=== PATIENT | male | born 1965 | race Caucasian/White ===

== ENCOUNTER 2024-02-13 11:41 | Emergency (ER) | payer SELFPAY ==
[2024-02-13 12:31] LABS: % Basophils 2.2 % (0-2); % Eosinophils 5.6 % (0-6); % Immature Granulocytes 0.3 % (0-0.5); % Lymphocytes 32.6 % (20.5-51.1); % Monocytes 5.8 % (1.7-9.3); % Neutrophils 53.5 % (42.2-75.2); Absolute Basophils 0.1 10^3/uL (0-0.2); Absolute Eosinophils 0.2 10^3/uL (0-0.7); Absolute Lymphocytes 1.2 10^3/uL (1.2-3.4); Absolute Monocytes 0.2 10^3/uL (0.1-0.6); Absolute Neutrophils 1.9 10^3/uL (1.4-6.5); Hematocrit 36.4 % (39.0-52.0); Hemoglobin 12.5 g/dL (13.0-18.0); Mean Corp Hgb Conc. 34.3 g/dL (33.0-37.0); Mean Corpuscular Hgb 28.9 pg (27.0-31.0); Mean Corpuscular Volume 84.3 fL (80.0-94.0); Mean Platelet Volume 9.4 fL (7.4-10.4); Nucleated Red Blood Cells % 0 % (-); Platelet Count 188 10^3/uL (130-400); Red Blood Cell Count 4.32 10^6/uL (4.70-6.10); Red Cell Dist. Width 16.6 % (11.5-14.5); White Blood Cell Count 3.6 10^3/uL (4.8-10.8)
[2024-02-13 13:03] LABS: ALT (SGPT) 31 U/L (0-50); AST (SGOT) 100 U/L (17-59); Acetaminophen < 10 ug/ml (10-30); Albumin 3.8 g/dl (3.5-5.0); Alkaline Phosphatase 164 U/L (38-126); Blood Urea Nitrogen 11 mg/dl (9-20); Carbon Dioxide 21 mmol/L (22-30); Chloride 112 mmol/L (98-107); Glucose 116 mg/dl (70-99); Magnesium 1.7 mg/dl (1.6-2.3); Potassium 3.3 mmol/L (3.5-5.1); Salicylate < 1.0 mg/dl (2.0-20.0); Sodium 152 mmol/L (135-145); Total Bilirubin 1.6 mg/dl (0.2-1.3); Total Protein 7.2 g/dl (6.3-8.2); eGFR > 60.00
[2024-02-13 13:12] LABS: COVID-19 Antigen Negative (Negative)
--- NOTE | 2024-02-13 13:16 | ED.GENMED ---
History of Present Illness
General
Chief Complaint: Psychiatric Problem
Source: patient and police
Exam Limitations: none
Time Seen by Provider: 02/13/24 12:01
Nursing documentation reviewed up to this point in time: agreed with
History of Present Illness
History of Present Illness:
58-year-old male with a past medical history of asthma/bronchitis, GERD, alcohol use who presents to the emergency room in police custody for psychiatric treatment�patient currently agreeable to treatment but mother is filing a 302 as a backup. The
patient is a very poor historian�he appears to be acutely manic. According to police report/mother patient has not been sleeping recently. He has been expressing suicidal ideation. He has had very erratic behavior. Concerned that he is not
caring for himself and that he is a danger to himself and so he was brought in for psychiatric treatment. He does have a history of alcohol abuse. Patient for his part denies alcohol use. He says that he feels fine. He denies suicidality to me
but clearly is responding to internal stimuli and is behaving very erratically.
Past History
Past History
ED Past Medical History: Asthma
ED Past Surgical History: Cholecystectomy
Social History
Tobacco: Smoker
Alcohol: Chronic alcoholic
Personal: Single
Living: with family
Review of Systems
Review of Systems
All Other Systems: ROS reviewed and negative except as documented in HPI and ROS
Constitutional: Denies fever
Respiratory: Denies trouble breathing
Cardiac: Denies chest pain
ABD/GI: Denies abdominal pain
: Denies flank pain
Musculoskeletal: Denies neck pain or back pain
Neurological: Denies headache
Phy Exam
Physical Exam
Physical Exam:
General: Awake, alert; nontoxic
Head: Normocephalic, atraumatic
Eyes: Conjunctiva normal, pupils equal round and reactive to light bilaterally
Throat: Airway intact, handling secretions
Neck: Trachea midline
Lungs: Clear to auscultation bilaterally, no wheezing, rales, rhonchi
Heart: Regular rate and rhythm, no murmurs, gallops, or rubs
Abd: Soft, non distended, nontender
Neuro: No gross deficits
Skin: no rash
Extremities: No edema in extremities, equal pulses in all extremities
Psych: 'Fine' mood, pressured speech, labile affect
Scores
Heart Failure Risk
Heart Failure Risk Score: Not Applicable
Heart Score for Chest Pain Patients
STEMI patient?: Not applicable
Withdrawal Assessment of Alcohol
Withdrawal Assessment Completed?: Not applicable
Course
Orders/Labs/Results
Orders:
Orders
02/13/24 12:02
Drug Screen, Urine [Urine Drug Abuse Screen] Urgent
Urinalysis Reflex To Culture Urgent
02/13/24 12:03
Crisis Consult Routine
Reason for Consult: suicidal, manic
02/13/24 12:23
Acetaminophen Urgent
Alcohol Urgent
COVID-19 Antigen Urgent
Source: Nasal Swab
Complete Blood Count/With Diff Urgent
Comprehensive Metabolic Panel Urgent
Magnesium Urgent
Salicylate Urgent
02/13/24 13:09
Asenapine Sublingual [Saphris] 10 mg SL NOW STA
02/13/24 13:10
Potassium Chloride [KCl] 40 meq PO NOW STA
02/13/24 13:13
Haloperidol Lactate [Haldol] 5 mg IM NOW STA
02/13/24 13:14
Haloperidol Lactate [Haldol] 5 mg .ROUTE .STK-MED ONE
Midazolam HCl [Versed] 5 mg .ROUTE .STK-MED ONE
02/13/24 13:21
Midazolam HCl [Versed] 5 mg IM NOW STA
02/13/24 13:26
0.9% Sodium Chloride 1000 ml [Nss] 1,000 ml Mvi, Adult [Multivitamin] 10 ml Thiamine Injection 100 mg IV 125 mls/hr
0.9% Sodium Chloride 500 ml [Nss] 500 ml IV BOLUS
Abnormal Lab Results
02/13/24
12:23
WBC 3.6 L 10^3/uL
(4.8-10.8)
RBC 4.32 L 10^6/uL
(4.70-6.10)
Hgb 12.5 L g/dL
(13.0-18.0)
Hct 36.4 L %
(39.0-52.0)
RDW 16.6 H %
(11.5-14.5)
Basophils % 2.2 H %
(0-2)
Sodium 152 H mmol/L
(135-145)
Potassium 3.3 L mmol/L
(3.5-5.1)
Chloride 112 H mmol/L
(98-107)
Carbon Dioxide 21 L mmol/L
(22-30)
Glucose 116 H mg/dl
(70-99)
Total Bilirubin 1.6 H mg/dl
(0.2-1.3)
AST 100 H U/L
(17-59)
Alkaline Phosphatase 164 H U/L
(38-126)
Salicylates < 1.0 L mg/dl
(2.0-20.0)
Acetaminophen < 10 L ug/ml
(10-30)
02/13/24 12:23
02/13/24 12:23
Vital Signs
Initial and Last Documented VS:
Initial Vital Signs
Temp Pulse Resp Pulse Ox
36.8 C 86 16 98
02/13/24 11:45 02/13/24 11:45 02/13/24 11:45 02/13/24 11:45
Last Documented Vital Signs
Temp Pulse Resp Pulse Ox
36.8 C 86 16 98
02/13/24 11:45 02/13/24 11:45 02/13/24 11:45 02/13/24 11:45
MDM/Problems Addressed
Differential Diagnosis Includes:
Angelica, psychosis, drug/alcohol intoxication
MDM/Problems Addressed:
58-year-old male presents to the emergency room police custody on a 201 at present for apparent angelica and suicidal threats. Mother filing a backup 302 with crisis team. He has no complaints; for his part he denies any suicidality. Vitals and exam
as above. Check labs including a CBC and a CMP, tox screen. Case discussed with crisis team or consulting. Patient currently calm and redirectable. Monitor on 1:1. Reassess after the above.
Patient becoming acutely agitated, running out of his room, screaming at the top of his lungs. Attempts at verbal redirection unsuccessful. With escalating behavior will provide chemical sedation with Versed and Haldol for patient and staff
safety. Continue to monitor. Provide some fluids and check screening EKG for QTc monitoring.
Labs reviewed: CBC shows marginal anemia, marginal leukopenia. CMP shows mild hyperkalemia, hypokalemia. Provide potassium, fluids. Tylenol and salicylate levels negative. UDS and alcohol levels pending. 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 Continue to monitor pending placement.
Chronic conditions affecting care:
Alcohol use
*Pulse Oximetry
Patient hypoxic: no
*EKG
Interpreted by ED Provider?: Yes
Heart Rate: 73
Rate: normal
Rhythm: sinus
Coolidge: left axis deviation
Interval: normal interval and normal QT interval
QRS Pattern: normal QRS
Ischemia: no ischemia
*Critical Care Note
Total Time (30-74mins, 75-104mins- exclusive of procedures): Not Applicable
Data Reviewed
Source: patient, family and police
Patient Management
Social determinants of health affecting care: Substance abuse
Discussion with other providers: Other (Discussed with crisis staff)
ED Attending Note
-
Portions of this chart may have been created with voice recognition software.� Occasional wrong word or��sound alike� substitutions may have occurred due to the inherent limitations of voice recognition software.
Discharge Plan
Departure
Patient Disposition: Psych Facility
Date of Disposition: 02/13/24
Time of Disposition: 12:28
Discharge Problem:
Angelica, Verbalizes suicidal thoughts
Prescriptions:
No Action
No Current Medications
0
Referrals:
Louis Coyle MD [Family Provider] -
Interventions
Interventions:
*Risk Screen - Suicide Last Done: 02/13/24 11:48
ED-Psychological Assessment Last Done: 02/13/24 12:26
Discharge Date and Time
Print Language: [id number]
[2024-02-13] MEDS: VERSED 5 MG IM (13:23)
[2024-02-13] MEDS: HALDOL 5 MG IM (13:24)
[2024-02-13 14:09] VITALS: BP 124/76
[2024-02-13] MEDS: NSS 500 IV (14:11)
[2024-02-13 14:14] LABS: Alcohol 383 mg/dl
[2024-02-13] MEDS: MULTIVITAMIN 1011 MG IV (15:01)
[2024-02-13] MEDS: MULTIVITAMIN 1011 ML IV (15:01)
[2024-02-13] MEDS: ATIVAN 1 MG IV (15:38)
[2024-02-13] MEDS: BENADRYL 25 MG IV (15:38)
[2024-02-13 16:00] VITALS: BP 135/76
--- NOTE | 2024-02-13 16:40 | W.PN.UPDATE ---
Update Note
Progress Note Update
Pt seen for 302 exam, allegedly slamming doors and yelling at home, allegedly made a general statement about suicide. Upon exam, pt lying stretcher, unkempt, with rambling speech, c/o his mother doesn't like getting older, that he does everything
for the house... Alcohol level here- 383 at 12:23 pm. Pt denies suicidal ideation. He declines any treatment or services. Pt shows no signs of psychosis; presentation is consistent with alcohol intoxication.
Imp: Alcohol abuse, with intoxication
Rec: [id number] not upheld due to presenting with alcohol intoxication and lack of severity of pt's alleged behaviors
--- NOTE | 2024-02-13 17:14 | ED.GENMED ---
History of Present Illness
General
Chief Complaint: Psychiatric Problem
Time Seen by Provider: 02/13/24 12:01
Past History
Past History
ED Past Medical History: Asthma
ED Past Surgical History: Cholecystectomy
Social History
Tobacco: Smoker
Alcohol: Chronic alcoholic
Personal: Single
Living: with family
Course
Orders/Labs/Results
Orders:
Orders
02/13/24
Electrocardiogram (*1) Stat
Comment: DONE EMR
02/13/24 12:02
Drug Screen, Urine [Urine Drug Abuse Screen] Urgent
Urinalysis Reflex To Culture Urgent
02/13/24 12:03
Crisis Consult Routine
Reason for Consult: suicidal, manic
02/13/24 12:23
Acetaminophen Urgent
Alcohol Urgent
COVID-19 Antigen Urgent
Source: Nasal Swab
Complete Blood Count/With Diff Urgent
Comprehensive Metabolic Panel Urgent
Magnesium Urgent
Salicylate Urgent
02/13/24 13:09
Asenapine Sublingual [Saphris] 10 mg SL NOW STA
02/13/24 13:10
Potassium Chloride [KCl] 40 meq PO NOW STA
02/13/24 13:13
Haloperidol Lactate [Haldol] 5 mg IM NOW STA
02/13/24 13:14
Haloperidol Lactate [Haldol] 5 mg .ROUTE .STK-MED ONE
Midazolam HCl [Versed] 5 mg .ROUTE .STK-MED ONE
02/13/24 13:21
Midazolam HCl [Versed] 5 mg IM NOW STA
02/13/24 13:26
0.9% Sodium Chloride 500 ml [Nss] 500 ml IV BOLUS
02/13/24 15:00
One to One Observation - Suicide/Violent [1:1 Observation - Suicide/ Violent Behavior] As Directed
0.9% Sodium Chloride 1000 ml [Nss] 1,000 ml Mvi, Adult [Multivitamin] 10 ml Thiamine Injection 100 mg IV 125 mls/hr
02/13/24 15:30
Diphenhydramine [Benadryl] 25 mg IV NOW STA
Haloperidol Lactate [Haldol] 2.5 mg IV NOW STA
Lorazepam [Ativan] 1 mg IV NOW STA
Abnormal Lab Results
02/13/24
12:23
WBC 3.6 L 10^3/uL
(4.8-10.8)
RBC 4.32 L 10^6/uL
(4.70-6.10)
Hgb 12.5 L g/dL
(13.0-18.0)
Hct 36.4 L %
(39.0-52.0)
RDW 16.6 H %
(11.5-14.5)
Basophils % 2.2 H %
(0-2)
Sodium 152 H mmol/L
(135-145)
Potassium 3.3 L mmol/L
(3.5-5.1)
Chloride 112 H mmol/L
(98-107)
Carbon Dioxide 21 L mmol/L
(22-30)
Glucose 116 H mg/dl
(70-99)
Total Bilirubin 1.6 H mg/dl
(0.2-1.3)
AST 100 H U/L
(17-59)
Alkaline Phosphatase 164 H U/L
(38-126)
Salicylates < 1.0 L mg/dl
(2.0-20.0)
Acetaminophen < 10 L ug/ml
(10-30)
02/13/24 12:23
02/13/24 12:23
Vital Signs
Initial and Last Documented VS:
Initial Vital Signs
Temp Pulse Resp Pulse Ox
98.2 F 86 16 98
02/13/24 11:45 02/13/24 11:45 02/13/24 11:45 02/13/24 11:45
Last Documented Vital Signs
Temp Pulse Resp BP Pulse Ox
98.2 F 71 19 135/76 97
02/13/24 11:45 02/13/24 16:00 02/13/24 16:00 02/13/24 16:00 02/13/24 16:00
Update Note
Update Note:
Patient is cleared by crisis for discharge.
ED Attending Note
-
Portions of this chart may have been created with voice recognition software.� Occasional wrong word or��sound alike� substitutions may have occurred due to the inherent limitations of voice recognition software.
Discharge Plan
Departure
Patient Disposition: Home (Routine Discharge)
Date of Disposition: 02/13/24
Time of Disposition: 12:28
Patient with high blood pressure during this ER visit?: No
Condition: Fair
Covid-19: Not Applicable
Discharge Problem:
Angelica, Alcohol abuse
Instructions: Alcohol Use Disorder (DC)
Prescriptions:
No Action
No Current Medications
0
Referrals:
Louis Coyle MD [Family Provider] - Follow up in 2-3 days
Interventions
Interventions:
*Risk Screen - Suicide Last Done: 02/13/24 11:48
*General Assessment Last Done: 02/13/24 15:56
*Neglect/Abuse Screening Last Done: 02/13/24 15:56
ED- Fall Risk Assessment Last Done: 02/13/24 15:57
*ED COVID-19 Vaccine History Last Done: 02/13/24 15:56
ED-Psychological Assessment Last Done: 02/13/24 15:57
Discharge Date and Time
Print Language: OCCITAN
[2024-02-13 17:59] VITALS: BP 129/76
== END 2024-02-13 18:00 | disposition home or self-care (01) ==
LOC: EMR 11:41
PROVIDERS: EMERGENCY PHYSICIAN Emergency Medicine; FAMILY PHYSICIAN Family Medicine
DX: R45.851 Suicidal ideations (principal); J45.909 Unspecified asthma, uncomplicated; K21.9 Gastro-esophageal reflux disease without esophagitis; F10.129 Alcohol abuse with intoxication, unspecified; F17.200 Nicotine dependence, unspecified, uncomplicated; Z90.49 Acquired absence of other specified parts of digestive tract
CPT/HCPCS: 99283; 80053; 80143; 80179; 82077; 83735; 85025; 87811; 93005

== ENCOUNTER 2024-07-05 20:47 | Inpatient (IN) | payer OTHER, SELFPAY ==
[2024-07-05] VITALS (30 sets, daily range): BP systolic 103–144; BP diastolic 40–113; BMI 27.3
--- NOTE | 2024-07-05 19:06 | ED.GENMED ---
History of Present Illness
General
Chief Complaint: Change in Mental Status
Time Seen by Provider: 07/05/24 19:05
History of Present Illness
History of Present Illness:
TIME OF INITIAL ENCOUNTER:6:55 PM
HPI: The patient has a history of schizoaffective disorder and alcohol use disorder. I spoke to EMS for history upon arrival. He apparently lives with his elderly mother. She told EMS that the patient has had major change in mental status. It is
noted that he had massive amount of melena at the scene and upon arrival. He is essentially a nonhistorian at this time. EMS states that he was drinking a 'black poppyseed mixture'. EMS said that he was tachycardic and slightly hypertensive prior
to arrival. He was given 5 mg of IM Versed due to agitation prior to arrival.
EXAM:
GENERAL: The patient is ill-appearing and obtunded, very pale
HEENT: Moist oral mucosa, pupils are 4 mm and reactive
CARDIOVASCULAR: No murmurs, tachycardic heart rate, regular rhythm, No chest wall tenderness
PULMONARY: No respiratory distress, some coarse breath sounds noted
ABDOMEN: Soft with no peritoneal signs, no tenderness, large amount of melena noted
NEUROLOGIC: Incomprehensible sounds at times, does not appear to be oriented, equal strength in all extremities, responds to pain
PSYCHIATRIC: Poor insight and judgement
EXTREMITIES: Nontender, no edema, moves all extremities equally
SKIN: Very pale
NUMBER AND COMPLEXITY OF PROBLEMS ADDRESSED AT THE ENCOUNTER
� Chronic conditions affecting care: Asthma, GERD, history of alcohol abuse, schizoaffective disorder
� Acute Exacerbation and/or Progression of Chronic Illness: This is an acute problem
� Differential Diagnosis includes: Upper GI bleed, alcoholism, psychiatric disturbance, drug use
AMOUNT AND/OR COMPLEXITY OF DATA TO BE REVIEWED AND ANALYZED
� I performed an independent evaluation of and my interpretation is:
EKG: Sinus 101, left axis deviation, nonspecific ST abnormality
CT:
X-rays: Chest x-ray shows that the endotracheal tube tip is at the bertha�we have pulled back 1 cm
Laboratory Studies: White count 1110.6, hemoglobin 4.9 down from 12.5 in January, alcohol level undetected
Other:
� Review of other/old records: I reviewed records, the patient was seen here related to alcohol abuse this past January. At that time he made a vague statement about suicide and a 302 was petitioned but not upheld due to the
alcohol use.
� Clinical information was obtained by an independent historian: I spoke to the mother at 7:30 PM. I informed her of the patient's clinical status including the need for intubation to protect his airway. She gave informed
verbal consent over the phone for blood transfusion emergently. Of note, mother gives verbal consent to allow the patient's girlfriend, Tg Aguilar to be able to receive his medical information.
� Prescriptions/Medications Considered but not given:
� Further testing considered but not performed:
RISK OF COMPLICATIONS AND/OR MORBIDITY OR MORTALITY OF PATIENT MANAGEMENT
� Social determinants of health affecting care: Lives at home with mother, records show that he has a history of alcohol abuse
� Discussion with other providers: Notified GI, Dr. Patino, at 7:49 PM of patient's presentation I also notified hospitalist for need for admission, Dr. Alfredo. I spoke to pharmacy who recommends against [facility]. I did order
vitamin K.
� Escalation of care including admission/observation vs risk of discharge considered: Patient arrived obtunded, markedly altered and had massive amount of melena noted upon arrival. Old records show that he does have a history
of alcohol abuse. Ordered 80 mg of IV Protonix. He was intubated difficulty for airway protection. Will emergently give blood.
ANY OTHER UPDATES:
7:50 PM: Patient intubated and sedated. Some minor hematemesis noted which has been suctioned. Based on my review of the chest x-ray, I did pull back the tube 1 cm from 24 cm at the lip to 23 cm at the lip.
The patient was given blood emergently. He has remained normotensive but tachycardic.
Past History
Past History
ED Past Medical History: Asthma
ED Past Surgical History: Cholecystectomy
Social History
Tobacco: Smoker
Alcohol: Chronic alcoholic
Personal: Single
Living: with family
Phy Exam
Physical Exam
Physical Exam:
See HPI
Course
Orders/Labs/Results
Orders:
Orders
07/05/24 19:05
0.9% Sodium Chloride 1000 ml [Nss] 1,000 ml IV BOLUS
Pantoprazole [Protonix IV] 80 mg IV NOW STA
07/05/24 19:13
Type+Screen Urgent
Alcohol Urgent
Complete Blood Count/With Diff Urgent
Comprehensive Metabolic Panel Urgent
Lipase Urgent
PTT Urgent
Prothrombin Time Urgent
Triglycerides Urgent
07/05/24 19:25
Chest X-ray Portable [CR Chest Portable - 1 View] Stat
Comment:
Reason For Exam: intubation
Reason Study Needs to be Portable: Unable to Transport
07/05/24 19:27
* Blood Bank Products Urgent
Blood Bank Products: *Packed RBC Leuko(PRBC's)
Quantity: 3
Transfuse Today: Yes
Reason: Bleeding
Patient will require pre-treatment for transfusion:: No
Etomidate [Amidate 20 mg] 20 mg IV NOW STA
Succinylcholine Chloride [Anectine] 100 mg IV NOW STA
07/05/24 19:28
Propofol 1,000,000 Mcg/100 ml [Diprivan] 1,000,000 mcg in 100 ml .ROUTE .STK-MED
07/05/24 19:30
FentaNYL 1,000 MCG/100 ML [Sublimaze] 1,000 mcg in 100 ml .ROUTE .STK-MED
07/05/24 19:31
Fentanyl Citrate/Pf [Sublimaze] 50 mcg IV [id number] PRN
Fentanyl Citrate/Pf [Sublimaze] 80 mcg IV NOW STA
07/05/24 19:32
Propofol [Diprivan] 20 ml .ROUTE .STK-MED
07/05/24 19:45
FentaNYL 1,000 MCG/100 ML [Sublimaze] 1,000 mcg in 100 ml IV PER PROTOCOL
Indication:: Deep Sedation
Begin Infusion:: Now
Goal:: RASS </= -3, BIS 40-60, ventilator synchrony
Maximum dose in mcg/hr:: 300
Initial Dose in mcg/hr:: 50
Titration Instructions:: Titrate Q30 min until ventilator synchrony, RASS or BIS goal is met.
Titration Instructions:: If RASS >/= -2 or BIS > 60 or ventilator dyssynchrony:
Titration Instructions:: administer bolus dose and increase infusion by 25 mcg/hr.
Titration Instructions:: Administer analgesia bolus dose(s) & titrate analgesia prior to
Titration Instructions:: adjusting sedation.
Over-sedation Instructions:: if BIS < 40 and pt is synchronous with ventilator, decrease infusion by
Over-sedation Instructions:: 25 mcg/hr every 2 hours until BIS = 40-60.
Over-sedation Instructions:: Do not wean infusion to off if patient is receiving a continuous NMBA or
Over-sedation Instructions:: has received a bolus dose of NMBA within the past 3 hours.
Notify provider:: immediately if pt exhibits signs/symptoms of chest wall rigidity,
Notify provider:: hemodynamic instability, or agitation/pain despite maximum dosing.
Additional Instructions:: Patient MUST be mechanically ventilated.
Propofol 1,000,000 Mcg/100 ml [Diprivan] 1,000,000 mcg in 100 ml IV PER PROTOCOL
Indication:: Deep Sedation
Begin Infusion:: Now
Goal:: RASS -3 to -5 or BIS < 60 or ventilator synchrony
Maximum dose in mcg/kg/min:: 50
Initial dose based on RASS:: Yes
If RASS is:: +1 or pt hemodynamically unstable (SBP < 90mmHg), initiate at 10 mcg/kg/min
If RASS is:: +2, initiate at 20 mcg/kg/min
If RASS is:: greater than or equal to +3, initiate at 30 mcg/kg/min
Titration Instructions:: Titrate by 5-10 mcg/kg/min every 5 minutes until RASS -3 to -5 or
Titration Instructions:: BIS < 60 or ventilator synchrony is met.
Titration Instructions:: Administer analgesia bolus dose(s) & titrate analgesia prior to
Titration Instructions:: adjusting sedation.
Taper Instructions:: If RASS is at or below goal for 4 consecutive hours decrease infusion by
Taper Instructions:: 5-10 mcg/kg/min every 2 hours. Do not wean infusion to off if patient is
Taper Instructions:: receiving a continuous NMBA or has received bolus NMBA with the past 3 hrs
Over-sedation Instructions:: If BIS < 40 and synchronous with ventilator decrease infusion by
Over-sedation Instructions:: 5-10 mcg/kg/min every 2 hour until BIS = 40-60.
Notify provider:: immediately if patient exhibits signs/symptoms of propofol-related
Notify provider:: infusion syndrome.
Additional Instructions:: Patient MUST be mechanically ventilated and MUST receive analgesia.
07/05/24 19:55
Electrocardiogram (*1) Urgent
Reason for Study: Syncope
EKG- Treatment ONCE
07/05/24 20:09
Phytonadione [Aquamephyton] 10 mg 0.9% Sodium Chloride 50 ml [Nss] 50 ml IV NOW
07/05/24 20:23
Admit/Transfer Patient As Directed
Co-Sign Provider:
Level of Care: Inpatient admission
Assign to:: ICU
Physician / Group: Juni
Diagnosis: GI Bleed, Acute Blood Loss Anemia, Acute TME
Reason for Hospitalization: GI Bleed, Acute Blood Loss Anemia, Acute TME
Expected length of stay greater than two midnights?: Yes
ELOS- Estimated Length of Stay in days: 4
I certify the patient meets the requirements for IP care: Yes
PRN Pain Medication Management As Directed
May give lesser potent ordered pain med per pt: Yes
preference::
Protocol:: Medication orders for pain may be administered in a
manner that supports deferring to patient preference
when the pt is:
- Requesting an ordered lesser potent pain medication.
Least to most potent pain medications are defined
as: acetaminophen < NSAID < tramadol < opioids
(morphine, oxycodone, hydromorphone).
- Requesting a lesser dose of the same medication IF
ORDERED.
- Requesting a less intrusive route of administration
if both routes are prescribed by the provider (PO <
IV).
07/05/24 20:24
Code Status As Directed
Resuscitation Status: Full Code
07/05/24 22:04
Ammonia Urgent
Urine Drug Abuse Screen Urgent
Date Specimen was Collected: 07/05/24
Time Specimen was Collected: 21:47
07/06/24 08:00
Polyethylene Glycol Powder [Miralax] 17 grams TUBE DAILY
07/08/24 06:00
Triglycerides Q3D
Comment: every 72 hours while patient is on propofol
07/11/24 06:00
Triglycerides Q3D
Comment: every 72 hours while patient is on propofol
07/14/24 06:00
Triglycerides Q3D
Comment: every 72 hours while patient is on propofol
Abnormal Lab Results
07/05/24
19:13
RBC 1.71 L 10^6/uL
(4.70-6.10)
Hgb 4.9 L* g/dL
(13.0-18.0)
Hct 15.4 L* %
(39.0-52.0)
MCHC 31.8 L g/dL
(33.0-37.0)
RDW 17.4 H %
(11.5-14.5)
Abs Immat Gran (auto) 0.1 H 10^3/uL
(0-0.05)
Absolute Neuts (auto) 8.6 H 10^3/uL
(1.4-6.5)
Absolute Monos (auto) 0.7 H 10^3/uL
(0.1-0.6)
Immature Gran % 0.8 H %
(0-0.5)
Neutrophils % 81.3 H %
(42.2-75.2)
Lymphocytes % 11.1 L %
(20.5-51.1)
PT 25.5 H Sec
(11.4-14.6)
Chloride 110 H mmol/L
(98-107)
BUN 59 H mg/dl
(9-20)
Glucose 131 H mg/dl
(70-99)
Calcium 8.1 L mg/dl
(8.4-10.2)
Total Bilirubin 2.0 H mg/dl
(0.2-1.3)
AST 60 H U/L
(17-59)
Total Protein 4.8 L g/dl
(6.3-8.2)
Albumin 2.2 L g/dl
(3.5-5.0)
Lipase 357 H U/L
(23-300)
Crossmatch IS Only See Detail
07/05/24 19:13
07/05/24 19:13
Vital Signs
Initial and Last Documented VS:
Initial Vital Signs
Temp Pulse Resp BP Pulse Ox
37.1 C 121 17 138/113 100
07/05/24 19:05 07/05/24 19:05 07/05/24 19:05 07/05/24 19:05 07/05/24 19:05
Last Documented Vital Signs
Temp Pulse Resp BP Pulse Ox
36.2 C 106 22 140/40 100
07/05/24 21:29 07/05/24 21:29 07/05/24 21:29 07/05/24 21:29 07/05/24 21:09
Procedures
Intubations
Procedure completed by: Co, Dr. Powell
Method of Intubation: glidescope
Tube size (cm): 8.0
Placement confirmed by: capnography
Breath sounds after intubation: equal
Intubation complications: no complications
*Critical Care Note
Total Time (30-74mins, 75-104mins- exclusive of procedures): 60 minutes
comment:
The patient was seen immediately upon arrival and was critically ill in appearance. He is very pale and has a marked drop in hemoglobin. Emergently gave blood as well as Protonix. Vital signs closely monitored. NG tube placed.
ED Attending Note
-
Portions of this chart may have been created with voice recognition software.� Occasional wrong word or��sound alike� substitutions may have occurred due to the inherent limitations of voice recognition software.
Discharge Plan
Departure
Patient Disposition: Admit
Date of Disposition: 07/05/24
Time of Disposition: 19:51
Presentation/result/management discussed w/ accepting MD/DO: Hospitalist
Discharge Problem:
Acute upper gastrointestinal bleeding
[2024-07-05 19:28] LABS: % Immature Granulocytes 0.8 % (0-0.5); % Lymphocytes 11.1 % (20.5-51.1); % Monocytes 6.8 % (1.7-9.3); % Neutrophils 81.3 % (42.2-75.2); Absolute Immature Granulocytes 0.1 10^3/uL (0-0.05); Absolute Lymphocytes 1.2 10^3/uL (1.2-3.4); Absolute Monocytes 0.7 10^3/uL (0.1-0.6); Absolute Neutrophils 8.6 10^3/uL (1.4-6.5); Hematocrit 15.4 % (39.0-52.0); Hemoglobin 4.9 g/dL (13.0-18.0); Mean Corp Hgb Conc. 31.8 g/dL (33.0-37.0); Mean Corpuscular Hgb 28.7 pg (27.0-31.0); Mean Corpuscular Volume 90.1 fL (80.0-94.0); Mean Platelet Volume 10.2 fL (7.4-10.4); Nucleated Red Blood Cells % 0 % (-); Platelet Count 229 10^3/uL (130-400); Red Blood Cell Count 1.71 10^6/uL (4.70-6.10); Red Cell Dist. Width 17.4 % (11.5-14.5); White Blood Cell Count 10.6 10^3/uL (4.8-10.8)
[2024-07-05 19:36] LABS: INR 2.27; PT 25.5 Sec (11.4-14.6)
[2024-07-05 19:37] LABS: APTT 31.9 Sec (23.4-35.0)
[2024-07-05 19:42] LABS: AST (SGOT) 60 U/L (17-59); Albumin 2.2 g/dl (3.5-5.0); Alkaline Phosphatase 74 U/L (38-126); Blood Urea Nitrogen 59 mg/dl (9-20); Calcium 8.1 mg/dl (8.4-10.2); Carbon Dioxide 23 mmol/L (22-30); Chloride 110 mmol/L (98-107); Estimated Creatinine Clearance 71 ml/min; Glucose 131 mg/dl (70-99); Lipase 357 U/L (23-300); Potassium 4.4 mmol/L (3.5-5.1); Sodium 141 mmol/L (135-145); Total Protein 4.8 g/dl (6.3-8.2); eGFR > 60.00
[2024-07-05 19:45] LABS: Alcohol None Detected
[2024-07-05 19:51] LABS: ALT (SGPT) 36 U/L (0-50)
[2024-07-05] MEDS: SUBLIMAZE 100 IV (20:08)
[2024-07-05] MEDS: NSS 1000 IV (20:15)
[2024-07-05] MEDS: DIPRIVAN 100 IV (20:17)
[2024-07-05] MEDS: PROTONIX IV 80 MG IV (20:17)
[2024-07-05 20:21] LABS: Triglycerides 83 mg/dl (10-149)
[2024-07-05] MEDS: SUBLIMAZE 80 MCG IV (20:31)
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
[2024-07-05] MEDS: AMIDATE 20 MG IV (20:46)
[2024-07-05] MEDS: AQUAMEPHYTON 51 MG IV (20:48)
[2024-07-05 22:15] LABS: B.E. -2.5 mmol/L; HCO3 20.9 mmol/L (21-28); PCO2 28 mmHg (35-48); PO2 111 mmHg (83-108); pH 7.48 (7.35-7.45)
[2024-07-05] MEDS: ANECTINE 100 MG IV (22:20)
[2024-07-05 22:40] LABS: Amphetamines Negative (Negative); Barbiturates Negative (Negative); Benzodiazepines Negative (Negative); Buprenorphine Negative (Negative); Cocaine Negative (Negative); Marijuana Negative (Negative); Methadone Negative (Negative); Methamphetamines Negative (Negative); Opiates Positive (Negative); Phencyclidine Negative (Negative); Tricyclic Antidepressants Negative (Negative)
[2024-07-05 22:52] LABS: Ammonia 92 umol/L (9-30)
[2024-07-05 22:56] LABS: Fentanyl, Urine Positive (Negative)
[2024-07-05] MEDS: SUBLIMAZE 50 MCG IV (23:00)
[2024-07-05] MEDS: VERSED 5 MG IV (23:15)
[2024-07-05] MEDS: PROTONIX 100 IV (23:49)
[2024-07-05] MEDS: SANDOSTATIN 500.6 MCG IV (23:50)
[2024-07-06] VITALS (62 sets, daily range): BP systolic 14–140; BP diastolic 52–105; BMI 25.5
[2024-07-06] MEDS: LR 1000 IV ×3 (00:12→18:17)
[2024-07-06] MEDS: DIPRIVAN 100 IV ×4 (00:12→18:17)
--- NOTE | 2024-07-06 01:18 | PTCARENOTE ---
Received patient from Ed around 2300. Patient intubated in ED, vent settings 14/450/5/30%, pox ranging from 98-100%. Receiving 1st of 3u PRBCs upon arrival to [facility]. Patient agitated upon arrival to ICU, was administered Versed at that time. HRR,
Lungs diminished thoughout, bs active x4 abdomen distended and firm. NG tube in place and attached to low intermittent suction per order. Noted to have dark red/maroon drainage to suction. ETT 8mm at 23, centered. Zhou catheter in place, draining
clear, yellow urine. Core temp afebrile at 97.3. Patient incontinent of small amount of dark tarry bm, care provided and ointment applied. Patient in 2 point restraints upon arrival, increased to 4 point due to physical agitation and attempts to
remove ETT. 1st unit completed not long after arrival to ICU, RN sent for 2nd unit PRBCs, currently running without concern. Patient calmer at this time, will continue to monitor. Current fluids: LR, Octreotide, Protonix gtt, Fentanyl gtt, Propofol
gtt, see documentation for dosing.
--- NOTE | 2024-07-06 03:29 | PTCARENOTE ---
2nd unit of PRBCs completed without concern. 3rd unit of PRBCs running at this time. Patient repositioned, will continue to monitor.
[2024-07-06] MEDS: PROTONIX 100 IV ×3 (05:47→16:30)
[2024-07-06 07:11] LABS: Venous Blood Gas B.E. -0.2 mmol/L (-4 to +4); Venous Blood Gas HCO3 24.8 mmol/L (22-27); Venous Blood Gas O2 Sat % 98.9 %; Venous Blood Gas pCO2 41 mmHg (35-48); Venous Blood Gas pH 7.39 (7.32-7.43); Venous Blood Gas pO2 106 mmHg (30-50)
[2024-07-06 07:14] LABS: Hematocrit 27.4 % (39.0-52.0); Hemoglobin 9.4 g/dL (13.0-18.0); Mean Corp Hgb Conc. 34.3 g/dL (33.0-37.0); Mean Corpuscular Hgb 30.2 pg (27.0-31.0); Mean Corpuscular Volume 88.1 fL (80.0-94.0); Red Blood Cell Count 3.11 10^6/uL (4.70-6.10); Red Cell Dist. Width 15.5 % (11.5-14.5); White Blood Cell Count 10.7 10^3/uL (4.8-10.8)
[2024-07-06 07:29] LABS: ALT (SGPT) 26 U/L (0-50); AST (SGOT) 51 U/L (17-59); Albumin 2.2 g/dl (3.5-5.0); Alkaline Phosphatase 70 U/L (38-126); Blood Urea Nitrogen 67 mg/dl (9-20); Calcium 7.7 mg/dl (8.4-10.2); Carbon Dioxide 22 mmol/L (22-30); Chloride 112 mmol/L (98-107); Direct Bilirubin 1.1 mg/dl (0.0-0.4); Estimated Creatinine Clearance 71 ml/min; Glucose 128 mg/dl (70-99); Magnesium 2.3 mg/dl (1.6-2.3); Phosphorus 3.6 mg/dl (2.5-4.5); Potassium 4.5 mmol/L (3.5-5.1); Sodium 142 mmol/L (135-145); Total Bilirubin 3.2 mg/dl (0.2-1.3); Total Protein 4.9 g/dl (6.3-8.2); Triglycerides 133 mg/dl (10-149); eGFR > 60.00
--- NOTE | 2024-07-06 07:33 | PTCARENOTE ---
Assumed care of pt. approx 0700.
Intubated/sedated. --> airway protection due to unresponsiveness w/o pulse loss.
Sedation gtt managed w/ --> diprivan/Fentanyl, see titration flowsheets for details.
-sedation weaning down due to lowered RASS scores, pt not following commands.
Trending H/H, night team H/H appears stable after 3 UPRBC given.
Remains on LR maint. fluid, Oct, and Protonix gtt.
Pt. noted to have severe decreased urine O/P. Oliguric.
Remains hemodynamically stable w.o vasopressor support at this time.
[2024-07-06 07:40] LABS: Mean Platelet Volume 10.3 fL (7.4-10.4); Platelet Count 95 10^3/uL (130-400)
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
[2024-07-06 07:55] LABS: TSH Reflex To Free T4 0.08 uIU/ml (0.47-4.68)
--- NOTE | 2024-07-06 08:08 | CON.GI ---
Addendum entered and electronically signed by Hattie Patino MD 07/06/24 10:11:
I saw and examined the patient.
The STRAIGHT LINE EDGER or PA's note was reviewed and I agree with the note.
Comment:
Pt is a 58 y/o man with a hx of cirrhosis dating back at least 5 yrs. Known by girlfriend and mother (spoke to both). His girlfriend states she had norovirus and believes he started getting sick. he then started getting confused and vomited
blood. he was sent to the hospital with melena. He reportedly doesn't like to see doctors, no known EGD or colonoscopy but a hx of alcoholism. Some intermittent nsaids but not regularly. In ER, intubated as he had a major change in MS. Hemoglobin
of 4.9 which increased appropriately with blood.
abd: soft, mildly distended
intubated, not responsive
impression
melena
anemia
hematemesis
cirrhosis
abnl lfts
?ascites
plan:
IV PPI and octreotide ggt
EGD and consent obtained from Nuvia (mother)
follow hgb and keep around 8
IV antibiotics
abdominal U/s
trend labs including coags
Original Note:
Consultation
-
Date/Time Consultation Requested: 07/05/24 5797
Date/Time Consultation Performed: 07/06/24 0750
Requesting Provider: Dr. Alfredo
Performing Provider: Dr. Patino/PHYLLIS Black
Reason for Consultation: GI Bleed
Medical History
Chief Complaint / HPI
Chief Complaint: poorly responsive, brown emesis
History of Present Illness:
(History obtained from the chart,, RN, as well as prior records from PCP dated 2019 as patient is intubated and sedated at present time) 58-year-old male who was brought to the emergency room after having episode of being poorly responsive by his
mother who he lives with. He had recent episodes of abdominal bloating and increased heartburn symptoms. He was having poor episodes of sleep on Tuesday evening then slept most of the day on Tuesday. Tuesday around 9 PM started having dark
brown emesis multiple episodes. Then having dark-colored loose stools. This continued throughout the most of the day and night. He could barely open his eyes and EMS was called. The patient was intubated and sedated in the ER for airway
protection. Prior records from PCP dated 2018 showed that he had history of alcoholism as well as cirrhosis and portal hypertension. Per current records he is currently not taking any medications however he is taking 'poppy seeds' for pain control
and has not seen a physician in many years. He vapes regularly. Has a prior history of alcohol abuse but is currently drinking per his girlfriend 'every once in a while'. There may also be a psychiatric disorder underlying as well. Since arrival
patient has had episodes of maroon blood per rectum. NG tube has had small amount of maroon drainage. Small amount of maroon drainage. Hemoglobin on presentation was 4.9. He was transfused 3 units of packed red blood cells and repeat hemoglobin
was 9.4. His prior hemoglobin in January was 12.5. Platelets 95, PT 25.5, INR 2.27, BUN 67, creatinine 1.1, total bilirubin 3.2, direct bilirubin 1.1, AST 51, ALT is 26, alk phos 70. Tox screen positive for opiates and fentanyl (however patient
did receive fentanyl IV 2 hours prior to tox screen). Per patient's girlfriend she had norovirus leading up to this and the patient also had episodes similar prior to his onset of symptoms. Patient takes very rare Advil. Has not seen a physician
in many years. Unknown history of endoscopy or colonoscopy.
Past Medical History
Past Medical History: Other (Cirrhosis, portal hypertension, chronic pain, bipolar)
Past Surgical History: Cholecystectomy and Other (Hernia repair)
Social History
Tobacco: Non-Smoker
Alcohol: Chronic Alcoholic (Quit, now drinks occasional)
Drug: None
Personal: Single
Living: With Family (Lives with mother)
Family History
Family History: Unable to Obtain
Allergies / Home Medications
Allergy/AdvReac Type Severity Reaction Status Date / Time
No Known Allergies Allergy Verified 07/05/24 19:20
�Medication �Instructions �Recorded
No Meds [No Current Medications] 07/05/24
Review of Systems
-
Unable to obtain full review of systems at this time due to: Patient Intubation
Vital Signs
Temp Pulse Resp BP Pulse Ox
96.7 F L 71 14 98/65 100
07/06/24 05:46 07/06/24 06:15 07/06/24 06:15 07/06/24 06:00 07/06/24 07:50
Physical Exam
Exam
General: Other (Patient intubated and sedated)
HEENT: Other (NG tube with scant amount of maroon output)
Respiratory: Clear
Cardiac: Regular Rhythm
GI: Soft, Non Distended and Normal Bowel Sounds
Rectal: Other (Stools maroon overnight per nursing)
Musculoskeletal: No Edema
Skin: Warm and Dry
Neuro: Sedated
Results
WBC 10.7 10^3/uL (4.8-10.8) 07/06/24 07:00
Hgb 9.4 g/dL (13.0-18.0) L D 07/06/24 07:00
Hgb Cancelled 07/06/24 07:00
Hct 27.4 % (39.0-52.0) L 07/06/24 07:00
Hct Cancelled 07/06/24 07:00
MCV 88.1 fL (80.0-94.0) 07/06/24 07:00
Plt Count 95 10^3/uL (130-400) L D 07/06/24 07:00
Absolute Neuts (auto) 8.6 10^3/uL (1.4-6.5) H 07/05/24 19:13
PT 25.5 Sec (11.4-14.6) H 07/05/24 19:13
INR 2.27 07/05/24 19:13
APTT 31.9 Sec (23.4-35.0) 07/05/24 19:13
Sodium 142 mmol/L (135-145) 07/06/24 07:00
Potassium 4.5 mmol/L (3.5-5.1) 07/06/24 07:00
Chloride 112 mmol/L (98-107) H 07/06/24 07:00
Carbon Dioxide 22 mmol/L (22-30) 07/06/24 07:00
BUN 67 mg/dl (9-20) H 07/06/24 07:00
Creatinine 1.1 mg/dL (0.7-1.3) 07/06/24 07:00
Calcium 7.7 mg/dl (8.4-10.2) L 07/06/24 07:00
Total Bilirubin 3.2 mg/dl (0.2-1.3) H D 07/06/24 07:00
AST 51 U/L (17-59) 07/06/24 07:00
ALT 26 U/L (0-50) 07/06/24 07:00
Alkaline Phosphatase 70 U/L (38-126) 07/06/24 07:00
Lipase 357 U/L (23-300) H 07/05/24 19:13
Diagnostic Image Results:
Chest x-ray:
No acute disease of the chest
Intubation. No pneumothorax.
Prior GI Procedures:
EGD: Unknown
Colonoscopy: Unknown
Assessment / Plan
-
58-year-old male with past medical history of cirrhosis, portal hypertension per history, bipolar disorder, chronic pain syndrome with prior history of alcohol abuse intermittent episodes of Advil who presents to the emergency room poorly responsive
with hematemesis now sedated and intubated initially with hemoglobin of 4.9 transfuse 3 units packed red blood cells 9.4. NG tube with maroon output and with maroon rectal output. Concerning for upper GI bleed. Stigmata of cirrhosis based on labs
as well. Will proceed to urgent EGD. Patient currently on pantoprazole drip, octreotide drip. Will add on ceftriaxone. Ammonia level is elevated at 90. Will hold on lactulose until after urgent EGD. Based on findings on EGD and interventions
performed will determine administration technique of lactulose.
Impression:
GI Bleed
Cirrhosis
Hepatic encephalopathy
Plan:
N.p.o.
Protonix drip
Octreotide drip
Add ceftriaxone 1 g daily, 7 days
EGD urgently today, will reach out to his mother Nuvia [phone] for consent
Lactulose administration to be determined after EGD (whether will need NG tube reinserted versus lactulose enemas)
Trend labs
Further recommendations to be forthcoming
-
-
Thank you for consultation and allowing me to participate in the patient's care. Please call the concrete hopper operator GI physician during the after hours with any questions or concerns.
[2024-07-06 08:24] LABS: Free T4 1.29 ng/dl (0.78-2.19)
[2024-07-06] MEDS: MIRALAX TUBE (08:25)
[2024-07-06 08:39] LABS: INR 2.25
[2024-07-06 08:46] LABS: Glycohemoglobin (HgbA1c) 5.1 % (4.0-5.6)
[2024-07-06] MEDS: SUBLIMAZE 100 IV (09:26)
--- NOTE | 2024-07-06 10:39 | CON.INTV ---
Addendum entered and electronically signed by Kip Saavedra MD 07/06/24 14:47:
Patient had respiratory failure: Intubated for airway protection/patient obtunded in the emergency room. Based on ED records there was no reported hypoxemia.
Original Note:
Consultation
Consultation Request
Date/Time Consultation Requested: 07/06/2024
Date/Time Consultation Performed: 07/06/2024
Requesting Provider: Dr. Lockwood
Performing Provider: Dr. Kip Miguel
Reason for Consultation: Acute hypercapnic respiratory failure recurrent intubation/GI bleed
Medical History
-
History of Present Illness:
58-year-old man with past medical history of alcohol abuse disorder, possible bipolar disorder who presented to the emergency room being found poorly responsive at home by his mother. History obtained by reviewing records as the patient is
intubated and critically ill and mechanical ventilation.
Apparently since Tuesday patient has been feeling sick. Had multiple episode of dark, brown emesis. Then developed dark-colored stools.
Became progressively more fatigued and weak.
EMS found him combative/agitated. Intubated in the emergency room and he was sedated.
Patient apparently has not been taking any medications.
Apparently used 'poppy seeds' for pain control.
Does not follow-up with doctors
No reports of cigarettes but vapes frequently.
There is no reports of illegal drug use.
Apparently history of alcohol abuse. Prior cirrhosis noted.
Currently in the critical care unit, intubated on mechanical ventilation. Unable to provide history
. On sedation.
Past Medical History
Past Medical History: Other (See assessment and plan, obtained from record)
Social History
Tobacco: Vaping
Alcohol: Other (Unclear amount but former alcohol abuse.)
Drug: None
Family History
Family History: Unable to Obtain
Allergies / Home Medications
Allergies
Allergy/AdvReac Type Severity Reaction Status Date / Time
No Known Allergies Allergy Verified 07/05/24 19:20
Home Medications
�Medication �Instructions �Recorded �Confirmed �Last Taken �Type
No Meds [No Current Medications] 07/05/24 07/05/24 Unknown History
Review of Systems
-
Unable to Obtain full review of systems at this time due to: Acuity and Patient Intubation
Vitals / Labs / Diagnostic Testing
Vital Signs
Temp Pulse Resp BP Pulse Ox
97.2 F 69 14 112/63 97
07/06/24 10:00 07/06/24 10:00 07/06/24 10:00 07/06/24 10:00 07/06/24 10:00
Lab Data
07/06/24 07:00
Laboratory Results
07/05/24 07/05/24 07/06/24
19:13 22:04 08:06
PT 25.5 H 25.0 H
INR 2.27 2.25
APTT 31.9
pH 7.48 H
pCO2 28 L
pO2 111 H
HCO3 20.9 L
O2 Delivery Level Not Reportable
Diagnostic Testing:
Physical Exam
-
HEENT: Normocephalic and Other (ET tube in place without secretion)
Cardiovascular: S1/S2
Respiratory: Clear and Non-Labored Respirations
GI: Soft, Non Distended and Other (NG tube in place with dark output)
Neurology: Other (Sedated, mechanical ventilation. Has respiratory effort. Pupils are equal and reactive.)
Skin: Warm
General: Comfortable (On mechanical ventilation/sedation)
Assessment
-
Acute respiratory failure/change in mental status requiring intubation and mechanical ventilation 07/05/2024
Acute GI bleed-melena/coffee-ground
Acute blood loss anemia-hemoglobin on admission 4.9
Change in mental status/toxic metabolic encephalopathy: Cannot rule out alcohol withdrawal/hepatic encephalopathy
Ammonia level 92
Coagulopathy INR 2.7
Conditions present prior admission:
Alcoholic cirrhosis-on prior operative report from 2015 is noted.
? Bipolar disorder-not taking any medications
History of alcohol disorder
Assessment and plan:.
Critically ill, intubated on mechanical ventilation. Acute blood loss anemia due to GI bleed.
-
Mechanical ventilation settings reviewed
Adequate pulmonary mechanics
ABG reviewed. Adequate oxygenation and ventilation
Chest x-ray: No acute infiltrate
Continue mechanical ventilation without change
-
Continue sedation Fentanyl and propofol for now
Ativan as needed-cannot rule out alcohol withdrawal-unknown last time he drank. Girlfriend states that he has not drank in a while.
-
Acute blood loss anemia due to possible upper GI bleed.
GI on consult, for EGD later today.
Continue Protonix drip
Continue Eliseo drip
Follow H&H
-
Status post 3 units of packed red blood cells. Will continue to transfuse as necessary.
At this point hemodynamically not requiring vasopressors.
-
Toxic metabolic encephalopathy: Cannot rule out hepatic encephalopathy
Prophylaxis ceftriaxone was given.
Ammonia level is elevated
Eventually lactulose depending on EGD finding
Follow daily electrolytes
Will try to minimize sedation as able
-
DVT prophylaxis-SCDs. No pharmacological prophylaxis due to GI bleed
Continue Protonix drip
-
N.p.o.
Daily evaluation
-
Critical care statement: A total of 45 minutes of critical care time was provided for this patient today. This includes management of unstable vital signs, evaluation of the patient at bedside, reviewing the patient's pertinent medical records
including ventilator settings, arterial blood gases, radiographs, microbiology, laboratory evaluations and discussion with primary team, critical care nursing, and respiratory therapy.
[2024-07-06 10:55] LABS: Hematocrit 24.7 % (39.0-52.0); Hemoglobin 8.4 g/dL (13.0-18.0)
--- NOTE | 2024-07-06 11:12 | PTCARENOTE ---
Repeat H/H: 1 pt. drop to 8.4, Director Clinical Operations notified. No signs of active bleeding, small Maroon NG OP noticed. Normotensive.
Awaiting EGD, Cont. Octreotide, ABX ordered variceal prohx.
[2024-07-06] MEDS: SANDOSTATIN 500.6 MCG IV ×2 (11:21→22:52)
[2024-07-06] MEDS: STERILE WATER FOR INJECTION 10 ML IV (11:22)
[2024-07-06] MEDS: FLUSH (NSS) 10 FLUSH IV ×2 (11:22→11:27)
[2024-07-06] MEDS: ROCEPHIN 1000 MG IV (11:22)
--- NOTE | 2024-07-06 13:00 | PN.CDI ---
CDI
- -
CDI:
Physician Documentation Request
Admit Date: 07/05/24 20:47
Dear Doctor Quentin,
Please review the following and provide your response in the progress notes.
Clinical Indicators:
- Patient admit for GI bleed
- 07/06 Drama Therapist 'Acute respiratory failure...intubated on mechanical ventilation'
Laboratory Tests
07/05/24
22:04
pH 7.48 H
pCO2 28 L
pO2 111 H
HCO3 20.9 L
Please clarify the type of respiratory failure:
Type
Acute respiratory failure with hypoxia
Acute respiratory failure with hypercapnia
Acute respiratory failure with hypoxia and hypercapnia
Other, please specify
Use of terms such as suspected, likely, concern for, or probable (associated with a specific diagnosis that is being evaluated, monitored, or treated as if it exists) are acceptable and can be coded in the inpatient setting, when documented at the
time of discharge.
Thank you,
Mira Tariq RN
CDI Specialist
Please use your independent medical judgment in providing your response.
[2024-07-06 14:26] LABS: Hemoglobin 8.2 g/dL (13.0-18.0)
[2024-07-06 14:52] LABS: Blood Urea Nitrogen 78 mg/dl (9-20); Calcium 7.3 mg/dl (8.4-10.2); Carbon Dioxide 26 mmol/L (22-30); Chloride 113 mmol/L (98-107); Estimated Creatinine Clearance 65 ml/min; Glucose 111 mg/dl (70-99); Potassium 4.2 mmol/L (3.5-5.1); Sodium 139 mmol/L (135-145); eGFR > 60.00
--- NOTE | 2024-07-06 15:46 | CM ---
Patient on ventilator, patient mother spoke with CM via phone. Patient lives with him in a 2 story home with no prior needs for DME. Patient does not have current PCP but did have an appointment at [facility] with Dr. Markham that
patient cancelled. Patient mother used the [facility] on [address]. Patient mother indicated that patient was not drinking in the last several months. Patient mother and girlfriend supportive of not drinking but mother is unsure what patient
will need at discharge at this time. Uncertain what patient needs will be when off of ventilator. CM will continue to follow for discharge planning needs.
Plan; uncertain pending medical treatment plan.
--- NOTE | 2024-07-06 16:00 | PTCARENOTE ---
Pt. recently intubated 07/05, missing central incisor. Confirmed w. family tooth was recently repaired and had fallen out at home prior to hospitalization.
--- NOTE | 2024-07-06 16:01 | PTCARENOTE ---
No further changes in pt. assessment, H/H remains stable, Creat on recent BMP not elevated despite being oliguric. All gtt remain the same per titration flowsheets. Awaiting EGD, mother bedside.
[2024-07-06 17:16] LABS: Hematocrit 25.3 % (39.0-52.0); Hemoglobin 8.6 g/dL (13.0-18.0)
[2024-07-06] MEDS: VERSED 5 MG IV (17:45)
--- NOTE | 2024-07-06 18:37 | PTCARENOTE ---
Bedside EGD completed, no active bleeding noted per GI, Pt. remained hemodynamically stable during procedure.
See GI note for further details.
--- NOTE | 2024-07-06 21:22 | PTCARENOTE ---
Assumed care of pt at 1900. Received pt intubated, #8 ETT 23cm at lip, AC /26/10. Received on Propofol at 20mcg/kg/min, Fentanyl at 50mcg/hr, as well as Protonix, Octreotide and LR infusions. SR 70s on monitor. SpO2 91-93% on current vent
settings. See nursing shift assessment flowsheet for full physical assessment details.
[2024-07-07] VITALS (24 sets, daily range): BP systolic 103–151; BP diastolic 67–87; BMI 26.6
--- NOTE | 2024-07-07 00:35 | PTCARENOTE ---
Midnight assessment unchanged. SR 70s on monitor. Remains on same vent settings, currently satting 92%. Continues on same drips, Propofol weaned slightly, see med titration flowsheet for full details.
[2024-07-07] MEDS: PROTONIX 100 IV ×3 (01:17→22:01)
[2024-07-07] MEDS: LR 1000 IV ×3 (03:14→22:01)
[2024-07-07 03:31] LABS: Glucose - Point of Care 105 mg/dl (70-99)
[2024-07-07 04:37] LABS: HCO3 23.1 mmol/L (21-28); O2 Saturation % 96.1 % (94-98); PCO2 40 mmHg (35-48); PO2 71 mmHg (83-108); pH 7.37 (7.35-7.45)
[2024-07-07 04:39] LABS: O2 Therapy VENT
[2024-07-07 05:25] LABS: INR 1.85; PT 21.5 Sec (11.4-14.6)
--- NOTE | 2024-07-07 05:29 | PTCARENOTE ---
0400 assessment unchanged. CHG cloth bath done and linens/gown changed around 0300. Remains on same vent settings and same infusions.
[2024-07-07 05:34] LABS: ALT (SGPT) 26 U/L (0-50); AST (SGOT) 56 U/L (17-59); Albumin 2.1 g/dl (3.5-5.0); Alkaline Phosphatase 84 U/L (38-126); Blood Urea Nitrogen 79 mg/dl (9-20); Calcium 7.3 mg/dl (8.4-10.2); Carbon Dioxide 23 mmol/L (22-30); Chloride 115 mmol/L (98-107); Direct Bilirubin 1.2 mg/dl (0.0-0.4); Estimated Creatinine Clearance 60 ml/min; Glucose 105 mg/dl (70-99); Potassium 4.3 mmol/L (3.5-5.1); Sodium 139 mmol/L (135-145); Total Bilirubin 2.1 mg/dl (0.2-1.3); Total Protein 4.8 g/dl (6.3-8.2); eGFR > 60.00
[2024-07-07 06:36] LABS: Hematocrit 27.1 % (39.0-52.0); Hemoglobin 9.1 g/dL (13.0-18.0); Mean Corp Hgb Conc. 33.6 g/dL (33.0-37.0); Mean Corpuscular Volume 89.4 fL (80.0-94.0); Mean Platelet Volume 11.2 fL (7.4-10.4); Platelet Count 87 10^3/uL (130-400); Red Blood Cell Count 3.03 10^6/uL (4.70-6.10); Red Cell Dist. Width 17.2 % (11.5-14.5); White Blood Cell Count 8.3 10^3/uL (4.8-10.8)
[2024-07-07] MEDS: SUBLIMAZE 100 IV (07:24)
--- NOTE | 2024-07-07 08:01 | PTCARENOTE ---
Pt rec'd from night RN at 07:15. Received pt intubated, #8 ETT 23cm centered at lip, AC 14/450/30/5. Received on Propofol at 10mcg/kg/min, Fentanyl at 50mcg/hr, as well as Protonix, Octreotide and LR infusions. SR on monitor. SpO2 91-93% on current
vent settings. Prop weaned off for SAT. Safe environment maintained.
[2024-07-07] MEDS: MIRALAX TUBE (08:10)
--- NOTE | 2024-07-07 10:16 | W.PN.INTV ---
Today's Communication / Plan
Recommendations
Mechanical ventilation continues
Sedation break and if appropriate spontaneous breathing trial
Follow H&H
Protonix drip
Octreotide drip per GI
Prophylactic antibiotics
If there is no improvement in mental status once sedation is stopped, will need to start lactulose enemas. Defer to GI.
Assessment
-
Acute respiratory failure/change in mental status requiring intubation and mechanical ventilation for airway protection 07/05/2024
Acute GI bleed-melena/coffee-ground
Acute blood loss anemia-hemoglobin on admission 4.9
Status post EGD 07/06/2026: Portal gastropathy.
Change in mental status/toxic metabolic encephalopathy: Cannot rule out alcohol withdrawal/hepatic encephalopathy
Ammonia level 92
Coagulopathy INR 2.7
Conditions present prior admission:
Alcoholic cirrhosis-on prior operative report from 2014 is noted.
? Bipolar disorder-not taking any medications
History of alcohol disorder
Assessment and plan:.
Critically ill, intubated on mechanical ventilation. Acute blood loss anemia due to GI bleed.
-
Mechanical ventilation settings reviewed
Adequate pulmonary mechanics
ABG reviewed 07/07/2024. Adequate oxygenation and ventilation
Chest x-ray: No acute infiltrate
Continue mechanical ventilation without change
-
Continue sedation Fentanyl and propofol for now
Ativan as needed-cannot rule out alcohol withdrawal-unknown last time he drank. Girlfriend states that he has not drank in a while.
Sedation breaks, if appropriate will try spontaneous breathing trial.
Patient has a cough effort to suctioning, otherwise not alert or following commands.
Stop all sedation and observe. If there is no improvement on mental status will obtain CT head and also lactulose will need to be started.
-
Acute blood loss anemia due to possible upper GI bleed.
EGD 07/06/2024: Portal gastropathy. Stigmata of prior bleed. Active bleeding noted.
Continue Protonix drip
Continue octreotide drip.
Whether lactulose is needed will be deferred to GI. May need lactulose enemas.
GI following
Follow H&H-stable this morning 9.1.
-
Status post 3 units of packed red blood cells. Will continue to transfuse as necessary.
At this point hemodynamically not requiring vasopressors.
-
Toxic metabolic encephalopathy: Cannot rule out hepatic encephalopathy
Prophylaxis ceftriaxone was given.
Ammonia level is elevated
Follow daily electrolytes
Sedation breaks, hopefully can try spontaneous breathing trial.
-
DVT prophylaxis-SCDs. No pharmacological prophylaxis due to GI bleed
Continue Protonix drip
-
N.p.o.
Head of the bed elevation
-
Dr. Miguel updated girlfriend at the bedside 07/07/2024
-
Critical care statement: A total of 35 minutes of critical care time was provided for this patient today. This includes management of unstable vital signs, evaluation of the patient at bedside, reviewing the patient's pertinent medical records
including ventilator settings, arterial blood gases, radiographs, microbiology, laboratory evaluations and discussion with primary team, critical care nursing, and respiratory therapy.
Subjective Dataa
Subjective Data
Date of Service:
Date of Service: July 07, 2024
Chief Complaint: Issue Clerk Follow Up (Change in mental status-GI bleed)
Subjective:
Intubated, mechanical ventilation, unable to provide history.
Critically ill
Review of Systems
General: Unobtainable - Sedation
Objective Data
Data Reviewed
Vital Signs / I&O / Oxygen:
Vital Signs
Temp Pulse Resp BP Pulse Ox
96.6 F L 66 13 123/78 92
07/07/24 07:00 07/07/24 08:00 07/07/24 08:00 07/07/24 08:00 07/07/24 08:10
Intake and Output
0207/07/24 07/08/24
06:59 06:59 06:59
Intake Total 1972.1 / 2141.1 4016.0 / 4172.7 470.1 / 470.1
Output Total 415 / 415 611 / 661 100 / 100
Balance 1557.1 / 1726.1 3405.0 / 3511.7 370.1 / 370.1
SaO2 [A/C] 94
SaO2 92
Physical Exam
General: Comfortable
HEENT: Normocephalic
Cardiovascular: S1-S2
Respiratory: Clear and ET Tube (No significant secretions)
GI: Soft and Non Distended
Neurology: Other (Sedated, mechanical ventilation)
Labs/Micro/Reports
Lab Data
07/07/24 06:25
07/07/24 04:40
Laboratory Results
07/07/24 07/07/24
03:52 04:40
PT 21.5 H
INR 1.85
pH 7.37
pCO2 40
pO2 71 L
HCO3 23.1
O2 Delivery Level Vent
[2024-07-07] MEDS: SANDOSTATIN 500.6 MCG IV ×2 (10:29→22:01)
--- NOTE | 2024-07-07 11:28 | PTCARENOTE ---
RASS remains -4 , see flowsheet for documentation. Fent gtt turned off at 10:30 per can dryer. Girlfriend Tg at bedside. Questions answered.
--- NOTE | 2024-07-07 11:35 | PTCARENOTE ---
Pt's S.O. stated he has not had the flu vaccine this season, states he is 'anti-doctor, anti-everything.' She declines to state for the patient if he would like to receive the flu vaccine if he is eligible, requested that nursing ask the patient
directly 'when he wakes up.'
--- NOTE | 2024-07-07 11:48 | W.PN.GI.CBS2 ---
Today's Communication / Plan
-
stopping sedation
follow hgb
Assessment / Plan
-
58-year-old male with past medical history of cirrhosis, portal hypertension per history, bipolar disorder, chronic pain syndrome with prior history of alcohol abuse intermittent episodes of Advil who presents to the emergency room poorly responsive
with hematemesis now sedated and intubated initially with hemoglobin of 4.9 transfuse 3 units packed red blood cells 9.4. NG tube with maroon output and with maroon rectal output. Concerning for upper GI bleed. Stigmata of cirrhosis based on labs
as well. Will proceed to urgent EGD. Patient currently on pantoprazole drip, octreotide drip. Will add on ceftriaxone. Ammonia level is elevated at 90. Will hold on lactulose until after urgent EGD. Based on findings on EGD and interventions
performed will determine administration technique of lactulose.
Impression:
GI Bleed froom portal gastropathy
Cirrhosis
Hepatic encephalopathy
Plan:
follow hgb which is stable
cont Protonix drip
cont Octreotide drip
ceftriaxone 1 g daily, 7 days
if does not wake up with stopping sedation will need lactulose. I am ok with giving via a NGT
Trend labs, INR improving
Further recommendations to be forthcoming
Subjective
Subjective
Date of Service: July 07, 2024
Pt intubated, sedated
No bleeding overnight
Objective
Data Reviewed
Laboratory Data:
Laboratory Results
07/07/24 06:25
07/07/24 04:40
Laboratory Results
PT 21.5 Sec (11.4-14.6) H 07/07/24 04:40
INR 1.85 07/07/24 04:40
APTT 31.9 Sec (23.4-35.0) 07/05/24 19:13
Phosphorus 3.6 mg/dl (2.5-4.5) 07/06/24 07:00
Magnesium 2.3 mg/dl (1.6-2.3) 07/06/24 07:00
Total Bilirubin 2.1 mg/dl (0.2-1.3) H 07/07/24 04:40
AST 56 U/L (17-59) 07/07/24 04:40
ALT 26 U/L (0-50) 07/07/24 04:40
Alkaline Phosphatase 84 U/L (38-126) 07/07/24 04:40
Lipase 357 U/L (23-300) H 07/05/24 19:13
Vital Signs and I&O:
Vital Signs
Temp Pulse Resp BP Pulse Ox
96.6 F L 77 17 138/84 93
07/07/24 07:00 07/07/24 11:00 07/07/24 11:00 07/07/24 11:00 07/07/24 11:08
I&O
07/06/24 07/07/24 07/08/24
06:59 06:59 06:59
Intake Total 1972.1 / 2141.1 4016.0 / 4172.7 778.5 / 778.5
Output Total 415 / 415 611 / 661 175 / 175
Balance 1557.1 / 1726.1 3405.0 / 3511.7 603.5 / 603.5
Physical Exam
Physical Exam
Cardiology: S1 and S2
GI: Soft
Neuro: Non Focal (sedated)
[2024-07-07] MEDS: STERILE WATER FOR INJECTION 10 ML IV (12:36)
[2024-07-07] MEDS: FLUSH (NSS) 1 FLUSH IV ×3 (12:36→12:47)
[2024-07-07] MEDS: ROCEPHIN 1000 MG IV (12:36)
[2024-07-07] MEDS: FLUSH (NSS) 10 FLUSH IV (12:48)
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
--- NOTE | 2024-07-07 14:46 | PTCARENOTE ---
Pt's mother asking for contact information to be updated with the patient's brother August Dietz as primary contact lens assistant as she states that she feels 'upset and overwhelmed' with the situation. Pt's mother Nuvia to remain secondary contact,
with girlfriend Tg also approved by pt's mother to receive pt information. Chart update with the above info.
--- NOTE | 2024-07-07 15:57 | PTCARENOTE ---
Pt remains off all sedation, RASS has improved to -3 during the shift. Pt arouses to verbal /tactile stim by attempting to open eyes and he appears to be moving feet slightly on command. Girlfrienramin Mas remains at bedside, talking to patient and
reorienting him to situation/surroundings. Safe environment maintained. Plan discussed with aviation electrical technician Dr. Miguel.
--- NOTE | 2024-07-07 21:30 | PTCARENOTE ---
Assumed care of pt at 1900. Received pt intubated, #8 ETT 23cm at lip, vent settings: AC 14/450/30/5. Pt on no sedation, only on Protonix, Octreotide, and LR infusions. Pt with RASS -3 to -4, will withdrawal to stimuli, cough, flutter eyelids at
times but does not open eyes to voice or follow commands. SR 70s on monitor. SpO2 98%. See nursing shift assessment flowsheet for full physical assessment details. Girlfriend at bedside, staying the night.
[2024-07-07] MEDS: SUBLIMAZE 50 MCG IV (23:05)
[2024-07-08] VITALS (24 sets, daily range): BP systolic 122–163; BP diastolic 61–98; BMI 27.2
--- NOTE | 2024-07-08 00:19 | PTCARENOTE ---
Assessment unchanged. Remains off continues sedation, has required x1 dose of Fentanyl so far (see EMAR), pt was stacking breaths, alarming high pressure on vent--noted to be biting tube to the point where it was also alarming 'disconnection patient
side', also unable to suction pt due to him biting. After receiving bolus pt relaxed enough to put bite block in his mouth. Pt still not opening eyes but is more active, moving his limbs, attempting to turn on his side, etc. SR 70s on monitor, SpO2
99% on same vent settings.
[2024-07-08] MEDS: SUBLIMAZE 50 MCG IV ×2 (00:49→19:11)
[2024-07-08] MEDS: VERSED 5 MG IV ×6 (01:10→23:11)
--- NOTE | 2024-07-08 01:21 | PTCARENOTE ---
At around 0045 pt's vent alarming high pressure, disconnection pt side, etc. Pt coughing again, biting, attempting to turn on his side/sit up/swing legs out of bed. Fentanyl bolus dose given. G cloth bath done and linens changed. Pt's behavior did
not improve, vent still alarming, Versed 5mg given, see EMAR for details. Versed more effective in controlling pt's agitation and vent dyssynchrony than Fentanyl. Pt now lying still, synchronous with vent, no s/s distress or agitation.
[2024-07-08 03:47] LABS: Venous Blood Gas B.E. -1.1 mmol/L (-4 to +4); Venous Blood Gas HCO3 20.9 mmol/L (22-27); Venous Blood Gas O2 Sat % 99.3 %; Venous Blood Gas pCO2 25 mmHg (35-48); Venous Blood Gas pH 7.53 (7.32-7.43); Venous Blood Gas pO2 189 mmHg (30-50)
[2024-07-08 04:00] LABS: INR 1.67; PT 19.9 Sec (11.4-14.6)
--- NOTE | 2024-07-08 05:10 | PTCARENOTE ---
0400 assessment unchanged. Required another dose of Versed 5mg for vent dyssynchrony and agitation (see EMAR). Multiple attempts for AM labs by different staff members, only able to obtain enough blood for coags and VBG, unable to obtain CBC or
chemistry, Mahad FERGUSON made aware. Giving pt a break at this time due to being stuck multiple times, will pass on for phlebotomy to attempt later this AM. Pt with thick yellow/aguilar secretions via ETT and thick oral secretions from mouth. Bite
block still in place (pt had pushed it out, but able to re-insert once Versed given).
[2024-07-08] MEDS: LR 1000 IV ×2 (07:24→16:58)
[2024-07-08] MEDS: PROTONIX 100 IV ×2 (07:24→16:58)
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
[2024-07-08] MEDS: MIRALAX TUBE (08:20)
--- NOTE | 2024-07-08 08:35 | W.PN.GI.CBS2 ---
Today's Communication / Plan
-
lactulose if doesn't wake up after sedation off
Assessment / Plan
-
58-year-old male with past medical history of cirrhosis, portal hypertension per history, bipolar disorder, chronic pain syndrome with prior history of alcohol abuse intermittent episodes of Advil who presents to the emergency room poorly responsive
with hematemesis now sedated and intubated initially with hemoglobin of 4.9 transfuse 3 units packed red blood cells 9.4. NG tube with maroon output and with maroon rectal output. Concerning for upper GI bleed. Stigmata of cirrhosis based on labs
as well. Will proceed to urgent EGD. Patient currently on pantoprazole drip, octreotide drip. Will add on ceftriaxone. Ammonia level is elevated at 90. Will hold on lactulose until after urgent EGD. Based on findings on EGD and interventions
performed will determine administration technique of lactulose.
Impression:
GI Bleed froom portal gastropathy
Cirrhosis
Hepatic encephalopathy
Plan:
follow hgb which is stable
INR is trending down
cont Protonix drip at least another 24 hours
cont Octreotide drip
ceftriaxone 1 g daily, 7 days
if does not wake up with stopping sedation will need lactulose. I am ok with giving via a NGT
Trend labs, INR improving
Subjective
Subjective
Date of Service: July 08, 2024
Pt with some agitation as per nurse while attempting to wean sedation.
no gi bleeding
Objective
Data Reviewed
Laboratory Data:
Laboratory Results
PT 19.9 Sec (11.4-14.6) H 07/08/24 03:39
INR 1.67 07/08/24 03:39
APTT 31.9 Sec (23.4-35.0) 07/05/24 19:13
Phosphorus 3.6 mg/dl (2.5-4.5) 07/06/24 07:00
Magnesium 2.3 mg/dl (1.6-2.3) 07/06/24 07:00
Total Bilirubin 2.1 mg/dl (0.2-1.3) H 07/07/24 04:40
AST 56 U/L (17-59) 07/07/24 04:40
ALT 26 U/L (0-50) 07/07/24 04:40
Alkaline Phosphatase 84 U/L (38-126) 07/07/24 04:40
Lipase 357 U/L (23-300) H 07/05/24 19:13
Vital Signs and I&O:
Vital Signs
Temp Pulse Resp BP Pulse Ox
96.6 F L 63 14 146/72 98
07/08/24 07:00 07/08/24 06:00 07/08/24 06:00 07/08/24 06:00 07/08/24 07:39
I&O
07/07/24 07/08/24 07/09/24
06:59 06:59 06:59
Intake Total 4016.0 / 4172.7 3660.8 / 3722.5 61.7 / 61.7
Output Total 611 / 661 943 / 993 50 / 50
Balance 3405.0 / 3511.7 2717.8 / 2729.5 11.7 / 11.7
Physical Exam
Physical Exam
HEENT: Anicteric (intubated)
GI: Soft and Non Distended
Neuro: Non Focal (sedated)
--- NOTE | 2024-07-08 09:21 | PTCARENOTE ---
Assumed care of pt at 07:15- Received pt intubated, #8 ETT 23cm at lip, vent settings: AC 14/450/30/5. Pt on no sedation, only on Protonix, Octreotide, and LR infusions. Pt with RASS -3 to -4, will withdrawal to stimuli, cough, flutter eyelids at
times but does not open eyes to voice or follow commands. SR on monitor. SpO2 99%. See nursing shift assessment flowsheet for full physical assessment details. Pt very difficult stick for am labs, mult RNs and chef head attempted unsuccessfully,
plan discussed with Team Physician -order for midline rec'd. Plan of care discussed with GI, attending, and RT. Safe environment maintained. Pt's gf at bedside.
--- NOTE | 2024-07-08 09:50 | W.PN.INTV ---
Today's Communication / Plan
Recommendations
Continue to hold sedation
Place an NG tube and start lactulose
Follow H&H
Hopefully can perform a spontaneous breathing trial
Ceftriaxone for prophylaxis
Assessment
-
58-year-old man with history of alcohol cirrhosis admitted through the emergency room after found unresponsive at home by his mother. Patient was admitted with dark stools, dark emesis, found to have anemia and GI bleed. Intubated for change in
mental status and airway protection and transferred to the critical care unit for further care.
Acute respiratory failure/change in mental status requiring intubation and mechanical ventilation for airway protection 07/05/2024
Acute GI bleed-melena/coffee-ground
Acute blood loss anemia-hemoglobin on admission 4.9
Status post EGD 07/06/2026: Portal gastropathy.
Change in mental status/toxic metabolic encephalopathy: Cannot rule out alcohol withdrawal/hepatic encephalopathy
Ammonia level 92
Coagulopathy INR 2.7
Conditions present prior admission:
Alcoholic cirrhosis-on prior operative report from 2014 is noted.
? Bipolar disorder-not taking any medications
History of alcohol disorder
Assessment and plan:.
Critically ill, intubated on mechanical ventilation for airway protection. Acute blood loss anemia due to GI bleed.
-
Mechanical ventilation settings reviewed
Adequate pulmonary mechanics
ABG reviewed 07/07/2024. Adequate oxygenation and ventilation
Chest x-ray: No acute infiltrate
Continue mechanical ventilation without change
-
Off sedation since afternoon 07/07/2024.
Moving 4 extremities, not following commands. Has a cough effort to suctioning. Overbreathing the ventilator. Pupils are equal and reactive to light.
Still somnolent.
-
Girlfriend states that he has not drank in a while. Unlikely alcohol withdrawal.
Possible hepatic encephalopathy.
Lactulose started 07/08/2024 via NG tube.
Hold off on CT head for now.
-
Acute blood loss anemia due to possible upper GI bleed.
EGD 07/06/2024: Portal gastropathy. Stigmata of prior bleed. Active bleeding noted.
Continue Protonix drip
Continue octreotide drip.
GI following
Follow H&H-stable -9.1. 07/07/2024. Follow H&H
Monitor for recurrent bleeding.
-
Status post 3 units of packed red blood cells. Will continue to transfuse as necessary.
At this point hemodynamically not requiring vasopressors.
-
Toxic metabolic encephalopathy: Cannot rule out hepatic encephalopathy
Prophylaxis ceftriaxone was given.
Ammonia level is elevated-repeat ammonia level today 07/08/2024
Follow daily electrolytes
abdominal ultrasound 07/06/2024:1. Liver is shrunken and nodular, consistent with cirrhosis.
2. Small amount of peritoneal ascites.
3. Common bile duct and pancreas were not well visualized due to overlying bowel gas.
Off sedation since 07/07/2024.
-
DVT prophylaxis-SCDs. No pharmacological prophylaxis due to GI bleed
Continue Protonix drip
-
N.p.o.
Head of the bed elevation
-
Dr. Miguel updated girlfriend at the bedside 07/07/2024
-
Critical care statement: A total of 34 minutes of critical care time was provided for this patient today. This includes management of unstable vital signs, evaluation of the patient at bedside, reviewing the patient's pertinent medical records
including ventilator settings, arterial blood gases, radiographs, microbiology, laboratory evaluations and discussion with primary team, critical care nursing, and respiratory therapy.
Subjective Dataa
Subjective Data
Date of Service:
Date of Service: July 08, 2024
Chief Complaint: Classified Ad Clerk Follow Up (Change in mental status-GI bleed)
Subjective:
Has been off sedation since yesterday.
More agitated but not profusely following commands consistently
Hemodynamically not requiring vasopressors
Review of Systems
General: Other (Unable to provide history due to change in mental status)
Objective Data
Data Reviewed
Vital Signs / I&O / Oxygen:
Vital Signs
Temp Pulse Resp BP Pulse Ox
96.6 F L 65 14 132/69 99
07/08/24 07:00 07/08/24 08:00 07/08/24 08:00 07/08/24 08:00 07/08/24 08:00
Intake and Output
07/07/24 07/08/24 07/09/24
06:59 06:59 06:59
Intake Total 4016.0 / 4172.7 3660.8 / 3812.5 455.1 / 455.1
Output Total 611 / 661 943 / 993 145 / 145
Balance 3405.0 / 3511.7 2717.8 / 2819.5 310.1 / 310.1
SaO2 [A/C] 99
SaO2 100
Physical Exam
General: Comfortable
HEENT: Normocephalic
Cardiovascular: S1-S2
Respiratory: Clear and ET Tube (No significant secretions)
GI: Soft and Non Distended
Neurology: Other (Moving 4 extremities. Not purposefully following commands yet.)
Labs/Micro/Reports
Laboratory Results
07/08/24
03:39
PT 19.9 H
INR 1.67
[2024-07-08 10:26] LABS: Hematocrit 24.5 % (39.0-52.0); Hemoglobin 8.3 g/dL (13.0-18.0); Mean Corp Hgb Conc. 33.9 g/dL (33.0-37.0); Mean Corpuscular Hgb 30.6 pg (27.0-31.0); Mean Corpuscular Volume 90.4 fL (80.0-94.0); Mean Platelet Volume 9.5 fL (7.4-10.4); Platelet Count 72 10^3/uL (130-400); Red Blood Cell Count 2.71 10^6/uL (4.70-6.10); Red Cell Dist. Width 17.5 % (11.5-14.5); White Blood Cell Count 4.9 10^3/uL (4.8-10.8)
[2024-07-08 10:32] LABS: Ammonia 35 umol/L (9-30)
[2024-07-08 10:33] LABS: ALT (SGPT) 26 U/L (0-50); AST (SGOT) 44 U/L (17-59); Albumin 1.8 g/dl (3.5-5.0); Alkaline Phosphatase 87 U/L (38-126); Blood Urea Nitrogen 61 mg/dl (9-20); Calcium 7.3 mg/dl (8.4-10.2); Carbon Dioxide 22 mmol/L (22-30); Chloride 115 mmol/L (98-107); Direct Bilirubin 1.4 mg/dl (0.0-0.4); Estimated Creatinine Clearance 78 ml/min; Glucose 100 mg/dl (70-99); Potassium 3.8 mmol/L (3.5-5.1); Sodium 138 mmol/L (135-145); Total Bilirubin 2.7 mg/dl (0.2-1.3); Total Protein 4.5 g/dl (6.3-8.2); Triglycerides 113 mg/dl (10-149); eGFR > 60.00
--- NOTE | 2024-07-08 10:42 | PTCARENOTE ---
Midline placed by VAT RN. labs sent. Orders rec'd from [id number] sump placed to right nare for enteral access, Xray ordered to confirm placement.
[2024-07-08] MEDS: SANDOSTATIN 500.6 MCG IV ×2 (10:46→22:03)
[2024-07-08] MEDS: STERILE WATER FOR INJECTION 10 ML IV (12:47)
[2024-07-08] MEDS: ROCEPHIN 1000 MG IV (12:47)
[2024-07-08] MEDS: FLUSH (NSS) 1 FLUSH IV ×3 (13:10→13:11)
--- NOTE | 2024-07-08 13:12 | PTCARENOTE ---
NGT placement verified by xray. Placed to LIWS at this time with prompt return small amount brown liquid. Mother and sister in law at bedside, questions answered. Pt turned and repositioned, PRN Versed given prior for agitation and vent asynchrony
per order. Safe environment maintained.
[2024-07-08] MEDS: DUPHALAC/CHRONULAC 20 GRAMS PO ×2 (15:30→22:03)
--- NOTE | 2024-07-08 20:49 | PTCARENOTE ---
Assumed care of pt at 1900. Received pt intubated, #8.0 [place] 23[place] [address]/30/5, SpO2 96-97%. SR 70s on monitor. Pt not on any continuous sedation. Will have occasional bouts of agitation and vent dyssynchrony, especially with care.
Medicated with PRN Fentanyl and Versed bolus doses, see EMAR for details. Pt continues on Protonix, Octreotide, and LR infusions. Physical assessment completed, see nursing shift assessment flowsheet for full details.
[2024-07-09] VITALS (25 sets, daily range): BP systolic 125–172; BP diastolic 73–108; BMI 28.1
--- NOTE | 2024-07-09 00:35 | PTCARENOTE ---
Midnight assessment unchanged. CHG bath done and linens changed just before midnight.
[2024-07-09] MEDS: PROTONIX 100 IV (02:27)
[2024-07-09] MEDS: LR 1000 IV ×2 (02:27→13:00)
[2024-07-09] MEDS: VERSED 5 MG IV ×2 (02:28→04:28)
[2024-07-09 04:43] LABS: Venous Blood Gas B.E. -2.5 mmol/L (-4 to +4); Venous Blood Gas HCO3 20.9 mmol/L (22-27); Venous Blood Gas O2 Sat % 99.2 %; Venous Blood Gas pCO2 30 mmHg (35-48); Venous Blood Gas pH 7.45 (7.32-7.43); Venous Blood Gas pO2 171 mmHg (30-50)
[2024-07-09 04:48] LABS: Hematocrit 26.1 % (39.0-52.0); Hemoglobin 8.4 g/dL (13.0-18.0); Mean Corp Hgb Conc. 32.2 g/dL (33.0-37.0); Mean Corpuscular Hgb 29.1 pg (27.0-31.0); Mean Corpuscular Volume 90.3 fL (80.0-94.0); Mean Platelet Volume 9.5 fL (7.4-10.4); Platelet Count 85 10^3/uL (130-400); Red Blood Cell Count 2.89 10^6/uL (4.70-6.10); Red Cell Dist. Width 17.7 % (11.5-14.5); White Blood Cell Count 5.5 10^3/uL (4.8-10.8)
[2024-07-09 04:56] LABS: INR 1.67; PT 19.9 Sec (11.4-14.6)
[2024-07-09 05:08] LABS: Venous Blood Gas O2 Therapy VENT
[2024-07-09 05:27] LABS: Blood Urea Nitrogen 55 mg/dl (9-20); Calcium 7.4 mg/dl (8.4-10.2); Carbon Dioxide 21 mmol/L (22-30); Chloride 119 mmol/L (98-107); Estimated Creatinine Clearance 78 ml/min; Glucose 101 mg/dl (70-99); Potassium 3.8 mmol/L (3.5-5.1); Sodium 145 mmol/L (135-145); eGFR > 60.00
--- NOTE | 2024-07-09 07:47 | W.PN.INTV ---
Today's Communication / Plan
Recommendations
Hold sedation
Wean FiO2
Lactulose
Nutrition
Antibiotics
Follow hemoglobin
Transfuse as needed
Spontaneous breathing trial once mental status improves
Assessment
-
58-year-old man with history of alcohol cirrhosis admitted through the emergency room after found unresponsive at home by his mother. Patient was admitted with dark stools, dark emesis, found to have anemia and GI bleed. Intubated for change in
mental status and airway protection and transferred to the critical care unit for further care.
Acute respiratory failure/change in mental status requiring intubation and mechanical ventilation for airway protection 07/05/2024
Acute GI bleed-melena/coffee-ground
Acute blood loss anemia-hemoglobin on admission 4.9
Status post EGD 07/06/2026: Portal gastropathy.
Change in mental status/toxic metabolic encephalopathy: Cannot rule out alcohol withdrawal/hepatic encephalopathy
Ammonia level 92
Coagulopathy INR 2.7
Conditions present prior admission:
Alcoholic cirrhosis-on prior operative report from 2015 is noted.
? Bipolar disorder-not taking any medications
History of alcohol disorder
Assessment and plan:.
Remains critically ill on a ventilator
Sedation held-off since 07/07/2024
Ventilator settings reviewed
Airway pressures reviewed and adequate
Wean FiO2
Follow ABG
Spontaneous breathing trial once mental status improves
VAP prevention protocol
Nebulizers if needed
Follow hemoglobin
Transfuse as needed-has received 3 units packed red blood cells
PPI
GI following-correspondence reviewed
Abdominal ultrasound 07/06/2024:1. Liver is shrunken and nodular, consistent with cirrhosis.
Prophylactic ceftriaxone initiated
Nasogastric tube-initiate feeding
Follow ammonia
Lactulose initiated 07/08/2024
Monitor mental status-suspect toxic metabolic encephalopathy-if no improvement in the next [address] head/neurology evaluation
Girlfriend states that he has not drank in a while. Unlikely alcohol withdrawal.
Suspected hepatic encephalopathy
DVT prophylaxis-on sequentials-no pharmacological prophylaxis due to GI bleed
GI prophylaxis-on Protonix
Begin nutrition
Bedside range of motion
Dr. Sheikh updated family member at the bedside extensively
Critical care statement: A total of 45 minutes of critical care time was provided for this patient today. This includes management of unstable vital signs, evaluation of the patient at bedside, reviewing the patient's pertinent medical records
including radiographs, ventilator management, pressor management, metabolic encephalopathy management microbiology, laboratory evaluations, and discussion with primary team, consultants, pharmacy, nutrition, physical therapy, case management,
charge nurse, critical care nursing, and respiratory therapy.
Subjective Dataa
Subjective Data
Date of Service:
Date of Service: July 09, 2024
Chief Complaint: Ordnance Keeper Follow Up (Change in mental status-GI bleed), Pulmonary Follow Up and Vent Management Follow Up
Subjective:
Patient off sedation, mental status-not following commands, moving extremities, no increased secretions
Review of Systems
General: Other (Per HPI)
Objective Data
Data Reviewed
Vital Signs / I&O / Oxygen:
Vital Signs
Temp Pulse Resp BP Pulse Ox
97.8 F 86 16 167/102 97
07/09/24 07:35 07/09/24 07:00 07/09/24 07:00 07/09/24 07:00 07/09/24 07:00
Intake and Output
07/08/24 07/09/24 07/10/24
06:59 06:59 06:59
Intake Total 3660.8 / 3812.5 3820.8 / 3972.5 151.7 / 151.7
Output Total 943 / 993 1090 / 1290 200 / 200
Balance 2717.8 / 2819.5 2730.8 / 2682.5 -48.3 / -48.3
SaO2 [A/C] 97
SaO2 97
Physical Exam
General: Respiratory Distress (n) and Comfortable
HEENT: Normocephalic
Cardiovascular: Regular Rhythm
Respiratory: Clear and ET Tube (No significant secretions)
GI: Soft and Non Distended
Neurology: Other (Moving 4 extremities. Not purposefully following commands yet.)
Skin: Warm, Good Color, Cyanosis (n), Jaundice (n) and Rash (n)
Labs/Micro/Reports
Lab Data
07/09/24 04:36
07/09/24 04:36
Laboratory Results
07/09/24
04:36
PT 19.9 H
INR 1.67
[2024-07-09] MEDS: MIRALAX TUBE (08:29)
[2024-07-09] MEDS: DUPHALAC/CHRONULAC 20 GRAMS PO ×3 (08:29→21:34)
--- NOTE | 2024-07-09 09:10 | W.PN.HOSP.TC ---
Today's Communication/Plan
-
PPI. Octreotide. Mechanical ventilation
Assessment / Plan
Assessment / Plan
Physical exam:
General: Acutely ill
HEENT: ETT in place. Normocephalic, Atraumatic and Moist Mucous Membranes
Respiratory: Clear to Auscultation; Negative Wheezes, Rales or Rhonchi
Cardiac: Regular Rhythm and S1/S2
GI: Soft, Nontender and Nondistended
Musculoskeletal: No Clubbing, No Cyanosis and No Edema
Neuro: Semicomatose on the vent while sedation being titrated
A/P:
Acute respiratory failure:
On mechanical ventilation
Critical care following
Discussed with mother at bedside today 07/09
Acute toxic-metabolic encephalopathy:
Sedation being titrated to reevaluate neurological status
Also on lactulose being used
Monitor neurological status closely
Consider brain images if not responding after more time allowed
Acute upper GI bleed:
EGD showed portal gastropathy
Continue PPI
Continue octreotide
Continue IV Rocephin
IV fluid
Monitor hemoglobin
GI on board
Acute blood loss anemia:
Status post blood transfusion
Monitor hemoglobin
Hepatic encephalopathy:
Continue lactulose
Monitor ammonia every so often
Alcohol liver cirrhosis:
Continue to monitor MELD score labs
Needs further evaluation as outpatient after stabilization
DVT prophylaxis:
SCDs
CODE STATUS:
Full code
Total time spent on today's encounter was 52 minutes which included time spent in counseling the patient/family regarding diagnosis and treatment plan as listed above, goals of care, and symptom management. Case was discussed with nursing staff,
specialists, and care coordinators/case management. All labs and imaging personally reviewed by me. Remainder the time spent in detailed review of previous records, lab data, imaging, and other medical provider documentation.
Anticipated Discharge: > 48 hours
Subjective/Interval History
-
Date of Service: July 09, 2024
Patient intubated on the vent.
Objective Data
-
Labs:
Laboratory Results
07/09/24
04:36
WBC 5.5
Hgb 8.4 L
Hct 26.1 L
Plt Count 85 L
PT 19.9 H
INR 1.67
Sodium 145
Potassium 3.8
Chloride 119 H
Carbon Dioxide 21 L
BUN 55 H
Creatinine 1.0
Glucose 101 H
Calcium 7.4 L
Vital Signs:
Vital Signs
Temp Pulse Resp BP Pulse Ox
97.8 F 85 15 155/91 97
07/09/24 07:35 07/09/24 08:00 07/09/24 08:00 07/09/24 08:00 07/09/24 08:13
I&O
07/08/24 07/09/24 07/10/24
06:59 06:59 06:59
Intake Total 3660.8 / 3812.5 3820.8 / 3972.5 505.1 / 505.1
Output Total 943 / 993 1090 / 1290 270 / 270
Balance 2717.8 / 2819.5 2730.8 / 2682.5 235.1 / 235.1
--- NOTE | 2024-07-09 09:31 | PTCARENOTE ---
recd pt 0715, handoff at bedside. ETT to vent tolerating settings, attempted SBT approx 10 min, rate slow, TV 1200 ml. restrained. rodriguez maintained. lactulose given, NG clamped. update to family via phone; friend at bedside. positioned for
comfort. does not follow commands, does YOUSSEF, non purposeful at this time. off sedation; no need for prns, mostly synchronous with vent.
--- NOTE | 2024-07-09 10:11 | PTCARENOTE ---
hailey DOBBINS removed, small bore feeding tube placed, awaiting confirmation xray, tolerated, 61 cm.
[2024-07-09] MEDS: SANDOSTATIN 500.6 MCG IV (10:48)
[2024-07-09] MEDS: ROCEPHIN 1000 MG IV (11:04)
[2024-07-09] MEDS: STERILE WATER FOR INJECTION 10 ML IV (11:05)
[2024-07-09] MEDS: FLUSH (NSS) 1 FLUSH IV ×3 (11:05→11:06)
[2024-07-09] MEDS: APRESOLINE 5 MG IV ×2 (11:10→17:14)
--- NOTE | 2024-07-09 11:29 | PTCARENOTE ---
family in room, GF phoned for update. Requested for 1 contact, pts sister in law Jojo will inform rest of family. They verbalize understanding. Pt back on SBT wean, higher rates and more appropriate TV, stable.
--- NOTE | 2024-07-09 11:31 | W.PN.GI.CBS2 ---
Today's Communication / Plan
-
d/c PPI ggt
continue octreotide for 1 more day
giving lactulose
Assessment / Plan
-
58-year-old male with past medical history of cirrhosis, portal hypertension per history, bipolar disorder, chronic pain syndrome with prior history of alcohol abuse intermittent episodes of Advil who presents to the emergency room poorly responsive
with hematemesis now sedated and intubated initially with hemoglobin of 4.9 transfuse 3 units packed red blood cells 9.4. NG tube with maroon output and with maroon rectal output. Concerning for upper GI bleed. Stigmata of cirrhosis based on labs
as well. Will proceed to urgent EGD. Patient currently on pantoprazole drip, octreotide drip. Will add on ceftriaxone. Ammonia level is elevated at 90. Will hold on lactulose until after urgent EGD. Based on findings on EGD and interventions
performed will determine administration technique of lactulose.
Impression:
GI Bleed froom portal gastropathy
Cirrhosis
Hepatic encephalopathy
Plan:
follow hgb which is stable
INR is stable
d/c PPI ggt and now placed on IV bid
cont Octreotide drip until tomorrow then d/c
ceftriaxone 1 g daily, 7 days
sedation stopped, giving lactulose and ammonia down to 35
Subjective
Subjective
Date of Service: July 09, 2024
Pt moving around, not awake though, no GI bleeding since admission
Objective
Data Reviewed
Laboratory Data:
Laboratory Results
07/09/24 04:36
07/09/24 04:36
Laboratory Results
PT 19.9 Sec (11.4-14.6) H 07/09/24 04:36
INR 1.67 07/09/24 04:36
APTT 31.9 Sec (23.4-35.0) 07/05/24 19:13
Phosphorus 3.6 mg/dl (2.5-4.5) 07/06/24 07:00
Magnesium 2.3 mg/dl (1.6-2.3) 07/06/24 07:00
Total Bilirubin 2.7 mg/dl (0.2-1.3) H 07/08/24 10:10
AST 44 U/L (17-59) 07/08/24 10:10
ALT 26 U/L (0-50) 07/08/24 10:10
Alkaline Phosphatase 87 U/L (38-126) 07/08/24 10:10
Lipase 357 U/L (23-300) H 07/05/24 19:13
Vital Signs and I&O:
Vital Signs
Temp Pulse Resp BP Pulse Ox
97.8 F 88 14 162/96 98
07/09/24 07:35 07/09/24 11:17 07/09/24 11:17 07/09/24 11:10 07/09/24 11:17
I&O
07/08/24 07/09/24 07/10/24
06:59 06:59 06:59
Intake Total 3660.8 / 3812.5 3820.8 / 3972.5 808.5 / 808.5
Output Total 943 / 993 1090 / 1290 435 / 435
Balance 2717.8 / 2819.5 2730.8 / 2682.5 373.5 / 373.5
Physical Exam
Physical Exam
HEENT: Anicteric (intubated)
GI: Soft and Non Distended (mildly distended)
Extremities: Warm
Neuro: Non Focal (not responsive )
[2024-07-09] MEDS: PROTONIX IV 40 MG IV ×2 (11:54→20:06)
[2024-07-09] MEDS: NSS (PRESERVATIVE FREE) 10 ML IV ×2 (11:54→20:06)
[2024-07-09 15:28] LABS: B.E. -2.7 mmol/L; HCO3 19.8 mmol/L (21-28); O2 Saturation % 98.5 % (94-98); PCO2 26 mmHg (35-48); PO2 89 mmHg (83-108); pH 7.49 (7.35-7.45)
--- NOTE | 2024-07-09 16:13 | PTCARENOTE ---
remains on wean, ABG obtained, results to Dr. Sheikh, to keep on current settings for now. restless, throws Left leg off mattress at times, pillows propped, no other change.
[2024-07-09] MEDS: SUBLIMAZE 50 MCG IV (21:34)
--- NOTE | 2024-07-09 21:34 | PTCARENOTE ---
Pt received at 19:00. Initial assessment as documented. Pt received on CPAP wean, 5/5 30%. Placed back on AC 14/450/30%/+5. Increased restlessness, however--not following commands, and asynchronous with the ventilator, PRN fentanyl given as ordered.
[2024-07-10] VITALS (22 sets, daily range): BP systolic 130–178; BP diastolic 74–129; BMI 29.0
[2024-07-10] MEDS: SANDOSTATIN 500.6 MCG IV ×2 (00:18→11:18)
[2024-07-10] MEDS: VERSED 5 MG IV (02:09)
--- NOTE | 2024-07-10 02:09 | PTCARENOTE ---
Pt increasingly restless/agitated, not following commands. Kicking side rail, attempting to reach for ETT, biting ETT, RR 25-30. PRN versed given as ordered.
[2024-07-10] MEDS: LR 1000 IV (02:11)
[2024-07-10] MEDS: SUBLIMAZE 50 MCG IV ×2 (04:10→05:45)
[2024-07-10 04:44] LABS: % Basophils 0.5 % (0-2); % Immature Granulocytes 0.6 % (0-0.5); % Lymphocytes 13.4 % (20.5-51.1); % Monocytes 18.8 % (1.7-9.3); % Neutrophils 62.7 % (42.2-75.2); Absolute Eosinophils 0.3 10^3/uL (0-0.7); Absolute Lymphocytes 0.8 10^3/uL (1.2-3.4); Absolute Monocytes 1.2 10^3/uL (0.1-0.6); Absolute Neutrophils 3.9 10^3/uL (1.4-6.5); Hematocrit 26.9 % (39.0-52.0); Hemoglobin 9.1 g/dL (13.0-18.0); Mean Corp Hgb Conc. 33.8 g/dL (33.0-37.0); Mean Corpuscular Hgb 29.6 pg (27.0-31.0); Mean Corpuscular Volume 87.6 fL (80.0-94.0); Mean Platelet Volume 11.1 fL (7.4-10.4); Nucleated Red Blood Cells % 0 % (-); Platelet Count 84 10^3/uL (130-400); Red Blood Cell Count 3.07 10^6/uL (4.70-6.10); Red Cell Dist. Width 17.6 % (11.5-14.5); White Blood Cell Count 6.3 10^3/uL (4.8-10.8)
[2024-07-10 04:48] LABS: INR 1.68
[2024-07-10 04:52] LABS: ALT (SGPT) 31 U/L (0-50); AST (SGOT) 58 U/L (17-59); Albumin 2.3 g/dl (3.5-5.0); Alkaline Phosphatase 114 U/L (38-126); Blood Urea Nitrogen 41 mg/dl (9-20); Calcium 7.3 mg/dl (8.4-10.2); Carbon Dioxide 21 mmol/L (22-30); Chloride 120 mmol/L (98-107); Estimated Creatinine Clearance 87 ml/min; Glucose 132 mg/dl (70-99); Potassium 3.5 mmol/L (3.5-5.1); Sodium 147 mmol/L (135-145); Total Protein 5.1 g/dl (6.3-8.2); eGFR > 60.00
[2024-07-10 04:53] LABS: Ammonia 50 umol/L (9-30)
--- NOTE | 2024-07-10 06:56 | W.PN.UPDATE ---
Update Note
Progress Note Update
0630 Sudden drop in blood pressure, 30/10, went into paced rhythm, started ACLS. One round of CPR done and one of epi of given. ROSC regained back in AFIB, BP stabilized. Maintain on Levophed drip.�
--- NOTE | 2024-07-10 07:36 | W.PN.INTV ---
Today's Communication / Plan
Recommendations
Antibiotics empirically day 10/03
Spontaneous breathing trial-possible extubation
Increase lactulose
Follow hemoglobin
Discontinue octreotide
Assessment
-
58-year-old man with history of alcohol cirrhosis admitted through the emergency room after found unresponsive at home by his mother. Patient was admitted with dark stools, dark emesis, found to have anemia and GI bleed. Intubated for change in
mental status and airway protection and transferred to the critical care unit for further care.
Acute respiratory failure/change in mental status requiring intubation and mechanical ventilation for airway protection 07/05/2024
Acute GI bleed-melena/coffee-ground
Acute blood loss anemia-hemoglobin on admission 4.9
Status post EGD 07/06/2026: Portal gastropathy.
Change in mental status/toxic metabolic encephalopathy: Cannot rule out alcohol withdrawal/hepatic encephalopathy
Ammonia level 92
Coagulopathy INR 2.7
Conditions present prior admission:
Alcoholic cirrhosis-on prior operative report from 2014 is noted.
? Bipolar disorder-not taking any medications
History of alcohol disorder
Assessment and plan:.
Remains critically ill on a ventilator with mental status changes
Sedation held-off since 07/07/2024-trying to minimize midazolam as well as fentanyl
Ventilator settings reviewed
Airway pressures reviewed and adequate
Wean FiO2
Follow ABG
Spontaneous breathing trial tolerated 07/09/2024-not extubated due to declining mental status-try spontaneous breathing trial again and consider extubation
VAP prevention protocol
Nebulizers if needed
Continue to follow hemoglobin
Transfuse as needed-has received 3 units packed red blood cells
PPI
GI following-correspondence reviewed
Abdominal ultrasound 07/06/2024:1. Liver is shrunken and nodular, consistent with cirrhosis.
Prophylactic ceftriaxone initiated-day 10/03
Xifaxan added
Octreotide will be discontinued 07/10/2024
Nasogastric tube-initiated feeding 07/09/2024-tolerating
Follow ammonia-increased
Lactulose initiated 07/08/2024-increase frequency
Monitor mental status-suspect toxic metabolic encephalopathy-if no improvement in the next [address] head/neurology evaluation
Girlfriend states that he has not drank in a while. Unlikely alcohol withdrawal.
Suspected hepatic encephalopathy
DVT prophylaxis-on sequentials-no pharmacological prophylaxis due to GI bleed
GI prophylaxis-on Protonix
Begin nutrition
Bedside range of motion
Dr. Sheikh updated family member at the bedside extensively 07/09/2024
Critical care statement: A total of 40 minutes of critical care time was provided for this patient today. This includes management of unstable vital signs, evaluation of the patient at bedside, reviewing the patient's pertinent medical records
including radiographs, ventilator management, pressor management, metabolic encephalopathy management microbiology, laboratory evaluations, and discussion with primary team, consultants, pharmacy, nutrition, physical therapy, case management,
charge nurse, critical care nursing, and respiratory therapy.
Subjective Dataa
Subjective Data
Date of Service:
Date of Service: July 10, 2024
Chief Complaint: Punch Machine Operator Follow Up (Change in mental status-GI bleed), Pulmonary Follow Up and Vent Management Follow Up
Subjective:
Agitated, moving all extremities, not alert or oriented, moderate amount secretions, tolerated SBT
Review of Systems
General: Other ( per HPI)
Objective Data
Data Reviewed
Vital Signs / I&O / Oxygen:
Vital Signs
Temp Pulse Resp BP Pulse Ox
98.3 F 91 15 131/75 97
07/10/24 03:44 07/09/24 20:00 07/09/24 20:00 07/09/24 20:00 07/10/24 06:36
Intake and Output
07/09/24 07/10/24 07/11/24
06:59 06:59 06:59
Intake Total 3820.8 / 3972.5 3134.1 / 3134.1
Output Total 1090 / 1290 1165 / 1165
Balance 2730.8 / 2682.5 1969. / 1968.
SaO2 [CPAP/PSV] 96
SaO2 [A/C] 95
SaO2 97
Physical Exam
General: Respiratory Distress (n) and Comfortable
HEENT: Normocephalic
Cardiovascular: Regular Rhythm
Respiratory: Wheeze (n), Crackles, Rhonchi, Non-Labored Respirations, Accessory Resp Muscle Use (n) and ET Tube (No significant secretions)
GI: Soft and Non Distended
Neurology: Other (Moving 4 extremities. Not purposefully following commands yet.)
Skin: Warm, Good Color, Cyanosis (n), Jaundice (n) and Rash (n)
Labs/Micro/Reports
Lab Data
07/10/24 04:28
07/10/24 04:28
Laboratory Results
07/09/24 07/10/24
15:15 04:28
PT 20.0 H
INR 1.68
pH 7.49 H
pCO2 26 L
pO2 89
HCO3 19.8 L
O2 Delivery Level
[2024-07-10] MEDS: DUPHALAC/CHRONULAC 20 GRAMS PO (08:09)
[2024-07-10] MEDS: PROTONIX IV 40 MG IV ×2 (08:09→19:20)
[2024-07-10] MEDS: MIRALAX TUBE (08:10)
[2024-07-10] MEDS: NSS (PRESERVATIVE FREE) 10 ML IV ×2 (08:10→19:20)
--- NOTE | 2024-07-10 08:20 | W.PN.HOSP.TC ---
Today's Communication/Plan
-
Lactulose. Mechanical ventilation
Assessment / Plan
Assessment / Plan
Physical exam:
General: Acutely ill
HEENT: ETT in place. Normocephalic, Atraumatic and Moist Mucous Membranes
Respiratory: Clear to Auscultation; Negative Wheezes, Rales or Rhonchi
Cardiac: Regular Rhythm and S1/S2
GI: Soft, Nontender and Nondistended
Musculoskeletal: No Clubbing, No Cyanosis and No Edema
Neuro: Does not follow commands on the vent off sedation. Agitated at times. Move spontaneously all 4 extremities
A/P:
Acute respiratory failure:
On mechanical ventilation
Critical care following
Discussed with family at bedside today
Acute toxic-metabolic encephalopathy:
Sedation off
Lactulose will be switched to enemas today
Monitor neurological status closely
Discussed with GI in person today
Acute upper GI bleed:
EGD showed portal gastropathy
Continue PPI
Continue octreotide and might be able to stop today
Continue IV Rocephin day 5 out of 7
Monitor hemoglobin
GI on board
Acute blood loss anemia:
Status post blood transfusion
Monitor hemoglobin
Hepatic encephalopathy:
Continue lactulose-Lactulose will be switched to enemas today
Added Xifaxan
Monitor ammonia every so often
Alcohol liver cirrhosis:
Continue to monitor MELD score labs-MELD score 18 today
Needs further evaluation as outpatient after stabilization
DVT prophylaxis:
SCDs
CODE STATUS:
Full code
Total time spent on today's encounter was 52 minutes which included time spent in counseling the patient/family regarding diagnosis and treatment plan as listed above, goals of care, and symptom management. Case was discussed with nursing staff,
specialists, and care coordinators/case management. All labs and imaging personally reviewed by me. Remainder the time spent in detailed review of previous records, lab data, imaging, and other medical provider documentation.
Anticipated Discharge: > 48 hours
Subjective/Interval History
-
Date of Service: July 10, 2024
Patient remains on the ventilator. Mentation still relatively poor. Afebrile
Objective Data
-
Labs:
Laboratory Results
07/10/24
04:28
WBC 6.3
Hgb 9.1 L
Hct 26.9 L
Plt Count 84 L
PT 20.0 H
INR 1.68
Sodium 147 H
Potassium 3.5
Chloride 120 H
Carbon Dioxide 21 L
BUN 41 H
Creatinine 0.9
Glucose 132 H
Calcium 7.3 L
Total Bilirubin 3.0 H
AST 58
ALT 31
Alkaline Phosphatase 114
Vital Signs:
Vital Signs
Temp Pulse Resp BP Pulse Ox
98.6 F 91 15 131/75 97
07/10/24 08:10 07/09/24 20:00 07/09/24 20:00 07/09/24 20:00 07/10/24 08:03
I&O
07/09/24 07/10/24 07/11/24
06:59 06:59 06:59
Intake Total 3820.8 / 3972.5 3134.1 / 3134.1
Output Total 1090 / 1290 1165 / 1165
Balance 2730.8 / 2682.5 1969.1 / 1968.1
--- NOTE | 2024-07-10 08:30 | PTCARENOTE ---
recd pt 0700, handoff at bedside. Intubated and SBT began 5/5/30%, TV 850+ ml. restrained. rodriguez maintained. Not following commands, YOUSSEF, +cough, + gag, PERRLA, jaundiced sclera, Opens eyes with turns but not assisting, attempts to exit bed but
does not reach for ETT. lactulose given, NG with TF at goal. updated family at bedside. positioned for comfort.
--- NOTE | 2024-07-10 09:07 | VATNOTE ---
During routine assessment (+)2-3 pitting edema noted in pt's RUE, which appears > than his LUE. RUE circumference 33 cm vs 32 cm on day of midline insertion. Serous drainage noted from midline site and other areas of pt's arm. Dressing changed and
flushed with dressing off to assess for leaking, no leaking noted. Redressed and PCN notified, peripheral vascular ultrasound recommended.
[2024-07-10] MEDS: LASIX 20 MG IV (09:57)
[2024-07-10] MEDS: KCL ELIXIR 40 MEQ PO (09:57)
--- NOTE | 2024-07-10 10:39 | W.PN.GI.CBS2 ---
Today's Communication / Plan
-
Plan:
-MELD 3.0 on 07/10/24 -
Will switch Lactulose to lactulose enema 30ml every 6 hours , add Xifaxan 550mg bid through the G tube
Small smear of stool without any significant BM inspite of lactulose and Miralax.
Continue to hold the sedatives
Monitor electrolytes and replete as needed.
US abdomen 07/06 with only min ascites. No fevers.
- Portal gastropathy
follow hgb -stable for now
Continue Protonix IV bid
can d/c Octreotide drip today
ceftriaxone 1 g daily, 5/ days
- Currently on Osmolite 1.2 at 65cc/hr
Family bedside update and plan d/w RN as well
Assessment / Plan
-
58-year-old male with past medical history of cirrhosis, portal hypertension per history, bipolar disorder, chronic pain syndrome with prior history of alcohol abuse intermittent episodes of Advil who presents to the emergency room poorly responsive
with hematemesis now sedated and intubated initially with hemoglobin of 4.9 transfuse 3 units packed red blood cells 9.4. NG tube with maroon output and with maroon rectal output. Concerning for upper GI bleed. Stigmata of cirrhosis based on labs
as well. Will proceed to urgent EGD. Patient currently on pantoprazole drip, octreotide drip. Will add on ceftriaxone. Ammonia level is elevated at 90. Will hold on lactulose until after urgent EGD. Based on findings on EGD and interventions
performed will determine administration technique of lactulose.
Impression:
GI Bleed from portal gastropathy
Cirrhosis-Alcohol related, hypoalbuminemia, thrombocytopenia
Hepatic encephalopathy
Plan:
-MELD 3.0 on 07/10/24 -
Will switch Lactulose to lactulose enema 30ml every 6 hours , add Xifaxan 550mg bid through the G tube
Small smear of stool without any significant BM inspite of lactulose and Miralax.
Continue to hold the sedatives
Monitor electrolytes and replete as needed.
US abdomen / with only min ascites. No fevers.
- Portal gastropathy
follow hgb -stable for now
Continue Protonix IV bid
can d/c Octreotide drip today
ceftriaxone 1 g daily, 5/7 days
- Currently on Osmolite 1.2 at 65cc/hr
Family bedside update and plan d/w RN as well
Subjective
Subjective
Date of Service: July 10, 2024
Patient still agitated, not responsive to verbal stimulus
Objective
Data Reviewed
Laboratory Data:
Laboratory Results
07/10/24 04:28
07/10/24 04:28
Laboratory Results
PT 20.0 Sec (11.4-14.6) H 07/10/24 04:28
INR 1.68 07/10/24 04:28
APTT 31.9 Sec (23.4-35.0) 07/05/24 19:13
Phosphorus 3.6 mg/dl (2.5-4.5) 07/06/24 07:00
Magnesium 2.3 mg/dl (1.6-2.3) 07/06/24 07:00
Total Bilirubin 3.0 mg/dl (0.2-1.3) H 07/10/24 04:28
AST 58 U/L (17-59) 07/10/24 04:28
ALT 31 U/L (0-50) 07/10/24 04:28
Alkaline Phosphatase 114 U/L (38-126) 07/10/24 04:28
Lipase 357 U/L (23-300) H 07/05/24 19:13
Vital Signs and I&O:
Vital Signs
Temp Pulse Resp BP Pulse Ox
98.6 F 100 26 178/117 97
07/10/24 08:10 07/10/24 10:17 07/10/24 10:17 07/10/24 10:17 07/10/24 10:17
I&O
07/09/24 07/10/24 07/11/24
06:59 06:59 06:59
Intake Total 3820.8 / 3972.5 3134.1 / 3225.8 621.8 / 621.8
Output Total 1090 / 1290 1165 / 1165 335 / 335
Balance 2730.8 / 2682.5 1969.1 / 2060.8 286.8 / 286.8
Physical Exam
Physical Exam
GI: Soft and Other (mildly distended, non tendet)
Extremities: Edema
[2024-07-10] MEDS: XIFAXAN 550 MG TUBE ×2 (11:19→19:20)
[2024-07-10] MEDS: ROCEPHIN 1000 MG IV (11:19)
[2024-07-10] MEDS: STERILE WATER FOR INJECTION 10 ML IV (11:19)
[2024-07-10] MEDS: FLUSH (NSS) 1 FLUSH IV ×2 (11:20→11:21)
[2024-07-10] MEDS: LACTULOSE ENEMA 300 ML RECTAL ×3 (11:21→23:50)
[2024-07-10] MEDS: MIRALAX 17 GRAMS TUBE (11:55)
[2024-07-10 12:24] LABS: B.E. -2.8 mmol/L; HCO3 19.8 mmol/L (21-28); O2 Saturation % 98.2 % (94-98); PCO2 26 mmHg (35-48); PO2 80 mmHg (83-108); pH 7.49 (7.35-7.45)
--- NOTE | 2024-07-10 12:41 | PTCARENOTE ---
Pt continues not to follow commands, no purposful mvmt except trying to exit bed. SBT continues. Lactulose enema given with mod amt of loose brown stool out. Good response from AM lasix.
--- NOTE | 2024-07-10 13:31 | PTCARENOTE ---
Pt extubated to nasal canula at 1320. SpO2 96%
--- NOTE | 2024-07-10 13:31 | CM ---
Chart reviewed
spoke with nursing
Mechanical ventilation
PLAN: CM to follow hospital progression for discharge planning needs.
--- NOTE | 2024-07-10 18:05 | PTCARENOTE ---
Continues to be encephalopathic. Opens eyes and yells obscenities with stimulation but not answering questions, following commands or tracking. No purposful mvmts, just writhing in bed. Lactulose enemas Q6 ongoing with moderate amount of stool out.
--- NOTE | 2024-07-10 20:00 | PTCARENOTE ---
rec'd patient. opens eyes, cursing at staff with stimulation, not answering questions, following commands or tracking. No purposeful movements, writhing in bed. b/l soft wrist restraints in place. SR on monitor. afebrile. on 3L NC, expiratory
wheezing noted with exertion. DHT in R nare with TF infusing at goal. pt with loose liquid BM at shift change. oral care, CHG bath, rodriguez care done. octreotide gtt infusing. family at bedside. bed alarm on. care ongoing.
[2024-07-10] MEDS: ATIVAN 0.5 MG IV (20:52)
[2024-07-10] MEDS: APRESOLINE 5 MG IV (21:03)
--- NOTE | 2024-07-10 21:14 | PTCARENOTE ---
Addendum entered by Lilibeth Gann RN 07/10/24 21:37:
pt increasingly tachypneic, ST on monitor. ICU BITUMEN PLANT OPERATOR at bedside to assess, precedex gtt started, additional stat dose of ativan given
Original Note:
pt extremely agitated, kicking legs out of bed and at staff, yelling profanities. PRN ativan given with no improvement in agitation. 4 pt restraints ordered as well as precedex gtt per ICU BITUMEN PLANT OPERATOR
[2024-07-10] MEDS: PRECEDEX 100 IV (21:20)
[2024-07-10] MEDS: ATIVAN 1 MG IV ×2 (21:35→21:48)
[2024-07-10] MEDS: NSS (PRESERVATIVE FREE) 0.5 ML IV ×2 (21:48→21:50)
--- NOTE | 2024-07-10 23:16 | PTCARENOTE ---
pt on 3L NC, precedex gtt infusing, remains restless, gtt titrated per protocol.
pt with large liquid BM, ICU STAFF VETERINARIAN made aware and FMS ordered and inserted. full bed bath done.
[2024-07-11] VITALS (43 sets, daily range): BP systolic 76–156; BP diastolic 48–86; PULSE 42
[2024-07-11] MEDS: PRECEDEX 100 IV ×3 (03:35→19:33)
[2024-07-11 03:57] LABS: ALT (SGPT) 32 U/L (0-50); AST (SGOT) 73 U/L (17-59); Albumin 1.9 g/dl (3.5-5.0); Alkaline Phosphatase 100 U/L (38-126); Blood Urea Nitrogen 33 mg/dl (9-20); Calcium 7.1 mg/dl (8.4-10.2); Carbon Dioxide 23 mmol/L (22-30); Chloride 123 mmol/L (98-107); Estimated Creatinine Clearance 97 ml/min; Glucose 111 mg/dl (70-99); Magnesium 2.3 mg/dl (1.6-2.3); Potassium 3.7 mmol/L (3.5-5.1); Sodium 148 mmol/L (135-145); Total Bilirubin 2.5 mg/dl (0.2-1.3); Total Protein 4.6 g/dl (6.3-8.2); eGFR > 60.00
--- NOTE | 2024-07-11 03:59 | PTCARENOTE ---
AM labs sent. precedex gtt titrated down, pt less agitated. remains in 4 pt restraints. no other changes noted in assessment. care ongoing.
[2024-07-11 04:02] LABS: % Basophils 0.3 % (0-2); % Eosinophils 7.1 % (0-6); % Immature Granulocytes 0.6 % (0-0.5); % Lymphocytes 18.5 % (20.5-51.1); % Monocytes 18.8 % (1.7-9.3); % Neutrophils 54.7 % (42.2-75.2); Absolute Eosinophils 0.2 10^3/uL (0-0.7); Absolute Lymphocytes 0.6 10^3/uL (1.2-3.4); Absolute Monocytes 0.6 10^3/uL (0.1-0.6); Absolute Neutrophils 1.8 10^3/uL (1.4-6.5); Hematocrit 25.4 % (39.0-52.0); Hemoglobin 8.2 g/dL (13.0-18.0); Mean Corp Hgb Conc. 32.3 g/dL (33.0-37.0); Mean Corpuscular Hgb 29.8 pg (27.0-31.0); Mean Corpuscular Volume 92.4 fL (80.0-94.0); Mean Platelet Volume 10.4 fL (7.4-10.4); Nucleated Red Blood Cells % 0 % (-); Platelet Count 60 10^3/uL (130-400); Red Blood Cell Count 2.75 10^6/uL (4.70-6.10); Red Cell Dist. Width 17.5 % (11.5-14.5); White Blood Cell Count 3.4 10^3/uL (4.8-10.8)
[2024-07-11 04:12] LABS: Ammonia 15 umol/L (9-30)
[2024-07-11] MEDS: LACTULOSE ENEMA 300 ML RECTAL (05:05)
[2024-07-11] MEDS: MIRALAX TUBE (07:35)
[2024-07-11] MEDS: XIFAXAN 550 MG TUBE ×2 (07:36→19:34)
[2024-07-11] MEDS: NSS (PRESERVATIVE FREE) 10 ML IV ×2 (07:36→19:34)
[2024-07-11] MEDS: PROTONIX IV 40 MG IV ×2 (07:36→19:34)
--- NOTE | 2024-07-11 07:42 | W.PN.INTV ---
Today's Communication / Plan
Recommendations
Add nebulizers
Wean FiO2
Precedex initiated
Antibiotics
Monitor for need for reintubation
Neurology evaluation for persistent declined neurologic status
Assessment
-
58-year-old man with history of alcohol cirrhosis admitted through the emergency room after found unresponsive at home by his mother. Patient was admitted with dark stools, dark emesis, found to have anemia and GI bleed. Intubated for change in
mental status and airway protection and transferred to the critical care unit for further care.
Acute respiratory failure/change in mental status requiring intubation and mechanical ventilation for airway protection 07/05/2024
Intubated 07/05/2024
Extubated 07/10/2024
Hepatic encephalopathy
Acute GI bleed-melena/coffee-ground
Acute blood loss anemia-hemoglobin on admission 4.9
Status post EGD 07/06/2026: Portal gastropathy.
Change in mental status/toxic metabolic encephalopathy: Cannot rule out alcohol withdrawal/hepatic encephalopathy
Ammonia level 92
Coagulopathy INR 2.7
Conditions present prior admission:
Alcoholic cirrhosis-on prior operative report from 2014 is noted.
? Bipolar disorder-not taking any medications
History of alcohol disorder
Assessment and plan:.
Respiratory status still tenuous
Tolerated extubation
BiPAP if needed
Deep suction
Add nebulizers
Follow chest x-ray
Address whether patient would have wanted to be reintubated-discussing with family
Precedex as needed
Follow hemoglobin
Transfuse as needed-has received 3 units packed red blood cells
PPI
GI following-correspondence reviewed
Abdominal ultrasound 07/06/2024:1. Liver is shrunken and nodular, consistent with cirrhosis.
Prophylactic ceftriaxone initiated-day 10/03
Xifaxan added
Octreotide discontinued 07/10/2024
Nasogastric tube-initiated feeding 07/09/2024-tolerating
Follow [id number]
Lactulose initiated 07/08/2024-continue
Monitor mental status-suspect toxic metabolic encephalopathy-mental status not significantly improved
Neurology consultation recommended and arranged
Girlfriend states that he has not drank in a while-his wtiacz-[id number] reports patient did not drink for 10 years but about 1 year ago he started drinking again
Suspected hepatic encephalopathy
DVT prophylaxis-on sequentials-no pharmacological prophylaxis due to GI bleed
GI prophylaxis-on Protonix
Begin nutrition
Bedside range of motion
Dr. Sheikh updated [id number] at the bedside extensively 07/09/2024 as well as on multidisciplinary rounds 07/11/2024
Critical care statement: A total of 42 minutes of critical care time was provided for this patient today. This includes management of unstable vital signs, evaluation of the patient at bedside, reviewing the patient's pertinent medical records
including radiographs, respiratory failure management, pressor management, metabolic encephalopathy management microbiology, laboratory evaluations, and discussion with primary team, consultants, pharmacy, nutrition, physical therapy, case
management, charge nurse, critical care nursing, and respiratory therapy.
Subjective Dataa
Subjective Data
Date of Service:
Date of Service: July 11, 2024
Chief Complaint: Manager Sign Follow Up (Change in mental status-GI bleed), Pulmonary Follow Up and Vent Management Follow Up
Subjective:
Tolerated extubation, moderate amount secretions, mental status is not improved, still agitated, moving all extremities,
Review of Systems
General: Other (Per HPI)
Objective Data
Data Reviewed
Vital Signs / I&O / Oxygen:
Vital Signs
Temp Pulse Resp BP Pulse Ox
98.3 F 62 17 92/63 98
07/11/24 03:27 07/11/24 07:00 07/11/24 07:00 07/11/24 07:00 07/11/24 07:36
Intake and Output
07/10/24 07/11/24 07/12/24
06:59 06:59 06:59
Intake Total 3134.1 / 3225.8 2937.6 / 2937.6
Output Total 1165 / 1165 1685 / 1685
Balance 1968.2059.8 1252.6 / 1252.6
SaO2 [CPAP/PSV] 97
SaO2 [A/C] 95
SaO2 98
Nasal Cannula flow liters per 4
minute
Physical Exam
General: Respiratory Distress (n) and Comfortable
HEENT: Normocephalic and Anicteric
Cardiovascular: Regular Rhythm
Respiratory: Wheeze (n), Crackles, Rhonchi, Non-Labored Respirations and Accessory Resp Muscle Use (n)
GI: Soft and Non Distended
Neurology: Other (Moving 4 extremities. Not purposefully following commands yet.)
Skin: Warm, Good Color, Cyanosis (n), Jaundice (n) and Rash (n)
Labs/Micro/Reports
Lab Data
07/11/24 03:49
07/11/24 03:32
Laboratory Results
07/10/24
11:44
pH 7.49 H
pCO2 26 L
pO2 80 L
HCO3 19.8 L
O2 Delivery Level
--- NOTE | 2024-07-11 09:30 | PTCARENOTE ---
Rec'd care of patient at 0700. Patient agitated and restless. Does not follow any commands. Screaming out curse words. 4pt restraints Pupils equal and reactive. +3 mm, sluggish. Neuro consulted. NSR on tele monitor. +2 anasarca. Pulse ox 96% on 3L
nc. Patient tachypneic. Lung sounds coarse with expiratory wheeze. Weak cough; non-productive. +BS. Abdomen firm/distended. FMS in place for liquid stools. DHT with TFs at goal rate. Zhou in place for critical I/O. RUE restriction d/t +dvt. Left
arm peripheral INTs flushed and capped. 20mg IV Lasix and 40meq KCl ordered.
--- NOTE | 2024-07-11 09:43 | W.PN.HOSP.TC ---
Today's Communication/Plan
-
Lactulose per rectum. Neurology consult.
Assessment / Plan
Assessment / Plan
Physical exam:
General: Acutely ill
HEENT: Normocephalic, Atraumatic and Moist Mucous Membranes
Respiratory: Clear to Auscultation; Negative Wheezes, Rales or Rhonchi
Cardiac: Regular Rhythm and S1/S2
GI: Soft, Nontender and distended
Musculoskeletal: No Clubbing, No Cyanosis and No Edema
Neuro: Alert but disoriented. Does not follow commands yet. Move spontaneously all 4 extremities
A/P:
Acute respiratory failure:
Status post extubated yesterday on 07/10
Critical care following
Discussed with family at bedside today on 07/11
Acute toxic-metabolic encephalopathy:
Sedation off
Continue lactulose and rifaximin
Critical care consulted neurology today
Acute upper GI bleed:
EGD showed portal gastropathy
Continue PPI
Continue octreotide and might be able to stop today
Continue IV Rocephin day 6 out of 7
Monitor hemoglobin
GI on board
Obtain abdominal x-ray today
Acute blood loss anemia:
Status post blood transfusion
Monitor hemoglobin
Hepatic encephalopathy:
Continue lactulose-lactulose switch to enemas yesterday 300 mL every 6 hours--> today will be switched to lactulose 20 g p.o. every 6 hours. Added rifaximin yesterday as well.
Monitor ammonia every so often but more importantly follow clinical course
Alcohol liver cirrhosis:
Continue to monitor MELD score labs-MELD score 18 yesterday
Needs further evaluation as outpatient after stabilization
DVT prophylaxis:
SCDs
CODE STATUS:
Full code
Total time spent on today's encounter was 52 minutes which included time spent in counseling the patient/family regarding diagnosis and treatment plan as listed above, goals of care, and symptom management. Case was discussed with nursing staff,
specialists, and care coordinators/case management. All labs and imaging personally reviewed by me. Remainder the time spent in detailed review of previous records, lab data, imaging, and other medical provider documentation.
Anticipated Discharge: > 48 hours
Subjective/Interval History
-
Date of Service: July 11, 2024
Patient was extubated yesterday. His mentation remains off. Afebrile.
Objective Data
-
Labs:
Laboratory Results
07/11/24 07/11/24 07/11/24
03:32 03:49 18:00
WBC 3.4 L
Hgb 8.2 L
Hct 25.4 L
Plt Count 60 L D
Sodium 148 H Pending
Potassium 3.7 Pending
Chloride 123 H Pending
Carbon Dioxide 23 Pending
BUN 33 H
Creatinine 0.9
Glucose 111 H
Calcium 7.1 L
Total Bilirubin 2.5 H
AST 73 H
ALT 32
Alkaline Phosphatase 100
Vital Signs:
Vital Signs
Temp Pulse Resp BP Pulse Ox
97.5 F 73 21 112/56 96
07/11/24 07:42 07/11/24 08:00 07/11/24 08:00 07/11/24 08:00 07/11/24 08:00
I&O
07/10/24 07/11/24 07/12/24
06:59 06:59 06:59
Intake Total 3134.1 / 3225.8 2937.6 / 3027.6 280 / 280
Output Total 1165 / 1165 1685 / 1730 75 / 75
Balance 1969.1 / 2060.8 1252.6 / 1297.6 205 / 205
[2024-07-11] MEDS: KCL ELIXIR 40 MEQ TUBE (10:13)
[2024-07-11] MEDS: LASIX 20 MG IV (10:13)
--- NOTE | 2024-07-11 10:30 | W.PN.GI.CBS2 ---
Addendum entered and electronically signed by Elizabeth Ibanez MD 07/11/24 12:19:
I saw and examined the patient.
The MASTIC MAN or PA's note was reviewed and I agree with the note.
Comment: Patient still agitated. Had a large amount of loose liquid stool last night.
Abdomen appears distended, abdominal x-ray this morning showed moderate amount of gas in nondilated loops of bowel without any evidence of obstruction.
Rectal exam without any evidence of lesions, rectal tube placed back in.
Abdominal ultrasound 07/06/2024 with minimal peritoneal ascites.
If abdomen continues to be distended, consider CT without contrast to evaluate.
Continue lactulose and Xifaxan
MELD 3.0 on
Monitor electrolytes and replete as needed.
Continue PPI.
Ceftriaxone 6/7 days
Currently receiving Osmolite at 20 cc an hour, advance as tolerated.
Will follow
Addendum entered and electronically signed by PHYLLIS Umana 07/11/24 11:42:
some abd distention await follow up X ray completed this am
Original Note:
Today's Communication / Plan
-
Pt remains agitated without following commands-- ETOH withdrawal, HE, vs other
now extubated but still with agitation without commands, ammonia normal at 15
for neuro eval
-MELD 3.0 on 07/10/24 - cont to trend MELD labs
will change back to lactulose vs DHT as no change in mentation with oral vs enema use and cont Xifaxan
will hold miralax with some abd distention but noted liquid brown stools and had not been taking
cont ativan PRN with agitation
pulm following with some wheezing on exam
Monitor electrolytes and replete as needed.
hbg stable 8.2 no signs of aggressive bleeding s/p EGD as noted
Continue Protonix IV bid
completed Octreotide drip
ceftriaxone 1 g daily, 6/7 days
cont tube feeds as tolerated
update RN and family at bedside
Assessment / Plan
-
58-year-old male with past medical history of cirrhosis, portal hypertension per history, bipolar disorder, chronic pain syndrome with prior history of alcohol abuse intermittent episodes of Advil who presents to the emergency room poorly responsive
with hematemesis requiring sedation and intubation on admission with initial hemoglobin of 4.9 requiring transfusion. NG tube with maroon output and with maroon rectal output on admission with Stigmata of cirrhosis and elevated ammonia level.
s/p EGD with portal gastropathy
07/06 EGD - Normal esophagus.- Portal hypertensive gastropathy- Old black clots in the gastric fundus- Normal examined duodenum- No specimens collected.
Impression:
GI Bleed from portal gastropathy
Cirrhosis-Alcohol related, hypoalbuminemia, thrombocytopenia, coagulopathy
change in mental status
anemia acute blood loss
Hepatic encephalopathy
ETOH abuse
resp insufficiency s/p intubation with extubation 07/10
? bipolar disorder
Plan:
Pt remains agitated without following commands-- ETOH withdrawal, HE, vs other
now extubated but still with agitation without commands, ammonia normal at 15
for neuro eval
-MELD 3.0 on 07/10/24 -18 cont to trend MELD labs
will change back to lactulose vs DHT as no change in mentation with oral vs enema use and cont Xifaxan
will hold miralax with some abd distention but noted liquid brown stools and had not been taking
cont ativan PRN with agitation
pulm following with some wheezing on exam
Monitor electrolytes and replete as needed.
hbg stable 8.2 no signs of aggressive bleeding s/p EGD as noted
Continue Protonix IV bid
completed Octreotide drip
ceftriaxone 1 g daily, 6/7 days
cont tube feeds as tolerated
update RN and family at bedside
Subjective
Subjective
Date of Service: July 11, 2024
2/12 brown stool, on tube feeds, still with agitation and no command no change in mentation with enema vs oral lactulose dosing
Objective
Data Reviewed
Laboratory Data:
Laboratory Results
07/11/24 03:49
Laboratory Results
PT 20.0 Sec (11.4-14.6) H 07/10/24 04:28
INR 1.68 07/10/24 04:28
APTT 31.9 Sec (23.4-35.0) 07/05/24 19:13
Phosphorus 3.6 mg/dl (2.5-4.5) 07/06/24 07:00
Magnesium 2.3 mg/dl (1.6-2.3) 07/11/24 03:32
Total Bilirubin 2.5 mg/dl (0.2-1.3) H 07/11/24 03:32
AST 73 U/L (17-59) H 07/11/24 03:32
ALT 32 U/L (0-50) 07/11/24 03:32
Alkaline Phosphatase 100 U/L (38-126) 07/11/24 03:32
Lipase 357 U/L (23-300) H 07/05/24 19:13
Vital Signs and I&O:
Vital Signs
Temp Pulse Resp BP Pulse Ox
97.5 F 81 31 146/77 97
07/11/24 07:42 07/11/24 10:13 07/11/24 10:00 07/11/24 10:13 07/11/24 10:00
I&O
07/10/24 07/11/24 07/12/24
06:59 06:59 06:59
Intake Total 3134.1 / 3225.8 2937.6 / 3027.6 460 / 460
Output Total 1165 / 1165 1685 / 1730 135 / 135
Balance 1969.1 / 2060.8 1252.6 / 1297.6 325 / 325
Physical Exam
Physical Exam
HEENT: Anicteric and Moist mucous membranes
Cardiology: Normal Sinus Rhythm
Pulmonary: Wheezes
GI: Soft, Distended and Non Tender (difficulty to assess with agitation)
Extremities: No Edema
Neuro: Other (agitated not following commands)
--- NOTE | 2024-07-11 10:36 | PTCARENOTE ---
Patient's abdomen firm. Bowel sounds present. Hospitalist notified. Plan for abdominal xray.
[2024-07-11] MEDS: DUONEB 3 ML INH ×3 (11:31→19:26)
--- NOTE | 2024-07-11 12:30 | PTCARENOTE ---
No major changes in assessment. Patient continues with agitation and restlessness. Discussed with Dye Tank Tender, plan to restart Precedex drip once eeg completed. NSR on tele. Pulse ox 95-96% on 2L nc. Lung sounds unchanged s/p initiation of nebs.
Tachypneic. Occasional moist cough; non-productive. +BS. Abdomen remains firm/distended. Abdominal xray completed. Dr. Ibanez at bedside. Possible ct if no improvement. TFs temporarily placed on hold. FMS in place for liquid stools. Lactulose
changed to PO. Zhou output increased post Lasix. Lytes ordered to be rechecked at 1800.
[2024-07-11] MEDS: ROCEPHIN 1000 MG IV (12:33)
[2024-07-11] MEDS: DUPHALAC/CHRONULAC 20 GRAMS PO ×2 (12:33→18:14)
[2024-07-11] MEDS: STERILE WATER FOR INJECTION 10 ML IV (12:33)
--- NOTE | 2024-07-11 12:52 | PTCARENOTE ---
EEG in progress.
--- NOTE | 2024-07-11 14:03 | EEG.RPT ---
Electroencephalogram Report
Recording
Date of EE07/11/24
Type of EEG: Routine
Length of EEG recordin minutes
Done with Video Recording: Yes
Patient Status: Inpatient
Recording Conditions: Moving, Confused and Combative
Hyperventilation Performed: No
Photic Stimulation Performed: Yes
Report
History: 58 year old man with alcoholic cirrhosis, elevated ammonia, admitted after found unresponsive.
Sedation: none
Background: continuous generalized slowing, polymorphic theta activity, symmetric, with spontaneous variability and reactivity. Excessive muscle activity obscures most of the record.
Sleep: none
Focal/rhythmic/epileptiform: none
Seizures: none
Photic stim: no background change
Impression: continuous generalized slowing
Clinical Correlation: mild generalized cerebral dysfunction.
--- NOTE | 2024-07-11 14:08 | CON.NEURO ---
Neuro Assessment/Plan
Assessment
EEG tracing reviewed, continuous generalized slowing, excessive muscle activity, no triphasic waves which are often seen with HE
Ammonia 50-->15
BUN 55-->33
most likely toxic/metabolic encephalopathy. spoke with patient's family at bedside about these findings.
Plan
Check head CT
I considered MRI if head CT is unremarkable, but patient restless, would require sedation, and yield would be low
I also considered an LP, but again yield would likely be low
Consultation
Order
Date of Consultation: 07/11/24
Requesting Provider: Arben Sheikh
Reason for Consult: AMS
Subjective/Objective
Subjective Data
Date of Service: July 11, 2024
58-year-old man with history of alcohol cirrhosis admitted through the emergency room after found unresponsive at home by his mother. Patient was admitted with dark stools, dark emesis, found to have anemia and GI bleed. Intubated 07/05 for change
in mental status and airway protection and now extubated 07/10.
Objective Data
Vital Signs
Temp Pulse Resp BP Pulse Ox
36.8 C 86 27 115/71 92
07/11/24 11:07 07/11/24 14:00 07/11/24 14:00 07/11/24 14:00 07/11/24 14:00
Lab Results
07/11/24 03:49
PT 20.0 Sec (11.4-14.6) H 07/10/24 04:28
INR 1.68 07/10/24 04:28
APTT 31.9 Sec (23.4-35.0) 07/05/24 19:13
Sodium 148 mmol/L (135-145) H 07/11/24 03:32
Potassium 3.7 mmol/L (3.5-5.1) 07/11/24 03:32
BUN 33 mg/dl (9-20) H 07/11/24 03:32
Glucose 111 mg/dl (70-99) H 07/11/24 03:32
Calcium 7.1 mg/dl (8.4-10.2) L 07/11/24 03:32
Phosphorus 3.6 mg/dl (2.5-4.5) 07/06/24 07:00
Ur Buprenorphine Negative (Negative) 07/05/24 22:04
Patient Allergies
No Known Allergies Allergy (Verified 07/05/24 19:20)
Physical Exam
-
Restless, confused
does not attend, follow commands, or answer questions.
Moving all extremity
Data Reviewed
-
Total Time Spent with Patient (in minutes): 33
Medications
-
Active Medications
Generic Name Dose Route Start Last Admin
Trade Name Freq PRN Reason Stop Dose Admin
Acetaminophen 650 mg 07/05/24 23:17
Acetaminophen 650 Mg Rectal Suppository RECTAL 08/02/24 23:16
Q6H PRN
Temp > 101
Acetaminophen 650 mg 07/10/24 13:13
Acetaminophen 325 Mg Tablet TUBE 08/07/24 13:12
Q4HPRN PRN
temp>101,mild pain
Albuterol/Ipratropium 3 ml 07/11/24 12:00 07/11/24 11:31
Ipratropium 0.5/Albuterol 3 Mg (3 Ml Ampul) INH 3 ml
R QID NATE Administration
Protocol
Albuterol/Ipratropium 3 ml 07/11/24 09:22
Ipratropium 0.5/Albuterol 3 Mg (3 Ml Ampul) INH
R Q4HPRN PRN
wheeze
Protocol
Ceftriaxone Sodium 1,000 mg 07/06/24 12:00 07/11/24 12:33
Ceftriaxone 1000 Mg / 10 Ml Vial IV 07/12/24 12:01 1,000 mg
Q24H NATE Administration
Hydralazine HCl 5 mg 07/09/24 09:29 07/10/24 21:03
Hydralazine 20 Mg/Ml Vial IV 08/06/24 09:28 5 mg
Q4HPRN PRN Administration
sbp > 150
Dexmedetomidine HCl 400 mcg in 100 mls @ 0 mls/hr 07/10/24 21:15 07/11/24 03:35
Precedex IV 100 mls
PER PROTOCOL NATE Administration
Protocol
Per Protocol
Lactulose 20 grams 07/11/24 12:00 07/11/24 12:33
Lactulose Solution (20 Grams/30 Ml) 30 Ml Cup PO 08/08/24 11:59 20 grams
Q6H NATE Administration
Lorazepam 0.5 mg 07/10/24 11:51 07/10/24 20:52
Ativan 0.5 Mg Dose IV 08/07/24 11:50 0.5 mg
Q4HPRN PRN Administration
AGITATION
Pantoprazole Sodium 40 mg 07/09/24 12:00 07/11/24 07:36
Pantoprazole Sodium 40 Mg/10 Ml Vial IV 08/06/24 11:59 40 mg
BID NATE Administration
Rifaximin 550 mg 07/10/24 10:30 07/11/24 07:36
Rifaximin 550 Mg Tablet TUBE 550 mg
BID NATE Administration
Sodium Chloride 0 flush 07/05/24 23:00 07/09/24 11:05
Sodium Chloride 0.9% (Flush) Syringe IV 08/02/24 22:59 1 flush
PER PROTOCOL NATE Administration
Sodium Chloride 10 ml 07/09/24 12:00 07/11/24 07:36
Sodium Chloride 0.9% (Preservative Free) 10 Ml Vial IV 08/06/24 11:59 10 ml
BID NATE Administration
Sodium Chloride 0.25 ml 07/10/24 11:51
Nss (Pf) 10 Ml Vial For Ativan 0.5 Mg Dose IV 08/07/24 11:50
Q4HPRN PRN
IV LORAZEPAM DILUTION
Sterile Water 10 ml 07/06/24 12:00 07/11/24 12:33
Sterile Water For Injection 10 Ml Vial IV 07/12/24 12:01 10 ml
Q24H NATE Administration
Home Medications
�Medication �Instructions �Recorded
No Meds [No Current Medications] 07/05/24
--- NOTE | 2024-07-11 14:15 | PTCARENOTE ---
Discussed plan of care with neurology and GI. Plan for CT of head and abdomen. Awaiting orders. Precedex drip initiated.
--- NOTE | 2024-07-11 15:50 | PTCARENOTE ---
Addendum entered by Radha Hamilton RN 07/11/24 16:05:
1mg Morphine administered.
Original Note:
Patient reassessed. Neuro status unchanged. Titrating up Precedex per protocol. Patient continues to scream profanities at staff. Pulling on restraints and kicking legs out of bed. Senior Oracle Adf Developer notified. NSR on tele. Lung sounds slightly improved.
Expiratory wheeze remains. Abdominal distention unchanged. TFs remain on hold. FMS intact with liquid brown stool. Zhou output decreased to 30 cc/hr. Plan to travel to ct once patient safely sedated.
[2024-07-11] MEDS: MORPHINE SULFATE 1 MG IV (16:00)
--- NOTE | 2024-07-11 18:25 | PTCARENOTE ---
Head and A/P ct's completed. BP trending down since 1700; 80-90's/50's. HR NSR 60's. Hand Welt Butter aware. No new orders at current time. Sedation titrated down as appropriate.
[2024-07-11 18:45] LABS: Carbon Dioxide 19 mmol/L (22-30); Chloride 122 mmol/L (98-107); Potassium 3.9 mmol/L (3.5-5.1); Sodium 148 mmol/L (135-145)
[2024-07-11] MEDS: LEVOPHED 250 IV (19:33)
--- NOTE | 2024-07-11 20:30 | PTCARENOTE ---
rec'd patient. pt lethargic, on precedex gtt, titrated down per RASS goal. does not follow commands or track. moves all extremities without purpose. 4 pt restraints remain in place. SB on monitor. on 2L NC, spo2 96%. levo gtt initiated to maintain
SBP >90. DHT with TF restarted at goal per ICU FINANCE LECTURER. FMS in place, abdomen distended. rodriguez in place, minimal UOP. care ongoing.
--- NOTE | 2024-07-11 23:27 | PTCARENOTE ---
pt remains SB on monitor, ICU FOOD SERVICE ATTENDANT aware, precedex gtt off. pt remains lethargic. restraints continue. CHG bath, rodriguez and oral care done.
[2024-07-12] VITALS (62 sets, daily range): BP systolic 83–163; BP diastolic 49–97; BMI 30.2
[2024-07-12] MEDS: DUPHALAC/CHRONULAC 20 GRAMS PO ×2 (00:09→05:33)
[2024-07-12] MEDS: ATIVAN 0.5 MG IV (04:00)
[2024-07-12 04:52] LABS: Ammonia 35 umol/L (9-30)
[2024-07-12 05:13] LABS: ALT (SGPT) 36 U/L (0-50); AST (SGOT) 89 U/L (17-59); Albumin 2.1 g/dl (3.5-5.0); Alkaline Phosphatase 103 U/L (38-126); Blood Urea Nitrogen 34 mg/dl (9-20); Calcium 7.2 mg/dl (8.4-10.2); Carbon Dioxide 20 mmol/L (22-30); Chloride 122 mmol/L (98-107); Estimated Creatinine Clearance 109 ml/min; Glucose 189 mg/dl (70-99); Magnesium 2.4 mg/dl (1.6-2.3); Sodium 150 mmol/L (135-145); Total Bilirubin 2.2 mg/dl (0.2-1.3); Total Protein 4.9 g/dl (6.3-8.2); eGFR > 60.00
[2024-07-12 05:25] LABS: Hematocrit 25.9 % (39.0-52.0); Hemoglobin 8.2 g/dL (13.0-18.0); Mean Corp Hgb Conc. 31.7 g/dL (33.0-37.0); Mean Corpuscular Hgb 29.1 pg (27.0-31.0); Mean Corpuscular Volume 91.8 fL (80.0-94.0); Mean Platelet Volume 11.4 fL (7.4-10.4); Platelet Count 68 10^3/uL (130-400); Red Blood Cell Count 2.82 10^6/uL (4.70-6.10); Red Cell Dist. Width 17.4 % (11.5-14.5); White Blood Cell Count 3.4 10^3/uL (4.8-10.8)
--- NOTE | 2024-07-12 05:31 | PTCARENOTE ---
pt extremely hard stick for AM labs, 2 L arm PIVs removed, VAT at bedside and placed 24g L foot, good blood return, labs sent. rodriguez removed, CC placed. precedex restarted and PRN ativan given for agitation. [address] levo continues
to maintain SBP >90. care ongoing.
[2024-07-12] MEDS: MORPHINE SULFATE 1 MG IV (05:36)
[2024-07-12 05:48] LABS: INR 1.59; PT 19.5 Sec (11.4-14.6)
--- NOTE | 2024-07-12 07:06 | W.PN.GI.CBS2 ---
Addendum entered and electronically signed by Elizabeth Ibanez MD 07/12/24 12:58:
I saw and examined the patient.
The GLUCOSE AND SYRUP WEIGHER or PA's note was reviewed and I agree with the note.
Comment: Patient currently on Precedex, not alert oriented. Noted pressors started last night for hypotensive episode.
No other events overnight.
Reviewing labs, MELD 3.0 today-16
Hemoglobin seems to be stable.
Continue Protonix IV twice daily.
Abdomen continues to be distended, CT abdomen/pelvis showing mild to moderate ascites, for diagnostic/therapeutic paracentesis today
On ceftriaxone 7/7 days prophylactically with history of GI bleed.
Tolerating tube feeds.
Continue lactulose and Xifaxan.
Will follow
Original Note:
Today's Communication / Plan
-
remains with decreased mentation and now on Precedex gtt
pressor added overnight with hypotension
-MELD 3.0 on 07/10/24 -18, 07/12 16 cont to trend MELD labs
order placed for para with ascites and fluid analysis to exclude SBP
cont Lactulose and Xifaxan with continued stools -- eventual wean lactulose dosing
s/p CT a/p and head as noted
hbg stable 8.2 no signs of aggressive bleeding s/p EGD as noted
Continue Protonix IV bid
completed Octreotide drip
ceftriaxone 1 g daily to complete today
cont tube feeds as tolerated
correct Na per medical team
will need OP follow up for cirrhosis management -- hep B/C neg, MADELIN +, f- actin, TTG neg will need further OP serologies
family updated 07/11 reviewed with nursing this am
Assessment / Plan
-
58-year-old male with past medical history of cirrhosis, portal hypertension per history, bipolar disorder, chronic pain syndrome with prior history of alcohol abuse intermittent episodes of Advil who presents to the emergency room poorly responsive
with hematemesis requiring sedation and intubation on admission with initial hemoglobin of 4.9 requiring transfusion. NG tube with maroon output and with maroon rectal output on admission with Stigmata of cirrhosis and elevated ammonia level.
s/p EGD with portal gastropathy
07/06 EGD - Normal esophagus.- Portal hypertensive gastropathy- Old black clots in the gastric fundus- Normal examined duodenum- No specimens collected.
07/11 abd X ray-moderate gas in non dilated loops of bowel
Limited study demonstrating no evidence of acute pathology
07/11- CTa/p without IV contrast -Generalized anasarca. Moderate right and small left pleural effusion. Mild to moderate ascites. No focal collection or abscess. No free air.
No bowel obstruction. No obstructive uropathy.Cirrhosis. Splenomegaly.Posterior lung base parenchymal opacity, likely compressive atelectasis. Cannot entirely exclude pneumonia.
07/11 HCT No acute intracranial abnormality identified.chronic microvascular ischemic change. 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
Impression:
GI Bleed from portal gastropathy
Cirrhosis-Alcohol related, hypoalbuminemia, thrombocytopenia, coagulopathy
change in mental status HE, ETOH withdrawal vs other
hypotension requiring pressors
mild to moderate ascites per CT with mild abdominal distention
anemia acute blood loss
hypernatremia
ETOH abuse
resp insufficiency s/p intubation with extubation 07/10
? bipolar disorder
Plan:
remains with decreased mentation and now on Precedex gtt
pressor added overnight with hypotension
-MELD 3.0 on 07/10/24 -, 07/12 16 cont to trend MELD labs
order placed for para with ascites and fluid analysis to exclude SBP
cont Lactulose and Xifaxan with continued stools -- eventual wean lactulose dosing
s/p CT a/p and head as noted
hbg stable 8.2 no signs of aggressive bleeding s/p EGD as noted
Continue Protonix IV bid
completed Octreotide drip
ceftriaxone 1 g daily to complete today
cont tube feeds as tolerated
correct Na per medical team
will need OP follow up for cirrhosis management -- hep B/C neg, MADELIN +, f- actin, TTG neg will need further OP serologies
family updated 07/11 reviewed with nursing this am
Subjective
Subjective
Date of Service: July 12, 2024
07/12 brown stool remains on tube feeds, sedated with precedex, need for pressors overnight with hypotension
Objective
Data Reviewed
Laboratory Data:
Laboratory Results
07/12/24 05:12
07/12/24 04:28
Laboratory Results
PT 19.5 Sec (11.4-14.6) H 07/12/24 05:12
INR 1.59 07/12/24 05:12
APTT 31.9 Sec (23.4-35.0) 07/05/24 19:13
Phosphorus 3.6 mg/dl (2.5-4.5) 07/06/24 07:00
Magnesium 2.4 mg/dl (1.6-2.3) H 07/12/24 04:28
Total Bilirubin 2.2 mg/dl (0.2-1.3) H 07/12/24 04:28
AST 89 U/L (17-59) H 07/12/24 04:28
ALT 36 U/L (0-50) 07/12/24 04:28
Alkaline Phosphatase 103 U/L (38-126) 07/12/24 04:28
Lipase 357 U/L (23-300) H 07/05/24 19:13
Vital Signs and I&O:
Vital Signs
Temp Pulse Resp BP Pulse Ox
97.0 F 78 26 112/74 96
07/12/24 04:05 07/12/24 06:30 07/12/24 06:30 07/12/24 06:30 07/12/24 06:30
I&O
07/11/24 07/12/24 07/13/24
06:59 06:59 06:59
Intake Total 2937.6 / 3027.6 2038.5 / 2038.5
Output Total 1685 / 1730 1385 / 1385
Balance 1252.6 / 1297.6 654.5 / 654.5
Physical Exam
Physical Exam
HEENT: Anicteric and Moist mucous membranes
Cardiology: Normal Sinus Rhythm
Pulmonary: Clear
GI: Soft, Distended, Non Tender (limited exam with mental status ) and Other (DHT intact )
Neuro: Other (sedated less agitated than yesterday )
[2024-07-12] MEDS: DUONEB 3 ML INH ×4 (07:25→19:37)
--- NOTE | 2024-07-12 07:29 | W.PN.INTV ---
Today's Communication / Plan
Recommendations
Wean oxygen
Monitor metabolic encephalopathy
Lactulose
Paracentesis
Right thoracentesis
Antibiotics
Diuresis
Assessment
-
58-year-old man with history of alcohol cirrhosis admitted through the emergency room after found unresponsive at home by his mother. Patient was admitted with dark stools, dark emesis, found to have anemia and GI bleed. Intubated for change in
mental status and airway protection and transferred to the critical care unit for further care.
Acute respiratory failure/change in mental status requiring intubation and mechanical ventilation for airway protection 07/05/2024
Intubated 07/05/2024
Extubated 07/10/2024
Hepatic encephalopathy
Acute GI bleed-melena/coffee-ground
Acute blood loss anemia-hemoglobin on admission 4.9
Status post EGD 07/06/2026: Portal gastropathy.
Change in mental status/toxic metabolic encephalopathy: Cannot rule out alcohol withdrawal/hepatic encephalopathy
Ammonia level 92
Coagulopathy INR 2.7
Conditions present prior admission:
Alcoholic cirrhosis-on prior operative report from 2014 is noted.
? Bipolar disorder-not taking any medications
History of alcohol disorder
Assessment and plan:.
Respiratory status somewhat improved
Tolerated extubation thus far
BiPAP if needed
Deep suction as needed-reviewed with HEEL CASER
Continue nebulizers
Follow chest x-ray
Address whether patient would have wanted to be reintubated-discussing with family
Precedex as needed
Morphine and Ativan as needed
Chest x-ray 07/12/2024-low lung volumes, bilateral pleural effusions right greater than left
Consider right thoracentesis with significant pleural fluid noted on CT abdomen and pelvis
Follow hemoglobin
Transfuse as needed-has received 3 units packed red blood cells
PPI
GI following-correspondence reviewed
Abdominal ultrasound 07/06/2024:1. Liver is shrunken and nodular, consistent with cirrhosis.
CT abdomen and pelvis 07/11/2024-generalized anasarca, moderate right and left small pleural effusion, moderate ascites, no bowel obstruction, cirrhosis, basilar compressive atelectasis
Prophylactic ceftriaxone initiated-day 11/03
Xifaxan as well
Octreotide discontinued 07/10/2024
Nasogastric tube-initiated feeding 07/09/2024-tolerating
Follow [id number] improved and now increasing again
Lactulose initiated 07/08/2024-continue
Monitor mental status-suspect toxic metabolic encephalopathy-mental status not significantly improved
Neurology consultation noted-correspondence reviewed
CT head 07/11/2024-stable chronic findings, no acute intracranial abnormalities
Consider MRI
EEG 07/11/2024-generalized slowing, no triphasic waves which can be seen with hepatic encephalopathy
Girlfriend states that he has not drank in a while-his rjeioc-hv-oll reports patient did not drink for 10 years but about 1 year ago he started drinking again
Suspected hepatic encephalopathy
Attempt diuresis-continues to be positive despite diuresis attempts
Monitor renal function, electrolytes, intake/output, lower extremity edema and weight
Replace electrolytes as needed
DVT prophylaxis-on sequentials-no pharmacological prophylaxis due to GI bleed
GI prophylaxis-on Protonix
Begin nutrition
Bedside range of motion
Dr. Sheikh updated [id number] at the bedside extensively 07/09/2024 as well as on multidisciplinary rounds 07/11/2024, 07/12/2024
Goals of care again discussed-will review with mother-POA
Critical care statement: A total of 45 minutes of critical care time was provided for this patient today. This includes management of unstable vital signs, evaluation of the patient at bedside, reviewing the patient's pertinent medical records
including radiographs, respiratory failure management, pressor management, metabolic encephalopathy management microbiology, laboratory evaluations, and discussion with primary team, consultants, pharmacy, nutrition, physical therapy, case
management, charge nurse, critical care nursing, and respiratory therapy.
Subjective Dataa
Subjective Data
Date of Service:
Date of Service: July 12, 2024
Chief Complaint: Direct Support Staff Member Follow Up (Change in mental status-GI bleed), Pulmonary Follow Up and Vent Management Follow Up
Subjective:
Still intermittently agitated, mental status still decline, review of systems reliably cannot be obtained
Review of Systems
General: Other (Per HPI)
Objective Data
Data Reviewed
Vital Signs / I&O / Oxygen:
Vital Signs
Temp Pulse Resp BP Pulse Ox
97.0 F 65 28 112/74 96
07/12/24 04:05 07/12/24 07:27 07/12/24 07:27 07/12/24 06:30 07/12/24 07:27
Intake and Output
07/11/24 07/12/24 07/13/24
06:59 06:59 06:59
Intake Total 2937.6 / 3027.6 2039.5 / 2039.5
Output Total 1685 / 1730 1385 / 1385
Balance 1252.6 / 1297.6 654.5 / 654.5
SaO2 [CPAP/PSV] 97
SaO2 [A/C] 95
SaO2 96
Nasal Cannula flow liters per 2
minute
Physical Exam
General: Respiratory Distress (n) and Comfortable
HEENT: Normocephalic and Anicteric
Cardiovascular: Regular Rhythm
Respiratory: Wheeze (n), Crackles, Rhonchi, Non-Labored Respirations and Accessory Resp Muscle Use (n)
GI: Soft and Non Distended
Neurology: Other (Moving 4 extremities. Not purposefully following commands yet.)
Skin: Warm, Good Color, Cyanosis (n), Jaundice (n) and Rash (n)
Labs/Micro/Reports
Lab Data
07/12/24 05:12
07/12/24 04:28
Laboratory Results
07/12/24
05:12
PT 19.5 H
INR 1.59
--- NOTE | 2024-07-12 08:30 | PTCARENOTE ---
Rec'd care of patient at 0700. Patient drowsy, arousable to verbal and tactile stimuli. Agitated at times. Precedex gtt infusing. Does not follow commands. NSR on tele. +2 generalized anasarca. +3 scrotal edema. Pulse ox on 2L nc. Lung sounds
diminished throughout with expiratory wheeze. Hypo BS. Abdomen firm/distended. TFs @ goal through DHT. FMS in place for liquid brown stool. Condom cath on; no urine output. VSS. Titrating Levophed for SBP>90. Full assessment and care as charted on
worklist.
[2024-07-12] MEDS: XIFAXAN 550 MG TUBE ×2 (08:39→20:38)
[2024-07-12] MEDS: PROTONIX IV 40 MG IV ×2 (08:39→20:38)
[2024-07-12] MEDS: NSS (PRESERVATIVE FREE) 10 ML IV ×2 (08:39→20:38)
--- NOTE | 2024-07-12 09:16 | W.PN.HOSP.TC ---
Today's Communication/Plan
-
PPI. Antibiotics. Thoracentesis and paracentesis
Assessment / Plan
Assessment / Plan
Physical exam:
General: Acutely ill
HEENT: Normocephalic, Atraumatic and Moist Mucous Membranes
Respiratory: Clear to Auscultation; Negative Wheezes, Rales or Rhonchi
Cardiac: Regular Rhythm and S1/S2
GI: Soft, Nontender and distended
Musculoskeletal: No Clubbing, No Cyanosis and No Edema
Neuro: Alert but disoriented. Does not follow commands yet. Move spontaneously all 4 extremities
A/P:
Acute respiratory failure:
Status post extubated on 07/10
Critical care following
Discussed with family at bedside today on 07/12
CT of the abdomen reviewed
Plan for thoracentesis
Plan for paracentesis
B/L R>L Pleural effusion:
Plan for thoracentesis
Acute toxic-metabolic encephalopathy:
Sedation off
Continue lactulose and rifaximin
Critical care consulted neurology
Neurology consulted proceed
Acute upper GI bleed:
EGD showed portal gastropathy
Continue PPI
Continue octreotide and might be able to stop today
Continue IV Rocephin day 7 out of 7 but keep until paracentesis results are back
Monitor hemoglobin
GI on board
Abdominal ascites:
Plan for paracentesis
Continue IV Rocephin day 7 out of 7 but keep until paracentesis results are back
Acute blood loss anemia:
Status post blood transfusion
Monitor hemoglobin
Hepatic encephalopathy:
Continue lactulose-lactulose switch to enemas yesterday 300 mL every 6 hours--> today will be switched to lactulose 20 g p.o. every 6 hours. Added rifaximin yesterday as well.
Monitor ammonia every so often but more importantly follow clinical course
Alcohol liver cirrhosis:
Continue to monitor MELD score labs-MELD score 18 yesterday
Needs further evaluation as outpatient after stabilization
DVT prophylaxis:
SCDs
CODE STATUS:
Full code
Total time spent on today's encounter was 52 minutes which included time spent in counseling the patient/family regarding diagnosis and treatment plan as listed above, goals of care, and symptom management. Case was discussed with nursing staff,
specialists, and care coordinators/case management. All labs and imaging personally reviewed by me. Remainder the time spent in detailed review of previous records, lab data, imaging, and other medical provider documentation.
Anticipated Discharge: > 48 hours
Subjective/Interval History
-
Date of Service: July 12, 2024
Patient remains encephalopathic. Afebrile
Objective Data
-
Labs:
Laboratory Results
07/12/24 07/12/24
04:28 05:12
WBC 3.4 L
Hgb 8.2 L
Hct 25.9 L
Plt Count 68 L
PT 19.5 H
INR 1.59
Sodium 150 H
Potassium 4.0
Chloride 122 H
Carbon Dioxide 20 L
BUN 34 H
Creatinine 0.8
Glucose 189 H
Calcium 7.2 L
Total Bilirubin 2.2 H
AST 89 H
ALT 36
Alkaline Phosphatase 103
Vital Signs:
Vital Signs
Temp Pulse Resp BP Pulse Ox
97.5 F 74 37 104/76 93
07/12/24 08:00 07/12/24 09:01 07/12/24 09:01 07/12/24 09:01 07/12/24 09:01
I&O
07/11/24 07/12/24 07/13/24
06:59 06:59 06:59
Intake Total 2937.6 / 3027.6 2039.5 / 2154.2 454.1 / 454.1
Output Total 1685 / 1730 1385 / 1385 0 / 0
Balance 1252.6 / 1297.6 654.5 / 769.2 454.1 / 454.1
[2024-07-12] MEDS: PRECEDEX 100 IV ×2 (10:19→17:47)
[2024-07-12] MEDS: LASIX 20 MG IV ×2 (10:59→17:45)
[2024-07-12] MEDS: THIAMINE INJECTION 200 MG IV (10:59)
--- NOTE | 2024-07-12 11:30 | VATNOTE ---
Midline order in place. Noted left hand and arm swollen. + 2 edema noted. Recommended us of the left arm prior to placing midline to r/o DVT. Primary RN made aware.
[2024-07-12] MEDS: DUPHALAC/CHRONULAC 20 GRAMS TUBE ×2 (11:45→17:45)
[2024-07-12] MEDS: STERILE WATER FOR INJECTION 10 ML IV (11:45)
[2024-07-12] MEDS: ROCEPHIN 1000 MG IV (11:45)
--- NOTE | 2024-07-12 12:00 | CHAP ---
Fr. Renzo Ramos of [facility] in [place] gave Jordin the Sacrament of the Sick and an Apostolic Pardon.
--- NOTE | 2024-07-12 13:08 | PTCARENOTE ---
Patient reassessed. Drowsy. Precedex remains on. NSR on tele. LUE +3 edema. VAT requesting US to r/o dvt prior to midline placement. Lung sounds diminished throughout. Expiratory wheeze absent. Patient without void since start of shift. 20 IV Lasix
administered at 1100. Bladder scanned 726 cc's. Straight cath'd for 650 cc's of dwight urine. Awaiting thoracentesis and paracentesis. No other changes.
--- NOTE | 2024-07-12 14:07 | W.PN.UPDATE ---
Update Note
Progress Note Update
Reevaluated patient, mental status improved,, mother present-goals of care and end-of-life discussed
She states the patient would not want 'heroics' and she would not like CPR, shocking, coding, or intubation
She is asking for 'last rights'-regional trainer has been notified
Reviewed with critical care nursing and [id number]
--- NOTE | 2024-07-12 14:18 | PTCARENOTE ---
Addendum entered by Radha Hamilton RN 07/12/24 14:41:
Left hand peripheral INT removed. Palco band applied to LUE. Precedex and Levophed infusing through left foot INT.
Original Note:
Peripheral US of LUE + DVT. Home Designer aware.
[2024-07-12] MEDS: LEVOPHED 250 IV (14:23)
--- NOTE | 2024-07-12 14:43 | SUR.OPER ---
Patient's mother at bedside to discuss GOC with Gun Fertilizer. Decision made to change code status to DNR. Purple band applied. Family requesting fire protection equipment technician to come to bedside for last rights. Licensed Mental Health Professional currently at bedside. Plan for IRAD unchanged.
--- NOTE | 2024-07-12 16:00 | PTCARENOTE ---
Patient transported to IRAD for central line placement/thoracentesis/paracentesis. Vitals stable.
--- NOTE | 2024-07-12 17:30 | W.PN.UPDATE ---
Update Note
Progress Note Update
- RIJ triple lumen catheter and R thora performed. R thora yielded 350 mL.
- Pressures soft. Para not performed today.
--- NOTE | 2024-07-12 18:00 | PTCARENOTE ---
Patient back in room from IRAD s/p placement of RIJ and thoracentesis. Patient repositioned for comfort. Levophed and Precedex tubing changed and connected to RIJ. VSS. TFs restarted through DHT. Repeat labs sent. DIL updated over the phone.
[2024-07-12 18:29] LABS: Carbon Dioxide 22 mmol/L (22-30); Chloride 118 mmol/L (98-107); Potassium 3.6 mmol/L (3.5-5.1); Sodium 147 mmol/L (135-145)
--- NOTE | 2024-07-12 20:15 | PTCARENOTE ---
Patient received lying in bed, groggy but awake, falls asleep easily. Speech is garbled, clear at times, confused. Friends x 2 are at bedside. Bilateral soft wrist restraints check and retied, checked every 2 hours. Patient is restless in bed,
requires frequent repositioning. Turned every 2 hours. Fecal management system intact and patent draining liquid brown green stool. BUL clear anteriorly. Bilateral bases diminished. S1 S2 regular but distant. Thin limbs with muscle wasting. BUE with
forearm and hand edema, Bilateral pedal/ankle edema 2+, generalized anasarca 2+, Scrotal edema 3 +. Scrotum elevated, BUE's elevated. On oxygen at 2L/nc, sats 97%. Dobhoff via right nare taped in place, Osmolite tube feeding infusing at 65cc/hr with
H2O flush at 25cc/hr. Right IJ TLC with Precedex and Levophed infusing. He is currently on 2mcg of Levophed and 0.4mcg Precedex, titrated as needed for adequate sedation and BP. Protective ointment perirectally and buttocks. Incontinent of small
amount of urine, skin care given. #21 Condom catheter applied to assess for UO. SCDs bilateral LEs. SR with 1st degree AVB on CM.
[2024-07-12] MEDS: KCL 100 IV (21:57)
[2024-07-13] VITALS (50 sets, daily range): BP systolic 69–137; BP diastolic 36–99; BMI 28.6
--- NOTE | 2024-07-13 | PTCARENOTE ---
Patient easily agitated and restless. Precedex increased to 0.6mcg. Other physical assessment without change.
[2024-07-13] MEDS: DUPHALAC/CHRONULAC 20 GRAMS TUBE ×4 (00:57→21:19)
[2024-07-13] MEDS: PRECEDEX 100 IV ×3 (01:53→22:22)
--- NOTE | 2024-07-13 02:30 | PTCARENOTE ---
HNV since episode of incontinence in small amount earlier in the night. Bladder scan for as high as 1079cc. Straight cath per protocol via sterile technique for 875cc dwight urine. Patient has been calm since increasing Precedex. to 0.6mcg.
--- NOTE | 2024-07-13 04:00 | PTCARENOTE ---
Essentially no change in physical assessment. VSS. Turned every 2 hours. Patient restless in bed and scoots off pillow. Bilateral soft wrist restraints checked every 2 hours, retied as needed. HOB up t/o night at 45degrees.
[2024-07-13 05:26] LABS: Hematocrit 25.4 % (39.0-52.0); Hemoglobin 8.1 g/dL (13.0-18.0); Mean Corp Hgb Conc. 31.9 g/dL (33.0-37.0); Mean Corpuscular Hgb 28.8 pg (27.0-31.0); Mean Corpuscular Volume 90.4 fL (80.0-94.0); Platelet Count 64 10^3/uL (130-400); Red Blood Cell Count 2.81 10^6/uL (4.70-6.10); Red Cell Dist. Width 17.7 % (11.5-14.5); White Blood Cell Count 4.4 10^3/uL (4.8-10.8)
--- NOTE | 2024-07-13 05:30 | PTCARENOTE ---
BP stable, down to 1mcg Levo. Patient is calm, decreased Precedex to 0.5mcg. Complete cares rendered, CHG cloth bath, perineal care. Oral care. Patient cooperative at times, uncooperative at others. Skin under SCDs assessed. Linens changed, monitor
leads changed. Patient is emotional at times, tearful. Calling out 'I want to get out of here.' Reoriented as able. Emotional support and encouragement given.
[2024-07-13 05:32] LABS: INR 1.64; PT 19.9 Sec (11.4-14.6)
[2024-07-13 05:58] LABS: ALT (SGPT) 35 U/L (0-50); AST (SGOT) 68 U/L (17-59); Albumin 1.8 g/dl (3.5-5.0); Alkaline Phosphatase 101 U/L (38-126); Blood Urea Nitrogen 31 mg/dl (9-20); Calcium 7.6 mg/dl (8.4-10.2); Carbon Dioxide 24 mmol/L (22-30); Chloride 119 mmol/L (98-107); Estimated Creatinine Clearance 97 ml/min; Glucose 142 mg/dl (70-99); Potassium 3.9 mmol/L (3.5-5.1); Sodium 149 mmol/L (135-145); Total Bilirubin 1.6 mg/dl (0.2-1.3); Total Protein 4.7 g/dl (6.3-8.2); eGFR > 60.00
--- NOTE | 2024-07-13 06:59 | SUR.PHASEI ---
Report given verbally to Vivienne MILIAN, oncoming shift. Questions answered.
[2024-07-13] MEDS: DUONEB 3 ML INH ×4 (07:35→20:20)
--- NOTE | 2024-07-13 07:37 | W.PN.INTV ---
Today's Communication / Plan
Recommendations
Decrease lactulose
Wean oxygen
Decrease Precedex
Paracentesis if able
Wean pressors
Assessment
-
58-year-old man with history of alcohol cirrhosis admitted through the emergency room after found unresponsive at home by his mother. Patient was admitted with dark stools, dark emesis, found to have anemia and GI bleed. Intubated for change in
mental status and airway protection and transferred to the critical care unit for further care.
Acute respiratory failure/change in mental status requiring intubation and mechanical ventilation for airway protection 07/05/2024
Intubated 07/05/2024
Extubated 07/10/2024
Hepatic encephalopathy
Acute GI bleed-melena/coffee-ground
Acute blood loss anemia-hemoglobin on admission 4.9
Status post EGD 07/06/2026: Portal gastropathy.
Change in mental status/toxic metabolic encephalopathy: Cannot rule out alcohol withdrawal/hepatic encephalopathy
Ammonia level 92
Coagulopathy INR 2.7
Conditions present prior admission:
Alcoholic cirrhosis-on prior operative report from 2014 is noted.
? Bipolar disorder-not taking any medications
History of alcohol disorder
Assessment and plan:.
Respiratory status continues to slowly improve
Tolerated extubation thus far
BiPAP if needed-has not needed
Deep suction as needed
Nebulizers continue
Address whether patient would have wanted to be reintubated-discussing with family
Precedex as needed-begin to wean
Morphine and Ativan as needed
Chest x-ray 07/12/2024-low lung volumes, bilateral pleural effusions right greater than left
Repeat right thoracentesis 07/12/24--360 mL
Monitor hemoglobin
Transfuse as needed-has received 3 units packed red blood cells
PPI
GI following-correspondence reviewed-reviewed with them
Abdominal ultrasound 07/06/2024:1. Liver is shrunken and nodular, consistent with cirrhosis.
CT abdomen and pelvis 07/11/2024-generalized anasarca, moderate right and left small pleural effusion, moderate ascites, no bowel obstruction, cirrhosis, basilar compressive atelectasis
Prophylactic ceftriaxone initiated-day 11/03
Xifaxan as well
Octreotide discontinued 07/10/2024
MELD score trended
Nasogastric tube-initiated feeding 07/09/2024-tolerating
Follow xbrktta-[id number]-qyzk improved and now increasing again
Lactulose initiated 07/08/20243998-[id number]-iehqi to decrease
Monitor mental status-suspect toxic metabolic encephalopathy-mental status not significantly improved
Neurology consultation noted-correspondence reviewed
CT head 07/11/2024-stable chronic findings, no acute intracranial abnormalities
EEG 07/11/2024-generalized slowing, no triphasic waves which can be seen with hepatic encephalopathy
Girlfriend states that he has not drank in a while-his wfnokb-hz-scc reports patient did not drink for 10 years but about 1 year ago he started drinking again
Hepatic encephalopathy slowly improving
Continue attempts at diuresis-continues to be positive despite diuresis attempts
Monitor renal function, electrolytes, intake/output, lower extremity edema and weight
Replace electrolytes as needed
DVT prophylaxis-on sequentials-no pharmacological prophylaxis due to GI bleed
GI prophylaxis-on Protonix
Nutrition
Bedside range of motion/eventual physical therapy
Dr. Sheikh updated [id number] at the bedside extensively 07/09/2024 as well as on multidisciplinary rounds 07/11/2024, 07/12/2024, and 07/13/2024
Goals of care again discussed with [id number] 07/12/2024-DNR, do not reintubate if respiratory decompensation-again updated on 07/13/2024
Outpatient hepatology follow-up for cirrhosis management
Critical care statement: A total of 40 minutes of critical care time was provided for this patient today. This includes management of unstable vital signs, evaluation of the patient at bedside, reviewing the patient's pertinent medical records
including radiographs, respiratory failure management, pressor management, metabolic encephalopathy management microbiology, laboratory evaluations, and discussion with primary team, consultants, pharmacy, nutrition, physical therapy, case
management, charge nurse, critical care nursing, and respiratory therapy.
Subjective Dataa
Subjective Data
Date of Service:
Date of Service: July 13, 2024
Chief Complaint: Medicare Insurance Specialist Follow Up (Change in mental status-GI bleed), Pulmonary Follow Up and Vent Management Follow Up
Subjective:
More alert, still intermittently agitated, no complaints of shortness of breath, pain
Review of Systems
General: Fever (Per HPI)
Objective Data
Data Reviewed
Vital Signs / I&O / Oxygen:
Vital Signs
Temp Pulse Resp BP Pulse Ox
96.8 F L 67 23 121/58 96
07/13/24 07:33 07/13/24 05:30 07/13/24 05:30 07/13/24 05:30 07/13/24 05:00
Intake and Output
07/12/24 07/13/24 07/14/24
06:59 06:59 06:59
Intake Total 2039.5 / 2154.2 2439.9 / 2439.9
Output Total 1385 / 1385 2525 / 2525
Balance 654.5 / 769.2 -85.1 / -85.1
SaO2 [CPAP/PSV] 97
SaO2 [A/C] 95
SaO2 96
Nasal Cannula flow liters per 2
minute
Physical Exam
General: Respiratory Distress (n) and Comfortable
HEENT: Normocephalic and Anicteric
Cardiovascular: Regular Rhythm
Respiratory: Wheeze (n), Crackles, Rhonchi, Non-Labored Respirations and Accessory Resp Muscle Use (n)
GI: Soft and Non Distended
Neurology: Other (Moving 4 extremities. Not purposefully following commands yet.)
Skin: Warm, Good Color, Cyanosis (n), Jaundice (n) and Rash (n)
Labs/Micro/Reports
Lab Data
07/13/24 05:05
07/13/24 05:05
Laboratory Results
07/13/24
05:05
PT 19.9 H
INR 1.64
--- NOTE | 2024-07-13 08:43 | W.PN.GI.CBS2 ---
Addendum entered and electronically signed by Chacha Cheng MD 07/13/24 16:37:
I saw and examined the patient.
The CONSTRUCTION EQUIPMENT OPERATOR or PA's note was reviewed and I agree with the note.
Comment: 58-year-old gentleman known medical history of alcoholic cirrhosis for 5 years who had stopped drinking and then resumed drinking about a year ago presenting with hematemesis with hemoglobin of 4.9. He underwent upper endoscopy with
[facility] July 06 which showed portal hypertensive gastropathy, old blood clots in the gastric fundus, normal duodenum. No further bleeding since then with a stable hemoglobin. Course complicated by change in mental status which was thought to be
multifactorial from encephalopathy and alcohol withdrawal and neurology has been consulted as well. In discussion with my nurse practitioner who is seen him daily, his mental status has improved. He also had a pleural effusion and underwent a
thoracentesis yesterday. He had a small amount of ascites which was unable to be drained for paracentesis attempted by interventional radiology today. He also has upper extremity DVT bilaterally. I discussed with ICU, will need to weigh the risks
and benefits of anticoagulation. At this time, it was decided to be reasonable to try subcu heparin as it has a short half-life. I could repeat an upper endoscopy prior to long-term anticoagulation but likely would ideally wait for his mental
status to improve.
Discussed with brother, mother, cuscal-da-vel in detail at the bedside. We did discuss the plan for outpatient follow-up with hepatology if and when he continues to improve. Reviewed MADELIN + in 2009 however titer less than 1:40, actin IgG negative.
Will need full autoimmune workup ordered for AM. However, I suspect his liver disease is from alcohol.
Of note, MELD today 14.
Original Note:
Today's Communication / Plan
-
slow improved mentation with now some attempts at verbal communication but remains confused
pressors weaning off still on Precedex
-MELD 3.0 on 07/10/24 -18, 07/12 16 cont to trend MELD labs
unable to do para with soft BP 07/12 possible another attempt if BP stable per IR to rule out SBP
cont Lactulose and Xifaxan still large volume stools will wean Lactulose to TID today
hbg stable 8.1 no signs of aggressive bleeding s/p EGD as noted
Continue Protonix IV bid
completed Octreotide drip and ceftriaxone course
cont tube feeds as tolerated
correct Na per medical team
will need OP follow up for cirrhosis management -- hep B/C neg, MADELIN +, f- actin, TTG neg will need further OP serologies
family updated 07/11 reviewed with nursing this am
Assessment / Plan
-
58-year-old male with past medical history of cirrhosis, portal hypertension per history, bipolar disorder, chronic pain syndrome with prior history of alcohol abuse intermittent episodes of Advil who presents to the emergency room poorly responsive
with hematemesis requiring sedation and intubation on admission with initial hemoglobin of 4.9 requiring transfusion. NG tube with maroon output and with maroon rectal output on admission with Stigmata of cirrhosis and elevated ammonia level.
s/p EGD with portal gastropathy
07/06 EGD - Normal esophagus.- Portal hypertensive gastropathy- Old black clots in the gastric fundus- Normal examined duodenum- No specimens collected.
07/11 abd X ray-moderate gas in non dilated loops of bowel
Limited study demonstrating no evidence of acute pathology
07/11- CTa/p without IV contrast -Generalized anasarca. Moderate right and small left pleural effusion. Mild to moderate ascites. No focal collection or abscess. No free air.
No bowel obstruction. No obstructive uropathy.Cirrhosis. Splenomegaly.Posterior lung base parenchymal opacity, likely compressive atelectasis. Cannot entirely exclude pneumonia.
07/11 HCT No acute intracranial abnormality identified.chronic microvascular ischemic change. 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
Impression:
GI Bleed from portal gastropathy
Cirrhosis-Alcohol related, hypoalbuminemia, thrombocytopenia, coagulopathy
change in mental status HE, ETOH withdrawal vs other
hypotension requiring pressors during admission
mild to moderate ascites per CT with mild abdominal distention
anemia acute blood loss
hypernatremia
ETOH abuse
resp insufficiency s/p intubation with extubation 07/10
? bipolar disorder
pleural effusion s/p thora 07/12 350ml
Plan:
slow improved mentation with now some attempts at verbal communication but remains confused
pressors weaning off still on Precedex
-MELD 3.0 on 07/10/24 -, 07/12 16 cont to trend MELD labs
unable to do para with soft BP 07/12 possible another attempt if BP stable per IR to rule out SBP
cont Lactulose and Xifaxan still large volume stools will wean Lactulose to TID today
hbg stable 8.1 no signs of aggressive bleeding s/p EGD as noted
Continue Protonix IV bid
completed Octreotide drip and ceftriaxone course
cont tube feeds as tolerated
correct Na per medical team
will need OP follow up for cirrhosis management -- hep B/C neg, MADELIN +, f- actin, TTG neg will need further OP serologies
family updated 07/11 reviewed with nursing this am
Subjective
Subjective
Date of Service: July 13, 2024
still with increased diarrhea in rectal bag, remains on tube feed via DHT, mental status with slow improvement now attempting some words but confused asking for milk
Objective
Data Reviewed
Laboratory Data:
Laboratory Results
07/13/24 05:05
07/13/24 05:05
Laboratory Results
PT 19.9 Sec (11.4-14.6) H 07/13/24 05:05
INR 1.64 07/13/24 05:05
APTT 31.9 Sec (23.4-35.0) 07/05/24 19:13
Phosphorus 3.6 mg/dl (2.5-4.5) 07/06/24 07:00
Magnesium 2.4 mg/dl (1.6-2.3) H 07/12/24 04:28
Total Bilirubin 1.6 mg/dl (0.2-1.3) H 07/13/24 05:05
AST 68 U/L (17-59) H 07/13/24 05:05
ALT 35 U/L (0-50) 07/13/24 05:05
Alkaline Phosphatase 101 U/L (38-126) 07/13/24 05:05
Lipase 357 U/L (23-300) H 07/05/24 19:13
Vital Signs and I&O:
Vital Signs
Temp Pulse Resp BP Pulse Ox
96.8 F L 62 24 121/58 94
07/13/24 07:33 07/13/24 07:36 07/13/24 07:36 07/13/24 05:30 07/13/24 07:36
I&O
07/12/24 07/13/24 07/14/24
06:59 06:59 06:59
Intake Total 2039.5 / 2154.2 2439.9 / 2439.9
Output Total 1385 / 1385 2525 / 2525
Balance 654.5 / 769.2 -85.1 / -85.1
Physical Exam
Physical Exam
HEENT: Anicteric
Cardiology: Normal Sinus Rhythm
Pulmonary: Other (decreased bases )
GI: Soft, Distended and Non Tender (? difficulty to assess with mental status )
Extremities: No Edema
Neuro: Other (some attempt at verbal communication but confused, less aggitated)
--- NOTE | 2024-07-13 08:45 | PTCARENOTE ---
Received pt @ change of shift. Int drowsy/restless behavior; oriented to self only; required reorientation to time/place. B/L soft limb/4rail restraints in place- see flow sheet. SR on monitor. Spo2 94% on 2LNC. Auscultated dim/exp wheeze
breath sounds throughout; nex tx in progress. Hypoactive BS, and firm/ascites. R nare dobhoff in place secured @ 61cm w osmolite @ 65mL/hr w 25mL/hr H20 flush. FMS in place draining liq/brown stool; flushed per protocol. No s/s of active GI
bleed. Inc of bladder @ x's; other x's difficulty req BS/SC- see flow sheet. R IJ w dex gtt infusing- see flow sheet. Levo gtt tapered off @ 0700. Assisted w repositioning. Bed alarm active. Family @ bedside, present for AM rounds and updated.
--- NOTE | 2024-07-13 09:19 | W.PN.HOSP.TC ---
Today's Communication/Plan
-
IV PPI. IV Lasix. Lactulose
Assessment / Plan
Assessment / Plan
Physical exam:
General: Acutely ill
HEENT: Normocephalic, Atraumatic and Moist Mucous Membranes
Respiratory: Clear to Auscultation; Negative Wheezes, Rales or Rhonchi
Cardiac: Regular Rhythm and S1/S2
GI: Soft, Nontender and Distended
Musculoskeletal: No Clubbing, No Cyanosis and No Edema
Neuro: Alert but disoriented. Move spontaneously all 4 extremities. Following commands
A/P:
Acute upper GI bleed:
EGD showed portal gastropathy
Continue PPI, Protonix 40 mg IV twice a day
Finished course of octreotide and Rocephin
GI following
Discussed with family at bedside
Acute toxic-metabolic encephalopathy:
Continue lactulose 20 g 3 times daily
Continue rifaximin 550 mg twice a day
Precedex as needed
Dysphagia:
Continue tube feedings
Acute respiratory failure:
Improving
B/L R>L Pleural effusion:
Status post thoracentesis
On Lasix 20 mg IV twice a day
Abdominal ascites:
Unable to do paracentesis due to soft blood pressures
Can attempt down the road if needed
Acute blood loss anemia:
Status post blood transfusion
Monitor hemoglobin
Hepatic encephalopathy:
Continue lactulose and rifaximin
Alcohol liver cirrhosis:
MELD score labs-MELD score 18 at some point
DVT prophylaxis:
SCDs
CODE STATUS:
Critical care discussed with family and CODE STATUS changed to DNR.
Total time spent on today's encounter was 52 minutes which included time spent in counseling the patient/family regarding diagnosis and treatment plan as listed above, goals of care, and symptom management. Case was discussed with nursing staff,
specialists, and care coordinators/case management. All labs and imaging personally reviewed by me. Remainder the time spent in detailed review of previous records, lab data, imaging, and other medical provider documentation.
Anticipated Discharge: > 48 hours
Subjective/Interval History
-
Date of Service: July 13, 2024
Patient mental status shows some improvement today. Although disoriented and generalized weak he is more alert today.
Objective Data
-
Labs:
Laboratory Results
07/13/24
05:05
WBC 4.4 L
Hgb 8.1 L
Hct 25.4 L
Plt Count 64 L
PT 19.9 H
INR 1.64
Sodium 149 H
Potassium 3.9
Chloride 119 H
Carbon Dioxide 24
BUN 31 H
Creatinine 0.8
Glucose 142 H
Calcium 7.6 L
Total Bilirubin 1.6 H
AST 68 H
ALT 35
Alkaline Phosphatase 101
Vital Signs:
Vital Signs
Temp Pulse Resp BP Pulse Ox
96.8 F L 62 24 121/58 94
07/13/24 07:33 07/13/24 07:36 07/13/24 07:36 07/13/24 05:30 07/13/24 07:36
I&O
07/12/24 07/13/24 07/14/24
06:59 06:59 06:59
Intake Total 2039.5 / 2154.2 2439.9 / 2439.9
Output Total 1385 / 1385 2525 / 2525
Balance 654.5 / 769.2 -85.1 / -85.1
[2024-07-13] MEDS: NSS (PRESERVATIVE FREE) 10 ML IV ×2 (10:02→20:07)
[2024-07-13] MEDS: PROTONIX IV 40 MG IV ×2 (10:02→20:07)
[2024-07-13] MEDS: LASIX 20 MG IV ×2 (10:02→16:37)
[2024-07-13] MEDS: THIAMINE INJECTION 200 MG IV (10:02)
[2024-07-13] MEDS: XIFAXAN 550 MG TUBE ×2 (10:03→20:07)
--- NOTE | 2024-07-13 14:46 | W.PN.UPDATE ---
Update Note
Progress Note Update
reviewed with IR very little fluid to tap and risky as around liver. Will hold para for now.
--- NOTE | 2024-07-13 14:59 | W.PN.UPDATE ---
Update Note
Progress Note Update
- Abd ultrasound shows small volume ascites. No safe pocket for drainage. Para not performed.
--- NOTE | 2024-07-13 15:09 | PTCARENOTE ---
Pt. transported via bed on marine engine machinist to IR and back to rm [id number], no events during transport. Not enough fluid to tap to complete paracentesis per IR team. Complete hygiene provided and pt. repositioned per protocol. Precedex tapered per
orders- see flow sheet. Pressors remains off since 0700. B/L soft limb/[address] restraints remain in [address]- see flow sheet. Bed alarm active.
[2024-07-13] MEDS: HEPARIN 5000 UNITS SC (16:31)
[2024-07-13] MEDS: MORPHINE SULFATE 1 MG IV (21:22)
--- NOTE | 2024-07-13 22:26 | PTCARENOTE ---
received pt from samaria rn, girlfriend at bedside. assessment completed , mild c/o discomfort/pain to his back at this time.
upon assessment, found patients left hand covered in stool, patients girlfriend loosened the restraint and he was digging around. patient dislodged his FMS partially, so full bedbath given, FMS reinserted and flushed, draining properly at this
time, instructed patients girlfriend to not take restraint off, and patient given prn pain medication for discomfort.
--- NOTE | 2024-07-13 22:28 | PTCARENOTE ---
2229 - patient in room found slid down towards bottom of bed, dobhoff wrapped around his fingers and removed. patient yelling that he wants to leave and we have to let him leave - patient kicking his legs out of bed, updated MARKETING ANALYTICS MANAGER, received new order
to restart precedex.
[2024-07-14] VITALS (38 sets, daily range): BP systolic 77–170; BP diastolic 36–110; BMI 28.9
[2024-07-14] MEDS: HEPARIN 5000 UNITS SC ×3 (00:40→16:05)
--- NOTE | 2024-07-14 00:47 | PTCARENOTE ---
patient complaining of abdominal pain, says he has to pee but he cant, bladder scan not accurate r/t ascites, however straight cath for 300 ml and patient verbalized comfort at this time. precedex at 0.2 and patient more calm and not as aggitated
nor yelling at staff
[2024-07-14 04:30] LABS: Hematocrit 27.1 % (39.0-52.0); Hemoglobin 8.7 g/dL (13.0-18.0); Mean Corp Hgb Conc. 32.1 g/dL (33.0-37.0); Mean Corpuscular Hgb 28.9 pg (27.0-31.0); Mean Platelet Volume 11.7 fL (7.4-10.4); Platelet Count 86 10^3/uL (130-400); Red Blood Cell Count 3.01 10^6/uL (4.70-6.10); Red Cell Dist. Width 17.8 % (11.5-14.5); White Blood Cell Count 7.7 10^3/uL (4.8-10.8)
[2024-07-14 05:13] LABS: ALT (SGPT) 42 U/L (0-50); AST (SGOT) 85 U/L (17-59); Alkaline Phosphatase 127 U/L (38-126); Blood Urea Nitrogen 32 mg/dl (9-20); Calcium 7.8 mg/dl (8.4-10.2); Carbon Dioxide 23 mmol/L (22-30); Chloride 119 mmol/L (98-107); Estimated Creatinine Clearance 97 ml/min; Glucose 110 mg/dl (70-99); Potassium 3.8 mmol/L (3.5-5.1); Sodium 149 mmol/L (135-145); Total Bilirubin 2.2 mg/dl (0.2-1.3); Total Protein 5.1 g/dl (6.3-8.2); eGFR > 60.00
--- NOTE | 2024-07-14 07:18 | W.PN.INTV ---
Today's Communication / Plan
Recommendations
Precedex wean
Anxiolytics
Consider psychiatry evaluation if agitation persists
Wean oxygen
Aspiration precautions
Speech therapy evaluation
If remains stable then transfer out of ICU-pulmonary will continue to follow
Assessment
-
58-year-old man with history of alcohol cirrhosis admitted through the emergency room after found unresponsive at home by his mother. Patient was admitted with dark stools, dark emesis, found to have anemia and GI bleed. Intubated for change in
mental status and airway protection and transferred to the critical care unit for further care.
Acute respiratory failure/change in mental status requiring intubation and mechanical ventilation for airway protection 07/05/2024
Intubated 07/05/2024
Extubated 07/10/2024
Hepatic encephalopathy
Acute GI bleed-melena/coffee-ground
Acute blood loss anemia-hemoglobin on admission 4.9
Status post EGD 07/06/2026: Portal gastropathy.
Change in mental status/toxic metabolic encephalopathy: Cannot rule out alcohol withdrawal/hepatic encephalopathy
Ammonia level 92
Coagulopathy INR 2.7
Conditions present prior admission:
Alcoholic cirrhosis-on prior operative report from 2014 is noted.
? Bipolar disorder-not taking any medications
History of alcohol disorder
Assessment and plan:.
Respiratory status continues to slowly improve-intermittently tenuous especially when agitated
Tolerated extubation thus far
BiPAP if needed-has not needed
Deep suction as needed
Nebulizers continue
Discussed with POA/mother and they would not want reintubation if respiratory status declined
Precedex as needed-weaned off-May need to reinitiate
Morphine and Ativan as needed for agitation and anxiety
Consider psychiatry evaluation if agitation persists
Chest x-ray 07/12/2024-low lung volumes, bilateral pleural effusions right greater than left
Repeat right thoracentesis 07/12/24--360 mL
Aspiration precautions
Speech therapy evaluation 07/14/2024-modified diet
Monitor hemoglobin-stable at 8.7-monitor as heparin was initiated 07/13/2024
Transfuse as needed-has received 3 units packed red blood cells
PPI
GI following-correspondence reviewed-reviewed with them
Abdominal ultrasound 07/06/2024:1. Liver is shrunken and nodular, consistent with cirrhosis.
CT abdomen and pelvis 07/11/2024-generalized anasarca, moderate right and left small pleural effusion, moderate ascites, no bowel obstruction, cirrhosis, basilar compressive atelectasis
Prophylactic ceftriaxone initiated-day 11/03
Xifaxan as well
Octreotide discontinued 07/10/2024
MELD score trended
Nasogastric tube-initiated feeding 07/09/2024-tolerating
Paracentesis 07/13/2024-not performed with not enough fluid for safe tap-ultrasound with small volume ascites
Bilateral upper extremity DVT found
High risk for full anticoagulation-Dr. Sheikh discussed with GI on 07/13/2024-okay to use heparin and DVT prophylactic doses
Follow vvgftda-bhcjrjaqr-wkcx improved and now increasing again
Lactulose initiated 07/08/20246366-ptuajfye-qcurg to decrease
Monitor mental status-suspect toxic metabolic encephalopathy-mental status not significantly improved
Neurology consultation noted-correspondence reviewed
CT head 07/11/2024-stable chronic findings, no acute intracranial abnormalities
EEG 07/11/2024-generalized slowing, no triphasic waves which can be seen with hepatic encephalopathy
Girlfriend states that he has not drank in a while-his gxsuex-ml-rvx reports patient did not drink for 10 years but about 1 year ago he started drinking again
Hepatic encephalopathy slowly improving
Continue attempts at diuresis-continues to be positive despite diuresis attempts
Monitor renal function, electrolytes, intake/output, lower extremity edema and weight
Replace electrolytes as needed
Increase free water with some hypernatremia
We monitored for alcohol withdrawal-now well over a week after last drink
Thiamine continues
Ativan as needed
DVT prophylaxis-initially on sequentials-heparin initiated 07/13/2024
GI prophylaxis-on Protonix
Nutrition-patient pulled Dobbhoff 07/14/2024-speech therapy evaluation-modified diet initiated 07/14/2024
Bedside range of motion/eventual physical therapy
Family discussions:
Dr. Sheikh updated frlwvz-lb-aov at the bedside extensively 07/09/2024 as well as on multidisciplinary rounds 07/11/2024, 07/12/2024, and 07/13/2024, and Dr. Sheikh reviewed with svqvgb-ww-alt 07/14/2024
Goals of care again discussed with [id number]-NQQ-tg 07/12/2024-DNR, do not reintubate if respiratory decompensation-again updated on 07/13/2024
Outpatient hepatology follow-up for cirrhosis management
If patient continues to improve he could be transferred out of ICU-pulmonary will follow briefly
Critical care statement: A total of 38 minutes of critical care time was provided for this patient today. This includes management of unstable vital signs, evaluation of the patient at bedside, reviewing the patient's pertinent medical records
including radiographs, respiratory failure management, pressor management, metabolic encephalopathy management microbiology, laboratory evaluations, and discussion with primary team, consultants, pharmacy, nutrition, physical therapy, case
management, charge nurse, critical care nursing, and respiratory therapy.
Subjective Dataa
Subjective Data
Date of Service:
Date of Service: July 14, 2024
Chief Complaint: Bone Crusher Follow Up (Change in mental status-GI bleed), Pulmonary Follow Up and Vent Management Follow Up
Subjective:
More alert and appropriate, did pull out his nasogastric tube, anxious, tremulous on occasion,
Review of Systems
General: Other (Per HPI)
Objective Data
Data Reviewed
Vital Signs / I&O / Oxygen:
Vital Signs
Temp Pulse Resp BP Pulse Ox
98 F 90 22 99/73 91
07/14/24 03:43 07/14/24 03:04 07/14/24 03:04 07/14/24 03:04 07/14/24 03:04
Intake and Output
07/13/24 07/14/24 07/15/24
06:59 06:59 06:59
Intake Total 2439.9 / 2540.7 1188.0 / 1188.0
Output Total 2525 / 2525 1350 / 1350
Balance -85.1 / 15.7 -162.0 / -162.0
SaO2 [CPAP/PSV] 97
SaO2 [A/C] 95
SaO2 91
Nasal Cannula flow liters per 2
minute
Physical Exam
General: Respiratory Distress (n) and Comfortable
HEENT: Normocephalic and Anicteric
Cardiovascular: Regular Rhythm
Respiratory: Wheeze (n), Crackles, Rhonchi, Non-Labored Respirations and Accessory Resp Muscle Use (n)
GI: Soft and Non Distended
Neurology: Other (Moving 4 extremities. Not purposefully following commands yet.)
Skin: Warm, Good Color, Cyanosis (n), Jaundice (n) and Rash (n)
Labs/Micro/Reports
Lab Data
07/14/24 04:14
07/14/24 04:14
[2024-07-14] MEDS: DUONEB 3 ML INH ×4 (07:23→18:07)
[2024-07-14] MEDS: PROTONIX IV 40 MG IV ×2 (07:44→20:54)
[2024-07-14] MEDS: NSS (PRESERVATIVE FREE) 10 ML IV ×2 (07:45→20:54)
[2024-07-14] MEDS: LASIX 20 MG IV ×2 (07:45→16:05)
[2024-07-14] MEDS: THIAMINE INJECTION 200 MG IV (07:46)
--- NOTE | 2024-07-14 08:18 | PTCARENOTE ---
Speech pathologist here to assess patient's swallowing. patient had remove dobhoff tube on shift supervisor melting. reassessing potential for oral meds/nutrition
[2024-07-14] MEDS: ATIVAN 0.5 MG IV ×2 (08:30→16:38)
[2024-07-14] MEDS: NSS (PRESERVATIVE FREE) 0.25 ML IV (08:30)
[2024-07-14] MEDS: DUPHALAC/CHRONULAC 20 GRAMS TUBE ×2 (08:38→16:04)
[2024-07-14] MEDS: XIFAXAN 550 MG TUBE ×2 (08:38→20:54)
--- NOTE | 2024-07-14 09:42 | PTOTSP ---
Speech Therapy Evaluation:
Pt presents with clinical signs of oropharyngeal dysphagia, likely acute in nature related to prolonged intubation (07/05-07/10) and current mentation. Oral phase was slow and discoordinated. Pt demonstrated 1x cough in 1/8 trials of thin liquids via
straw. No s/sx of aspiration with ice chips, thin liquids via cup, or pureed solids. Pt did not pass 3oz swallow screen d/t interrupted drinking just prior to finishing all 3oz, though no s/sx of aspiration observed. Pt remains at increased risk of
aspiration given prolonged intubation, current mentation, and concern for breathing/swallow coordination.
Recommend:
1. Initiate CAUTIOUS diet of IDDSI Level 4 (puree) and thin liquids. Pt low threshold for NPO; d/c oral diet if concerned for aspiration
2. Medications crushed in puree
3. Only feed when awake/alert and mentation supportive of oral intake
4. 1:1 assistance and supervision with all PO intake
5. Oral care 3x/daily
6. REFRIGERATOR MOVER to closely follow to monitor tolerance of diet, determine need for further modifications or advancement, and determine if pt would benefit from instrumental assessment.
--- NOTE | 2024-07-14 10:07 | W.PN.HOSP.TC ---
Today's Communication/Plan
-
PPI. IV Lasix. Lactulose. Heparin SQ.
Assessment / Plan
Assessment / Plan
Physical exam:
General: Acutely ill
HEENT: Normocephalic, Atraumatic and Moist Mucous Membranes
Respiratory: Clear to Auscultation; Negative Wheezes, Rales or Rhonchi
Cardiac: Regular Rhythm and S1/S2
GI: Soft, Nontender and Distended
Musculoskeletal: No Clubbing, No Cyanosis and No Edema
Neuro: Alert but disoriented. Move spontaneously all 4 extremities. Following commands
A/P:
Acute upper GI bleed:
EGD showed portal gastropathy
Continue PPI, Protonix 40 mg IV twice a day
Finished course of octreotide and Rocephin
GI following but signing off today.
Discussed with family at bedside
Out of ICU per critical care
Acute toxic-metabolic encephalopathy:
Continue lactulose 20 g 3 times daily
Continue rifaximin 550 mg twice a day
Precedex off
Dysphagia:
Continue tube feedings
Speech therapy cleared her for oral diet trial
Acute DVT left upper extremity:
Left brachial vein and cephalic vein thrombus noticed
Challenging situation given recent GI bleed
Critical care and GI discussed pros and cons and deciding on low-dose heparin subcu for now and prior to initiating any long-term anticoagulation might need to repeat EGD again.
Acute respiratory failure:
Improving
B/L R>L Pleural effusion:
Status post thoracentesis
On Lasix 20 mg IV twice a day
Abdominal ascites:
Unable to do paracentesis due to soft blood pressures and now after attempted again not enough fluid
Acute blood loss anemia:
Status post blood transfusion
Monitor hemoglobin
Hepatic encephalopathy:
Continue lactulose and rifaximin
Alcohol liver cirrhosis:
MELD score labs-MELD score 18 at some point
DVT prophylaxis:
SCDs
CODE STATUS:
Critical care discussed with family and CODE STATUS changed to DNR.
Total time spent on today's encounter was 52 minutes which included time spent in counseling the patient/family regarding diagnosis and treatment plan as listed above, goals of care, and symptom management. Case was discussed with nursing staff,
specialists, and care coordinators/case management. All labs and imaging personally reviewed by me. Remainder the time spent in detailed review of previous records, lab data, imaging, and other medical provider documentation.
Anticipated Discharge: > 48 hours
Subjective/Interval History
-
Date of Service: July 14, 2024
Patient mentation improving slowly. Afebrile
Objective Data
-
Labs:
Laboratory Results
07/14/24
04:14
WBC 7.7
Hgb 8.7 L
Hct 27.1 L
Plt Count 86 L D
Sodium 149 H
Potassium 3.8
Chloride 119 H
Carbon Dioxide 23
BUN 32 H
Creatinine 0.8
Glucose 110 H
Calcium 7.8 L
Total Bilirubin 2.2 H
AST 85 H
ALT 42
Alkaline Phosphatase 127 H
Vital Signs:
Vital Signs
Temp Pulse Resp BP Pulse Ox
98.3 F 106 27 139/74 92
07/14/24 08:00 07/14/24 08:00 07/14/24 08:00 07/14/24 08:00 07/14/24 08:20
I&O
07/13/24 07/14/24 07/15/24
06:59 06:59 06:59
Intake Total 2439.9 / 2540.7 1188.0 / 1188.0 120 / 120
Output Total 2525 / 2525 1350 / 1350
Balance -85.1 / 15.7 -162.0 / -162.0 120 / 120
[2024-07-14] MEDS: TYLENOL ORAL SOLUTION 650 MG TUBE (11:22)
--- NOTE | 2024-07-14 11:53 | W.PN.GI.CBS2 ---
Today's Communication / Plan
-
gi signing off monitor hb/meld labs pls call with changes/?s
Assessment / Plan
-
58-year-old gentleman known medical history of alcoholic cirrhosis for 5 years who had stopped drinking and then resumed drinking about a year ago presenting with hematemesis with hemoglobin of 4.9. He underwent upper endoscopy with Dr. Patino
July 06 which showed portal hypertensive gastropathy, old blood clots in the gastric fundus, normal duodenum. No further bleeding since then with a stable hemoglobin. Course complicated by change in mental status which was thought to be
multifactorial from encephalopathy and alcohol withdrawal and neurology has been consulted as well. In discussion with my nurse practitioner who is seen him daily, his mental status has improved continues to improve today. He also had a pleural
effusion and underwent a thoracentesis yesterday. He had a small amount of ascites which was unable to be drained for paracentesis attempted by interventional radiology today. He also has upper extremity DVT bilaterally. I discussed with ICU,
will need to weigh the risks and benefits of anticoagulation. At this time, it was decided to be reasonable to try subcu heparin as it has a short half-life. I could repeat an upper endoscopy prior to long-term anticoagulation but likely would
ideally wait for his mental status to improve.
Discussed with brother, mother, tfmqex-ds-urs in detail at the bedside yesterday. We did discuss the plan for outpatient follow-up with hepatology if and when he continues to improve. Reviewed MADELIN + in 2009 however titer less than 1:40, actin IgG
negative. Will need full autoimmune workup ordered for AM. However, I suspect his liver disease is from alcohol.
At this time GI will sign off - if there is plan to start custodial AC please call GI as would recommend EGD prior given blood clots in stomach on prior EGD.
D/w ICU attg pls call with questions.
Subjective
Subjective
Date of Service: July 14, 2024
No events continues to be more awake
Objective
Data Reviewed
Laboratory Data:
Laboratory Results
07/14/24 04:14
07/14/24 04:14
Laboratory Results
PT 19.9 Sec (11.4-14.6) H 07/13/24 05:05
INR 1.64 07/13/24 05:05
APTT 31.9 Sec (23.4-35.0) 07/05/24 19:13
Phosphorus 3.6 mg/dl (2.5-4.5) 07/06/24 07:00
Magnesium 2.4 mg/dl (1.6-2.3) H 07/12/24 04:28
Total Bilirubin 2.2 mg/dl (0.2-1.3) H 07/14/24 04:14
AST 85 U/L (17-59) H 07/14/24 04:14
ALT 42 U/L (0-50) 07/14/24 04:14
Alkaline Phosphatase 127 U/L (38-126) H 07/14/24 04:14
Lipase 357 U/L (23-300) H 07/05/24 19:13
Vital Signs and I&O:
Vital Signs
Temp Pulse Resp BP Pulse Ox
98.3 F 95 20 124/66 93
07/14/24 08:00 07/14/24 11:22 07/14/24 11:22 07/14/24 11:00 07/14/24 11:22
I&O
07/13/24 07/14/24 07/15/24
06:59 06:59 06:59
Intake Total 2439.9 / 2540.7 1188.0 / 1188.0 360 / 360
Output Total 2525 / 2525 1350 / 1350
Balance -85.1 / 15.7 -162.0 / -162.0 360 / 360
Physical Exam
Physical Exam
HEENT: Anicteric
Cardiology: Normal Sinus Rhythm
Pulmonary: Clear
GI: Non Distended and Non Tender
--- NOTE | 2024-07-14 12:59 | PTCARENOTE ---
Patient now written for tele status. 1:1 supervision and feed assist with meals. Tylenol had been given for knee pain.
[2024-07-15] VITALS (24 sets, daily range): BP systolic 110–174; BP diastolic 46–144; BMI 28.7
[2024-07-15] MEDS: DUPHALAC/CHRONULAC 20 GRAMS TUBE ×4 (00:01→21:13)
[2024-07-15] MEDS: HEPARIN 5000 UNITS SC ×4 (00:02→23:33)
[2024-07-15] MEDS: ATIVAN 0.5 MG IV ×2 (01:07→08:38)
[2024-07-15 03:42] LABS: % Basophils 0.6 % (0-2); % Eosinophils 3.9 % (0-6); % Immature Granulocytes 0.6 % (0-0.5); % Neutrophils 73.9 % (42.2-75.2); Absolute Basophils 0.1 10^3/uL (0-0.2); Absolute Eosinophils 0.5 10^3/uL (0-0.7); Absolute Immature Granulocytes 0.1 10^3/uL (0-0.05); Absolute Lymphocytes 1.8 10^3/uL (1.2-3.4); Absolute Monocytes 1.1 10^3/uL (0.1-0.6); Absolute Neutrophils 10.4 10^3/uL (1.4-6.5); Hemoglobin 8.6 g/dL (13.0-18.0); Mean Corp Hgb Conc. 33.1 g/dL (33.0-37.0); Mean Corpuscular Hgb 29.7 pg (27.0-31.0); Mean Corpuscular Volume 89.7 fL (80.0-94.0); Mean Platelet Volume 10.2 fL (7.4-10.4); Nucleated Red Blood Cells % 0.2 % (-); Platelet Count 116 10^3/uL (130-400); Red Cell Dist. Width 18.2 % (11.5-14.5)
[2024-07-15 03:48] LABS: INR 1.59; PT 19.2 Sec (11.4-14.6)
[2024-07-15 04:00] LABS: Ammonia 11 umol/L (9-30)
[2024-07-15 04:01] LABS: ALT (SGPT) 46 U/L (0-50); AST (SGOT) 91 U/L (17-59); Albumin 2.2 g/dl (3.5-5.0); Alkaline Phosphatase 136 U/L (38-126); Blood Urea Nitrogen 34 mg/dl (9-20); Calcium 7.9 mg/dl (8.4-10.2); Carbon Dioxide 22 mmol/L (22-30); Chloride 116 mmol/L (98-107); Estimated Creatinine Clearance 71 ml/min; Glucose 103 mg/dl (70-99); Magnesium 2.5 mg/dl (1.6-2.3); Phosphorus 4.1 mg/dl (2.5-4.5); Potassium 3.8 mmol/L (3.5-5.1); Sodium 147 mmol/L (135-145); Total Bilirubin 3.3 mg/dl (0.2-1.3); Total Protein 5.5 g/dl (6.3-8.2); eGFR > 60.00
[2024-07-15] MEDS: DUONEB 3 ML INH ×4 (07:01→19:36)
--- NOTE | 2024-07-15 07:31 | W.PN.INTV ---
Today's Communication / Plan
Recommendations
Follow hemoglobin
PPI
Subcu heparin continues
Thiamine continues
Lactulose
Psychiatry evaluation
Wean FiO2
Assessment
-
58-year-old man with history of alcohol cirrhosis admitted through the emergency room after found unresponsive at home by his mother. Patient was admitted with dark stools, dark emesis, found to have anemia and GI bleed. Intubated for change in
mental status and airway protection and transferred to the critical care unit for further care.
Acute respiratory failure/change in mental status requiring intubation and mechanical ventilation for airway protection 07/05/2024
Intubated 07/05/2024
Extubated 07/10/2024
Hepatic encephalopathy
Acute GI bleed-melena/coffee-ground
Acute blood loss anemia-hemoglobin on admission 4.9
Status post EGD 07/06/2026: Portal gastropathy.
Change in mental status/toxic metabolic encephalopathy: Cannot rule out alcohol withdrawal/hepatic encephalopathy
Ammonia level 92
Coagulopathy INR 2.7
Conditions present prior admission:
Alcoholic cirrhosis-on prior operative report from 2014 is noted.
? Bipolar disorder-not taking any medications
History of alcohol disorder
Assessment and plan:.
Respiratory status continues to slowly improve-intermittently tenuous especially when agitated
Tolerated extubation
BiPAP if needed-has not needed
Deep suction as needed
Nebulizers continue
Dr. Sheikh discussed with POA/mother 07/12/2024 and they would not want reintubation if respiratory status declined
Precedex has been discontinued
Morphine and Ativan as needed for agitation and anxiety
Psychiatry evaluation pending
Chest x-ray 07/12/2024-low lung volumes, bilateral pleural effusions right greater than left
Repeat right thoracentesis 07/12/24--360 mL
Aspiration precautions
Speech therapy evaluation 07/14/2024-modified diet
Monitor hemoglobin-stable at 8.6-monitor as heparin was initiated 07/13/2024
Transfuse as needed-has received 3 units packed red blood cells
PPI
GI following-correspondence reviewed-reviewed with them
Abdominal ultrasound 07/06/2024:1. Liver is shrunken and nodular, consistent with cirrhosis.
CT abdomen and pelvis 07/11/2024-generalized anasarca, moderate right and left small pleural effusion, moderate ascites, no bowel obstruction, cirrhosis, basilar compressive atelectasis
Prophylactic ceftriaxone initiated-day 11/03
Xifaxan as well
Octreotide discontinued 07/10/2024
MELD score trended
Nasogastric tube-initiated feeding 07/09/2024-tolerating
Paracentesis 07/13/2024-not performed with not enough fluid for safe tap-ultrasound with small volume ascites
Bilateral upper extremity DVT found
High risk for full anticoagulation-Dr. Sheikh discussed with GI on 07/13/2024-okay to use heparin and DVT prophylactic doses
Heparin-DVT prophylactic doses
Follow vpsdxkj-ripeflnbd-fjpc improved then increased and now improved again
Lactulose initiated 07/08/20249879-vihikycs-lasds to decrease
Monitor mental status-suspect toxic metabolic encephalopathy-mental status not significantly improved
Neurology consultation noted-correspondence reviewed
CT head 07/11/2024-stable chronic findings, no acute intracranial abnormalities
EEG 07/11/2024-generalized slowing, no triphasic waves which can be seen with hepatic encephalopathy
Girlfriend/friend states that he has not drank in a while-his auipxo-pr-fqm reports patient did not drink for 10 years but about 1 year ago he started drinking again
Hepatic encephalopathy slowly improving
Continue attempts at diuresis-continues to be positive despite diuresis attempts
Monitor renal function, electrolytes, intake/output, lower extremity edema and weight
Replace electrolytes as needed
Increase free water with some hypernatremia
We monitored for alcohol withdrawal-now well over a week after last drink
Thiamine continues
Ativan as needed
Psychiatry evaluation
DVT prophylaxis-initially on sequentials-heparin initiated 07/13/2024
GI prophylaxis-on Protonix
Nutrition-patient pulled Dobbhoff 07/14/2024-speech therapy evaluation-modified diet initiated 07/14/2024
Bedside range of motion/eventual physical therapy
Outpatient hepatology follow-up for cirrhosis management
Patient transferred out of ICU-pulmonary will continue to follow briefly
Reviewed the patient's pertinent medical records including radiographs, respiratory failure management, pressor management, metabolic encephalopathy management microbiology, laboratory evaluations, and discussion with primary team, consultants,
pharmacy, nutrition, physical therapy, case management, charge nurse, critical care nursing, and respiratory therapy.
Family discussions:
Dr. Sheikh updated vpszcv-vc-hnh at the bedside extensively 07/09/2024 as well as on multidisciplinary rounds 07/11/2024, 07/12/2024, and 07/13/2024, and Dr. Sheikh reviewed with tdrtog-hy-zqj 07/14/2024, 07/15/2024
Goals of care again discussed with fpvkyr-JDB-qd 07/12/2024-DNR, do not reintubate if respiratory decompensation-again updated on 07/13/2024
Subjective Dataa
Subjective Data
Date of Service:
Date of Service: July 15, 2024
Chief Complaint: Fertilizer Supervisor Follow Up (Change in mental status-GI bleed), Pulmonary Follow Up and Vent Management Follow Up
Subjective:
Intermittently agitated, no increased shortness of breath, chest pain or abdominal pain
Review of Systems
General: Other (Per HPI)
Objective Data
Data Reviewed
Vital Signs / I&O / Oxygen:
Vital Signs
Temp Pulse Resp BP Pulse Ox
98.2 F 96 24 152/70 93
07/15/24 07:08 07/15/24 07:02 07/15/24 07:02 07/15/24 06:01 07/15/24 07:02
Intake and Output
07/14/24 07/15/24 07/16/24
06:59 06:59 06:59
Intake Total 1188.0 / 1188.0 650 / 650
Output Total 1350 / 1350 100 / 100
Balance -162.0 / -162.0 550 / 550
SaO2 [CPAP/PSV] 97
SaO2 [A/C] 95
SaO2 93
Nasal Cannula flow liters per 4
minute
Physical Exam
General: Respiratory Distress (n) and Comfortable
HEENT: Normocephalic and Anicteric
Cardiovascular: Regular Rhythm
Respiratory: Wheeze (n), Crackles, Rhonchi, Non-Labored Respirations and Accessory Resp Muscle Use (n)
GI: Soft and Non Distended
Neurology: Other (Moving 4 extremities. Not purposefully following commands yet.)
Skin: Warm, Good Color, Cyanosis (n), Jaundice (n) and Rash (n)
Labs/Micro/Reports
Lab Data
07/15/24 03:29
07/15/24 03:29
Laboratory Results
07/15/24
03:29
PT 19.2 H
INR 1.59
[2024-07-15] MEDS: NSS (PRESERVATIVE FREE) 10 ML IV ×2 (07:51→21:12)
[2024-07-15] MEDS: PROTONIX IV 40 MG IV ×2 (07:51→21:12)
[2024-07-15] MEDS: THIAMINE INJECTION 200 MG IV (07:51)
[2024-07-15] MEDS: LASIX 20 MG IV ×2 (07:51→16:08)
[2024-07-15] MEDS: APRESOLINE 5 MG IV ×2 (07:59→19:20)
[2024-07-15] MEDS: MORPHINE SULFATE 1 MG IV ×2 (08:00→19:22)
--- NOTE | 2024-07-15 08:00 | PTCARENOTE ---
Received patient from shift supervisor rn. no changes from prior assessment. patient is hallucinating at times, speaks in a low very quiet raspy voice. Will not feed patient breakfast without sustained awakening. Patient remains sinus tach on monitor.
is on 2L nasal cannula. 92-93%. coarse breath sounds and expiratory wheezing auscultated. edema is unchanged, anasarca, pitting on legs when turning. Abdomen is firm, tympanic, distended. FMS in place. Patient continues to be grossly
incontinent of urine. right triple lumen IJ. will review orders.
[2024-07-15] MEDS: NSS (PRESERVATIVE FREE) 0.25 ML IV (08:38)
--- NOTE | 2024-07-15 08:51 | W.PN.HOSP.TC ---
Addendum entered and electronically signed by Gil Lauren MD 07/15/24 13:34:
Patient had some lethargy, increased work of breathing and concerns for aspiration--> will change to n.p.o., will start him on tube feedings, will obtain chest x-ray, will start him empirically on IV Zosyn.
Original Note:
Today's Communication/Plan
-
PPI. Lactulose and rifaximin. IV Lasix. Psych eval.
Assessment / Plan
Assessment / Plan
Physical exam:
General: Acutely ill
HEENT: Normocephalic, Atraumatic and Moist Mucous Membranes
Respiratory: Clear to Auscultation; Negative Wheezes, Rales or Rhonchi
Cardiac: Regular Rhythm and S1/S2
GI: Soft, Nontender and Distended
Musculoskeletal: No Clubbing, No Cyanosis and No Edema
Neuro: Alert but disoriented. Move spontaneously all 4 extremities. Following commands
A/P:
Acute upper GI bleed:
EGD showed portal gastropathy
Continue PPI, Protonix 40 mg IV twice a day
Finished course of octreotide and Rocephin
GI signed off.
Discussed with family at bedside today
Acute toxic-metabolic encephalopathy:
Continue lactulose 20 g 3 times daily
Continue rifaximin 550 mg twice a day
Precedex off
Neurology evaluated him throughout his hospital stay.
Will request psychiatry evaluation
Dysphagia:
Speech therapy following
On pur�ed diet and tolerating
Acute DVT left upper extremity:
Left brachial vein and cephalic vein thrombus noticed
Challenging situation given recent GI bleed
Critical care and GI discussed pros and cons and deciding on low-dose heparin subcu for now and prior to initiating any long-term anticoagulation might need to repeat EGD again.
Acute respiratory failure:
Improving
B/L R>L Pleural effusion:
Status post thoracentesis
On Lasix 20 mg IV twice a day-might be able to switch to oral tomorrow
Abdominal ascites:
Unable to do paracentesis due to soft blood pressures and now after attempted again not enough fluid
Acute blood loss anemia:
Status post blood transfusion
Monitor hemoglobin
Hepatic encephalopathy:
Continue lactulose and rifaximin
Alcohol liver cirrhosis:
MELD score labs-MELD score 18 at some point
DVT prophylaxis:
SCDs
CODE STATUS:
Critical care discussed with family and CODE STATUS changed to DNR.
Total time spent on today's encounter was 52 minutes which included time spent in counseling the patient/family regarding diagnosis and treatment plan as listed above, goals of care, and symptom management. Case was discussed with nursing staff,
specialists, and care coordinators/case management. All labs and imaging personally reviewed by me. Remainder the time spent in detailed review of previous records, lab data, imaging, and other medical provider documentation.
Anticipated Discharge: > 48 hours
Subjective/Interval History
-
Date of Service: July 15, 2024
Patient more alert but still weak and slightly disoriented. Afebrile
Objective Data
-
Labs:
Laboratory Results
07/15/24
03:29
WBC 14.0 H
Hgb 8.6 L
Hct 26.0 L
Plt Count 116 L D
PT 19.2 H
INR 1.59
Sodium 147 H
Potassium 3.8
Chloride 116 H
Carbon Dioxide 22
BUN 34 H
Creatinine 1.1
Glucose 103 H
Calcium 7.9 L
Total Bilirubin 3.3 H
AST 91 H
ALT 46
Alkaline Phosphatase 136 H
Vital Signs:
Vital Signs
Temp Pulse Resp BP Pulse Ox
98.2 F 96 24 152/70 93
07/15/24 07:08 07/15/24 07:02 07/15/24 07:02 07/15/24 06:01 07/15/24 07:02
I&O
07/14/24 07/15/24 07/16/24
06:59 06:59 06:59
Intake Total 1188.0 / 1188.0 650 / 650
Output Total 1350 / 1350 100 / 100
Balance -162.0 / -162.0 550 / 550
[2024-07-15] MEDS: XIFAXAN TUBE (09:10)
--- NOTE | 2024-07-15 14:08 | PTCARENOTE ---
Patient has had increased work of breathing and continued lethargy all day. asked hospitalist for CXR and if we should place dobhoff tube to give nutrition and medication. orders placed.
[2024-07-15] MEDS: ATIVAN IV (14:18)
[2024-07-15] MEDS: NSS (PRESERVATIVE FREE) IV (14:49)
[2024-07-15] MEDS: ZOSYN 50 IV ×2 (15:00→21:13)
--- NOTE | 2024-07-15 16:25 | PTCARENOTE ---
Dobhoff replaced, placement verified by Dr. Mckeon. Tube feeds to be on hold today, IV Zosyn given. Will keep patietn NPO. DHT in right nare at 65ccm.
--- NOTE | 2024-07-15 19:35 | PTCARENOTE ---
compatibility test engineer, turned/repositioned, inc urine, skin care, prn morphine for knee pain/general discomfort. ST HR low 100s, prn hydralazine for SBP>150. Sat 99% on 2LNC. dht intact. FMS WNL. RIJ with no continuous gtts. friends at bedside, will
monitor.
[2024-07-15] MEDS: ATIVAN 1 MG IV (21:11)
[2024-07-15] MEDS: NSS (PRESERVATIVE FREE) 0.5 ML IV (21:12)
[2024-07-15] MEDS: TYLENOL ORAL SOLUTION 650 MG TUBE (21:12)
[2024-07-15] MEDS: XIFAXAN 550 MG TUBE (21:13)
[2024-07-16] VITALS (17 sets, daily range): BP systolic 113–154; BP diastolic 57–107; BMI 28.2
[2024-07-16] MEDS: MORPHINE SULFATE 1 MG IV (00:51)
[2024-07-16] MEDS: ATIVAN 1 MG IV ×2 (03:20→08:47)
[2024-07-16] MEDS: NSS (PRESERVATIVE FREE) 0.5 ML IV ×2 (03:20→08:47)
[2024-07-16] MEDS: ZOSYN 50 IV ×2 (03:21→08:37)
[2024-07-16 04:00] LABS: % Basophils 0.5 % (0-2); % Eosinophils 2.5 % (0-6); % Immature Granulocytes 0.7 % (0-0.5); % Lymphocytes 9.5 % (20.5-51.1); % Monocytes 6.8 % (1.7-9.3); Absolute Basophils 0.1 10^3/uL (0-0.2); Absolute Eosinophils 0.4 10^3/uL (0-0.7); Absolute Immature Granulocytes 0.1 10^3/uL (0-0.05); Absolute Lymphocytes 1.4 10^3/uL (1.2-3.4); Absolute Neutrophils 12.1 10^3/uL (1.4-6.5); Hematocrit 26.8 % (39.0-52.0); Hemoglobin 8.5 g/dL (13.0-18.0); Mean Corp Hgb Conc. 31.7 g/dL (33.0-37.0); Mean Corpuscular Volume 91.5 fL (80.0-94.0); Mean Platelet Volume 10.5 fL (7.4-10.4); Nucleated Red Blood Cells % 0.1 % (-); Platelet Count 144 10^3/uL (130-400); Red Blood Cell Count 2.93 10^6/uL (4.70-6.10); Red Cell Dist. Width 18.8 % (11.5-14.5); White Blood Cell Count 15.1 10^3/uL (4.8-10.8)
[2024-07-16 04:07] LABS: ALT (SGPT) 46 U/L (0-50); AST (SGOT) 82 U/L (17-59); Albumin 2.2 g/dl (3.5-5.0); Alkaline Phosphatase 146 U/L (38-126); Blood Urea Nitrogen 40 mg/dl (9-20); Calcium 7.8 mg/dl (8.4-10.2); Carbon Dioxide 22 mmol/L (22-30); Chloride 118 mmol/L (98-107); Estimated Creatinine Clearance 49 ml/min; Glucose 141 mg/dl (70-99); Potassium 3.8 mmol/L (3.5-5.1); Sodium 150 mmol/L (135-145); Total Bilirubin 3.3 mg/dl (0.2-1.3); Total Protein 5.2 g/dl (6.3-8.2); eGFR 49.63
--- NOTE | 2024-07-16 06:48 | W.PN.HOSP.TC ---
Today's Communication/Plan
-
wean O2 supplementation as tolerated
avoid/minimize sedating medications as possible
cont empiric abx
check blood cultures, cdiff
increase free water flushes, cont tube feeds
hold Lasix
Nephro eval
Assessment / Plan
Assessment / Plan
Physical exam:
General: Acutely ill
HEENT: Normocephalic, Atraumatic and Moist Mucous Membranes
Respiratory: Clear to Auscultation; Negative Wheezes, Rales or Rhonchi
Cardiac: Regular Rhythm and S1/S2
GI: Soft, Nontender, Distended
Musculoskeletal: No Clubbing, No Cyanosis and No Edema
Neuro: Lethargic but arousable, mental status improving as day progresses but remains largely nonverbal/confused
A/P:
Acute upper GI bleed:
EGD showed portal gastropathy
Continue PPI, Protonix 40 mg IV twice a day
Finished course of octreotide and Rocephin
GI signed off.
Acute toxic-metabolic encephalopathy:
Continue lactulose 20 g 3 times daily
Continue rifaximin 550 mg twice a day
Precedex off
Neuro eval appreciated
Psych eval appreciated
Freight Caller Eval appreciated
Bilateral Acute DVT upper extremities:
Challenging situation given recent GI bleed
Critical care and GI discussed pros and cons and decided on low-dose heparin subcu for now, dvt ppx dose, prior to initiating any long-term anticoagulation might need to repeat EGD again.
Acute respiratory failure
Possible Aspiration Pneumonia
Dysphagia:
Speech eval appreciated
NPO on tube feeds for now given concerns aspiration lethargy AMS
Leukocytosis, trend wbc, monitor temp
cont empiric zosyn
check blood cultures x2
ID eval
wean O2 supplementation as tolerated
monitor respiratory status
07/16/24 ABG reviewed
B/L R>L Pleural effusion:
Status post thoracentesis 360 mL drawn
On Lasix 20 mg IV twice a day- placed on hold d/t SUSIE
SUSIE
Hypernatremia
Cr trended up to peak 1.6 from baseline 0.8
Na trended up to peak 150
free water flushes increased
Lasix placed on hold as above
Nephro eval requested
Abdominal ascites
Abd distension
Diarrhea
ascites remains small volume Abd US performed 07/13 and 07/16 not enough for paracentesis
check Cdiff
Acute blood loss anemia:
Status post blood transfusion
Monitor hemoglobin
Hepatic encephalopathy:
Continue lactulose and rifaximin
Alcohol liver cirrhosis:
MELD score labs-hx MELD score 18
DVT prophylaxis:
heparin
CODE STATUS:
DNR
discussed with patient's Mother DUDLEY Pedersen
I spent a total of 60 minutes with the patient or on the floor. More than 50% of this time involved counseling and coordination of care.
Anticipated Discharge: 24 - 48 hours
Subjective/Interval History
-
Date of Service: July 16, 2024
lethargic arousable with accessory muscles respiration. Mental status Respiratory status improving as day progresses.
Objective Data
-
Labs:
Laboratory Results
07/16/24
03:21
WBC 15.1 H
Hgb 8.5 L
Hct 26.8 L
Plt Count 144 D
Sodium 150 H
Potassium 3.8
Chloride 118 H
Carbon Dioxide 22
BUN 40 H
Creatinine 1.6 H
Glucose 141 H
Calcium 7.8 L
Total Bilirubin 3.3 H
AST 82 H
ALT 46
Alkaline Phosphatase 146 H
Vital Signs:
Vital Signs
Temp Pulse Resp BP Pulse Ox
98.2 F 93 21 138/78 96
07/15/24 23:31 07/16/24 06:00 07/16/24 06:00 07/16/24 06:00 07/16/24 06:00
I&O
07/14/24 07/15/24 07/16/24
06:59 06:59 06:59
Intake Total 1188.0 / 1188.0 650 / 650 210 / 210
Output Total 1350 / 1350 100 / 100
Balance -162.0 / -162.0 550 / 550 210 / 210
[2024-07-16] MEDS: DUONEB 3 ML INH ×4 (07:14→19:29)
--- NOTE | 2024-07-16 07:15 | W.PN.PUL3 ---
Today's Communication / Plan
-
Patient clinically stable post extubation, remains on 3L NC satting >90%
He is now DNR, mother at bedside/she is aware his overall QoL would be poor if undergoes resuscitation
Continue IV diuresis
Can stop abx after finite course (5 days)
Decrease IV pain meds/Ativan for oversedation, psych following, can stop MSAS
Resumed on liver regiment, GI has signed off
Overall GOC would need to be discussed with family especially if he is not a transplant candidate
Transferred to IMU, we will sign off at this time. Pls call with questions
Assessment
-
58-year-old man with history of alcohol cirrhosis admitted through the emergency room after found unresponsive at home by his mother. Patient was admitted with dark stools, dark emesis, found to have anemia and GI bleed. Intubated for change in
mental status and airway protection and transferred to the critical care unit for further care.
Acute respiratory failure/change in mental status requiring intubation and mechanical ventilation for airway protection 07/05/2024
Intubated 07/05/2024
Extubated 07/10/2024
Hepatic encephalopathy
Acute GI bleed-melena/coffee-ground
Acute blood loss anemia-hemoglobin on admission 4.9
Status post EGD 07/06/2026: Portal gastropathy.
Change in mental status/toxic metabolic encephalopathy: Cannot rule out alcohol withdrawal/hepatic encephalopathy
Ammonia level 92
Coagulopathy INR 2.7
Conditions present prior admission:
Alcoholic cirrhosis-on prior operative report from 2014 is noted.
? Bipolar disorder-not taking any medications
History of alcohol disorder
Plan:
Respiratory status continues to slowly improve-intermittently tenuous especially when agitated
Currently 94% on 3L
Tolerated extubation
BiPAP if needed-has not needed
Deep suction as needed
Nebulizers continue
He is DNR
Precedex has been discontinued
Morphine and Ativan as needed for agitation and anxiety--reduce dose to avoid oversedation
Psychiatry evaluation appreciated
Chest x-ray 07/12/2024-low lung volumes, bilateral pleural effusions right greater than left
Repeat right thoracentesis 07/12/24--360 mL
Aspiration precautions
Speech therapy evaluation 07/14/2024-modified diet
Monitor hemoglobin-stable at 8.6-monitor as heparin was initiated 07/13/2024
Transfuse as needed-has received 3 units packed red blood cells
PPI
GI following-correspondence reviewed-reviewed with them
Abdominal ultrasound 07/06/2024: Liver is shrunken and nodular, consistent with cirrhosis.
CT abdomen and pelvis 07/11/2024-generalized anasarca, moderate right and left small pleural effusion, moderate ascites, no bowel obstruction, cirrhosis, basilar compressive atelectasis
Prophylactic ceftriaxone initiated-day 11/03
Xifaxan as well
Octreotide discontinued 07/10/2024
MELD score trended
Nasogastric tube-initiated feeding 07/09/2024-tolerating
Paracentesis 07/13/2024-not performed with not enough fluid for safe tap-ultrasound with small volume ascites
Bilateral upper extremity DVT found
High risk for full anticoagulation-Dr. Sheikh discussed with GI on 07/13/2024-okay to use heparin and DVT prophylactic doses
Heparin-DVT prophylactic doses
Follow egzhhyk-thqlnjatb-fdth improved then increased and now improved again
Lactulose initiated 07/08/20245671-aluohwea-kcevl to decrease
Monitor mental status-suspect toxic metabolic encephalopathy-mental status not significantly improved
Neurology consultation noted-correspondence reviewed
CT head 07/11/2024-stable chronic findings, no acute intracranial abnormalities
EEG 07/11/2024-generalized slowing, no triphasic waves which can be seen with hepatic encephalopathy
Girlfriend/friend states that he has not drank in a while-his finplq-is-chf reports patient did not drink for 10 years but about 1 year ago he started drinking again
Active drinking would preclude transplant approval
Hepatic encephalopathy slowly improving
Continue attempts at diuresis-continues to be positive despite diuresis attempts
Monitor renal function, electrolytes, intake/output, lower extremity edema and weight
Replace electrolytes as needed
Increase free water with some hypernatremia
We monitored for alcohol withdrawal-now well over a week after last drink
MSAS can be discontinued
Thiamine continues
Ativan as needed
Psychiatry evaluation
DVT prophylaxis-initially on sequentials-heparin initiated 07/13/2024
GI prophylaxis-on Protonix
Nutrition-patient pulled Dobbhoff 07/14/2024-speech therapy evaluation-modified diet initiated 07/14/2024
Bedside range of motion/eventual physical therapy
Outpatient hepatology follow-up for cirrhosis management
Reviewed the patient's pertinent medical records including radiographs, respiratory failure management, pressor management, metabolic encephalopathy management microbiology, laboratory evaluations, and discussion with primary team, consultants,
pharmacy, nutrition, physical therapy, case management, charge nurse, critical care nursing, and respiratory therapy.
Family discussions:
Dr. Sheikh updated grkneh-sb-uec at the bedside extensively 07/09/2024 as well as on multidisciplinary rounds 07/11/2024, 07/12/2024, and 07/13/2024, and Dr. Sheikh reviewed with qkpold-io-ikp 07/14/2024, 07/15/2024
Goals of care again discussed with lkblzb-LRA-od 07/12/2024-DNR, do not reintubate if respiratory decompensation-again updated on 07/13/2024
Subjective Data
-
Date of Service:
Date of Service: July 16, 2024
Chief Complaint: Pulmonary Follow Up
Subjective:
Remains clinically unchanged, MS poor
Mother at bedside
Objective Data
Data Reviewed
Vital Signs / I&O / Oxygen:
Vital Signs
Temp Pulse Resp BP Pulse Ox
98.2 F 93 21 138/78 96
07/15/24 23:31 07/16/24 06:00 07/16/24 06:00 07/16/24 06:00 07/16/24 06:00
Intake and Output
07/15/24 07/16/24 07/17/24
06:59 06:59 06:59
Intake Total 650 / 650 210 / 210
Output Total 100 / 100
Balance 550 / 550 210 / 210
SaO2 [CPAP/PSV] 97
SaO2 [A/C] 95
SaO2 96
Nasal Cannula flow liters per 2
minute
Physical Exam
General: Other (chronically ill appearing)
HEENT: Normocephalic, Anicteric and Moist Mucous Membranes
Cardiovascular: S1-S2 and Regular Rhythm
Respiratory: Clear and Non-Labored Respirations
GI: Soft, Non Distended, Non Tender and NG Tube
Neurology: Awake, Lethargic and Other (not consistently following commands, unclear insight into condition)
Skin: Warm and Dry
Labs/Micro/Reports
Lab Data
07/16/24 03:21
07/16/24 03:21
[2024-07-16] MEDS: DUPHALAC/CHRONULAC 20 GRAMS TUBE ×2 (08:35→15:59)
[2024-07-16] MEDS: HEPARIN 5000 UNITS SC ×2 (08:36→15:59)
[2024-07-16] MEDS: LASIX 20 MG IV (08:36)
[2024-07-16] MEDS: NSS (PRESERVATIVE FREE) 10 ML IV ×2 (08:36→21:11)
[2024-07-16] MEDS: PROTONIX IV 40 MG IV ×2 (08:36→21:11)
[2024-07-16] MEDS: THIAMINE INJECTION 200 MG IV (08:37)
[2024-07-16] MEDS: TYLENOL ORAL SOLUTION 650 MG TUBE ×3 (08:37→15:58)
[2024-07-16] MEDS: XIFAXAN 550 MG TUBE (08:37)
--- NOTE | 2024-07-16 09:10 | PTOTSP ---
Received order for PT on 07/14 and note pt has been transferred to IMU and PT order was not conitnued upon transfer. Will need updated PT and OT orders when stable to begin skilled therapy activity.
--- NOTE | 2024-07-16 09:45 | W.CON.NEPH ---
Consultation
-
Date/Time Consultation Requested: 07/16/24 0924
Date/Time Consultation Performed: 07/16/24 1100
Requesting Provider: Kenny Dueñas
Performing Provider: Elayne Winkler
Reason for Consultation: SUSIE, hypernatremia
Medical History
-
Chief Complaint: N/V/D, poorly responsive
History of Present Illness:
58-year-old male with history of alcohol abuse, bipolar disorder without any medication for was brought into the hospital on the by his Mother for decreased responsiveness at home. Reportedly the patient had abdominal symptoms and ground
emesis and also dark-colored stools. Noted to have significant GI bleeding with acute blood loss anemia hemoglobin of 4.9. Received transfusion and underwent EGD shows portal gastropathy. He was also intubated in ER. Extubated on the . Had
right thoracentesis 360cc on 07/12. There is a concern of aspiration hence he is nothing by mouth. He also noted with left UE DVT with bleeding risk not on full AC. His creatinine was at peak 1.3 on admit subsequently improved to 0.8 till 07/14 ,Today
creatinine increased again at 1.6 with progressive hyponatremia 150 hence nephrology consulted. Pt is altered and unable to provide history, most of the history obtained through chart and Mother at bedside. No fever noted. Has rectal tube for loose
Bms. He was receiving lasix for effusions and now held, last dose this morning. Remains on TF, FWF increased this morning.
Past Medical History
Alcohol Use Disorder
Alcoholic Cirrhosis (by visual examination / prior records)
Chronic Pain
Bipolar Disorder
Past Surgical History: Other (Cholecystectomy Hernia Repair)
Social History
Tobacco: Vaping
Alcohol: Occasional
Drug: None
Living: With Family (mother)
Family History
unable to obtain, pt is altered
Allergies / Home Medications
Allergy/AdvReac Type Severity Reaction Status Date / Time
No Known Allergies Allergy Verified 07/05/24 19:20
�Medication �Instructions �Recorded �Confirmed �Type
No Meds [No Current Medications] 07/05/24 07/05/24 History
Review of Systems
-
unable to obtain, pt is altered
Physical Exam
Vital Signs
Vital Signs
Temp Pulse Resp BP Pulse Ox
97 F 95 22 132/99 95
07/16/24 07:22 07/16/24 09:00 07/16/24 09:00 07/16/24 08:00 07/16/24 09:00
Lab Results
WBC 15.1 10^3/uL (4.8-10.8) H 07/16/24 03:21
RBC 2.93 10^6/uL (4.70-6.10) L 07/16/24 03:21
Hgb 8.5 g/dL (13.0-18.0) L 07/16/24 03:21
Hct 26.8 % (39.0-52.0) L 07/16/24 03:21
Plt Count 144 10^3/uL (130-400) D 07/16/24 03:21
Sodium 150 mmol/L (135-145) H 07/16/24 03:21
Potassium 3.8 mmol/L (3.5-5.1) 07/16/24 03:21
Chloride 118 mmol/L (98-107) H 07/16/24 03:21
Carbon Dioxide 22 mmol/L (22-30) 07/16/24 03:21
BUN 40 mg/dl (9-20) H 07/16/24 03:21
Creatinine 1.6 mg/dL (0.7-1.3) H 07/16/24 03:21
eGFR 49.63 07/16/24 03:21
Glucose 141 mg/dl (70-99) H 07/16/24 03:21
Calcium 7.8 mg/dl (8.4-10.2) L 07/16/24 03:21
Phosphorus 4.1 mg/dl (2.5-4.5) 07/15/24 03:29
Albumin 2.2 g/dl (3.5-5.0) L 07/16/24 03:21
CXR:
Findings/impression:
Subtle increased airspace opacity is demonstrated at the lung bases, which could represent progressive atelectasis or pneumonia.
No other significant change.
Physical Exam
General: Other (mild tachypenic)
HEENT: EOMI, Conjunctivae Clear and No JVD
Respiratory: Rhonchi and Other (tachypenic)
Cardiac: S1/S2 and Regular Rate/Rhythm (tachy)
Breast: Deferred by me
Abdomen: Soft, Nontender and Other (mild distension )
Musculoskeletal: No Cyanosis and No Edema
Skin: No Rash
Neuro: Other (difficult to assess)
Psych: Other (confused and difficult to assess)
Data Reviewed
-
Labs: Labs Reviewed by me and Discussed with Family
Assessment/Plan
-
IMP:
Acute upper GI bleed
Acute toxic-metabolic encephalopathy
Dysphagia
Acute DVT left upper extremity
SUSIE
Hypernatremia
B/L R>L Pleural effusion-Status post thoracentesis
Abdominal ascites
Anemia
Thrombocytopenia
Acute blood loss anemia
Hepatic encephalopathy
Alcohol liver cirrhosis
Plan:
A/w GIB, AMS s/p EGD portal HTN
SUSIE-check urine studies and follow bladder scan
monitor UOP, hold lasix
CT abd with out contrast on 07/11 with out hydro
BP stable with out hypotension
Hypernatremia-will increase FWF in TF, FWD 3.6lit
if needed hypotonic fluids after checking labs later today
could potentially try IV alb course
avoid nephrotoxins
d/w mother at bedside and ICU nursing
--- NOTE | 2024-07-16 10:11 | PTCARENOTE ---
free water flushes increased to 50ml/hr
[2024-07-16 10:34] LABS: B.E. -1.3 mmol/L; O2 Saturation % 97.4 % (94-98); PCO2 31 mmHg (35-48); PO2 75 mmHg (83-108); pH 7.46 (7.35-7.45)
[2024-07-16 12:41] LABS: Urine Albumin 2+ (Neg - Trace); Urine Bilirubin Negative (Negative); Urine Character Clear (Clear); Urine Color Yellow; Urine Glucose Negative (Negative); Urine Ketone Negative (Negative); Urine Leukocyte Negative (Negative); Urine Nitrite Negative (Negative); Urine Occult Blood Negative (Negative); Urine Urobilinogen Negative (Neg - 1+)
[2024-07-16 13:04] LABS: Urine Amorphous Seen; Urine Granular Cast 0-2 /LPF (0); Urine Hyaline Cast 0-2 /LPF (0-2)
[2024-07-16 13:05] LABS: Urine Bacteria Few (Negative); Urine Red Blood Cell 0-2 /HPF (0-2)
--- NOTE | 2024-07-16 13:07 | W.PN.UPDATE ---
Update Note
Progress Note Update
Pt seen with mother at bedside, reviewed with nursing/medical team. Pt groggy/confused, started on Ativan 1 mg IV Q6 hrs over the weekend. Pt noted with ascites, cirrhotic liver on CT, here for 10 days. Reviewed history with pt's mother, never
diagnosed or treated for Bipolar d/o. Pt was at [facility] in the past for alcohol use. Mother reports some mood lability, no history of actual mood episodes that would come close to the criteria. Pt has been living with mother for 15 years,
no hx of psychiatric treatment or medications.
Imp: Alcohol use d/o. TME. Pt does not meet criteria for Bipolar d/o
Rec: Will stop routine Ativan 1 mg, change to Ativan 0.5 mg IV on prn basis
will follow peripherally
--- NOTE | 2024-07-16 13:10 | CM ---
CM following re: discharge planning.
Discussed in Rounds, reviewed pt's chart, met with pt. Pt's mother, brother Roby and friend familia at bedside. Per Rounds meeting, pt requires 3L NC of O2, remains acutely ill, remains encephalopathic, continue supportive care.
CM received a phone call from pt's girlfriend and she asked when she can visit the pt and she is requested to update on pt's progress. After discussion with pt's mother, brother and friend Familia, they decided that pt's girlfriend is not the best
interest to the pt and family restricted her from visiting the pt and pt's girlfriend is restricted to have any information regrading pt's care. Pt's girlfriend has been informed of family decision and she expressed her understanding.
CM has a long discussion with pt's brother Roby and friend Familia regrading pt's recovery, next level of care. Per brother, family wants him to go to inpatient D&A rehab and pt's brother stated that during last admission pt refused it. Both pt's
brother and pt's friend stated they will encourage the pt to g to inpatient D&A rehab when pt will able to comprehend.
At the same time, pt's brother stated he feels that pt might need to go to a SNF for a short term physical rehabilitation. CM explained to pt's brother that PT and OT will evaluate the pt when clinically appropriate to determine a level of care at
discharge. Pt's brother expressed his hope that pt will be able to go to a SNF and after to inpatient D&A rehab.
CM will make a referral to [facility] when clinically appropriate.
PT and OT evaluations pending.
D/C plan: uncertain at this time and will de[end on pt's progress.
CM will follow with discharge plan updates as hospitalization progresses
[2024-07-16] MEDS: UNASYN IV ×2 (13:47→21:11)
[2024-07-16 14:52] LABS: Blood Urea Nitrogen 43 mg/dl (9-20); Calcium 7.6 mg/dl (8.4-10.2); Carbon Dioxide 23 mmol/L (22-30); Chloride 118 mmol/L (98-107); Estimated Creatinine Clearance 46 ml/min; Glucose 162 mg/dl (70-99); Potassium 3.5 mmol/L (3.5-5.1); Sodium 150 mmol/L (135-145); eGFR 46.15
[2024-07-16 15:55] LABS: Urine Sodium 14 mmol/L (30-90)
[2024-07-16] MEDS: DESENEX/MITRAZOL/ZEASORB 1 APPLIC TOPICAL ×2 (15:59→21:11)
--- NOTE | 2024-07-16 17:00 | PTCARENOTE ---
Received patient from ICU. Patient awake and alert and agitated/restless, VSS. Patients mother at bedside. B/L wrist restraints. On 2L N/C. Tubefeed through Dobhoff @ 65mL/hr with 50mL/hr water flush, pending lab work might indicate an increase
in water flush. Patient with FMS, brown/aguilar stool output, receiving Lactulose. Desinex ordered for MASD. Oriented to room. Call amaya in reach.
[2024-07-16] MEDS: ATIVAN 0.5 MG PO (17:18)
[2024-07-16] MEDS: FLEXBUMIN 50 IV (18:28)
--- NOTE | 2024-07-16 19:00 | PTCARENOTE ---
pt transferred to IMU. Dr Whaley aware unable to obtain peripheral blood cultures. Dr Reyes updated and aware labs are resulted. Mother at bedside and aware of transfer.
[2024-07-16 19:03] LABS: Hepatitis A Antibody, Total Negative (Negative)
--- NOTE | 2024-07-16 20:00 | PTCARENOTE ---
Addendum entered by Akua Pisano RN 07/16/24 22:08:
medications ordered via tube unable to due to tube no longer being in place.
Original Note:
This RN entered Pt room to find that Pt had almost completely removed his dobhoff from his right nare. This RN immediately stopped the TF. Cuauhtemoc MILIAN notified MILLI Conklin. This RN removed the remaining few inches of the dobhoff from Pts nare.
[2024-07-16 21:03] LABS: Mitochondrial M2 Ab, IgG 4.3 Units (0.0-24.9)
[2024-07-16] MEDS: XIFAXAN TUBE (21:12)
[2024-07-16] MEDS: TYLENOL ORAL SOLUTION TUBE (21:12)
[2024-07-16] MEDS: DUPHALAC/CHRONULAC TUBE (21:34)
[2024-07-16] MEDS: ATIVAN 0.5 MG IV (23:42)
[2024-07-16] MEDS: NSS (PRESERVATIVE FREE) 0.25 ML IV (23:43)
[2024-07-17] VITALS (13 sets, daily range): BP systolic 108–163; BP diastolic 68–93; PULSE 80; O2SAT 98; BMI 28.2
[2024-07-17] MEDS: HEPARIN 5000 UNITS SC ×4 (00:36→23:29)
[2024-07-17] MEDS: TYLENOL ORAL SOLUTION TUBE ×3 (01:19→10:47)
[2024-07-17] MEDS: FLEXBUMIN 50 IV ×2 (01:25→11:02)
[2024-07-17 02:17] LABS: ANA, IgG Reflex to HEp-2 None Detected (None Detected)
[2024-07-17] MEDS: UNASYN IV ×4 (03:04→21:31)
[2024-07-17 05:38] LABS: ALT (SGPT) 43 U/L (0-50); AST (SGOT) 75 U/L (17-59); Albumin 2.4 g/dl (3.5-5.0); Alkaline Phosphatase 151 U/L (38-126); Blood Urea Nitrogen 49 mg/dl (9-20); Calcium 7.6 mg/dl (8.4-10.2); Carbon Dioxide 24 mmol/L (22-30); Chloride 120 mmol/L (98-107); Estimated Creatinine Clearance 46 ml/min; Glucose 97 mg/dl (70-99); Magnesium 2.8 mg/dl (1.6-2.3); Phosphorus 4.6 mg/dl (2.5-4.5); Potassium 3.4 mmol/L (3.5-5.1); Sodium 152 mmol/L (135-145); Total Bilirubin 2.3 mg/dl (0.2-1.3); Total Protein 5.4 g/dl (6.3-8.2); eGFR 46.15
[2024-07-17 06:06] LABS: Hematocrit 23.8 % (39.0-52.0); Hemoglobin 7.4 g/dL (13.0-18.0); Mean Corp Hgb Conc. 31.1 g/dL (33.0-37.0); Mean Corpuscular Hgb 28.9 pg (27.0-31.0); Mean Platelet Volume 11.2 fL (7.4-10.4); Platelet Count 98 10^3/uL (130-400); Red Blood Cell Count 2.56 10^6/uL (4.70-6.10); Red Cell Dist. Width 18.6 % (11.5-14.5); White Blood Cell Count 7.9 10^3/uL (4.8-10.8)
[2024-07-17] MEDS: DUONEB 3 ML INH ×4 (07:36→19:23)
--- NOTE | 2024-07-17 08:06 | W.PN.HOSP.TC ---
Today's Communication/Plan
-
cont abx
IVF as per Nephro
ST/PT/OT
NPO except meds for now
Monitor H&H
replete K
Assessment / Plan
Assessment / Plan
Physical exam:
General: Acutely ill
HEENT: Normocephalic, Atraumatic and Moist Mucous Membranes
Respiratory: Clear to Auscultation; Negative Wheezes, Rales or Rhonchi
Cardiac: Regular Rhythm and S1/S2
GI: Soft, Nontender, Distended
Musculoskeletal: No Clubbing, No Cyanosis and No Edema
Neuro: Awake Alert Conversant but confused
A/P: 58M ETOH cirrhosis here for GIB and Hepatic Encephalopathy. Hospital course complicated with bilateral upper Ext DVT and likely aspiration pneumonia with associated Acute Hypoxic Respiratory Failure.
Acute upper GI bleed:
EGD showed portal gastropathy
Continue PPI, Protonix 40 mg IV twice a day
Finished course of octreotide and Rocephin
GI signed off.
Acute toxic-metabolic encephalopathy:
Continue lactulose 20 g 3 times daily as tolerated
Continue rifaximin 550 mg twice a day as tolerated
Precedex off
Neuro eval appreciated
Psych eval appreciated
Curator Herbarium/Pulm Eval appreciated
Bilateral Acute DVT upper extremities:
Challenging situation given recent GI bleed
Critical care and GI discussed pros and cons and decided on low-dose heparin subcu for now, dvt ppx dose
prior to initiating any long-term anticoagulation might need to repeat EGD again.
Acute respiratory failure
Possible Aspiration Pneumonia
Dysphagia:
patient was on tube feeds d/t concerns aspiration lethargy AMS, however tube was removed three times overnight by patient
Speech eval appreciated NPO except meds crushed in pureed, Aspiration Risk Hydration Protocol
Leukocytosis, trend wbc, monitor temp
cont abx empiric zosyn narrowed to unasyn
blood cultures x2 NGTD
wean O2 supplementation as tolerated
monitor respiratory status
B/L R>L Pleural effusion:
Status post thoracentesis 360 mL drawn
On Lasix 20 mg IV twice a day- placed on hold d/t SUSIE
Hypokalemia
monitor and replete as necessary
SUSIE
Hypernatremia
Cr trended up to peak 1.6 from baseline 0.8
Na trended up to peak 150
free water flushes increased
Lasix placed on hold as above
Nephro eval appreciated IVF D5W 100 cc/h
Abdominal ascites
Abd distension
Diarrhea though on Lactulose
ascites remains small volume Abd US performed 07/13 and 07/16 not enough for paracentesis
Cdiff antigen pos but toxin neg
Acute blood loss anemia
Anemia of Chronic Disease
Iron Deficiency Anemia
Status post blood transfusion
Monitor hemoglobin
IV iron supplementation started
Hepatic encephalopathy:
Continue lactulose and rifaximin
Alcohol liver cirrhosis:
MELD score labs-hx MELD score 18
PT/OT appreciated SNF rehab
DVT prophylaxis:
heparin
CODE STATUS:
DNR
discussed with patient's hemfpl-hy-iuk Jojo
I spent a total of 50 minutes with the patient or on the floor. More than 50% of this time involved counseling and coordination of care.
Anticipated Discharge: 24 - 48 hours
Subjective/Interval History
-
Date of Service: July 17, 2024
More awake alert conversant compared to yesterday but remains confused.
Objective Data
-
Labs:
Laboratory Results
07/17/24 07/17/24
04:48 11:00
WBC 7.9
Hgb 7.4 L Pending
Hct 23.8 L Pending
Plt Count 98 L D
Sodium 152 H
Potassium 3.4 L
Chloride 120 H
Carbon Dioxide 24
BUN 49 H
Creatinine 1.7 H
Glucose 97
Calcium 7.6 L
Total Bilirubin 2.3 H
AST 75 H
ALT 43
Alkaline Phosphatase 151 H
Vital Signs:
Vital Signs
Temp Pulse Resp BP Pulse Ox
97.3 F 85 18 142/93 93
07/17/24 07:57 07/17/24 07:37 07/17/24 07:37 07/17/24 04:00 07/17/24 07:37
I&O
07/16/24 07/17/24 07/18/24
06:59 06:59 06:59
Intake Total 210 / 210 355 / 355
Output Total 850 / 850
Balance 210 / 210 -495 / -495
[2024-07-17] MEDS: PROTONIX IV 40 MG IV ×2 (08:58→21:31)
[2024-07-17] MEDS: DESENEX/MITRAZOL/ZEASORB 1 APPLIC TOPICAL ×2 (08:58→21:31)
[2024-07-17] MEDS: THIAMINE INJECTION 200 MG IV (08:59)
[2024-07-17] MEDS: NSS (PRESERVATIVE FREE) 10 ML IV ×3 (09:00→21:31)
--- NOTE | 2024-07-17 09:00 | PTOTSP ---
Received order for PT on 07/14 and note pt has been transferred to IMU and PT order was not continued upon transfer. Will need updated PT and OT orders when stable to begin skilled therapy activity.
--- NOTE | 2024-07-17 10:25 | CS.PSYCHR ---
Consult Summary - Psychiatry
-
Psychiatry consult for management of delirium and history of EtOH use disorder and Bipolar disorder. Chart reviewed. 58 yo male admitted 07/05 after being found unresponsive by his mother. Spoke with mother at length who states patient was sober for
several years (via 'sheer will') but that he started drinking again a year ago and that she does not actually know the quantity or frequency of his consumption. She associates his drinking with his new girlfriend who he started seeing around that
same time. She is adamant that he does not have a history of bipolar disorder or taking psychiatric medications. She states at baseline he is fully oriented and takes good care of her. Last she saw him well was two days prior to admission when they
had dinner together.
Seen by neurology 07/11.
Per nursing, patient was better yesterday than today with regard to confusion. He has not been sleeping. WBC 14.0 today from 7.7 yesterday. nursing and primary team aware. BP and HR elevated. On Ativan 0.5mg IV q4 hours PRN
Qtc 471 on 07/05
MSE- lying in bed. impoverished speech. poor eye contact. thinks it's 1965. oriented to self.
D&A- see above regarding EtOH; mom states patient puts poppy seeds in water and drinks them for knee pain
Past psych- chart indicates bipolar history of mom denies
PMH- GI bleeding, alcoholic cirrhosis
Family history- brother alcohol
Social- lives with mother. graduated college [employer]. Has girlfriend that family has concerns about.
A/P- 58 yo male with alcohol use disorder, severe presenting with significantly altered mental status. Will treat as alcohol withdrawal delirium and see if patient shows response. I understand he is 10 days into admission but withdrawal is still a
possibility. Will change Ativan order to 1mg IV q6 hours. Can hold for oversedation. Additionally will include Ativan 0.5mg IV q2h PRN HR>100 or DBP>100. Total up dose of ativan needed in 24 hours and split into standing dose q4-6 hours. if vitals
are stable for 24 hours, can begin tapering ativan dose by 15-20% a day. Psychiatry will follow.
--- NOTE | 2024-07-17 10:38 | W.PN.PUL.V3 ---
Today's Communication / Plan
-
Wean oxygen
Aspiration precautions
Speech therapy evaluation
Nephrology evaluation ongoing-Free water increased-serum sodium still 152
Assessment
-
58-year-old man with history of alcohol cirrhosis admitted through the emergency room after found unresponsive at home by his mother. Patient was admitted with dark stools, dark emesis, found to have anemia and GI bleed. Intubated for change in
mental status and airway protection and transferred to the critical care unit for further care.
Acute respiratory failure/change in mental status requiring intubation and mechanical ventilation for airway protection 07/05/2024
Intubated 07/05/2024
Extubated 07/10/2024
Hepatic encephalopathy
Acute GI bleed-melena/coffee-ground
Acute blood loss anemia-hemoglobin on admission 4.9
Status post EGD 07/06/2026: Portal gastropathy.
Change in mental status/toxic metabolic encephalopathy: Cannot rule out alcohol withdrawal/hepatic encephalopathy
Ammonia level 92
Coagulopathy INR 2.7
Conditions present prior admission:
Alcoholic cirrhosis-on prior operative report from 2014 is noted.
? Bipolar disorder-not taking any medications
History of alcohol disorder
Plan:
Respiratory status continues to slowly improve-intermittently tenuous especially when agitated
Currently 94% on
Tolerated extubation
BiPAP if needed-has not needed
Deep suction as needed
Nebulizers continue-DuoNebs
Aspiration precautions
Hold feeding tube multiple times-speech evaluation
He is DNR
Precedex was continued
Morphine and Ativan as needed for agitation and anxiety--reduce dose to avoid oversedation
Psychiatry evaluation appreciated
Chest x-ray 07/12/2024-low lung volumes, bilateral pleural effusions right greater than left
Repeat right thoracentesis 07/12/24--360 mL
Aspiration precautions
Speech therapy evaluation 07/14/2024-modified diet
Monitor hemoglobin-stable at and dropped to 7.4 07/17/2024-repeat pending--monitor as heparin was initiated 07/13/2024
Transfuse as needed-has received 3 units packed red blood cells
PPI
GI following-correspondence reviewed-reviewed with them
Abdominal ultrasound 07/06/2024: Liver is shrunken and nodular, consistent with cirrhosis.
CT abdomen and pelvis 07/11/2024-generalized anasarca, moderate right and left small pleural effusion, moderate ascites, no bowel obstruction, cirrhosis, basilar compressive atelectasis
Prophylactic ceftriaxone initiated-day 12/03
Changed to Augmentin
Xifaxan as well
Octreotide discontinued 07/10/2024
MELD score trended
Nasogastric tube-initiated feeding 07/09/2024-tolerating
Paracentesis 07/13/2024-not performed with not enough fluid for safe tap-ultrasound with small volume ascites
Bilateral upper extremity DVT found
High risk for full anticoagulation-Dr. Sheikh discussed with GI on 07/13/2024-okay to use heparin and DVT prophylactic doses
Heparin-DVT prophylactic doses
Follow ekeiryd-kwmbvekik-wtlu improved then increased and now improved again
Lactulose initiated 07/08/20242432-yawmgetw-czzdr to decrease
Monitor mental status-suspect toxic metabolic encephalopathy-mental status not significantly improved
Neurology consultation noted-correspondence reviewed
CT head 07/11/2024-stable chronic findings, no acute intracranial abnormalities
EEG 07/11/2024-generalized slowing, no triphasic waves which can be seen with hepatic encephalopathy
Girlfriend/friend states that he has not drank in a while-his xbqpsd-sn-cpc reports patient did not drink for 10 years but about 1 year ago he started drinking again
Active drinking would preclude transplant approval
Hepatic encephalopathy slowly improving
Diuresis was attempted
Monitor renal function, electrolytes, intake/output, lower extremity edema and weight
Replace electrolytes as needed
Increase free water with some hypernatremia
Nephrology following-correspondence reviewed
We monitored for alcohol withdrawal-now well over a week after last drink
MSAS can be discontinued
Thiamine continues
Ativan as needed
Psychiatry evaluation
DVT prophylaxis-initially on sequentials-heparin initiated 07/13/2024
GI prophylaxis-on Protonix
Nutrition-patient pulled Dobbhoff 07/14/2024-speech therapy evaluation-modified diet initiated 07/14/2024
Bedside range of motion/eventual physical therapy
Outpatient hepatology follow-up for cirrhosis management
Reviewed the patient's pertinent medical records including radiographs, respiratory failure management, pressor management, metabolic encephalopathy management microbiology, laboratory evaluations, and discussion with primary team, consultants,
pharmacy, nutrition, physical therapy, case management, charge nurse, critical care nursing, and respiratory therapy.
Family discussions:
Dr. Sheikh updated snabaf-ab-arg at the bedside extensively 07/09/2024 as well as on multidisciplinary rounds 07/11/2024, 07/12/2024, and 07/13/2024, and Dr. Sheikh reviewed with zwosod-rz-jlb 07/14/2024, 07/15/2024
Goals of care again discussed with zgufxb-YUD-ab 07/12/2024-DNR, do not reintubate if respiratory decompensation-again updated on 07/13/2024
Subjective Data
-
Date of Service:
Date of Service: July 17, 2024
Chief Complaint: Pulmonary Follow Up and Dyspnea Follow Up
Subjective:
Somewhat lethargic, no respiratory distress, disoriented and review of systems unreliable
Review of Systems
General: Other (Per HPI)
Objective Data
Data Reviewed
Vital Signs / I&O:
Vital Signs
Temp Pulse Resp BP Pulse Ox
97.3 F 85 17 145/79 94
07/17/24 07:57 07/17/24 10:00 07/17/24 10:00 07/17/24 10:00 07/17/24 10:00
Intake and Output
07/16/24 07/17/24 07/18/24
06:59 06:59 06:59
Intake Total 355 / 355
Output Total 850 / 850
Balance 210 -495 / -495
SaO2: 94
Nasal Cannula flow liters per minute: 2
Physical Exam
General: Respiratory Distress (n), Comfortable and Other (chronically ill appearing)
HEENT: Normocephalic, Anicteric and Moist Mucous Membranes
Cardiovascular: Regular Rhythm
Respiratory: Wheeze (n), Crackles (Few basilar), Non-Labored Respirations and Accessory Resp Muscle Use (n)
GI: Soft, Non Distended, Non Tender and NG Tube
Neurology: Awake, Lethargic and Other (not consistently following commands, unclear insight into condition)
Skin: Warm, Dry and Good Color
Labs/Micro/Reports
Lab Data
07/17/24 04:48
Microbiology
07/17/24 06:42 Feces/Stool C. difficile GDH Antigen & Toxins - Final
C. difficile antigen positive, toxin negative.
Clostridium difficile present, but toxin not detected.
Patient may be a carrier, colonized with nontoxinogenic
strain or the level of toxin in sample is below detection
limits. This information should be used in conjunction with
the patient's clinical history.
[2024-07-17] MEDS: XIFAXAN TUBE (10:47)
[2024-07-17] MEDS: DUPHALAC/CHRONULAC TUBE (10:47)
[2024-07-17] MEDS: 0.45%NACL 1000 IV (11:03)
[2024-07-17] MEDS: KCL 270 MEQ IV (11:09)
[2024-07-17 11:15] LABS: Iron 22 ug/dl (49-181)
[2024-07-17 11:24] LABS: Percent Saturation 11 % (20-50); Total Iron Binding Capacity 193 ug/dl (261-462)
--- NOTE | 2024-07-17 11:28 | W.PN.NEPH.PH ---
Today's Communication / Plan
-
IVF
Assessment/Plan
-
IMP:
Acute upper GI bleed
Acute toxic-metabolic encephalopathy
Dysphagia
Acute DVT left upper extremity
SUSIE
Hypernatremia
B/L R>L Pleural effusion-Status post thoracentesis
Abdominal ascites
Anemia
Thrombocytopenia
Acute blood loss anemia
Hepatic encephalopathy
Alcohol liver cirrhosis
Plan:
A/w GIB, AMS s/p EGD portal HTN
FWD ~ 4.2L
use D5W IVF today at 100ml/hr
follow BMP
hold lasix
repelte K
-
-
Date of Service: July 17, 2024
CC / HPI / ROS
-
Chief Complaint:
SUSIE
History of Present Illness:
SUSIE/Cr stable 1.7
BP stable
Na higher at 152
K low 3.4
pulled DHT
Review of Systems:
confused
no CP/SOB
Labs
-
Labs:
WBC 7.9 10^3/uL (4.8-10.8) 07/17/24 04:48
RBC 2.56 10^6/uL (4.70-6.10) L 07/17/24 04:48
Plt Count 98 10^3/uL (130-400) L D 07/17/24 04:48
Sodium 152 mmol/L (135-145) H 07/17/24 04:48
Potassium 3.4 mmol/L (3.5-5.1) L 07/17/24 04:48
Chloride 120 mmol/L (98-107) H 07/17/24 04:48
Carbon Dioxide 24 mmol/L (22-30) 07/17/24 04:48
BUN 49 mg/dl (9-20) H 07/17/24 04:48
Creatinine 1.7 mg/dL (0.7-1.3) H 07/17/24 04:48
eGFR 46.15 07/17/24 04:48
Glucose 97 mg/dl (70-99) 07/17/24 04:48
Calcium 7.6 mg/dl (8.4-10.2) L 07/17/24 04:48
Phosphorus 4.6 mg/dl (2.5-4.5) H 07/17/24 04:48
Albumin 2.4 g/dl (3.5-5.0) L 07/17/24 04:48
Physical Exam
-
Vital Signs:
Vital Signs
Temp Pulse Resp BP Pulse Ox
97.3 F 85 17 145/79 94
07/17/24 07:57 07/17/24 10:00 07/17/24 10:00 07/17/24 10:00 07/17/24 10:38
Cardiovascular:: Regular rate and rhythm
Lung Excursion:: Normal
Abdomen:: Distended, Nontender and Soft
Bowel Sounds:: Normal
Extremity Edema:: None: Bilateral:
--- NOTE | 2024-07-17 11:42 | CM ---
Patient with Dx GI bleed, TME, b/l DVT UE, possible aspiration PNA, dysphagia, pleural effusion, ascites, anemia. O2 2L. NPO & patient pulled out Dobhoff - ST re-eval today. Receiving IVF, IV Abx. Per nurse assessment 8:18am; confused, drowsy,
agitated. New PT/OT orders today.
CM Consult:
Request by Jojo, sister in law & point of contact to speak with CM.
Met with patient, patient's mother Nuvia who is POA, sister in law Jojo (ph [phone]);
patient did not participate in the conversation and he was working with at that time. He was able to say hello.
The mother confirms that she would like Jojo to be primary contact as she has some memory issues.
Jojo asking for next steps in regard to d/c planning. She is interested in finding out more about local SNFs- provided SNF list. Jojo also interested in [facility] if patient needs rehab - explained acute rehab level of care. Suggested that
CM will meet with them again once patient is seen by PT/OT and they agreed. Mentioned that if patient did not have skilled needs for rehab patient could also consider alcohol rehab. Meeting ended as Jojo needed to take a work phone call.
Message to Dr Whaley requesting PT/OT Evals.
Plan continue to follow diet, O2 needs, rehab needs.
Plan follow up after seen by PT/OT.
[2024-07-17 11:52] LABS: Hematocrit 23.8 % (39.0-52.0); Hemoglobin 7.5 g/dL (13.0-18.0)
[2024-07-17 12:10] LABS: Ferritin 56.7 ng/ml (17.9-464.0)
[2024-07-17 12:43] LABS: Folate 4.7 ng/ml (2.76-20); Vitamin B12 935 pg/ml (239-931)
[2024-07-17] MEDS: MORPHINE SULFATE 1 MG IV (12:49)
[2024-07-17] MEDS: D5W 1000 IV ×2 (12:55→23:30)
--- NOTE | 2024-07-17 14:22 | PTCARENOTE ---
Pt's assessment as documented. Aox1, confused/drowsy/restless. 4 point restraints remain in place. Pt pulled out DHT overnight, Dr. Whaley aware. FMS in place draining liquid stool. Bladder scan and st cath, see intervention. IVF and K rider hung as
ordered. CHG bath and linen change completed. Safe environment maintained. Family at bedside; updated on plan of care.
[2024-07-17] MEDS: DUPHALAC/CHRONULAC PO ×2 (16:30→23:22)
[2024-07-17 19:06] LABS: Soluble Liver Antigen Ab 0.7 U (0.0-24.9)
[2024-07-17] MEDS: XIFAXAN PO (23:22)
[2024-07-17] MEDS: TYLENOL PO (23:23)
[2024-07-18] VITALS (17 sets, daily range): BP systolic 126–175; BP diastolic 57–112; PULSE 70; O2SAT 96; BMI 28.2
--- NOTE | 2024-07-18 00:09 | PTCARENOTE ---
Assumed care of pt from previous RN. Pt remains confused, is awake and arousable, cannot answer orientation questions aside from name. Opens eyes to verbal stimuli. NSR on monitor. getting D5w @ 100 ml/hr. Pt NPO. Essential PO meds attempted per
speech eval and note, meds crushed in apple sauce, pt sat all the way up, meds given to pt and Pt attempted to chew meds/ apple sauce leaving them in his mouth and not swallowing, this RN suctioned meds out of Pts mouth. Pt did not display any signs
of aspiration during this encounter. oral care then provided. bed bath and CHG care provided by this RN with assistance of PCT. pt remains retaining urine, bladder scan showing 550, unable to verify exact accuracy of bladder scan due to abdominal
ascites being present on Pt. per present bladder scan straight cath orders/ protocol, this RN reached out to [facility] notifying them of the persistent urinary retention. order received for rodriguez. Rodriguez placed by this RN. Assessment as documented.
--- NOTE | 2024-07-18 03:00 | PTCARENOTE ---
This RN entered Pt room to find FMS dislodged. Pt covered in stool. This RN with help of second RN replaced FMS.
[2024-07-18] MEDS: UNASYN IV ×4 (04:13→19:56)
[2024-07-18] MEDS: TYLENOL PO ×4 (05:56→23:45)
[2024-07-18 06:13] LABS: Hematocrit 21.8 % (39.0-52.0); Hemoglobin 6.9 g/dL (13.0-18.0); Mean Corp Hgb Conc. 31.7 g/dL (33.0-37.0); Mean Corpuscular Volume 91.6 fL (80.0-94.0); Mean Platelet Volume 11.6 fL (7.4-10.4); Platelet Count 76 10^3/uL (130-400); Red Blood Cell Count 2.38 10^6/uL (4.70-6.10); Red Cell Dist. Width 18.9 % (11.5-14.5)
[2024-07-18 06:17] LABS: ALT (SGPT) 39 U/L (0-50); AST (SGOT) 73 U/L (17-59); Albumin 2.2 g/dl (3.5-5.0); Alkaline Phosphatase 137 U/L (38-126); Blood Urea Nitrogen 43 mg/dl (9-20); Calcium 7.6 mg/dl (8.4-10.2); Carbon Dioxide 24 mmol/L (22-30); Chloride 119 mmol/L (98-107); Estimated Creatinine Clearance 60 ml/min; Glucose 96 mg/dl (70-99); Magnesium 2.7 mg/dl (1.6-2.3); Phosphorus 3.3 mg/dl (2.5-4.5); Potassium 2.9 mmol/L (3.5-5.1); Sodium 152 mmol/L (135-145); Total Bilirubin 2.2 mg/dl (0.2-1.3); Total Protein 5.2 g/dl (6.3-8.2); eGFR > 60.00
--- NOTE | 2024-07-18 06:38 | W.PN.UPDATE ---
Update Note
Progress Note Update
hgb level dropped down this am from 7.5 to 6.9. No signs or bleeding and vital signs within normal limits. One unit of blood ordered. Will monitor h&h q 6hrs.
--- NOTE | 2024-07-18 06:48 | PTCARENOTE ---
hgb 6.9, rn staff made aware.
--- NOTE | 2024-07-18 06:53 | W.PN.HOSP.TC ---
Today's Communication/Plan
-
Gi re-eval
Lactulose enema
PRBC transfusion
Iron infusion
cont abx
Assessment / Plan
Assessment / Plan
Physical exam:
General: Acutely ill
HEENT: Normocephalic, Atraumatic and Moist Mucous Membranes
Respiratory: Clear to Auscultation; Negative Wheezes, Rales or Rhonchi
Cardiac: Regular Rhythm and S1/S2
GI: Soft, Nontender, Distended
Musculoskeletal: No Clubbing, No Cyanosis and No Edema
Neuro: Lethargic arousable confused
A/P: 58M ETOH cirrhosis here for GIB and Hepatic Encephalopathy. Hospital course complicated with bilateral upper Ext DVT and likely aspiration pneumonia with associated Acute Hypoxic Respiratory Failure.
Acute upper GI bleed:
EGD showed portal gastropathy
Continue PPI, Protonix 40 mg IV twice a day
Finished course of octreotide and Rocephin
GI eval appreciated
Acute toxic-metabolic encephalopathy:
Continue lactulose 20 g 3 times daily as tolerated
Continue rifaximin 550 mg twice a day as tolerated
Missed doses lactulose rifaximin due to AMS aspiration risk, patient removed DHT multiple times, once lactulose enema 07/18/24 GI re-eval requested
Precedex off
Neuro eval appreciated
Psych eval appreciated
Resource Manager Forester/Pulm Eval appreciated
Bilateral Acute DVT upper extremities:
Challenging situation given recent GI bleed
Critical care and GI discussed pros and cons and decided on low-dose heparin subcu for now, dvt ppx dose
prior to initiating any long-term anticoagulation planned for repeat EGD.
Acute respiratory failure
Possible Aspiration Pneumonia
Dysphagia:
patient was on tube feeds d/t concerns aspiration lethargy AMS, however tube was removed three times overnight by patient
Speech eval appreciated NPO except meds crushed in pureed, Aspiration Risk Hydration Protocol
Leukocytosis, trend wbc, monitor temp
cont abx empiric zosyn narrowed to unasyn
blood cultures x2 NGTD
wean O2 supplementation as tolerated
monitor respiratory status
B/L R>L Pleural effusion:
Status post thoracentesis 360 mL drawn
On Lasix 20 mg IV twice a day- placed on hold d/t SUSIE
Hypokalemia
monitor and replete as necessary
SUSIE
Hypernatremia
Cr trended up to peak 1.6 from baseline 0.8
Na trended up to peak 152
Lasix placed on hold as above
Nephro eval appreciated cont IVF D5W supplementation
SUSIE resolving
Abdominal ascites
Abd distension
Diarrhea though on Lactulose
ascites remains small volume Abd US performed 07/13 and 07/16 not enough for paracentesis
Cdiff antigen pos but toxin neg
Acute blood loss anemia
Anemia of Chronic Disease
Iron Deficiency Anemia
Status post blood transfusion
Monitor hemoglobin
IV iron supplementation started
received 4PRBC transfusion over the course of hospitalization
Hepatic encephalopathy:
Continue lactulose and rifaximin as above
Lactulose Enema prn
Alcohol liver cirrhosis:
MELD score labs-hx MELD score 18
PT/OT appreciated SNF rehab
DVT prophylaxis:
heparin
CODE STATUS:
DNR
discussed with patient's lewxcs-fi-cqm Jojo and patient's friend Cuauhtemoc
I spent a total of 50 minutes with the patient or on the floor. More than 50% of this time involved counseling and coordination of care.
Anticipated Discharge: > 48 hours
Subjective/Interval History
-
Date of Service: July 18, 2024
Mental status slowly improving though remains unsafe for oral diet as per speech eval, limited tolerability oral meds crushed in pureed.
Objective Data
-
Labs:
Laboratory Results
0207/18/24 07/18/24
05:33 12:00 18:00
WBC 5.0
Hgb 6.9 L* Pending Pending
Hct 21.8 L Pending Pending
Plt Count 76 L D
Sodium 152 H
Potassium 2.9 L
Chloride 119 H
Carbon Dioxide 24
BUN 43 H
Creatinine 1.3
Glucose 96
Calcium 7.6 L
Total Bilirubin 2.2 H
AST 73 H
ALT 39
Alkaline Phosphatase 137 H
Vital Signs:
Vital Signs
Temp Pulse Resp BP Pulse Ox
98.0 F 79 21 131/77 96
07/18/24 02:57 07/18/24 03:32 07/18/24 03:32 07/18/24 03:32 07/18/24 03:32
I&O
07/16/24 07/17/24 07/18/24
06:59 06:59 06:59
Intake Total 210 / 210 355 / 355
Output Total 850 / 850 800 / 800
Balance 210 / 210 -495 / -495 -800 / -800
--- NOTE | 2024-07-18 07:47 | PTCARENOTE ---
[facility] Downtime
There was a [facility] Client Parking Assistant Downtime on 07/18/2024 from 0100 to 07/18/2023 at 0235 . Downtime documentation of patient's care, including medication administrations, has been reconciled in the electronic record per guidelines. Refer to the
patient's paper chart under the miscellaneous tab to see printed paper medication records and downtime forms.
[2024-07-18] MEDS: XIFAXAN PO (08:26)
[2024-07-18] MEDS: DUONEB 3 ML INH ×4 (08:28→20:16)
--- NOTE | 2024-07-18 09:07 | PTCARENOTE ---
Patient received from night stocker. Patient a little agitated in bed this AM and need some reorientation but mostly drowsy. No events noted overnight. Non-verbal pain assessment. Umhzmn-dk-lhs at bedside. Patient continues with restraints on
overnight. IVF @ 100mL/hr through right IJ. K was 2.9 this AM and repletion ordered. Zhou and fecal management system in place. Call amaya in reach.
[2024-07-18] MEDS: DESENEX/MITRAZOL/ZEASORB 1 APPLIC TOPICAL ×2 (09:26→19:55)
[2024-07-18] MEDS: HEPARIN 5000 UNITS SC ×2 (09:27→16:01)
[2024-07-18] MEDS: LACTULOSE ENEMA 300 ML RECTAL (09:27)
[2024-07-18] MEDS: KCL 270 MEQ IV ×2 (09:27→14:45)
[2024-07-18] MEDS: DUPHALAC/CHRONULAC PO (09:28)
[2024-07-18] MEDS: PROTONIX IV 40 MG IV ×2 (09:29→19:56)
[2024-07-18] MEDS: THIAMINE INJECTION 200 MG IV (09:29)
--- NOTE | 2024-07-18 10:25 | W.PN.PUL.V3 ---
Today's Communication / Plan
-
D5W.
Antibiotics.
Aspiration precautions.
Wean FiO2..
Augmentin
Assessment
-
58-year-old man with history of alcohol cirrhosis admitted through the emergency room after found unresponsive at home by his mother. Patient was admitted with dark stools, dark emesis, found to have anemia and GI bleed. Intubated for change in
mental status and airway protection and transferred to the critical care unit for further care.
Acute respiratory failure/change in mental status requiring intubation and mechanical ventilation for airway protection 07/05/2024
Intubated 07/05/2024
Extubated 07/10/2024
Hepatic encephalopathy
Acute GI bleed-melena/coffee-ground
Acute blood loss anemia-hemoglobin on admission 4.9
Status post EGD 07/06/2026: Portal gastropathy.
Change in mental status/toxic metabolic encephalopathy: Cannot rule out alcohol withdrawal/hepatic encephalopathy
Ammonia level 92
Coagulopathy INR 2.7
Conditions present prior admission:
Alcoholic cirrhosis-on prior operative report from 2014 is noted.
? Bipolar disorder-not taking any medications
History of alcohol disorder
Plan:
Respiratory status continues to slowly improve-intermittently tenuous especially when agitated
Currently 96% on 2 L
Tolerated extubation
BiPAP if needed-has not needed
Deep suction as needed
Nebulizers continue-DuoNebs
Aspiration precautions
Hold feeding tube multiple times-speech evaluation
He is DNR
Precedex was continued
Morphine and Ativan as needed for agitation and anxiety--reduce dose to avoid oversedation
Psychiatry evaluation appreciated
Chest x-ray 07/12/2024-low lung volumes, bilateral pleural effusions right greater than left
Repeat right thoracentesis 07/12/24--360 mL
Aspiration precautions
Speech therapy evaluation 07/14/2024-modified diet
Monitor hemoglobin-stable at and dropped to 7.4 07/17/2024-repeat pending--monitor as heparin was initiated 07/13/2024-dropped from 7.5-6.9 on 07/18/24
Transfuse as needed-has received 3 units packed red blood cells.
Transfuse another unit packed red blood cells 07/18/24
PPI
GI following-correspondence reviewed-reviewed with them
Abdominal ultrasound 07/06/2024: Liver is shrunken and nodular, consistent with cirrhosis.
CT abdomen and pelvis 07/11/2024-generalized anasarca, moderate right and left small pleural effusion, moderate ascites, no bowel obstruction, cirrhosis, basilar compressive atelectasis
Prophylactic ceftriaxone initiated-day 12/03
Changed to Augmentin
Xifaxan as well
Octreotide discontinued 07/10/2024
MELD score trended
Nasogastric tube-initiated feeding 07/09/2024-tolerating until pulled out nasogastric feeding to tubeup to 3 times, I believe
Paracentesis 07/13/2024-not performed with not enough fluid for safe tap-ultrasound with small volume ascites
Bilateral upper extremity DVT found
High risk for full anticoagulation-Dr. Sheikh discussed with GI on 07/13/2024-okay to use heparin and DVT prophylactic doses
Heparin-DVT prophylactic doses
Follow oqunnje-eskhhrfjc-tqkv improved then increased and now improved again
Lactulose initiated 07/08/20248823-lryojbwk-aktir to decrease
Monitor mental status-suspect toxic metabolic encephalopathy-mental status not significantly improved
Neurology consultation noted-correspondence reviewed
CT head 07/11/2024-stable chronic findings, no acute intracranial abnormalities
EEG 07/11/2024-generalized slowing, no triphasic waves which can be seen with hepatic encephalopathy
Girlfriend/friend states that he has not drank in a while-his kvmdpq-rs-bol reports patient did not drink for 10 years but about 1 year ago he started drinking again
Active drinking would preclude transplant approval
Hepatic encephalopathy slowly improving
Diuresis was attempted
Monitor renal function, electrolytes, intake/output, lower extremity edema and weight
Replace electrolytes as needed
Increase free water with some hypernatremia-currently 152
Nephrology following-correspondence reviewed.
Continue D5W
Cultures reviewed.
Finally course of Augmentin
We monitored for alcohol withdrawal-now well over a week after last drink
MSAS can be discontinued
Thiamine continues
Ativan as needed
Psychiatry evaluation
DVT prophylaxis-initially on sequentials-heparin initiated 07/13/2024
GI prophylaxis-on Protonix
Nutrition-patient pulled Dobbhoff 07/14/2024-speech therapy evaluation-modified diet initiated 07/14/2024
Bedside range of motion/eventual physical therapy
Outpatient hepatology follow-up for cirrhosis management
Reviewed the patient's pertinent medical records including radiographs, respiratory failure management, pressor management, metabolic encephalopathy management microbiology, laboratory evaluations, and discussion with primary team, consultants,
pharmacy, nutrition, physical therapy, case management, charge nurse, critical care nursing, and respiratory therapy.
Family discussions:
Dr. Sheikh updated gpuiva-te-fjx at the bedside extensively 07/09/2024 as well as on multidisciplinary rounds 07/11/2024, 07/12/2024, and 07/13/2024, and Dr. Sheikh reviewed with lgadlz-ai-cnr 07/14/2024, 07/15/2024, and again on 07/18/24
Goals of care again discussed with rythki-AUI-mr 07/12/2024-DNR, do not reintubate if respiratory decompensation-again updated on 07/13/2024
Subjective Data
-
Date of Service:
Date of Service: July 18, 2024
Chief Complaint: Pulmonary Follow Up and Dyspnea Follow Up
Subjective:
Open size, no respiratory distress, no increased shortness of breath, has pulled out feeding tube multiple times
Review of Systems
General: Other ( per HPI)
Objective Data
Data Reviewed
Vital Signs / I&O:
Vital Signs
Temp Pulse Resp BP Pulse Ox
98.4 F 73 12 127/57 100
07/18/24 07:30 07/18/24 08:31 07/18/24 08:31 07/18/24 06:00 07/18/24 08:31
Intake and Output
07/17/24 07/18/24 07/19/24
06:59 06:59 06:59
Intake Total 355 / 355 1200 / 1200
Output Total 850 / 850 800 / 800 250 / 250
Balance -495 / -495 -800 / -800 950 / 950
SaO2: 100
Nasal Cannula flow liters per minute: 2
Physical Exam
General: Respiratory Distress (n), Comfortable and Other (chronically ill appearing)
HEENT: Normocephalic, Anicteric and Moist Mucous Membranes
Cardiovascular: Regular Rhythm
Respiratory: Wheeze (n), Crackles (Few basilar), Non-Labored Respirations and Accessory Resp Muscle Use (n)
GI: Soft, Non Distended, Non Tender and NG Tube
Neurology: Awake, Lethargic and Other (not consistently following commands, unclear insight into condition)
Skin: Warm, Dry and Good Color
Labs/Micro/Reports
Lab Data
07/18/24 18:00
07/18/24 05:33
Microbiology
07/17/24 04:48 Blood/Venous Blood Culture - Preliminary
No Growth in 24 hours- Final report to follow
07/16/24 13:53 Blood/Venous Blood Culture - Preliminary
No Growth in 24 hours- Final report to follow
07/17/24 06:42 Feces/Stool C. difficile GDH Antigen & Toxins - Final
C. difficile antigen positive, toxin negative.
Clostridium difficile present, but toxin not detected.
Patient may be a carrier, colonized with nontoxinogenic
strain or the level of toxin in sample is below detection
limits. This information should be used in conjunction with
the patient's clinical history.
--- NOTE | 2024-07-18 12:56 | W.PN.NEPH.PH ---
Today's Communication / Plan
-
D5W
Assessment/Plan
-
IMP:
Acute upper GI bleed
Acute toxic-metabolic encephalopathy
Dysphagia
Acute DVT left upper extremity
SUSIE
Hypernatremia
B/L R>L Pleural effusion-Status post thoracentesis
Abdominal ascites
Anemia
Thrombocytopenia
Acute blood loss anemia
Hepatic encephalopathy
Alcohol liver cirrhosis
Plan:
A/w GIB, AMS s/p EGD portal HTN
FWD ~ 4.2L
Sodium remains 152.
Creatinine normalized
Patient carole n.p.o.
Resume D5W
repelte K
-
-
Date of Service: July 18, 2024
CC / HPI / ROS
-
Chief Complaint:
SUSIE
History of Present Illness:
SUSIE/Cr stable 1.7>1.3
BP stable
Na higher at 152
pulled DHT
Review of Systems:
confused
no CP/SOB
Labs
-
Labs:
WBC 5.0 10^3/uL (4.8-10.8) 07/18/24 05:33
RBC 2.38 10^6/uL (4.70-6.10) L 07/18/24 05:33
Hgb Cancelled 07/18/24 18:00
Hct Cancelled 07/18/24 18:00
Plt Count 76 10^3/uL (130-400) L D 07/18/24 05:33
Sodium 152 mmol/L (135-145) H 07/18/24 05:33
Potassium 2.9 mmol/L (3.5-5.1) L 07/18/24 05:33
Chloride 119 mmol/L (98-107) H 07/18/24 05:33
Carbon Dioxide 24 mmol/L (22-30) 07/18/24 05:33
BUN 43 mg/dl (9-20) H 07/18/24 05:33
Creatinine 1.3 mg/dL (0.7-1.3) 07/18/24 05:33
eGFR > 60.00 07/18/24 05:33
Glucose 96 mg/dl (70-99) 07/18/24 05:33
Calcium 7.6 mg/dl (8.4-10.2) L 07/18/24 05:33
Phosphorus 3.3 mg/dl (2.5-4.5) 07/18/24 05:33
Albumin 2.2 g/dl (3.5-5.0) L 07/18/24 05:33
Physical Exam
-
Vital Signs:
Vital Signs
Temp Pulse Resp BP Pulse Ox
98.3 F 76 20 153/82 96
07/18/24 11:25 07/18/24 11:46 07/18/24 11:46 07/18/24 11:25 07/18/24 11:46
Cardiovascular:: Regular rate and rhythm
Respiratory:: Bilateral: Coarse
Lung Excursion:: Normal
Abdomen:: Distended, Nontender and Soft
Bowel Sounds:: Normal
Extremity Edema:: None: Bilateral:
[2024-07-18] MEDS: MORPHINE SULFATE 1 MG IV ×2 (13:19→22:57)
--- NOTE | 2024-07-18 13:30 | W.PN.GI.CBS2 ---
Addendum entered and electronically signed by Vivienne Chakraborty Do, MD 07/18/24 17:15:
Edit not SECURITY SYSTEMS TECHNICIAN but: I saw and evaluated the patient. I reviewed the resident�s note and agree with findings and plan as documented in the resident�s note.
Addendum entered and electronically signed by Vivienne Chakraborty Do, MD 07/18/24 17:11:
I saw and examined the patient.
The SECURITY SYSTEMS TECHNICIAN's note was reviewed and I agree with the note.
Comment: GI reconsulted for continued confusion and inability to take oral lactulose. Jordin is a 58yo M with h/o ETOH cirrhosis who was brought to after found unresponsive with Hbg of 4.9. EGD done 07/06 with pHTN gastropathy and old clots in
fundus. Repeat was recommended. He has rectal bag with about 900mL of green dark stools. Vitals stable. Exam AAOx2 thought it was public school. conversant but appears forgetful. NTTP, NABS. Labs reviewed Hbg drop to 6.9
Impression
- Anemia
- UGI on EGD 07/06
Ddx includes varices, PUD or ectasia
- Confusion
Unclear if hepatic encephalopathy vs other
- ETOH cirrhosis
- Pleural effusion
- Hypoxemic respiratory failure
Recommendations
- S/p 1u PRBC today
- Check ammonia level was normal on 07/15
- Ok for meds with puree. NPO at [place] for EGD tomorrow
- Abd US to re-eval for ascites
- Urine culture
Will follow with you
Original Note:
Today's Communication / Plan
-
-Pured diet was ordered
-NPO after midnight for planning EGD tomorrow
-Abd US was ordered
-Ammonium level was ordered
Assessment / Plan
-
Assessment: The patient is a 58-year-old male with a known medical history of alcoholic cirrhosis who was brought to the ER after found unresponsive at home. His lab results showed a very low level of hgb to 4.9 at the admission. The patient`s
endoscopy (by Dr Patino on 07/06/24) showed portal hypertensive gastropathy, old blood clots in the gastric fundus, normal duodenum. No active GI bleeding signs were observed since admission The patient had a likely stable level of hgb around to
8.1-8.5. This am, the patient`s hgb level was found slightly decreased to 6.9 without any active GI bleeding symptoms. The patient had been placed Dobbhoff for 3 times and he took of the last one about 2 days ago during his one of the agitation
episodes. GI team was consulted for re-evaluation of he patient.
07/06 EGD - Normal esophagus.- Portal hypertensive gastropathy- Old black clots in the gastric fundus- Normal examined duodenum- No specimens collected.
07/11 abd X ray-moderate gas in non dilated loops of bowel
Limited study demonstrating no evidence of acute pathology
07/11- CTa/p without IV contrast -Generalized anasarca. Moderate right and small left pleural effusion. Mild to moderate ascites. No focal collection or abscess. No free air.
No bowel obstruction. No obstructive uropathy.Cirrhosis. Splenomegaly.Posterior lung base parenchymal opacity, likely compressive atelectasis. Cannot entirely exclude pneumonia.
07/11 HCT No acute intracranial abnormality identified.chronic microvascular ischemic change. 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
07/12/24 Pleural effusion: Successful ultrasound-guided RIGHT thoracentesis, yielding 360 mL of straw colored pleural fluid.
07/16/24 Abd US:shows small volume ascites in all 4 quadrants of the abdomen without a significant change when compared with the 07/13/2024 examination. IR attempted for a paracentesis on 06/1424 and it was unable to be drained.
Impression:
GI Bleeding likely from portal gastropathy
Cirrhosis complicated with hypoalbuminemia, thrombocytopenia, coagulopathy possibly Alcohol related
Mental Status Changes secondary to HE vs Alcohol withdrawal vs other
Hypotension requiring pressors during admission
Abdominal ascites per CT/ US with mild abdominal distention
Hypernatremia
Resp insufficiency s/p intubation with extubation 07/10
Bipolar disorder ?
Pleural effusion
Plan:
-Upper GI bleeding: Likely stable hgb levels since admission around at 8.2 -this am lab showed hgb level to 6.9-No aggressive signs of upper or lower GI bleeding. No hematemesis, no melena. - Continue Protonix IV BID (completed Octreotide drip and
ceftriaxone course) -follow up hgb Q12 H -Transfuse as needed when hgb< 7. EGD is planning tomorrow with Dr Byrd
-Due having bilateral upper extremity DVT, it was decided to be to continue with SC heparin as it has a short half-life. Another EGD can be planned immediately if needed ---without waiting for a wash out period.
-The mental status of patient seems improved since last assessment by GI team. Slow improvement with mental status. Still has episodes of agitations and still restrained in 4 points. Any source of infection might be contributing. UA with Urine
culture can be considered to check. Abd US was ordered to check if there is any abdominal ascites which can removed with paracentesis to rule out SBP. / Ammonium level was ordered
-He removed his Dobbhoff on Tuesday by himself. He was seen by ST and sounds can tolerate pured diet-
-Lactulose enema can be started Q6H if the patient can not take it PO.
-Continue Xifaxan
Subjective
Subjective
Date of Service: July 18, 2024
Patient was seen in his bed restrained in 4 points. He was oriented his name and time but not to the place.
Objective
Data Reviewed
Laboratory Data:
Laboratory Results
07/18/24 18:00
07/18/24 05:33
Laboratory Results
PT 19.2 Sec (11.4-14.6) H 07/15/24 03:29
INR 1.59 07/15/24 03:29
APTT 31.9 Sec (23.4-35.0) 07/05/24 19:13
Phosphorus 3.3 mg/dl (2.5-4.5) 07/18/24 05:33
Magnesium 2.7 mg/dl (1.6-2.3) H 07/18/24 05:33
Total Bilirubin 2.2 mg/dl (0.2-1.3) H 07/18/24 05:33
AST 73 U/L (17-59) H 07/18/24 05:33
ALT 39 U/L (0-50) 07/18/24 05:33
Alkaline Phosphatase 137 U/L (38-126) H 07/18/24 05:33
Lipase 357 U/L (23-300) H 07/05/24 19:13
Vital Signs and I&O:
Vital Signs
Temp Pulse Resp BP Pulse Ox
98.3 F 76 20 153/82 96
07/18/24 11:25 07/18/24 11:46 07/18/24 11:46 07/18/24 11:25 07/18/24 11:46
I&O
07/17/24 07/18/24 07/19/24
06:59 06:59 06:59
Intake Total 355 / 355 1200 / 1200
Output Total 850 / 850 800 / 800 250 / 250
Balance -495 / -495 -800 / -800 950 / 950
Physical Exam
Physical Exam
HEENT: Anicteric
Cardiology: Normal Sinus Rhythm
Pulmonary: Clear
GI: Distended (mildy ) and Non Tender
[2024-07-18] MEDS: FERRLECIT 110 MG IV (14:45)
[2024-07-18] MEDS: D5W 1000 IV ×2 (14:46→22:52)
[2024-07-18] MEDS: D5W IV (15:03)
[2024-07-18] MEDS: TYLENOL 650 MG PO ×2 (16:01→19:55)
[2024-07-18] MEDS: DUPHALAC/CHRONULAC 20 GRAMS PO ×2 (16:01→20:40)
--- NOTE | 2024-07-18 16:37 | CM ---
Patient with Dx acute resp failure extubated 07/10, GI bleed, TME, b/l DVT UE, possible aspiration PNA, dysphagia, pleural effusion, ascites, anemia. O2 2L. NPO/IVF. Seen by [facility] nurse assessment this am; confused, restless, agitated,
uncooperative. PT/OT; requires assist of 2, recommend skilled rehab.
Phone call to patient's sister in law Jojo; left message requesting callback for d/c planning.
Phone call to [facility] Liaison; left message requesting review of patient as to whether he would meet AR criteria, due to family's request for [facility].
Plan continue to follow diet, O2 needs, rehab needs.
Plan follow up with [facility] and family contact for d/c planning.
[2024-07-18 16:40] LABS: Ammonia < 9 umol/L (9-30)
[2024-07-18 16:54] LABS: Hemoglobin 8.4 g/dL (13.0-18.0)
[2024-07-18] MEDS: NSS (PRESERVATIVE FREE) 10 ML IV (19:55)
[2024-07-18] MEDS: XIFAXAN 550 MG PO (19:55)
[2024-07-18] MEDS: ATIVAN 0.5 MG PO (20:38)
[2024-07-19] VITALS (20 sets, daily range): BP systolic 18–174; BP diastolic 60–94; BMI 27.8
[2024-07-19] MEDS: HEPARIN 5000 UNITS SC ×4 (00:23→22:45)
[2024-07-19] MEDS: UNASYN IV ×4 (01:58→19:58)
[2024-07-19] MEDS: TYLENOL PO ×4 (03:07→23:03)
[2024-07-19 04:39] LABS: Hematocrit 25.2 % (39.0-52.0); Hemoglobin 8.1 g/dL (13.0-18.0); Mean Corp Hgb Conc. 32.1 g/dL (33.0-37.0); Mean Corpuscular Hgb 29.6 pg (27.0-31.0); Mean Platelet Volume 10.4 fL (7.4-10.4); Platelet Count 63 10^3/uL (130-400); Red Blood Cell Count 2.74 10^6/uL (4.70-6.10); White Blood Cell Count 4.3 10^3/uL (4.8-10.8)
[2024-07-19 04:45] LABS: ALT (SGPT) 43 U/L (0-50); AST (SGOT) 80 U/L (17-59); Albumin 2.1 g/dl (3.5-5.0); Alkaline Phosphatase 140 U/L (38-126); Blood Urea Nitrogen 33 mg/dl (9-20); Carbon Dioxide 24 mmol/L (22-30); Chloride 118 mmol/L (98-107); Estimated Creatinine Clearance 71 ml/min; Glucose 116 mg/dl (70-99); Magnesium 2.5 mg/dl (1.6-2.3); Phosphorus 2.8 mg/dl (2.5-4.5); Potassium 3.1 mmol/L (3.5-5.1); Sodium 148 mmol/L (135-145); eGFR > 60.00
[2024-07-19] MEDS: DUONEB 3 ML INH ×2 (07:19→18:44)
--- NOTE | 2024-07-19 07:59 | W.PN.HOSP.TC ---
Today's Communication/Plan
-
IVF as per Nephro
replete K
NPO for EGD today
diet as per GI and speech
cont abx
wean O2 supplementation as tolerated
ST/PT/OT
Assessment / Plan
Assessment / Plan
Physical exam:
General: No acute distress, appears comfortable at this time
HEENT: Normocephalic, Atraumatic and Moist Mucous Membranes
Respiratory: Clear to Auscultation; Negative Wheezes, Rales or Rhonchi
Cardiac: Regular Rhythm and S1/S2
GI: Soft, Nontender, Distended
Musculoskeletal: No Clubbing, No Cyanosis and No Edema
Neuro: Awake Alert Conversant coherent
A/P: 58M ETOH cirrhosis here for GIB and Hepatic Encephalopathy. Hospital course complicated with bilateral upper Ext DVT and likely aspiration pneumonia with associated Acute Hypoxic Respiratory Failure.
Acute upper GI bleed:
EGD showed portal gastropathy
Continue PPI, Protonix 40 mg IV twice a day
completed a course of octreotide and Rocephin
GI eval appreciated NPO for EGD today
Acute toxic-metabolic encephalopathy:
Continue lactulose 20 g 3 times daily as tolerated
Continue rifaximin 550 mg twice a day as tolerated
Missed doses lactulose rifaximin due to AMS aspiration risk, patient removed DHT multiple times, once lactulose enema 07/18/24 GI re-eval requested
Precedex off
Neuro eval appreciated
Psych eval appreciated
Oil Winterizer/Pulm Eval appreciated
Bilateral Acute DVT upper extremities:
Challenging situation given recent GI bleed
Critical care and GI discussed pros and cons and decided on low-dose heparin subcu for now, dvt ppx dose
prior to initiating any long-term anticoagulation planned for repeat EGD.
Acute respiratory failure
Possible Aspiration Pneumonia
Dysphagia:
patient was on tube feeds d/t concerns aspiration lethargy AMS, however tube was removed three times overnight by patient
Speech eval appreciated NPO except meds crushed in pureed, Aspiration Risk Hydration Protocol
Leukocytosis, trend wbc, monitor temp
cont abx empiric zosyn narrowed to unasyn, cont
blood cultures x2 NGTD
wean O2 supplementation as tolerated
monitor respiratory status
B/L R>L Pleural effusion:
Status post thoracentesis 360 mL drawn
On Lasix 20 mg IV twice a day- placed on hold d/t SUSIE
Hypokalemia
monitor and replete as necessary
SUSIE
Hypernatremia
Cr trended up to peak 1.6 from baseline 0.8
Na trended up to peak 152 since improving
Lasix placed on hold as above
Nephro eval appreciated cont IVF D5W supplementation
SUSIE resolving
Abdominal ascites
Abd distension
Diarrhea though on Lactulose
ascites remains small volume Abd US performed 07/13 and 07/16 not enough for paracentesis
Cdiff antigen pos but toxin neg
Acute blood loss anemia
Anemia of Chronic Disease
Iron Deficiency Anemia
Status post blood transfusion
Monitor hemoglobin
IV iron supplementation started
received 4PRBC transfusion over the course of hospitalization
Hepatic encephalopathy:
Continue lactulose and rifaximin as above
Lactulose Enema prn
Alcohol liver cirrhosis:
MELD score labs-hx MELD score 18
PT/OT appreciated SNF rehab
DVT prophylaxis:
heparin
CODE STATUS:
DNR
discussed with patient and patient's akvlps-kg-bfi Jojo
I spent a total of 50 minutes with the patient or on the floor. More than 50% of this time involved counseling and coordination of care.
Anticipated Discharge: > 48 hours
Subjective/Interval History
-
Date of Service: July 19, 2024
Awake alert conversant coherent this morning. Patient mental status significantly improved, calm and cooperative. Stable respiratory status on 2L. Azkqad-lo-rlz Jojo present during evaluation.
Objective Data
-
Labs:
Laboratory Results
07/19/24
03:54
WBC 4.3 L
Hgb 8.1 L
Hct 25.2 L
Plt Count 63 L
Sodium 148 H
Potassium 3.1 L
Chloride 118 H
Carbon Dioxide 24
BUN 33 H
Creatinine 1.1
Glucose 116 H
Calcium 7.0 L
Total Bilirubin 2.0 H
AST 80 H
ALT 43
Alkaline Phosphatase 140 H
Vital Signs:
Vital Signs
Temp Pulse Resp BP Pulse Ox
97.6 F 70 14 130/60 96
07/19/24 03:17 07/19/24 07:21 07/19/24 07:21 07/19/24 06:00 07/19/24 07:21
I&O
07/18/24 07/19/24 07/20/24
06:59 06:59 06:59
Intake Total 1450 / 1450
Output Total 800 / 800 1650 / 1650
Balance -800 / -800 -200 / -200
--- NOTE | 2024-07-19 08:04 | PTCARENOTE ---
Addendum entered by Bal Myrick RN 07/19/24 08:11:
[facility] and fecal management system remain in place.
Original Note:
Patient received from mine shifter. Patient a little agitated in bed this AM and need some reorientation. No events noted overnight. Complaints of some pain, see MAR. Patient had restraints on overnight and speaking with patient this AM and
calming him down, took the restraints off. Patient is understanding and agreeable to follow commands (ie not getting up from bed and not pulling at line and tubes). Told patient that we can explore getting to the chair today. IVF @ 125mL/hr
through right IJ. K was 3.1 this AM and requested repletion. TV turned on, explained to patient plans for today. Call amaya in reach.
[2024-07-19] MEDS: D5W 1000 IV (08:07)
[2024-07-19] MEDS: DESENEX/MITRAZOL/ZEASORB 1 APPLIC TOPICAL ×2 (08:10→19:55)
[2024-07-19] MEDS: NSS (PRESERVATIVE FREE) 10 ML IV ×2 (08:13→19:56)
[2024-07-19] MEDS: THIAMINE INJECTION 200 MG IV (08:14)
[2024-07-19] MEDS: PROTONIX IV 40 MG IV ×2 (08:14→19:56)
[2024-07-19] MEDS: MORPHINE SULFATE 1 MG IV ×3 (08:17→19:54)
[2024-07-19] MEDS: KCL 270 MEQ IV ×2 (08:31→14:38)
[2024-07-19] MEDS: XIFAXAN PO (09:00)
--- NOTE | 2024-07-19 09:09 | W.PN.PUL3 ---
Today's Communication / Plan
-
Change DuoNebs to Symbicort as he has been refusing DuoNebs
Abx with aspiration precautions
Wean down O2 as tolerated while keeping SpO2 >90%
Up OOB as tolerated
Trend MELD
Monitor mental status
Assessment
-
58-year-old man with history of alcohol cirrhosis admitted through the emergency room after found unresponsive at home by his mother. Patient was admitted with dark stools, dark emesis, found to have anemia and GI bleed. Intubated for change in
mental status and airway protection and transferred to the critical care unit for further care.
Acute respiratory failure/change in mental status requiring intubation and mechanical ventilation for airway protection 07/05/2024
Intubated 07/05/2024
Extubated 07/10/2024
Hepatic encephalopathy
Acute GI bleed-melena/coffee-ground
Acute blood loss anemia-hemoglobin on admission 4.9
Status post EGD 07/06/2026: Portal gastropathy.
Repeat EGD 07/19/2024 with grade 2 distal lEV s/p bands x2 with PHG
Change in mental status/toxic metabolic encephalopathy: Cannot rule out alcohol withdrawal/hepatic encephalopathy
Ammonia level 92 on 07/05/2024 --> less than 9 on 07/18/2024
Coagulopathy INR 2.7 --> now 1.59 on 07/15/2024
Conditions present prior admission:
Alcoholic cirrhosis-on prior operative report from 2014 is noted.
? Bipolar disorder-not taking any medications
History of alcohol disorder
Plan:
Respiratory status continues to slowly improve-intermittently tenuous especially when agitated
Currently 100% on 3 L
BiPAP if needed-has not needed
Deep suction as needed
Nebulizers continue-DuoNebs --> he is refusing --> will start Symbicort and change DuoNebs to prn
he does report a Hx of asthma, however given his waxing/waning mental, he is not the best hostorian right now
Continue Aspiration precautions
Now on clear liquids
He is DNR
Morphine and Ativan as needed for agitation and anxiety--hold for sedation
Given his portal hypertensive gastropathy and esophageal varices seen on EGD from 07/19/2024, octreotide started, usually this is on IV form x 72 hrs; continue PPI 40mg IV BID; continue lactulose + rifaximin as well
Psychiatry following --> recs appreciated --> they signed off on 07/19
Chest x-ray 07/12/2024-low lung volumes, bilateral pleural effusions right greater than left
Repeat right thoracentesis 07/12/24--360 mL
Mild numerous opacification seen on the right hemithorax on CXR from 07/15/2024; Zosyn started given concern for aspiration --> on 07/16 zosyn changed to Augmentin --> rec'd to complete 5 to 7 days total
Aspiration precautions
Speech therapy following --> defer diet to them if ok with GI
Monitor hemoglobin and Transfuse if needed to keep Hb >7 g/dL
Keep platelets >50 K
Maintain INR <1.8
Continue PPI 40mg IV BID
GI following- correspondence reviewed
Abdominal ultrasound 07/06/2024: Liver is shrunken and nodular, consistent with cirrhosis.
Abdominal ultrasound 07/19/2024: Ascites seen which is increased compared to prior abdominal US on 07/16/2024, primarily in the RUQ/RLQ
CT abdomen and pelvis 07/11/2024-generalized anasarca, moderate right and left small pleural effusion, moderate ascites, no bowel obstruction, cirrhosis, basilar compressive atelectasis
Continue Xifaxan
Trend MELD score
Paracentesis attempt on 07/13/2024-not performed with not enough fluid for safe tap-ultrasound with small volume ascites
Duplex US on 07/10/2024 showed catheter associated R-sided superficial thrombus around PICC and also thrombus in cephalic vein
Left duplex US on 07/12/2024 showed DVT involving left brachial vein and superficial involving cephalic vein
High risk for full anticoagulation-Dr. Sheikh discussed with GI on 07/13/2024-okay to use heparin with DVT prophylactic doses, started on 07/13/2024
Trend ammonia levels
Continue lactulose
Monitor mental status-suspect toxic metabolic encephalopathy
Neurology consulted on 07/11/2024 --> correspondence reviewed
CT head 07/11/2024-stable chronic findings, no acute intracranial abnormalities
EEG 07/11/2024-generalized slowing
Girlfriend/friend states that he has not drank in a while-his [id number] reports patient did not drink for 10 years but about 1 year ago he started drinking again
Active drinking would preclude transplant approval
Hepatic encephalopathy improving
Diuresis was attempted --> last given on 07/16/2024
Monitor renal function, electrolytes, intake/output, lower extremity edema and weight
Replace electrolytes as needed
Increase free water with some hypernatremia-currently 152
Nephrology following-correspondence reviewed.
Continue D5W --> plan to stop today --> continue to trend sNa levels
Cultures reviewed --> blood Cx from 07/16 + 07/17/2024 show NGTD; C diff Ag and toxins are negative
We monitored for alcohol withdrawal-now well over a week after last drink
MSAS discontinued
Thiamine continues
Ativan as needed
Psychiatry evaluation --> signed off today (07/19)
DVT prophylaxis-initially on sequentials-heparin initiated 07/13/2024
GI prophylaxis-on Protonix
Nutrition-patient pulled Dobbhoff 07/14/2024-speech therapy evaluation-modified diet initiated 07/14/2024
Bedside range of motion/eventual physical therapy
Outpatient hepatology follow-up for cirrhosis management
Family discussions:
Dr. Sheikh updated [id number] at the bedside extensively 07/09/2024 as well as on multidisciplinary rounds 07/11/2024, 07/12/2024, and 07/13/2024, and Dr. Sheikh reviewed with [id number] 07/14/2024, 07/15/2024, and again on 07/18/24
Goals of care again discussed with [id number] 07/12/2024-DNR, do not reintubate if respiratory decompensation-again updated on 07/13/2024
Total time spent today was 38 minutes for this encounter. Time includes reviewing laboratory test/imaging results, reviewing pertinent medical records, obtaining and reviewing medical history, performing an appropriate exam, ordering medications,
tests and procedures. Time also includes documentation of this encounter, coordinating patient care and communicating with other healthcare professionals. Total time does not include separately billed tests performed on this date of service.
Subjective Data
-
Date of Service:
Date of Service: July 19, 2024
Chief Complaint: Pulmonary Follow Up and Dyspnea Follow Up
Subjective:
Patient seen and evaluated today at bedside. Went for EGD this morning. Found grade 2 distal esophageal varices and underwent banding x 2. When I saw the patient he was resting in bed on 3 L/min, saturating 100% with a heart rate 74 and BP
159/76. He is pleasantly confused. Denies chest pain, MCCORMICK, nausea, fevers or chills.
Review of Systems
General: Other (Unable to obtain given patient's clinical status with/confusion)
Objective Data
Data Reviewed
Vital Signs / I&O / Oxygen:
Vital Signs
Temp Pulse Resp BP Pulse Ox
97.6 F 70 14 130/60 96
07/19/24 03:17 07/19/24 07:21 07/19/24 07:21 07/19/24 06:00 07/19/24 07:21
Intake and Output
07/18/24 07/19/24 07/20/24
06:59 06:59 06:59
Intake Total 1450 / 1450
Output Total 800 / 800 1650 / 1650
Balance -800 / -800 -200 / -200
SaO2 [CPAP/PSV] 97
SaO2 [A/C] 95
SaO2 96
Nasal Cannula flow liters per 2
minute
Physical Exam
General: Respiratory Distress (n), Comfortable and Other (chronically ill appearing)
HEENT: Normocephalic, Anicteric and Moist Mucous Membranes
Cardiovascular: Regular Rhythm and Peripheral Edema (negative)
Respiratory: Wheeze (heard bilaterally upon expiration), Crackles (negative), Rhonchi (negative), Non-Labored Respirations and Accessory Resp Muscle Use (n)
GI: Soft, Distended and Non Tender
Neurology: Awake, Tremors (negative), Lethargic and Other (confused at times and tangential; following commands)
Skin: Warm, Dry and Cyanosis (negative)
Labs/Micro/Reports
Lab Data
07/19/24 03:54
07/19/24 03:54
Microbiology
07/17/24 04:48 Blood/Venous Blood Culture - Preliminary
No Growth in 48 hours- Final report to follow
07/16/24 13:53 Blood/Venous Blood Culture - Preliminary
No Growth in 48 hours- Final report to follow
07/17/24 06:42 Feces/Stool C. difficile GDH Antigen & Toxins - Final
C. difficile antigen positive, toxin negative.
Clostridium difficile present, but toxin not detected.
Patient may be a carrier, colonized with nontoxinogenic
strain or the level of toxin in sample is below detection
limits. This information should be used in conjunction with
the patient's clinical history.
--- NOTE | 2024-07-19 10:13 | CM ---
Patient with Dx acute resp failure extubated 07/10, GI bleed, TME, b/l DVT UE, possible aspiration PNA, dysphagia, pleural effusion, ascites, anemia. Room air. Receiving IVF, IV Lasix, IV Abx, IV Kcl, IV Iron, IV MS prn. NPO at present. PT/OT
07/18; requires assist of 2, recommend skilled rehab.
Spoke with nurse Cuauhtemoc; patient was able to have restraints removed today. More aware, alert, responding verbally. Was able to take some PO/pureed diet last evening.
Spoke with [facility]; she has the referral however it's too soon to eval the patient. Can request again when patient progresses.
Met with patient and spoke with Jojo, patient's sister in law; she was made aware [facility] has the referral to review. She is reviewing the SNF list that was previously provided. Agree to talk again when closer to discharge.
Plan acute rehab vs SNF.
[2024-07-19] MEDS: DUPHALAC/CHRONULAC 20 GRAMS PO ×3 (10:19→19:58)
--- NOTE | 2024-07-19 11:06 | W.PN.NEPH.PH ---
Today's Communication / Plan
-
Complete a D5W then discontinue for now
Assessment/Plan
-
IMP:
Acute upper GI bleed
Acute toxic-metabolic encephalopathy
Dysphagia
Acute DVT left upper extremity
SUSIE
Hypernatremia
B/L R>L Pleural effusion-Status post thoracentesis
Abdominal ascites
Anemia
Thrombocytopenia
Acute blood loss anemia
Hepatic encephalopathy
Alcohol liver cirrhosis
Plan:
A/w GIB, AMS s/p EGD portal HTN
FWD ~ 4.2L
Sodium remains 152/148
Creatinine normalized
Patient remains n.p.o.
Continue D5 W at 125 cc/h final bag as discussed with nurse
repelte K
-
-
Date of Service: July 19, 2024
CC / HPI / ROS
-
Chief Complaint:
SUSIE
History of Present Illness:
SUSIE/Cr stable 1.7>1.3> 1 point
BP stable
Sodium better at 148
Review of Systems:
confused
no CP/SOB
Labs
-
Labs:
WBC 4.3 10^3/uL (4.8-10.8) L 07/19/24 03:54
RBC 2.74 10^6/uL (4.70-6.10) L 07/19/24 03:54
Hgb 8.1 g/dL (13.0-18.0) L 07/19/24 03:54
Hct 25.2 % (39.0-52.0) L 07/19/24 03:54
Plt Count 63 10^3/uL (130-400) L 07/19/24 03:54
Sodium 148 mmol/L (135-145) H 07/19/24 03:54
Potassium 3.1 mmol/L (3.5-5.1) L 07/19/24 03:54
Chloride 118 mmol/L (98-107) H 07/19/24 03:54
Carbon Dioxide 24 mmol/L (22-30) 07/19/24 03:54
BUN 33 mg/dl (9-20) H 07/19/24 03:54
Creatinine 1.1 mg/dL (0.7-1.3) 07/19/24 03:54
eGFR > 60.00 07/19/24 03:54
Glucose 116 mg/dl (70-99) H 07/19/24 03:54
Calcium 7.0 mg/dl (8.4-10.2) L 07/19/24 03:54
Phosphorus 2.8 mg/dl (2.5-4.5) 07/19/24 03:54
Albumin 2.1 g/dl (3.5-5.0) L 07/19/24 03:54
Physical Exam
-
Vital Signs:
Vital Signs
Temp Pulse Resp BP Pulse Ox
97.6 F 70 14 130/60 96
07/19/24 03:17 07/19/24 07:21 07/19/24 07:21 07/19/24 06:00 07/19/24 07:21
Cardiovascular:: Regular rate and rhythm
Respiratory:: Bilateral: Coarse
Lung Excursion:: Normal
Abdomen:: Distended, Nontender and Soft
Bowel Sounds:: Normal
Extremity Edema:: None: Bilateral:
[2024-07-19] MEDS: DUONEB INH ×2 (11:12→15:33)
[2024-07-19] MEDS: ATIVAN 0.5 MG PO ×3 (11:30→20:59)
[2024-07-19] MEDS: FERRLECIT 110 MG IV (14:40)
--- NOTE | 2024-07-19 14:40 | PTOTSP ---
Speech Language Pathology
Pt seen for dysphagia tx. Now on clear liquids per GI. When LABORATORY VETERINARIAN arrived, pt in middle of lunch tray of clear liquids. Seen with broth via consecutive sips via bowl. Brief dry cough noted. Also seen with thin liquids via straw with no overt
signs of aspiration. RN reported pt has tolerated clear liquids well so far and took med whole with liquid this morning without any difficulty.
Recommend:
(1) Thin Liquids (limited to clear liquids only at this time per GI)
(2) Aspiration precautions: sit upright, slow rate
(3) Meds as tolerated
(4) LABORATORY VETERINARIAN to continue to follow
[2024-07-19] MEDS: SANDOSTATIN 500.6 MCG IV (15:47)
[2024-07-19] MEDS: TYLENOL 650 MG PO ×2 (15:48→19:56)
--- NOTE | 2024-07-19 16:45 | W.PN.UPDATE ---
Update Note
Progress Note Update
Pt seen at bedside, chart reviewed. Pt unable to participate in meaningful interview due to confusion - unable to meaningfully answer questions and often trails off mid-sentence. Unlikely to be acute etoh w/d at this point, however pt is quite
medically compromised and delirium persists. Has been intermittently mildly agitated but staff has been able to reorient and calm pt thus far.
No psychiatric interventions warranted at this time, will follow peripherally
[2024-07-19] MEDS: D5W IV (16:50)
[2024-07-19] MEDS: APRESOLINE 5 MG IV ×2 (18:06→22:46)
[2024-07-19] MEDS: SYMBICORT 160/4.5 MCG INHALER 2 PUFF INH (18:46)
[2024-07-19 19:35] LABS: B.E. -4.2 mmol/L; HCO3 19.5 mmol/L (21-28); O2 Saturation % 98.5 % (94-98); PCO2 30 mmHg (35-48); PO2 92 mmHg (83-108); pH 7.42 (7.35-7.45)
[2024-07-19] MEDS: XIFAXAN 550 MG PO (19:57)
--- NOTE | 2024-07-19 19:58 | RR ---
A Rapid Response was called on this patient, please see Rapid Response form.
Patient with sudden onset of respiratory distress. Was previously relaxing comfortably in the bed. Respiratory called for PRN Neb and inhaler was given as well. Little improvement as patient continued with the respiratory distress. O2 was
applied to help with work of breathing and comfort and eventually called a Rapid Response. After rapid response settled, patient appearing a little more relaxed. Labs, CXR, and extra dose of 1mg morphine ordered.
Patients [id number] Jojo, returning her missed phone call during rapid, was updated.
--- NOTE | 2024-07-19 20:00 | W.PN.UPDATE ---
Update Note
Progress Note Update
Rapid response called @ 1908
Patient with increased work of breathing/respiratory distress secondary to agitation, placed on non-rebreather, pulsox 98%. BP 169-77. HR 72, Resp 24, Axillary 98.3.
Obtained stat CXR, ABG, CBC and BMP.
--CXR showed slight improvement in inflation of both lungs since most recent radiograph. Slight improvement in parenchymal opacity in the right lower lung since most recent radiograph.
Patchy parenchymal opacities within both lungs, appearance most suggestive of bilateral pneumonia. Pulmonary edema pattern is a differential consideration, but felt to be less likely.
--ABG: pH 7.42, pCO2 30, pO2 92, HCO3 19.5, ABG O2 sat 98.5
-- CBC and BMP improving
Patient received Symbicort treatment, improved aeration, remained w/expiratory wheezes.
Ordered Morphine 1 mg IV x 1 now. Breathing unlabored after Morphine given. Pt improved, remained on supplemental O2, 5L NC sat 97%. Patient resting in bed, appears comfortable.
[2024-07-19 20:37] LABS: Hematocrit 28.1 % (39.0-52.0); Hemoglobin 8.8 g/dL (13.0-18.0); Mean Corp Hgb Conc. 31.3 g/dL (33.0-37.0); Mean Corpuscular Hgb 29.1 pg (27.0-31.0); Mean Platelet Volume 11.1 fL (7.4-10.4); Platelet Count 86 10^3/uL (130-400); Red Blood Cell Count 3.02 10^6/uL (4.70-6.10); Red Cell Dist. Width 18.5 % (11.5-14.5); White Blood Cell Count 5.8 10^3/uL (4.8-10.8)
[2024-07-19 20:45] LABS: Blood Urea Nitrogen 25 mg/dl (9-20); Calcium 6.9 mg/dl (8.4-10.2); Carbon Dioxide 21 mmol/L (22-30); Chloride 111 mmol/L (98-107); Estimated Creatinine Clearance 78 ml/min; Glucose 171 mg/dl (70-99); Potassium 3.7 mmol/L (3.5-5.1); Sodium 140 mmol/L (135-145); eGFR > 60.00
[2024-07-20] VITALS (16 sets, daily range): BP systolic 74–150; BP diastolic 64–102; PULSE 76; O2SAT 95; BMI 30.3
--- NOTE | 2024-07-20 01:57 | PTCARENOTE ---
stat 1mg IV morphine given@19:54 d/t acute resp distress (TELEVISION MAINTENANCE WORKER called- see previous note). Portable CXR taken. Pt with improvement in symptoms after morphine given. SaO2 96% on 3LNC. Scattered exp wheezes bilaterally. PRN ativan 0.5mgPO given@20:59
for restlessness/anxiety. PRN hydralazine 5mgIV given@22:46 for BP159/90, repeat BP 150/89@00:00, then 140/69@02:00. Pt resting comfortably in bed at this time. AAox3, forgetful at times, bed alarm on, call amaya within reach. Care ongoing.
[2024-07-20] MEDS: TYLENOL PO ×2 (03:24→23:54)
[2024-07-20] MEDS: SANDOSTATIN 500.6 MCG IV ×2 (03:44→16:21)
[2024-07-20 04:39] LABS: Hematocrit 26.3 % (39.0-52.0); Hemoglobin 8.4 g/dL (13.0-18.0); Mean Corp Hgb Conc. 31.9 g/dL (33.0-37.0); Mean Corpuscular Hgb 29.5 pg (27.0-31.0); Mean Corpuscular Volume 92.3 fL (80.0-94.0); Mean Platelet Volume 11.3 fL (7.4-10.4); Platelet Count 71 10^3/uL (130-400); Red Blood Cell Count 2.85 10^6/uL (4.70-6.10)
[2024-07-20 04:58] LABS: ALT (SGPT) 44 U/L (0-50); AST (SGOT) 73 U/L (17-59); Albumin 2.2 g/dl (3.5-5.0); Alkaline Phosphatase 151 U/L (38-126); Blood Urea Nitrogen 25 mg/dl (9-20); Calcium 7.2 mg/dl (8.4-10.2); Carbon Dioxide 24 mmol/L (22-30); Chloride 116 mmol/L (98-107); Estimated Creatinine Clearance 88 ml/min; Glucose 84 mg/dl (70-99); Magnesium 2.4 mg/dl (1.6-2.3); Potassium 3.7 mmol/L (3.5-5.1); Sodium 144 mmol/L (135-145); Total Bilirubin 2.1 mg/dl (0.2-1.3); Total Protein 5.2 g/dl (6.3-8.2); eGFR > 60.00
[2024-07-20] MEDS: SYMBICORT 160/4.5 MCG INHALER 2 PUFF INH ×2 (05:38→19:44)
[2024-07-20] MEDS: ATIVAN 0.5 MG PO ×3 (05:47→20:58)
--- NOTE | 2024-07-20 06:23 | W.PN.HOSP.TC ---
Today's Communication/Plan
-
heparin sub q discontinued in favor of hep gtt w/o bolus to treat DVT
wean O2 supplementation as tolerated
cont lactulose rifaximin
prn morphine ativan
ST/PT/OT
Assessment / Plan
Assessment / Plan
Physical exam:
General: No acute distress, appears comfortable at this time
HEENT: Normocephalic, Atraumatic and Moist Mucous Membranes
Respiratory: Clear to Auscultation; Negative Wheezes, Rales or Rhonchi Nasal cannula supplementation
Cardiac: Regular Rhythm and S1/S2
GI: Soft, Nontender, Distended
Musculoskeletal: No Clubbing, No Cyanosis and No Edema
Neuro: Awake Alert Conversant coherent though occasional tangential speech noted
A/P: 58M ETOH cirrhosis here for GIB and Hepatic Encephalopathy. Hospital course complicated with bilateral upper Ext DVT and likely aspiration pneumonia with associated Acute Hypoxic Respiratory Failure.
Acute upper GI bleed:
EGD showed portal gastropathy
Continue PPI, Protonix 40 mg IV twice a day
completed a course of octreotide and Rocephin
GI eval appreciated repeat EGD performed 07/20/24 w/ results as follows, ocreotide gtt, protonix 40 mg BID, repeat EGD in 4 wks
07/20/24 EGD
Grade II esophageal varices. Completely eradicated. Banded x2
- Bilious gastric fluid.
- Portal hypertensive gastropathy.
- Normal duodenal bulb, first portion of the duodenum and second portion of the duodenum. Biopsied.
07/20/24 Rapid Response Respiratory Distress agitation
-patient since improved with once IV morphine 1mg ordered by overnight staff
-review of records reports, appears to be delirium possibly triggered by post-anesthesia side effects
-cont to monitor for now.
Acute toxic-metabolic encephalopathy:
Precedex off
Continue lactulose 20 g 3 times daily as tolerated
Continue rifaximin 550 mg twice a day as tolerated
Missed doses lactulose rifaximin due to AMS aspiration risk, patient removed DHT multiple times, once lactulose enema 07/18/24 GI re-eval appreciated
Mental status since improved on clear liquid diet as per GI speech
Neuro eval appreciated
Psych eval appreciated
Station Cashier/Pulm Eval appreciated
Bilateral Acute DVT upper extremities:
Challenging situation given recent GI bleed
Discussed with GI following repeat EGD as above, cleared to start hep gtt w/o bolus for now
Acute respiratory failure
Possible Aspiration Pneumonia
Dysphagia:
patient was on tube feeds d/t concerns aspiration lethargy AMS, however tube was removed three times overnight by patient
Speech eval appreciated NPO except meds crushed in pureed, Aspiration Risk Hydration Protocol
Leukocytosis, trend wbc, monitor temp
empiric zosyn narrowed to unasyn, completed total 5 days abx
blood cultures x2 NGTD
wean O2 supplementation as tolerated
monitor respiratory status
B/L R>L Pleural effusion:
Status post thoracentesis 360 mL drawn
On Lasix 20 mg IV twice a day- placed on hold d/t SUSIE
Hypokalemia
monitor and replete as necessary
SUSIE
Hypernatremia
Cr trended up to peak 1.6 from baseline 0.8
Na trended up to peak 152 since improving
Lasix placed on hold as above
Nephro eval appreciated cont IVF D5W supplementation
SUSIE resolving
Abdominal ascites
Abd distension
Diarrhea though on Lactulose
ascites remains small volume Abd US performed 07/13 and 07/16 not enough for paracentesis
Cdiff antigen pos but toxin neg
07/19 Abd US notes increase in ascites, discussing with IR if enough to perform paracentesis
Acute blood loss anemia
Anemia of Chronic Disease
Iron Deficiency Anemia
Status post blood transfusion
Monitor hemoglobin
IV iron supplementation started
received 4PRBC transfusion over the course of hospitalization
Hepatic encephalopathy:
Continue lactulose and rifaximin as above
Lactulose Enema prn
Alcohol liver cirrhosis:
MELD score labs-hx MELD score 18
PT/OT appreciated SNF rehab
DVT prophylaxis:
heparin gtt w/o bolus for DVT
CODE STATUS:
DNR
discussed with patient and patient's [id number] Jojo
I spent a total of 50 minutes with the patient or on the floor. More than 50% of this time involved counseling and coordination of care.
Anticipated Discharge: > 48 hours
Subjective/Interval History
-
Date of Service: July 20, 2024
No acute distress resting comfortably in bed. Stable respiratory status on nasal cannula supplementation. AOx3 though speech occasionally tangential. Denies current pain
Objective Data
-
Labs:
Laboratory Results
07/19/24 07/19/24 07/20/24
19:28 20:13 03:35
WBC 5.8 5.0
Hgb 8.8 L 8.4 L
Hct 28.1 L 26.3 L
Plt Count 86 L D 71 L
HCO3 19.5 L
Sodium 140 D 144
Potassium 3.7 3.7
Chloride 111 H 116 H
Carbon Dioxide 21 L 24
BUN 25 H 25 H
Creatinine 1.0 1.0
Glucose 171 H 84
Calcium 6.9 L* 7.2 L
Total Bilirubin 2.1 H
AST 73 H
ALT 44
Alkaline Phosphatase 151 H
Vital Signs:
Vital Signs
Temp Pulse Resp BP Pulse Ox
98.0 F 72 19 133/75 96
07/20/24 03:34 07/20/24 05:00 07/20/24 05:00 07/20/24 04:00 07/20/24 05:00
I&O
07/18/24 07/19/24 07/20/24
06:59 06:59 06:59
Intake Total 1450 / 1450 1480 / 1480
Output Total 800 / 800 1650 / 1650 900 / 900
Balance -800 / -800 -200 / -200 580 / 580
[2024-07-20] MEDS: DUONEB 3 ML INH ×2 (07:42→13:25)
--- NOTE | 2024-07-20 08:34 | W.PN.PUL3 ---
Today's Communication / Plan
-
Changed DuoNebs to Symbicort as he has been refusing DuoNebs
Change prn DuoNebs to prn ProAir
Completed course of Abx; continue aspiration precautions
Continue lasix given concern for volume overload on CXR from 07/19
Wean down O2 as tolerated while keeping SpO2 >90%
Up OOB as tolerated
Trend MELD-Na score
Monitor mental status
Pulmonary service will continue to briefly follow along
Assessment
-
58-year-old man with history of alcohol cirrhosis admitted through the emergency room after found unresponsive at home by his mother. Patient was admitted with dark stools, dark emesis, found to have anemia and GI bleed. Intubated for change in
mental status and airway protection and transferred to the critical care unit for further care.
Acute respiratory failure/change in mental status requiring intubation and mechanical ventilation for airway protection 07/05/2024
Intubated 07/05/2024
Extubated 07/10/2024
Hepatic encephalopathy
Acute GI bleed-melena/coffee-ground
Acute blood loss anemia-hemoglobin on admission 4.9 and he has required 4 U PRBC since admission
Status post EGD 07/06/2026: Portal gastropathy.
Repeat EGD 07/19/2024 with grade 2 distal EV s/p bands x2 with PHG
Change in mental status/toxic metabolic encephalopathy: Cannot rule out alcohol withdrawal/hepatic encephalopathy
Ammonia level 92 on 07/05/2024 --> less than 9 on 07/18/2024
Coagulopathy INR 2.7 --> now 1.59 on 07/15/2024
Conditions present prior admission:
Alcoholic cirrhosis-on prior operative report from 2014 is noted.
? Bipolar disorder-not taking any medications
History of alcohol disorder
Plan:
Respiratory status continues to slowly improve-intermittently tenuous especially when agitated
Currently 95% on room air which has improved from 07/19/2024 when he required 3L/min (was saturating 100% at the time)
BiPAP if needed-has not needed
Deep suction as needed
Nebulizers continue-DuoNebs --> he is refusing --> on 07/19/2024 I started Symbicort and changed DuoNebs to prn --> he wants Primatene mist, which we do not carry. Will change prn DuoNebs to proair for now
He does report a Hx of asthma, however given his waxing/waning mental, he is not the best historian right now
Continue Aspiration precautions
Now on clear liquids
He is DNR
Morphine and Ativan as needed for agitation and anxiety--hold for sedation
Given his portal hypertensive gastropathy and esophageal varices seen on EGD from 07/19/2024, octreotide started on 07/19 after his EGD, usually this is used for 72 hrs then stopped - defer to GI; continue PPI 40mg IV BID; continue lactulose +
rifaximin as well, and occasionally trend ammonia level
Psychiatry following --> recs appreciated --> they signed off on 07/19
Chest x-ray 07/12/2024-low lung volumes, bilateral pleural effusions right greater than left
Repeat right thoracentesis 07/12/24--360 mL
Mild numerous opacification seen on the right hemithorax on CXR from 07/15/2024; Zosyn started given concern for aspiration --> on 07/16 zosyn changed to Augmentin --> rec'd to complete 5 to 7 days total
Aspiration precautions
Speech therapy following --> defer diet to them if ok with GI
Monitor hemoglobin and Transfuse if needed to keep Hb >7 g/dL
Keep platelets >50 K
Maintain INR <1.8
Continue PPI 40mg IV BID
GI following- correspondence reviewed
Abdominal ultrasound 07/06/2024: Liver is shrunken and nodular, consistent with cirrhosis.
Abdominal ultrasound 07/19/2024: Ascites seen which is increased compared to prior abdominal US on 07/16/2024, primarily in the RUQ/RLQ --> abdomen more distended/firm today --> recommend IR paracentesis
CT abdomen and pelvis 07/11/2024-generalized anasarca, moderate right and left small pleural effusion, moderate ascites, no bowel obstruction, cirrhosis, basilar compressive atelectasis
Continue rifaximin
Trend MELD-Na score
Paracentesis attempt on 07/13/2024-not performed with not enough fluid for safe tap-ultrasound with small volume ascites
Duplex US on 07/10/2024 showed catheter associated R-sided superficial thrombus around PICC and also thrombus in cephalic vein
Left duplex US on 07/12/2024 showed DVT involving left brachial vein and superficial involving cephalic vein
High risk for full anticoagulation-Dr. Sheikh discussed with GI on 07/13/2024-okay to use heparin with DVT prophylactic doses, started on 07/13/2024 --> now being started on heparin gtt given his H/H has been stable with last PRBC transfusion on
07/18/2024
Trend ammonia levels
Continue lactulose and titrate to 3�4 loose/formed bowel movements per day
Monitor mental status-suspect toxic metabolic encephalopathy
Neurology consulted on 07/11/2024 --> correspondence reviewed
CT head 07/11/2024-stable chronic findings, no acute intracranial abnormalities
EEG 07/11/2024-generalized slowing
Girlfriend/friend stated that he has not drank in a while-his jiyfur-ne-thv reports patient did not drink for 10 years but about 1 year ago he started drinking again
Active drinking would preclude transplant approval
Hepatic encephalopathy improved but he is still confused
Diuresis was attempted --> last given on 07/16/2024 --> restarted today (07/20) with 40mg PO lasix daily
Monitor renal function, electrolytes, intake/output, lower extremity edema and weight
Replace electrolytes as needed
Nephrology following-correspondence reviewed.
D5W stopped on 07/19 --> continue to trend sNa levels
Cultures reviewed --> blood Cx from 07/16 + 07/17/2024 show NGTD; C diff Ag and toxins are negative
Due to concern for aspiration with bibasilar pneumonia, he completed course of antibiotics with Zosyn (07/15 - 07/16/2024) + Unasyn (07/16 - 07/19/2024)
CXR from 07/19/2024 showed improved aeration in bases but with interstitial prominence with suspected pulmonary edema --> now back on PO lasix as of 07/20/2024
Was on rocephin prior from 07/06 - 07/12/2023
We monitored for alcohol withdrawal-now well over a week after last drink
MSAS discontinued
Thiamine continues
Ativan as needed
Psychiatry evaluation --> signed off today (07/19)
DVT prophylaxis-initially on sequentials-SQ heparin initiated 07/13/2024 --> now on heparin gtt as of 07/20 given his Hx of LUE DVT Dx on 07/12/2024
GI prophylaxis-on Protonix
Nutrition-patient pulled Dobbhoff 07/14/2024-speech therapy evaluation-modified diet initiated 07/14/2024
Bedside range of motion/eventual physical therapy
Outpatient hepatology follow-up for cirrhosis management
Pulmonary service will continue to briefly follow along.
Family discussions:
Dr. Sheikh updated [id number] at the bedside extensively 07/09/2024 as well as on multidisciplinary rounds 07/11/2024, 07/12/2024, and 07/13/2024, and Dr. Sheikh reviewed with [id number] 07/14/2024, 07/15/2024, and again on 07/18/24
Goals of care again discussed with [id number] 07/12/2024-DNR, do not reintubate if respiratory decompensation-again updated on 07/13/2024
Total time spent today was 36 minutes for this encounter. Time includes reviewing laboratory test/imaging results, reviewing pertinent medical records, obtaining and reviewing medical history, performing an appropriate exam, ordering medications,
tests and procedures. Time also includes documentation of this encounter, coordinating patient care and communicating with other healthcare professionals. Total time does not include separately billed tests performed on this date of service.
Subjective Data
-
Date of Service:
Date of Service: July 20, 2024
Chief Complaint: Pulmonary Follow Up and Dyspnea Follow Up
Subjective:
Patient was seen and evaluated today at bedside. Currently on room air breathing comfortably and saturating 95%. Abdomen appears more distended and firm today. BP 132/77 heart rate 76. He says that he wants to get out of here and that he will
come back if needed. He is confused. Currently in no acute distress.
Review of Systems
General: Other (Unable to obtain given patient's acute clinical status/confusion)
Objective Data
Data Reviewed
Vital Signs / I&O / Oxygen:
Vital Signs
Temp Pulse Resp BP Pulse Ox
97.9 F 77 13 141/83 95
07/20/24 07:49 07/20/24 08:00 07/20/24 08:00 07/20/24 08:00 07/20/24 08:00
Intake and Output
07/19/24 07/20/24 07/21/24
06:59 06:59 06:59
Intake Total 1450 / 1450 1480 / 1480
Output Total 1650 / 1650 900 / 900
Balance -200 / -200 580 / 580
SaO2 [CPAP/PSV] 97
SaO2 [A/C] 95
SaO2 95
Nasal Cannula flow liters per 5
minute
Physical Exam
General: Respiratory Distress (n), Comfortable and Other (chronically ill appearing)
HEENT: Normocephalic, Anicteric and Moist Mucous Membranes
Cardiovascular: Regular Rhythm and Peripheral Edema (negative)
Respiratory: Wheeze (heard bilaterally upon end-expiration), Crackles (negative), Rhonchi (negative), Non-Labored Respirations and Accessory Resp Muscle Use (n)
GI: Soft, Distended and Other (abdomen is firm but not rigid and non-tender)
Neurology: Awake, Tremors (negative) and Other (confused at times and tangential; following commands)
Skin: Warm, Dry, Cyanosis (negative) and Rash (n)
Labs/Micro/Reports
Lab Data
07/20/24 03:35
07/20/24 03:35
Laboratory Results
07/19/24
19:28
pH 7.42
pCO2 30 L
pO2 92
HCO3 19.5 L
O2 Delivery Level
Microbiology
07/17/24 04:48 Blood/Venous Blood Culture - Preliminary
No Growth in 72 hours- Final report to follow
07/16/24 13:53 Blood/Venous Blood Culture - Preliminary
No Growth in 72 hours- Final report to follow
07/17/24 06:42 Feces/Stool C. difficile GDH Antigen & Toxins - Final
C. difficile antigen positive, toxin negative.
Clostridium difficile present, but toxin not detected.
Patient may be a carrier, colonized with nontoxinogenic
strain or the level of toxin in sample is below detection
limits. This information should be used in conjunction with
the patient's clinical history.
[2024-07-20] MEDS: DUPHALAC/CHRONULAC 20 GRAMS PO ×3 (08:54→20:58)
[2024-07-20] MEDS: XIFAXAN 550 MG PO ×2 (08:56→19:38)
[2024-07-20] MEDS: PROTONIX IV 40 MG IV ×2 (08:57→19:38)
[2024-07-20] MEDS: HEPARIN 5000 UNITS SC (08:57)
[2024-07-20] MEDS: THIAMINE INJECTION 200 MG IV (08:58)
[2024-07-20] MEDS: NSS (PRESERVATIVE FREE) 10 ML IV ×2 (08:58→19:38)
[2024-07-20] MEDS: TYLENOL 650 MG PO ×4 (09:05→19:38)
--- NOTE | 2024-07-20 10:37 | W.PN.NEPH.PH ---
Today's Communication / Plan
-
lasix
Assessment/Plan
-
IMP:
Acute upper GI bleed
Acute toxic-metabolic encephalopathy
Dysphagia
Acute DVT left upper extremity
SUSIE
Hypernatremia
B/L R>L Pleural effusion-Status post thoracentesis
Abdominal ascites
Anemia
Thrombocytopenia
Acute blood loss anemia
Hepatic encephalopathy
Alcohol liver cirrhosis
Plan:
lasix 40mg po daily
follow BMP
eventually can consider spironolactone as well.
d/w family
-
-
Date of Service: July 20, 2024
CC / HPI / ROS
-
Chief Complaint:
SUSIE
History of Present Illness:
SUSIE/Cr stable 1.7>1.3> 1.0
BP stable
Sodium better at 144
Review of Systems:
confused
no CP/SOB
some po intake
Labs
-
Labs:
WBC 5.0 10^3/uL (4.8-10.8) 07/20/24 03:35
RBC 2.85 10^6/uL (4.70-6.10) L 07/20/24 03:35
Plt Count 71 10^3/uL (130-400) L 07/20/24 03:35
Sodium 144 mmol/L (135-145) 07/20/24 03:35
Potassium 3.7 mmol/L (3.5-5.1) 07/20/24 03:35
Chloride 116 mmol/L (98-107) H 07/20/24 03:35
Carbon Dioxide 24 mmol/L (22-30) 07/20/24 03:35
BUN 25 mg/dl (9-20) H 07/20/24 03:35
Creatinine 1.0 mg/dL (0.7-1.3) 07/20/24 03:35
eGFR > 60.00 07/20/24 03:35
Glucose 84 mg/dl (70-99) 07/20/24 03:35
Calcium 7.2 mg/dl (8.4-10.2) L 07/20/24 03:35
Phosphorus 3.0 mg/dl (2.5-4.5) 07/20/24 03:35
Albumin 2.2 g/dl (3.5-5.0) L 07/20/24 03:35
Physical Exam
-
Vital Signs:
Vital Signs
Temp Pulse Resp BP Pulse Ox
97.9 F 77 13 141/83 95
07/20/24 07:49 07/20/24 08:00 07/20/24 08:00 07/20/24 08:00 07/20/24 08:00
Cardiovascular:: Regular rate and rhythm
Respiratory:: Bilateral: Coarse
Lung Excursion:: Normal
Abdomen:: Nontender and Soft
Bowel Sounds:: Normal
Extremity Edema:: +3: Bilateral:
[2024-07-20 11:16] LABS: APTT 44.6 Sec (23.4-35.0)
[2024-07-20] MEDS: DESENEX/MITRAZOL/ZEASORB 1 APPLIC TOPICAL ×2 (11:55→19:38)
[2024-07-20] MEDS: LASIX 40 MG PO (11:55)
[2024-07-20] MEDS: HEPARIN 25000 UNITS/250 ML IV (11:57)
--- NOTE | 2024-07-20 12:36 | CM ---
Patient with Dx acute resp failure extubated 07/10, GI bleed, TME, b/l DVT UE, possible aspiration PNA, dysphagia, pleural effusion, ascites, anemia. O2 3L. Clear liquids. Receiving IVF, IV Lasix, Heparin gtt, Octreotide gtt, PO Ativan prn. Per
nurse; confused, forgetful, hallucinating at times. PT/OT recommend skilled rehab.
Received phone call from patient's sister in law Jojo; she had more questions about acute rehab and SNF levels of care. She states that patient's mother and she are very intent on the patient going to acute rehab at discharge. She asked about
patient's progress with PT/OT and likelihood of needing AR vs SNF vs home with HH at discharge- explained that every patient progress is unique and cannot predict what level of care he will need at this time. Jojo relates concern that patient has
made some remarks to her indicating confusion and hallucinations. Jojo also asking if patient can change rooms or go to another floor because he is restless- explained IMU level of care is the decision of the physician, and restlessness will not
be improved by changing rooms. Explained to her that patient is not medically ready for [facility] to evaluate for [place].
Met with patient who had friend visiting. Patient able to state he is in [facility] but otherwise seems vague and tangential and not understanding he needs continued hospital care and asking if he can leave today. Patient seems to not
have any insight into his status/condition.
CM continuing to follow.
Plan acute rehab vs SNF.
--- NOTE | 2024-07-20 13:48 | PTCARENOTE ---
Patient alert and oriented to name and knows he is in the hospital. Confused conversations but has periods of lucidity. Zhou catheter removed this morning. Patient INC X2 large amounts of dwight urine. Sp02 94% 3L o2. Lungs diminished with
intermittent expiratory wheezing. VS stable. SR in the 70-80's.
--- NOTE | 2024-07-20 14:03 | PTCARENOTE ---
Heparin drip started at 1600units 16mls/hr as per order via right IJ. PTT 44.6 prior to administration of drip. Next PTT 1800.
--- NOTE | 2024-07-20 14:46 | W.PN.GI.CBS2 ---
Today's Communication / Plan
-
paracentesis
cont PPI bid and Octreotide
Assessment / Plan
-
Assessment: The patient is a 58-year-old male with a known medical history of alcoholic cirrhosis who was brought to the ER after found unresponsive at home. His lab results showed a very low level of hgb to 4.9 at the admission. The patient`s
endoscopy (by Dr Patino on 07/06/24) showed portal hypertensive gastropathy, old blood clots in the gastric fundus, normal duodenum. No active GI bleeding signs were observed since admission The patient had a likely stable level of hgb around to
8.1-8.5. This am, the patient`s hgb level was found slightly decreased to 6.9 without any active GI bleeding symptoms. The patient had been placed Dobbhoff for 3 times and he took of the last one about 2 days ago during his one of the agitation
episodes. GI team was consulted for re-evaluation of he patient.
07/19/2024 EGD Impression: - Grade II esophageal varices. Completely eradicated.
Banded x2
- Bilious gastric fluid.
- Portal hypertensive gastropathy.
- Normal duodenal bulb, first portion of the duodenum
and second portion of the duodenum. Biopsied.
07/06 EGD - Normal esophagus.- Portal hypertensive gastropathy- Old black clots in the gastric fundus- Normal examined duodenum- No specimens collected.
07/11 abd X ray-moderate gas in non dilated loops of bowel
Limited study demonstrating no evidence of acute pathology
07/11- CTa/p without IV contrast -Generalized anasarca. Moderate right and small left pleural effusion. Mild to moderate ascites. No focal collection or abscess. No free air.
No bowel obstruction. No obstructive uropathy.Cirrhosis. Splenomegaly.Posterior lung base parenchymal opacity, likely compressive atelectasis. Cannot entirely exclude pneumonia.
07/11 HCT No acute intracranial abnormality identified.chronic microvascular ischemic change. 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
07/12/24 Pleural effusion: Successful ultrasound-guided RIGHT thoracentesis, yielding 360 mL of straw colored pleural fluid.
07/16/24 Abd US:shows small volume ascites in all 4 quadrants of the abdomen without a significant change when compared with the 07/13/2024 examination. IR attempted for a paracentesis on 06/1424 and it was unable to be drained.
Impression:
GI Bleeding likely from portal gastropathy and E. varices
Cirrhosis complicated with hypoalbuminemia, thrombocytopenia, coagulopathy possibly Alcohol related
Mental Status Changes secondary to HE vs Alcohol withdrawal vs other
Hypotension requiring pressors during admission
Abdominal ascites per CT/ US with mild abdominal distention
Hypernatremia
Resp insufficiency s/p intubation with extubation 07/10
Bipolar disorder ?
Pleural effusion
Plan:
-Upper GI bleeding: Status post repeat EGD 07/[address] Byrd and had esophageal varices banded with eradication and also was noted to have portal gastropathy but no active bleeding
-Continue octreotide can DC tomorrow
-Continue twice daily PPI and monitor hemoglobin
-Abdomen slightly more distended today will schedule for paracenteses with IR, US 07/19 with more ascites also
-Acute upper bilateral DVT okay to start heparin without bolus but monitor very closely for signs of bleeding and hemoglobin- high risk of rebleed
-Continue lactulose and Xifaxan goal 3-4 bowel movements a day
-Oral intake as recommended by speech currently on clear liquids but can advance as recommended by speech.
Subjective
Subjective
Date of Service: July 20, 2024
Noted events from last night he had a rapid response last night for agitation and respiratory distress has improved since then. Was thought to also have delirium and also received a dose of morphine. No further rectal bleeding or melena.
Hemoglobin remained stable
Objective
Data Reviewed
Laboratory Data:
Laboratory Results
07/20/24 03:35
Laboratory Results
PT 19.2 Sec (11.4-14.6) H 07/15/24 03:29
INR 1.59 07/15/24 03:29
APTT 44.6 Sec (23.4-35.0) H 07/20/24 10:47
Phosphorus 3.0 mg/dl (2.5-4.5) 07/20/24 03:35
Magnesium 2.4 mg/dl (1.6-2.3) H 07/20/24 03:35
Total Bilirubin 2.1 mg/dl (0.2-1.3) H 07/20/24 03:35
AST 73 U/L (17-59) H 07/20/24 03:35
ALT 44 U/L (0-50) 07/20/24 03:35
Alkaline Phosphatase 151 U/L (38-126) H 07/20/24 03:35
Lipase 357 U/L (23-300) H 07/05/24 19:13
Vital Signs and I&O:
Vital Signs
Temp Pulse Resp BP Pulse Ox
98.0 F 78 16 132/77 95
07/20/24 11:23 07/20/24 14:00 07/20/24 14:00 07/20/24 12:00 07/20/24 14:06
I&O
07/19/24 07/20/24 07/21/24
06:59 06:59 06:59
Intake Total 1450 / 1450 1480 / 1480 1140 / 1140
Output Total 1650 / 1650 900 / 900
Balance -200 / -200 580 / 580 1140 / 1140
Physical Exam
Physical Exam
Cardiology: Normal Sinus Rhythm
Pulmonary: Clear
GI: Soft, Distended, Non Tender and Normal Bowel Sounds
[2024-07-20] MEDS: MORPHINE SULFATE 1 MG IV ×2 (15:37→21:24)
[2024-07-20] MEDS: FERRLECIT 110 MG IV (17:22)
--- NOTE | 2024-07-20 17:24 | PTCARENOTE ---
Patient went down to IR for paracentesis but unable to do due to not enough fluid in ultra sound.
[2024-07-20 18:37] LABS: Hematocrit 27.2 % (39.0-52.0); Hemoglobin 8.7 g/dL (13.0-18.0)
[2024-07-20 19:02] LABS: APTT > 200 Sec (23.4-35.0)
[2024-07-20] MEDS: ProAIR HFA INHALER 2 PUFF INH (19:44)
--- NOTE | 2024-07-20 23:05 | PTCARENOTE ---
Pt noted to have worsening dyspnea, increased respirations and work of breathing, and increasing anxiety around 21:00. RR 25, SaO2 91% on RA, expiratory wheezes throughout. PRN ativan given @ 20:58. PRN morphine given early @ 21:24, with permission
from [facility]. Symptoms much improved after IV morphine dose. Pt resting comfortably in bed at this time. RR 15, SaO2 95% on RA.
[2024-07-21] VITALS (11 sets, daily range): BP systolic 93–167; BP diastolic 57–91; BMI 30.3
[2024-07-21] MEDS: SANDOSTATIN 500.6 MCG IV (03:14)
[2024-07-21] MEDS: TYLENOL PO (03:16)
[2024-07-21 03:33] LABS: Hemoglobin 8.3 g/dL (13.0-18.0); Mean Corp Hgb Conc. 31.9 g/dL (33.0-37.0); Mean Corpuscular Hgb 29.3 pg (27.0-31.0); Mean Corpuscular Volume 91.9 fL (80.0-94.0); Mean Platelet Volume 10.9 fL (7.4-10.4); Platelet Count 82 10^3/uL (130-400); Red Blood Cell Count 2.83 10^6/uL (4.70-6.10); Red Cell Dist. Width 18.2 % (11.5-14.5); White Blood Cell Count 7.3 10^3/uL (4.8-10.8)
[2024-07-21 03:47] LABS: ALT (SGPT) 40 U/L (0-50); AST (SGOT) 65 U/L (17-59); Albumin 2.1 g/dl (3.5-5.0); Alkaline Phosphatase 132 U/L (38-126); Blood Urea Nitrogen 20 mg/dl (9-20); Calcium 7.4 mg/dl (8.4-10.2); Carbon Dioxide 23 mmol/L (22-30); Chloride 116 mmol/L (98-107); Estimated Creatinine Clearance 88 ml/min; Glucose 112 mg/dl (70-99); Magnesium 2.2 mg/dl (1.6-2.3); Phosphorus 2.9 mg/dl (2.5-4.5); Potassium 3.6 mmol/L (3.5-5.1); Sodium 142 mmol/L (135-145); Total Protein 5.1 g/dl (6.3-8.2); eGFR > 60.00
[2024-07-21 03:49] LABS: APTT > 200 Sec (23.4-35.0)
[2024-07-21] MEDS: ATIVAN 0.5 MG PO ×3 (06:27→23:16)
--- NOTE | 2024-07-21 07:11 | W.PN.HOSP.TC ---
Today's Communication/Plan
-
hep gtt
monitor H&H
start seroquel 25 mg qpm for likely hospital associated delirium
cont ST/PT/OT
IV iron supplementation switched to PO
non-violent restraints prn
Assessment / Plan
Assessment / Plan
Physical exam:
General: No acute distress, appears comfortable at this time
HEENT: Normocephalic, Atraumatic and Moist Mucous Membranes
Respiratory: Some wheezing noted on auscultation but upper airway. Largely clear to auscultation b/l
Cardiac: Regular Rhythm and S1/S2
GI: Soft, Nontender, Distended
Musculoskeletal: No Clubbing, No Cyanosis and No Edema
Neuro: AOx3 Conversant coherent though occasional tangential speech noted
Psych: somewhat anxious but calms down with verbal reassurances
A/P: 58M ETOH cirrhosis here for GIB and Hepatic Encephalopathy. Hospital course complicated with bilateral upper Ext DVT and likely aspiration pneumonia with associated Acute Hypoxic Respiratory Failure.
Acute upper GI bleed:
EGD showed portal gastropathy
Continue PPI, Protonix 40 mg IV twice a day
completed a course of octreotide and Rocephin
GI eval appreciated repeat EGD performed 07/20/24 w/ results as follows, repeat ocreotide gtt completed, protonix 40 mg BID, repeat EGD in 4 wks
07/20/24 EGD
Grade II esophageal varices. Completely eradicated. Banded x2
- Bilious gastric fluid.
- Portal hypertensive gastropathy.
- Normal duodenal bulb, first portion of the duodenum and second portion of the duodenum. Biopsied.
07/20/24 Rapid Response Respiratory Distress agitation
-patient since improved with once IV morphine 1mg ordered by overnight staff
-review of records reports, appears to be delirium possibly triggered by post-anesthesia side effects vs hospital associated delirium
-cont to monitor for now.
Acute toxic-metabolic encephalopathy:
Hospital Associated Delirium
Precedex off
Continue lactulose 20 g 3 times daily as tolerated
Continue rifaximin 550 mg twice a day as tolerated
Missed doses lactulose rifaximin due to AMS aspiration risk, patient removed DHT multiple times, once lactulose enema 07/18/24 GI re-eval appreciated
Mental status since improved on clear liquid diet as per GI speech
Neuro eval appreciated
Psych eval appreciated
[employer]/Pulm Eval appreciated
Seroquel 25 mg QPM started (typically around the time patient becomes agitated rapid respiratory rate resolved with prn ativan morphine)
EKG checked prior start Seroquel noted no significant QT prolongation.
Bilateral Acute DVT upper extremities:
Challenging situation given recent GI bleed
Discussed with GI following repeat EGD as above, cleared to start hep gtt w/o bolus for now, continued appears to be tolerating well
Acute respiratory failure
Possible Aspiration Pneumonia
Dysphagia:
patient was on tube feeds d/t concerns aspiration lethargy AMS, however tube was removed three times overnight by patient
Speech eval appreciated NPO except meds crushed in pureed, Aspiration Risk Hydration Protocol
Leukocytosis, trend wbc, monitor temp
empiric zosyn narrowed to unasyn, completed total 5 days abx
blood cultures x2 NGTD
weaned off oxygen supplementation stable respiratory status on room air
B/L R>L Pleural effusion:
Status post thoracentesis 360 mL drawn
On Lasix 20 mg IV twice a day- placed on hold d/t SUSIE
Lasix since resumed, with resolution SUSIE, at 40 mg daily as per Nephro
Hypokalemia
monitor and replete as necessary
SUSIE resolved
Hypernatremia resolved
Nephro eval appreciated IVF D5W supplementation completed
Abdominal ascites
Abd distension
Diarrhea though on Lactulose
ascites remains small volume Abd US performed 07/13 and 07/16 not enough for paracentesis
Cdiff antigen pos but toxin neg
07/19 Abd US notes increase in ascites, IR re-eval appreciated however remains insufficient for paracentesis
Acute blood loss anemia
Anemia of Chronic Disease
Iron Deficiency Anemia
Status post blood transfusion
Monitor hemoglobin
received 3 doses IV iron supplementation, switched to PO
received 4PRBC transfusion over the course of hospitalization
Hepatic encephalopathy:
Continue lactulose and rifaximin as above
Lactulose Enema prn
Alcohol liver cirrhosis:
MELD score labs-hx MELD score 18
PT/OT appreciated SNF rehab
DVT prophylaxis:
heparin gtt w/o bolus for DVT
CODE STATUS:
DNR
discussed with patient and patient's [id number] Jojo
I spent a total of 50 minutes with the patient or on the floor. More than 50% of this time involved counseling and coordination of care.
Anticipated Discharge: > 48 hours
Subjective/Interval History
-
Date of Service: July 21, 2024
Seen and examined at bedside in no acute distress resting comfortably in bed. Somewhat anxious wheezing but upper airway. Otherwise stable respiratory status on room air. Anxiety seemed to improve with verbal reassurances. Patient overall
improving tolerating hep gtt.
Objective Data
-
Labs:
Laboratory Results
07/21/24 07/21/24
03:10 12:00
WBC 7.3
Hgb 8.3 L
Hct 26.0 L
Plt Count 82 L
APTT > 200 H* Pending
Sodium 142
Potassium 3.6
Chloride 116 H
Carbon Dioxide 23
BUN 20
Creatinine 1.0
Glucose 112 H
Calcium 7.4 L
Total Bilirubin 2.0 H
AST 65 H
ALT 40
Alkaline Phosphatase 132 H
Vital Signs:
Vital Signs
Temp Pulse Resp BP Pulse Ox
97.6 F 78 13 130/71 91
07/21/24 03:20 07/21/24 06:00 07/21/24 06:00 07/21/24 06:00 07/21/24 06:00
I&O
07/20/24 07/21/24 07/22/24
06:59 06:59 06:59
Intake Total 1480 / 1480 2375 / 2375
Output Total 900 / 900 700 / 700
Balance 580 / 580 1675 / 1675
[2024-07-21] MEDS: SYMBICORT 160/4.5 MCG INHALER 2 PUFF INH ×2 (07:48→19:06)
[2024-07-21] MEDS: ProAIR HFA INHALER 2 PUFF INH ×2 (07:48→19:06)
[2024-07-21] MEDS: DUPHALAC/CHRONULAC 20 GRAMS PO ×3 (08:00→23:16)
[2024-07-21] MEDS: NSS (PRESERVATIVE FREE) 10 ML IV ×2 (08:00→20:26)
[2024-07-21] MEDS: TYLENOL 650 MG PO ×5 (08:00→23:16)
[2024-07-21] MEDS: THIAMINE INJECTION 200 MG IV (08:00)
[2024-07-21] MEDS: XIFAXAN 550 MG PO ×2 (08:00→20:25)
[2024-07-21] MEDS: LASIX 40 MG PO (08:00)
[2024-07-21] MEDS: PROTONIX IV 40 MG IV ×2 (08:01→20:26)
[2024-07-21] MEDS: DESENEX/MITRAZOL/ZEASORB 1 APPLIC TOPICAL ×2 (08:01→20:29)
[2024-07-21] MEDS: MORPHINE SULFATE 1 MG IV ×2 (08:56→20:25)
--- NOTE | 2024-07-21 10:35 | W.PN.NEPH.PH ---
Today's Communication / Plan
-
follow BMP
Assessment/Plan
-
IMP:
Acute upper GI bleed
Acute toxic-metabolic encephalopathy
Dysphagia
Acute DVT left upper extremity
SUSIE
Hypernatremia
B/L R>L Pleural effusion-Status post thoracentesis
Abdominal ascites
Anemia
Thrombocytopenia
Acute blood loss anemia
Hepatic encephalopathy
Alcohol liver cirrhosis
Plan:
lasix 40mg po daily
follow BMP
eventually can consider spironolactone as well.
FR 48oz
-
-
Date of Service: July 21, 2024
CC / HPI / ROS
-
Chief Complaint:
SUSIE
History of Present Illness:
SUSIE/Cr stable at 1
BP stable
Sodium stable 142
drinking a lot of fluids
Review of Systems:
no CP/SOB
Labs
-
Labs:
WBC 7.3 10^3/uL (4.8-10.8) 07/21/24 03:10
RBC 2.83 10^6/uL (4.70-6.10) L 07/21/24 03:10
Hgb 8.3 g/dL (13.0-18.0) L 07/21/24 03:10
Hct 26.0 % (39.0-52.0) L 07/21/24 03:10
Plt Count 82 10^3/uL (130-400) L 07/21/24 03:10
Sodium 142 mmol/L (135-145) 07/21/24 03:10
Potassium 3.6 mmol/L (3.5-5.1) 07/21/24 03:10
Chloride 116 mmol/L (98-107) H 07/21/24 03:10
Carbon Dioxide 23 mmol/L (22-30) 07/21/24 03:10
BUN 20 mg/dl (9-20) 07/21/24 03:10
Creatinine 1.0 mg/dL (0.7-1.3) 07/21/24 03:10
eGFR > 60.00 07/21/24 03:10
Glucose 112 mg/dl (70-99) H 07/21/24 03:10
Calcium 7.4 mg/dl (8.4-10.2) L 07/21/24 03:10
Phosphorus 2.9 mg/dl (2.5-4.5) 07/21/24 03:10
Albumin 2.1 g/dl (3.5-5.0) L 07/21/24 03:10
Physical Exam
-
Vital Signs:
Vital Signs
Temp Pulse Resp BP Pulse Ox
98.0 F 76 18 130/71 92
07/21/24 07:15 07/21/24 07:54 07/21/24 07:54 07/21/24 06:00 07/21/24 08:00
Cardiovascular:: Regular rate and rhythm
Respiratory:: Bilateral: Coarse
Lung Excursion:: Normal
Abdomen:: Nontender and Soft
Bowel Sounds:: Normal
Extremity Edema:: +3: Bilateral:
--- NOTE | 2024-07-21 11:22 | W.PN.GI.CBS2 ---
Today's Communication / Plan
-
Dc octreotide
Continue supportive care and monitor hemoglobin
Paracenteses as needed will schedule with IR since abdomen appears more distended
Assessment / Plan
-
Assessment: The patient is a 58-year-old male with a known medical history of alcoholic cirrhosis who was brought to the ER after found unresponsive at home. His lab results showed a very low level of hgb to 4.9 at the admission. The patient`s
endoscopy (by Dr Patino on 07/06/24) showed portal hypertensive gastropathy, old blood clots in the gastric fundus, normal duodenum. No active GI bleeding signs were observed since admission The patient had a likely stable level of hgb around to
8.1-8.5. This am, the patient`s hgb level was found slightly decreased to 6.9 without any active GI bleeding symptoms. The patient had been placed Dobbhoff for 3 times and he took of the last one about 2 days ago during his one of the agitation
episodes. GI team was consulted for re-evaluation of he patient.
07/19/2024 EGD Impression: - Grade II esophageal varices. Completely eradicated.
Banded x2
- Bilious gastric fluid.
- Portal hypertensive gastropathy.
- Normal duodenal bulb, first portion of the duodenum
and second portion of the duodenum. Biopsied.
07/06 EGD - Normal esophagus.- Portal hypertensive gastropathy- Old black clots in the gastric fundus- Normal examined duodenum- No specimens collected.
07/11 abd X ray-moderate gas in non dilated loops of bowel
Limited study demonstrating no evidence of acute pathology
07/11- CTa/p without IV contrast -Generalized anasarca. Moderate right and small left pleural effusion. Mild to moderate ascites. No focal collection or abscess. No free air.
No bowel obstruction. No obstructive uropathy.Cirrhosis. Splenomegaly.Posterior lung base parenchymal opacity, likely compressive atelectasis. Cannot entirely exclude pneumonia.
07/11 HCT No acute intracranial abnormality identified.chronic microvascular ischemic change. 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
07/12/24 Pleural effusion: Successful ultrasound-guided RIGHT thoracentesis, yielding 360 mL of straw colored pleural fluid.
07/16/24 Abd US:shows small volume ascites in all 4 quadrants of the abdomen without a significant change when compared with the 07/13/2024 examination. IR attempted for a paracentesis on 06/1424 and it was unable to be drained.
Impression:
GI Bleeding likely from portal gastropathy and E. varices
Cirrhosis complicated with hypoalbuminemia, thrombocytopenia, coagulopathy possibly Alcohol related
Mental Status Changes secondary to HE vs Alcohol withdrawal vs other
Hypotension requiring pressors during admission
Abdominal ascites per CT/ US with mild abdominal distention
Hypernatremia
Resp insufficiency s/p intubation with extubation 07/10
Bipolar disorder ?
Pleural effusion
Plan:
-Upper GI bleeding: Status post repeat EGD 07/[address] Byrd and had esophageal varices banded with eradication and also was noted to have portal gastropathy but no active bleeding
-will Dc Octreotide
-Continue twice daily PPI and monitor hemoglobin
-Abdomen slightly more distended today will schedule for paracenteses with IR, US 07/19 with more ascites also
-Acute upper bilateral DVT okay started heparin gtt 07/20 without bolus but monitor very closely for signs of bleeding and hemoglobin- high risk of rebleed
-Continue lactulose and Xifaxan goal 3-4 bowel movements a day
-Oral intake as recommended by speech currently on clear liquids but can advance as recommended by speech.
Subjective
Subjective
Date of Service: July 21, 2024
Denies abdominal pain shortness of breath is improving, no rectal bleeding or melena he had a brown bowel movement currently on heparin drip
Objective
Data Reviewed
Laboratory Data:
Laboratory Results
07/21/24 03:10
07/21/24 03:10
Laboratory Results
PT 19.2 Sec (11.4-14.6) H 07/15/24 03:29
INR 1.59 07/15/24 03:29
APTT > 200 Sec (23.4-35.0) H* 07/21/24 03:10
Phosphorus 2.9 mg/dl (2.5-4.5) 07/21/24 03:10
Magnesium 2.2 mg/dl (1.6-2.3) 07/21/24 03:10
Total Bilirubin 2.0 mg/dl (0.2-1.3) H 07/21/24 03:10
AST 65 U/L (17-59) H 07/21/24 03:10
ALT 40 U/L (0-50) 07/21/24 03:10
Alkaline Phosphatase 132 U/L (38-126) H 07/21/24 03:10
Lipase 357 U/L (23-300) H 07/05/24 19:13
Vital Signs and I&O:
Vital Signs
Temp Pulse Resp BP Pulse Ox
98.5 F 77 22 148/83 91
07/21/24 10:40 07/21/24 11:00 07/21/24 11:00 07/21/24 10:00 07/21/24 11:06
I&O
07/20/24 07/21/24 07/22/24
06:59 06:59 06:59
Intake Total 1480 / 1480 2375 / 2375
Output Total 900 / 900 700 / 700
Balance 580 / 580 1675 / 1675
Physical Exam
Physical Exam
Cardiology: Normal Sinus Rhythm
Pulmonary: Clear and Other (Decreased breath sounds at bases)
GI: Soft, Distended, Non Tender and Normal Bowel Sounds
[2024-07-21] MEDS: HEPARIN 25000 UNITS/250 ML IV (12:30)
[2024-07-21 12:48] LABS: APTT > 200 Sec (23.4-35.0)
--- NOTE | 2024-07-21 14:35 | PTCARENOTE ---
Pt's assessment as documented. Aox3 but very confused. Setting off bed alarm but able to redirect pt. NSR on tele monitor. Heparin gtt infusing per order, see intervention. Medicated with PRN Morphine and Ativan, see MAR. Family updated at bedside.
Care as documented. Bed alarm in place for safety, call amaya within reach.
--- NOTE | 2024-07-21 16:10 | W.PN.PUL3 ---
Today's Communication / Plan
-
Changed DuoNebs to Symbicort as he has been refusing DuoNebs
Change prn DuoNebs to prn ProAir
Completed course of Abx; continue aspiration precautions
Continue lasix given concern for volume overload on CXR from 07/19
Wean down O2 as tolerated while keeping SpO2 >90%
Up OOB as tolerated
Trend MELD-Na score
Monitor mental status
Patient's respiratory status has improved and he is currently on room air since 07/20/2024 and breathing comfortably, saturating >94-95%; no additional recommendations at this time. Pulmonary service will now sign off. Please reconsult if there are
any additional questions/concerns, or if patient's respiratory status deteriorates.
Assessment
-
58-year-old man with history of alcohol cirrhosis admitted through the emergency room after found unresponsive at home by his mother. Patient was admitted with dark stools, dark emesis, found to have anemia and GI bleed. Intubated for change in
mental status and airway protection and transferred to the critical care unit for further care.
Acute respiratory failure/change in mental status requiring intubation and mechanical ventilation for airway protection 07/05/2024
Intubated 07/05/2024
Extubated 07/10/2024
Hepatic encephalopathy
Acute GI bleed-melena/coffee-ground
Acute blood loss anemia-hemoglobin on admission 4.9 and he has required 4 U PRBC since admission
Status post EGD 07/06/2026: Portal gastropathy.
Repeat EGD 07/19/2024 with grade 2 distal EV s/p bands x2 with PHG
Change in mental status/toxic metabolic encephalopathy: Cannot rule out alcohol withdrawal/hepatic encephalopathy
Ammonia level 92 on 07/05/2024 --> less than 9 on 07/18/2024
Coagulopathy INR 2.7 --> now 1.59 on 07/15/2024
Self reported Hx of asthma
Conditions present prior admission:
Alcoholic cirrhosis-on prior operative report from 2015 is noted.
? Bipolar disorder-not taking any medications
History of alcohol disorder
Plan:
Respiratory status continues to improve, now on room air and breathing comfortably
Remains on room air since 07/20/2024 and saturating >95% (improved from 07/19/2024 when he required 3L/min (was saturating 100% at the time)
BiPAP if needed-has not needed
Deep suction as needed
Nebulizers continue-DuoNebs --> he is refusing --> on 07/19/2024 I started Symbicort 160mcg and changed DuoNebs to prn --> he wants Primatene mist, which we do not carry. Will change prn DuoNebs to proair for now
He does report a Hx of asthma, however given his waxing/waning mental, he is not the best historian right now; not wheezing today
Continue Aspiration precautions
Now on clear liquids
He is DNR
Morphine and Ativan as needed for agitation and anxiety--hold for sedation
Given his portal hypertensive gastropathy and esophageal varices seen on EGD from 07/19/2024, octreotide started on 07/19 after his EGD - this was stopped overnight; continue PPI 40mg IV BID; continue lactulose + rifaximin as well, and occasionally
trend ammonia level
Psychiatry following --> recs appreciated --> they signed off on 07/19
Chest x-ray 07/12/2024-low lung volumes, bilateral pleural effusions right greater than left
Repeat right thoracentesis 07/12/24--360 mL
Mild opacification seen on the right hemithorax on CXR from 07/15/2024; Zosyn started given concern for aspiration --> on 07/16 zosyn changed to Unasyn (last day was on 07/19)
Aspiration precautions
Speech therapy following --> defer diet to them if ok with GI
Monitor hemoglobin and Transfuse if needed to keep Hb >7 g/dL
Keep platelets >50 K
Maintain INR <1.8
Continue PPI 40mg IV BID
GI following- correspondence reviewed
Abdominal ultrasound 07/06/2024: Liver is shrunken and nodular, consistent with cirrhosis.
Abdominal ultrasound 07/19/2024: Ascites seen which is increased compared to prior abdominal US on 07/16/2024, primarily in the RUQ/RLQ --> abdomen more distended/firm on 07/20 --> IR paracentesis attempted but not enough fluid for safe tap
CT abdomen and pelvis 07/11/2024-generalized anasarca, moderate right and left small pleural effusion, moderate ascites, no bowel obstruction, cirrhosis, basilar compressive atelectasis
Continue rifaximin
Trend MELD-Na score
Paracentesis attempt on 07/13/2024 and againon 07/20 - not performed as not enough fluid for safe tap
Duplex US on 07/10/2024 showed catheter associated R-sided superficial thrombus around PICC and also thrombus in cephalic vein
Left duplex US on 07/12/2024 showed DVT involving left brachial vein and superficial involving cephalic vein
High risk for full anticoagulation-Dr. Sheikh discussed with GI on 07/13/2024-okay to use heparin with DVT prophylactic doses, started on 07/13/2024 --> now being started on heparin gtt given his H/H has been stable with last PRBC transfusion on
07/18/2024
Trend ammonia levels
Continue lactulose and titrate to 3�4 loose/formed bowel movements per day
Monitor mental status-suspect toxic metabolic encephalopathy
Neurology consulted on 07/11/2024 --> correspondence reviewed
CT head 07/11/2024-stable chronic findings, no acute intracranial abnormalities
EEG 07/11/2024-generalized slowing
Girlfriend/friend stated that he has not drank in a while-his [id number] reports patient did not drink for 10 years but about 1 year ago he started drinking again
Active drinking would preclude transplant approval
Hepatic encephalopathy improved but he is still confused occasionally
Diuresis was attempted --> last given on 07/16/2024 --> restarted on 07/20 with 40mg PO lasix daily
Monitor renal function, electrolytes, intake/output, lower extremity edema and weight
Replace electrolytes as needed
Nephrology following-correspondence reviewed.
D5W stopped on 07/19 --> continue to trend sNa levels
Cultures reviewed --> blood Cx from 07/16 + 07/17/2024 show NGTD; C diff Ag and toxins are negative
Due to concern for aspiration with bibasilar pneumonia, he completed course of antibiotics with Zosyn (07/15 - 07/16/2024) + Unasyn (07/16 - 07/19/2024)
CXR from 07/19/2024 showed improved aeration in bases but with interstitial prominence with suspected pulmonary edema --> now back on PO lasix as of 07/20/2024
Was on rocephin prior from 07/06 - 07/12/2023
We monitored for alcohol withdrawal-now well over a week after last drink
MSAS discontinued
Thiamine continues
Ativan as needed
Psychiatry evaluation --> signed off on 07/19/2024
DVT prophylaxis-initially on sequentials-SQ heparin initiated 07/13/2024 --> now on heparin gtt as of 07/20 given his Hx of LUE DVT Dx on 07/12/2024
GI prophylaxis-on Protonix
Nutrition-patient pulled Dobbhoff 07/14/2024-speech therapy evaluation-modified diet initiated 07/14/2024
Bedside range of motion/eventual physical therapy
Outpatient hepatology follow-up for cirrhosis management
Patient's respiratory status has improved and he is currently on room air since 07/20/2024 and breathing comfortably, saturating >94-95%; no additional recommendations at this time. Pulmonary service will now sign off. Thank you for allowing us to
be involved in the care of this patient. Please reconsult if there are any additional questions/concerns, or if patient's respiratory status deteriorates.
Family discussions:
Dr. Sheikh updated [id number] at the bedside extensively 07/09/2024 as well as on multidisciplinary rounds 07/11/2024, 07/12/2024, and 07/13/2024, and Dr. Sheihk reviewed with [id number] 07/14/2024, 07/15/2024, and again on 07/18/24
Goals of care again discussed with [id number] 07/12/2024-DNR, do not reintubate if respiratory decompensation-again updated on 07/13/2024
Total time spent today was 38 minutes for this encounter. Time includes reviewing laboratory test/imaging results, reviewing pertinent medical records, obtaining and reviewing medical history, performing an appropriate exam, ordering medications,
tests and procedures. Time also includes documentation of this encounter, coordinating patient care and communicating with other healthcare professionals. Total time does not include separately billed tests performed on this date of service.
Subjective Data
-
Date of Service:
Date of Service: July 21, 2024
Chief Complaint: Pulmonary Follow Up and Dyspnea Follow Up
Subjective:
Patient seen this afternoon and he is resting in bed in no acute distress. He says his shortness of breath is better but he still has periods of confusion. According to the nurse, he was oriented this morning. Currently on room air saturating 95%
with heart rate 48 and BP 141/91. He currently denies chest pain, nausea, fevers or chills.
Review of Systems
General: Other (Unable to obtain given patient's acute clinical status/confusion)
Objective Data
Data Reviewed
Vital Signs / I&O / Oxygen:
Vital Signs
Temp Pulse Resp BP Pulse Ox
98.0 F 76 18 130/71 92
07/21/24 07:15 07/21/24 07:54 07/21/24 07:54 07/21/24 06:00 07/21/24 08:00
Intake and Output
07/20/24 07/21/24 07/22/24
06:59 06:59 06:59
Intake Total 1480 / 1480 2375 / 2375
Output Total 900 / 900 700 / 700
Balance 580 / 580 1675 / 1675
SaO2 [CPAP/PSV] 97
SaO2 [A/C] 95
SaO2 92
Nasal Cannula flow liters per 3
minute
Physical Exam
General: Respiratory Distress (n), Comfortable and Other (chronically ill appearing)
HEENT: Normocephalic, Anicteric and Moist Mucous Membranes
Cardiovascular: S1-S2, Rub (negative) and Peripheral Edema (negative)
Respiratory: Wheeze (negative), Crackles (Bibasilar (L >R)), Rhonchi (negative), Non-Labored Respirations, Accessory Resp Muscle Use (n) and Stridor (negative)
GI: Soft, Distended, Non Tender, Normal Bowel Sounds and Other (abdomen is firm but not rigid and non-tender)
Neurology: Awake, Alert, Tremors (negative) and Other (confused at times and tangential; following commands)
Skin: Warm, Dry, Cyanosis (negative), Jaundice (negative) and Rash (n)
Labs/Micro/Reports
Lab Data
07/21/24 03:10
07/21/24 03:10
Laboratory Results
07/20/24 07/20/24 07/21/24
10:47 18:27 03:10
APTT 44.6 H > 200 H* > 200 H*
Microbiology
07/17/24 04:48 Blood/Venous Blood Culture - Preliminary
No Growth in 4 days- Final report to follow
07/16/24 13:53 Blood/Venous Blood Culture - Preliminary
No Growth in 4 days- Final report to follow
--- NOTE | 2024-07-21 16:41 | PTCARENOTE ---
Pt again setting off bed alarm. Entered pt room with other RN's to find rectal tube out, and pt had removed wrist band, monitor equipment and central line dressing. CHG cloth placed over IJ site and IVT paged and to beside to re dress site
immediately. Complete CHG bath completed and rusty care completed. Dr. Whaley notified and order received for b/l soft wrist restraints. Restraints placed and pt educated on need for restraints. Bed alarm and all amaya remain in place.
--- NOTE | 2024-07-21 16:45 | VATNOTE ---
called to redress right IJ TLC. Right IJ dressing removed by patient. Dressing done as per policy.
[2024-07-21] MEDS: SEROQUEL 25 MG PO (17:13)
[2024-07-21 21:48] LABS: APTT 153.8 Sec (23.4-35.0)
--- NOTE | 2024-07-21 22:15 | PTCARENOTE ---
Addendum entered by Fannie Tesfaye RN 07/21/24 23:53:
Pt requiring PRN Ativan for agitation/anxiety, (see mar).
Original Note:
Pt remains in restrains with understanding attitude when explanation given. Pt having back pain, repositioned and PRN medication given (see MAR). Patient repeat PTT resulting 153.8 protocol followed.
[2024-07-22] VITALS (11 sets, daily range): BP systolic 108–150; BP diastolic 65–84; BMI 30.9; BMI 30.2
[2024-07-22] MEDS: MORPHINE SULFATE 1 MG IV (02:39)
[2024-07-22] MEDS: TYLENOL 650 MG PO ×6 (04:28→23:31)
[2024-07-22 05:35] LABS: APTT 59.5 Sec (23.4-35.0)
[2024-07-22 05:36] LABS: Hematocrit 25.3 % (39.0-52.0); Mean Corp Hgb Conc. 31.6 g/dL (33.0-37.0); Mean Corpuscular Volume 91.7 fL (80.0-94.0); Mean Platelet Volume 10.5 fL (7.4-10.4); Red Blood Cell Count 2.76 10^6/uL (4.70-6.10); Red Cell Dist. Width 18.2 % (11.5-14.5); White Blood Cell Count 4.6 10^3/uL (4.8-10.8)
[2024-07-22 05:37] LABS: Platelet Count 67 10^3/uL (130-400)
[2024-07-22 05:51] LABS: ALT (SGPT) 39 U/L (0-50); AST (SGOT) 63 U/L (17-59); Albumin 2.1 g/dl (3.5-5.0); Alkaline Phosphatase 146 U/L (38-126); Blood Urea Nitrogen 17 mg/dl (9-20); Calcium 7.3 mg/dl (8.4-10.2); Carbon Dioxide 21 mmol/L (22-30); Chloride 115 mmol/L (98-107); Estimated Creatinine Clearance 98 ml/min; Glucose 79 mg/dl (70-99); Magnesium 1.9 mg/dl (1.6-2.3); Phosphorus 2.6 mg/dl (2.5-4.5); Potassium 3.2 mmol/L (3.5-5.1); Sodium 142 mmol/L (135-145); Total Bilirubin 2.3 mg/dl (0.2-1.3); Total Protein 5.2 g/dl (6.3-8.2); eGFR > 60.00
--- NOTE | 2024-07-22 06:03 | PTCARENOTE ---
Addendum entered by Fannie Tesfaye RN 07/22/24 06:33:
Po given
Original Note:
Morning Labs showing low K, night REAL ESTATE AGENT/BROKER made aware.
[2024-07-22] MEDS: KCL 40 MEQ PO ×3 (06:29→18:04)
--- NOTE | 2024-07-22 07:20 | W.PN.HOSP.TC ---
Today's Communication/Plan
-
cont hep gtt
monitor H&H
seroquel 25 mg qpm
ativan morphine prn
ST/PT/OT
diet advanced to soft bite sized
replete K
Discharge planning SNF rehab
Assessment / Plan
Assessment / Plan
Physical exam:
General: No acute distress, appears comfortable at this time
HEENT: Normocephalic, Atraumatic and Moist Mucous Membranes
Respiratory: clear to auscultation b/l
Cardiac: Regular Rhythm and S1/S2
GI: Soft, Nontender, Distended
Musculoskeletal: No Clubbing, No Cyanosis and No Edema
Neuro: AOx3 Conversant Coherent though occasional tangential speech noted
Psych: Calm
A/P: 58M ETOH cirrhosis here for GIB and Hepatic Encephalopathy. Hospital course complicated with bilateral upper Ext DVT and likely aspiration pneumonia with associated Acute Hypoxic Respiratory Failure.
Acute upper GI bleed:
EGD showed portal gastropathy
Continue PPI, Protonix 40 mg IV twice a day
completed a course of octreotide and Rocephin
GI eval appreciated repeat EGD performed 07/20/24 w/ results as follows, repeat ocreotide gtt completed, protonix 40 mg BID, repeat EGD in 4 wks
07/20/24 EGD
Grade II esophageal varices. Completely eradicated. Banded x2
- Bilious gastric fluid.
- Portal hypertensive gastropathy.
- Normal duodenal bulb, first portion of the duodenum and second portion of the duodenum. Biopsied.
07/20/24 Rapid Response Respiratory Distress agitation
-patient since improved with once IV morphine 1mg ordered by overnight staff
-review of records reports, appears to be delirium possibly triggered by post-anesthesia side effects vs hospital associated delirium
Acute toxic-metabolic encephalopathy:
Hospital Associated Delirium
Precedex off
Continue lactulose 20 g 3 times daily as tolerated
Continue rifaximin 550 mg twice a day as tolerated
Missed doses lactulose rifaximin due to AMS aspiration risk, patient removed DHT multiple times, once lactulose enema 07/18/24 GI re-eval appreciated
Neuro eval appreciated
Psych eval appreciated
X Ray Nurse/Pulm Eval appreciated
Seroquel 25 mg QPM started (typically around the time patient sundowns/becomes agitated)
EKG checked prior start Seroquel noted no significant QT prolongation.
Mental status since improved speech eval appreciated diet advanced to soft bite sized with 1:1 assist 100% supervision
Bilateral Acute DVT upper extremities:
Challenging situation given recent GI bleed
Discussed with GI following repeat EGD as above, cleared to start hep gtt w/o bolus for now, continued appears to be tolerating well
Acute respiratory failure
Possible Aspiration Pneumonia
Dysphagia:
patient was on tube feeds d/t concerns aspiration lethargy AMS, however tube was removed three times overnight by patient
Speech eval appreciated NPO except meds crushed in pureed, Aspiration Risk Hydration Protocol
Leukocytosis, trend wbc, monitor temp
empiric zosyn narrowed to unasyn, completed total 5 days abx
blood cultures x2 NGTD
weaned off oxygen supplementation stable respiratory status on room air
B/L R>L Pleural effusion:
Status post thoracentesis 360 mL drawn
On Lasix 20 mg IV twice a day- placed on hold d/t SUSIE
Lasix since resumed, with resolution SUSIE, at 40 mg daily as per Nephro
Hypokalemia
monitor and replete as necessary
SUSIE resolved
Hypernatremia resolved
Nephro eval appreciated IVF D5W supplementation completed
Abdominal ascites
Abd distension
Diarrhea though on Lactulose
ascites remains small volume Abd US performed 07/13 and 07/16 not enough for paracentesis
Cdiff antigen pos but toxin neg
07/19 Abd US notes increase in ascites, IR re-eval appreciated however remains insufficient for paracentesis
Acute blood loss anemia
Anemia of Chronic Disease
Iron Deficiency Anemia
Status post blood transfusion
Monitor hemoglobin
received 3 doses IV iron supplementation, switched to PO
received 4PRBC transfusion over the course of hospitalization
Hepatic encephalopathy:
Continue lactulose and rifaximin as above
Lactulose Enema prn
Alcohol liver cirrhosis:
MELD score labs-hx MELD score 18
PT/OT appreciated SNF rehab
DVT prophylaxis:
heparin gtt w/o bolus for DVT
CODE STATUS:
DNR
discussed with patient and patient's [id number] Jojo
I spent a total of 50 minutes with the patient or on the floor. More than 50% of this time involved counseling and coordination of care.
Anticipated Discharge: 24 - 48 hours
Subjective/Interval History
-
Date of Service: July 22, 2024
Stable respiratory status on room air. Appears calmer this morning, less anxious. Reports overall feeling well.
Objective Data
-
Labs:
Laboratory Results
07/21/24 07/22/24 07/22/24
21:20 05:05 12:00
WBC 4.6 L
Hgb 8.0 L
Hct 25.3 L
Plt Count 67 L
APTT 153.8 H* 59.5 H Pending
Sodium 142
Potassium 3.2 L
Chloride 115 H
Carbon Dioxide 21 L
BUN 17
Creatinine 0.9
Glucose 79
Calcium 7.3 L
Total Bilirubin 2.3 H
AST 63 H
ALT 39
Alkaline Phosphatase 146 H
Vital Signs:
Vital Signs
Temp Pulse Resp BP Pulse Ox
97.5 F 77 16 135/79 95
07/22/24 03:05 07/22/24 06:00 07/22/24 06:00 07/22/24 06:00 07/22/24 02:46
I&O
07/21/24 07/22/24 07/23/24
06:59 06:59 06:59
Intake Total 2375 / 2375 74 / 74
Output Total 700 / 700 790 / 790
Balance 1675 / 1675 -716 / -716
[2024-07-22] MEDS: SYMBICORT 160/4.5 MCG INHALER 2 PUFF INH ×2 (08:17→19:17)
[2024-07-22] MEDS: ProAIR HFA INHALER 2 PUFF INH ×3 (08:17→19:17)
[2024-07-22] MEDS: NSS (PRESERVATIVE FREE) 10 ML IV ×2 (08:52→19:53)
[2024-07-22] MEDS: DESENEX/MITRAZOL/ZEASORB 1 APPLIC TOPICAL ×2 (08:53→19:57)
[2024-07-22] MEDS: MAGNESIUM SULFATE 50 IV (08:53)
[2024-07-22] MEDS: THIAMINE INJECTION 200 MG IV (08:53)
[2024-07-22] MEDS: DUPHALAC/CHRONULAC 20 GRAMS PO ×3 (08:53→21:16)
[2024-07-22] MEDS: PROTONIX IV 40 MG IV ×2 (08:53→19:53)
[2024-07-22] MEDS: LASIX 40 MG PO (08:54)
[2024-07-22] MEDS: FEOSOL 325 MG PO (08:54)
[2024-07-22] MEDS: ATIVAN 0.5 MG PO (08:54)
[2024-07-22] MEDS: FLUSH (NSS) 4 FLUSH IV (08:55)
[2024-07-22] MEDS: XIFAXAN 550 MG PO ×2 (08:55→19:53)
--- NOTE | 2024-07-22 09:43 | W.PN.NEPH.PH ---
Today's Communication / Plan
-
K
Assessment/Plan
-
IMP:
Acute upper GI bleed
Acute toxic-metabolic encephalopathy
Dysphagia
Acute DVT left upper extremity
SUSIE
Hypernatremia
B/L R>L Pleural effusion-Status post thoracentesis
Abdominal ascites
Anemia
Thrombocytopenia
Acute blood loss anemia
Hepatic encephalopathy
Alcohol liver cirrhosis
Plan:
lasix 80mg po daily
follow BMP
replete K
eventually can consider spironolactone as well.
FR 48oz
-
-
Date of Service: July 22, 2024
CC / HPI / ROS
-
Chief Complaint:
SUSIE
History of Present Illness:
SUSIE/Cr stable at 0.9
BP stable
K low 3.2
Sodium stable 142
Review of Systems:
no CP/SOB
Labs
-
Labs:
WBC 4.6 10^3/uL (4.8-10.8) L 07/22/24 05:05
RBC 2.76 10^6/uL (4.70-6.10) L 07/22/24 05:05
Hgb 8.0 g/dL (13.0-18.0) L 07/22/24 05:05
Hct 25.3 % (39.0-52.0) L 07/22/24 05:05
Plt Count 67 10^3/uL (130-400) L 07/22/24 05:05
Sodium 142 mmol/L (135-145) 07/22/24 05:05
Potassium 3.2 mmol/L (3.5-5.1) L 07/22/24 05:05
Chloride 115 mmol/L (98-107) H 07/22/24 05:05
Carbon Dioxide 21 mmol/L (22-30) L 07/22/24 05:05
BUN 17 mg/dl (9-20) 07/22/24 05:05
Creatinine 0.9 mg/dL (0.7-1.3) 07/22/24 05:05
eGFR > 60.00 07/22/24 05:05
Glucose 79 mg/dl (70-99) 07/22/24 05:05
Calcium 7.3 mg/dl (8.4-10.2) L 07/22/24 05:05
Phosphorus 2.6 mg/dl (2.5-4.5) 07/22/24 05:05
Albumin 2.1 g/dl (3.5-5.0) L 07/22/24 05:05
Physical Exam
-
Vital Signs:
Vital Signs
Temp Pulse Resp BP Pulse Ox
97.5 F 78 18 133/73 94
07/22/24 03:05 07/22/24 08:18 07/22/24 08:18 07/22/24 08:00 07/22/24 08:18
Cardiovascular:: Regular rate and rhythm
Respiratory:: Bilateral: Coarse
Lung Excursion:: Normal
Abdomen:: Nontender and Soft
Bowel Sounds:: Normal
Extremity Edema:: +3: Bilateral:
--- NOTE | 2024-07-22 09:52 | W.PN.GI.CBS2 ---
Today's Communication / Plan
-
Continue supportive care
Assessment / Plan
-
Assessment: The patient is a 58-year-old male with a known medical history of alcoholic cirrhosis who was brought to the ER after found unresponsive at home. His lab results showed a very low level of hgb to 4.9 at the admission. The patient`s
endoscopy (by Dr Patino on 07/06/24) showed portal hypertensive gastropathy, old blood clots in the gastric fundus, normal duodenum. No active GI bleeding signs were observed since admission The patient had a likely stable level of hgb around to
8.1-8.5. This am, the patient`s hgb level was found slightly decreased to 6.9 without any active GI bleeding symptoms. The patient had been placed Dobbhoff for 3 times and he took of the last one about 2 days ago during his one of the agitation
episodes. GI team was consulted for re-evaluation of he patient.
07/19/2024 EGD Impression: - Grade II esophageal varices. Completely eradicated.
Banded x2
- Bilious gastric fluid.
- Portal hypertensive gastropathy.
- Normal duodenal bulb, first portion of the duodenum
and second portion of the duodenum. Biopsied.
07/06 EGD - Normal esophagus.- Portal hypertensive gastropathy- Old black clots in the gastric fundus- Normal examined duodenum- No specimens collected.
07/11 abd X ray-moderate gas in non dilated loops of bowel
Limited study demonstrating no evidence of acute pathology
07/11- CTa/p without IV contrast -Generalized anasarca. Moderate right and small left pleural effusion. Mild to moderate ascites. No focal collection or abscess. No free air.
No bowel obstruction. No obstructive uropathy.Cirrhosis. Splenomegaly.Posterior lung base parenchymal opacity, likely compressive atelectasis. Cannot entirely exclude pneumonia.
07/11 HCT No acute intracranial abnormality identified.chronic microvascular ischemic change. 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
07/12/24 Pleural effusion: Successful ultrasound-guided RIGHT thoracentesis, yielding 360 mL of straw colored pleural fluid.
07/16/24 Abd US:shows small volume ascites in all 4 quadrants of the abdomen without a significant change when compared with the 07/13/2024 examination. IR attempted for a paracentesis on 06/1424 and it was unable to be drained.
Impression:
GI Bleeding likely from portal gastropathy and E. varices
Cirrhosis complicated with hypoalbuminemia, thrombocytopenia, coagulopathy possibly Alcohol related
Mental Status Changes secondary to HE vs Alcohol withdrawal vs other
Hypotension requiring pressors during admission
Abdominal ascites per CT/ US with mild abdominal distention
Hypernatremia
Resp insufficiency s/p intubation with extubation 07/10
Bipolar disorder ?
Pleural effusion
Plan:
-Upper GI bleeding: Status post repeat EGD 07/[address] Byrd and had esophageal varices banded with eradication and also was noted to have portal gastropathy but no active bleeding
-Continue twice daily PPI and monitor hemoglobin
-Was scheduled for paracenteses but there was not enough fluid on US so unable to have paracenteses
-Acute upper bilateral DVT okay started heparin gtt 07/20 without bolus but monitor very closely for signs of bleeding and hemoglobin- high risk of rebleed
-Continue lactulose and Xifaxan goal 3-4 bowel movements a day
-Oral intake as recommended by speech currently on clear liquids but can advance as recommended by speech.
GI will sign off and will be available as needed-
Subjective
Subjective
Date of Service: July 22, 2024
Patient seems comfortable he denies any abdominal pain. Breathing is improved he is on room air currently,
Para Was not performed yesterday not enough ascites on ultrasound
Objective
Data Reviewed
Laboratory Data:
Laboratory Results
07/22/24 05:05
07/22/24 05:05
Laboratory Results
PT 19.2 Sec (11.4-14.6) H 07/15/24 03:29
INR 1.59 07/15/24 03:29
APTT 59.5 Sec (23.4-35.0) H 07/22/24 05:05
Phosphorus 2.6 mg/dl (2.5-4.5) 07/22/24 05:05
Magnesium 1.9 mg/dl (1.6-2.3) 07/22/24 05:05
Total Bilirubin 2.3 mg/dl (0.2-1.3) H 07/22/24 05:05
AST 63 U/L (17-59) H 07/22/24 05:05
ALT 39 U/L (0-50) 07/22/24 05:05
Alkaline Phosphatase 146 U/L (38-126) H 07/22/24 05:05
Lipase 357 U/L (23-300) H 07/05/24 19:13
Vital Signs and I&O:
Vital Signs
Temp Pulse Resp BP Pulse Ox
97.6 F 78 18 133/73 94
07/22/24 07:10 07/22/24 08:18 07/22/24 08:18 07/22/24 08:00 07/22/24 08:18
I&O
07/21/24 07/22/24 07/23/24
06:59 06:59 06:59
Intake Total 2375 / 2375 74 / 74
Output Total 700 / 700 790 / 790
Balance 1675 / 1675 -716 / -716
Physical Exam
Physical Exam
Cardiology: Normal Sinus Rhythm
Pulmonary: Clear
GI: Soft, Distended (Mildly distended), Non Tender and Normal Bowel Sounds
[2024-07-22 14:22] LABS: APTT 56.6 Sec (23.4-35.0)
--- NOTE | 2024-07-22 15:59 | PTOTSP ---
SPEECH THERAPY SWALLOW THERAPY FOLLOW UP NOTE:
Patient exhibits clinical signs of oropharyngeal dysphagia likely acutely related to weakness/deconditioning 2/2 GIB, 6-day intubation, and TME, pneumonia. Patient with improved respiratory status at this time. Recommend diet upgrade to IDDSI Level
6 Soft and Bite Size diet, thin liquids. Medications whole in puree or with thin liquid as best tolerated. Aspiration precautions includin:1 assistance/100% supervision with meals; Upright positioning; Small single sips/bites; Slow rate of
intake; Only feed when awake/alert; Only provide p.o. when SpO2>90% and RR<30; Ensure patient swallows prior to next bite; Monitor for signs of aspiration; D/c oral diet if any decline in mental/respiratory status. Oral care 3x/day. ST to follow,
assess diet tolerance and modify as appropriate, determine indication for instrumental assessment of swallowing as appropriate, and provide continued diagnostic swallow therapy as appropriate.
RECOMMEND:
1) diet upgrade to IDDSI Level 6 Soft and Bite Size diet, thin liquids
2) Medications whole in puree or with thin liquid as best tolerated
3) Aspiration precautions includin:1 assistance/100% supervision with meals; Upright positioning; Small single sips/bites; Slow rate of intake; Only feed when awake/alert; Only provide p.o. when SpO2>90% and RR<30; Ensure patient swallows prior
to next bite; Monitor for signs of aspiration; D/c oral diet if any decline in mental/respiratory status
4) Oral care 3x/day
5) ST to follow, assess diet tolerance and modify as appropriate, determine indication for instrumental assessment of swallowing as appropriate
--- NOTE | 2024-07-22 16:27 | PTCARENOTE ---
Patient alert and calm today. Confused conversations with some moments of clarity. Bed alarm on. Patient with intermittent anxiety, prn ativan administered this morning. Bilateral wrist restraints untied at 10:15 AM. Patient has done well with
no wrist restraints all day. Monitoring patient frequently. Family and friends with brief visits. Patient seems to do better with shorter periods with visitors. Heparin drip currently at 700units/7mls. Next PTT 2145. Speech to room to evaluate
patient. Diet upgraded to level 6 soft and bite sized. Must be with 1:1 supervision only and aspiration precautions.
[2024-07-22] MEDS: SEROQUEL 25 MG PO (18:04)
[2024-07-22 22:17] LABS: APTT 155.9 Sec (23.4-35.0)
[2024-07-23] VITALS (10 sets, daily range): BP systolic 114–146; BP diastolic 66–94; PULSE 83; O2SAT 93–94; BMI 30.4
[2024-07-23] MEDS: MORPHINE SULFATE 1 MG IV ×4 (01:15→23:38)
[2024-07-23] MEDS: TYLENOL PO (04:52)
--- NOTE | 2024-07-23 05:51 | PTCARENOTE ---
PT able to stay out of restraints through out the night. one time PRN pain medication given. Pt able to turn self and get comfortably to sleep. One attempt to get up for bathroom. no attempts to pull at IJ. Pt continues on heparin gtt, not yet
therapeutic at this time.
[2024-07-23 06:03] LABS: APTT 78.7 Sec (23.4-35.0)
[2024-07-23 06:15] LABS: ALT (SGPT) 42 U/L (0-50); AST (SGOT) 78 U/L (17-59); Albumin 2.2 g/dl (3.5-5.0); Alkaline Phosphatase 164 U/L (38-126); Blood Urea Nitrogen 18 mg/dl (9-20); Calcium 7.8 mg/dl (8.4-10.2); Carbon Dioxide 20 mmol/L (22-30); Chloride 116 mmol/L (98-107); Estimated Creatinine Clearance 80 ml/min; Glucose 104 mg/dl (70-99); Magnesium 2.1 mg/dl (1.6-2.3); Phosphorus 2.8 mg/dl (2.5-4.5); Sodium 142 mmol/L (135-145); Total Bilirubin 1.8 mg/dl (0.2-1.3); Total Protein 5.3 g/dl (6.3-8.2); eGFR > 60.00
[2024-07-23 06:23] LABS: Mean Corpuscular Hgb 29.5 pg (27.0-31.0); Mean Corpuscular Volume 92.3 fL (80.0-94.0); Mean Platelet Volume 10.4 fL (7.4-10.4); Platelet Count 82 10^3/uL (130-400); Red Blood Cell Count 2.71 10^6/uL (4.70-6.10); Red Cell Dist. Width 18.8 % (11.5-14.5); White Blood Cell Count 5.2 10^3/uL (4.8-10.8)
[2024-07-23] MEDS: SYMBICORT 160/4.5 MCG INHALER 2 PUFF INH ×2 (07:22→19:50)
[2024-07-23] MEDS: ProAIR HFA INHALER 2 PUFF INH ×2 (07:27→19:50)
[2024-07-23] MEDS: DUPHALAC/CHRONULAC PO ×2 (08:02→08:05)
[2024-07-23] MEDS: THIAMINE INJECTION 200 MG IV (08:02)
[2024-07-23] MEDS: DESENEX/MITRAZOL/ZEASORB 1 APPLIC TOPICAL ×2 (08:02→20:12)
[2024-07-23] MEDS: TYLENOL 650 MG PO ×5 (08:03→23:49)
[2024-07-23] MEDS: FEOSOL 325 MG PO (08:03)
[2024-07-23] MEDS: LASIX 40 MG PO (08:03)
[2024-07-23] MEDS: NSS (PRESERVATIVE FREE) 10 ML IV (08:03)
[2024-07-23] MEDS: XIFAXAN 550 MG PO ×2 (08:03→20:11)
[2024-07-23] MEDS: PROTONIX IV 40 MG IV (08:03)
--- NOTE | 2024-07-23 08:30 | W.PN.NEPH.PH ---
Today's Communication / Plan
-
Maintain Lasix
Follow BMP
Assessment/Plan
-
IMP:
Acute upper GI bleed
Acute toxic-metabolic encephalopathy
Dysphagia
Acute DVT left upper extremity
SUSIE
Hypernatremia
B/L R>L Pleural effusion-Status post thoracentesis
Abdominal ascites
Anemia
Thrombocytopenia
Acute blood loss anemia
Hepatic encephalopathy
Alcohol liver cirrhosis
Plan:
lasix 40mg po daily to continue: weights unchanged
follow BMP
replete K prn
eventually can consider spironolactone as well.
FR 48oz
-
-
Date of Service: July 23, 2024
CC / HPI / ROS
-
Chief Complaint:
SUSIE
History of Present Illness:
SUSIE/Cr stable at1.1
BP stable
K 4
Sodium stable 142
Review of Systems:
no CP/SOB
Weights unchanged
Labs
-
Labs:
WBC 5.2 10^3/uL (4.8-10.8) 07/23/24 05:32
RBC 2.71 10^6/uL (4.70-6.10) L 07/23/24 05:32
Hgb 8.0 g/dL (13.0-18.0) L 07/23/24 05:32
Hct 25.0 % (39.0-52.0) L 07/23/24 05:32
Plt Count 82 10^3/uL (130-400) L D 07/23/24 05:32
Sodium 142 mmol/L (135-145) 07/23/24 05:32
Potassium 4.0 mmol/L (3.5-5.1) 07/23/24 05:32
Chloride 116 mmol/L (98-107) H 07/23/24 05:32
Carbon Dioxide 20 mmol/L (22-30) L 07/23/24 05:32
BUN 18 mg/dl (9-20) 07/23/24 05:32
Creatinine 1.1 mg/dL (0.7-1.3) 07/23/24 05:32
eGFR > 60.00 07/23/24 05:32
Glucose 104 mg/dl (70-99) H 07/23/24 05:32
Calcium 7.8 mg/dl (8.4-10.2) L 07/23/24 05:32
Phosphorus 2.8 mg/dl (2.5-4.5) 07/23/24 05:32
Albumin 2.2 g/dl (3.5-5.0) L 07/23/24 05:32
Physical Exam
-
Vital Signs:
Vital Signs
Temp Pulse Resp BP Pulse Ox
97.3 F 96 18 130/73 92
07/23/24 07:38 07/23/24 08:03 07/23/24 07:22 07/23/24 08:03 07/23/24 07:22
Cardiovascular:: Regular rate and rhythm
Respiratory:: Bilateral: Coarse
Lung Excursion:: Normal
Abdomen:: Nontender and Soft
Bowel Sounds:: Normal
Extremity Edema:: +2: Bilateral:
Zhou Catheter: No
--- NOTE | 2024-07-23 08:40 | PTCARENOTE ---
Patient received from tree shear operator. Patient resting comfortably in bed this AM but continues to be mostly drowsy. No events noted overnight. Patient with complaints of pain moaning out, see MAR. [id number] at bedside. Patient continues off
restraints. Heparin gtt @ 400 units/hr through right IJ. K was 4.0 this AM and needing repletion. No testing scheduled at this time. Call amaya in reach.
[2024-07-23 09:18] LABS: Vitamin D, 25-OH*** 13.6 ng/mL (30-80)
[2024-07-23] MEDS: DUONEB 3 ML INH (11:27)
[2024-07-23] MEDS: ATIVAN 0.5 MG IV (11:47)
[2024-07-23 12:37] LABS: APTT 61.6 Sec (23.4-35.0)
--- NOTE | 2024-07-23 14:46 | W.PN.HOSP.TC ---
Today's Communication/Plan
-
Heparin drip. PPI twice daily. Chest x-ray
Assessment / Plan
Assessment / Plan
Physical exam:
General: No acute distress, appears comfortable at this time
HEENT: Normocephalic, Atraumatic and Moist Mucous Membranes
Respiratory: clear to auscultation b/l
Cardiac: Regular Rhythm and S1/S2
GI: Soft, Nontender, Distended
Musculoskeletal: No Clubbing, No Cyanosis and No Edema
Neuro: AOx3 Conversant Coherent though occasional tangential speech noted
Psych: Calm
A/P: 58M ETOH cirrhosis here for GIB and Hepatic Encephalopathy. Hospital course complicated with bilateral upper Ext DVT and likely aspiration pneumonia with associated Acute Hypoxic Respiratory Failure.
Acute upper GI bleed:
EGD showed portal gastropathy
Continue PPI, Protonix 40 mg IV twice a day
completed a course of octreotide and Rocephin
GI eval appreciated repeat EGD performed 07/20/24 w/ results as follows, repeat ocreotide gtt completed, protonix 40 mg BID, repeat EGD in 4 wks
07/20/24 EGD
Grade II esophageal varices. Completely eradicated. Banded x2
- Bilious gastric fluid.
- Portal hypertensive gastropathy.
- Normal duodenal bulb, first portion of the duodenum and second portion of the duodenum. Biopsied.
07/20/24 Rapid Response Respiratory Distress agitation
-patient since improved with once IV morphine 1mg ordered by overnight staff
-review of records reports, appears to be delirium possibly triggered by post-anesthesia side effects vs hospital associated delirium
Acute toxic-metabolic encephalopathy:
Hospital Associated Delirium
Precedex off
Continue lactulose 20 g 3 times daily as tolerated
Continue rifaximin 550 mg twice a day as tolerated
Missed doses lactulose rifaximin due to AMS aspiration risk, patient removed DHT multiple times, once lactulose enema 07/18/24 GI re-eval appreciated
Neuro eval appreciated
Psych eval appreciated
Technology Integration Specialist/Pulm Eval appreciated
Seroquel 25 mg QPM started (typically around the time patient sundowns/becomes agitated)
EKG checked prior start Seroquel noted no significant QT prolongation.
Mental status since improved speech eval appreciated diet advanced to soft bite sized with 1:1 assist 100% supervision
Bilateral Acute DVT upper extremities:
Challenging situation given recent GI bleed
Discussed with GI following repeat EGD as above, cleared to start hep gtt w/o bolus for now, continued appears to be tolerating well
Acute respiratory failure
Possible Aspiration Pneumonia
Dysphagia:
patient was on tube feeds d/t concerns aspiration lethargy AMS, however tube was removed three times overnight by patient
Speech eval appreciated NPO except meds crushed in pureed, Aspiration Risk Hydration Protocol
Leukocytosis, trend wbc, monitor temp
empiric zosyn narrowed to unasyn, completed total 5 days abx
blood cultures x2 NGTD
weaned off oxygen supplementation stable respiratory status on room air
Repeat chest x-ray today
B/L R>L Pleural effusion:
Status post thoracentesis 360 mL drawn
On Lasix 20 mg IV twice a day- placed on hold d/t SUSIE
Lasix since resumed, with resolution SUSIE, at 40 mg daily as per Nephro
Hypokalemia
monitor and replete as necessary
SUSIE resolved
Hypernatremia resolved
Nephro eval appreciated IVF D5W supplementation completed
Abdominal ascites
Abd distension
Diarrhea though on Lactulose
ascites remains small volume Abd US performed 07/13 and 07/16 not enough for paracentesis
Cdiff antigen pos but toxin neg
07/19 Abd US notes increase in ascites, IR re-eval appreciated however remains insufficient for paracentesis
Acute blood loss anemia
Anemia of Chronic Disease
Iron Deficiency Anemia
Status post blood transfusion
Monitor hemoglobin
received 3 doses IV iron supplementation, switched to PO
received 4PRBC transfusion over the course of hospitalization
Hepatic encephalopathy:
Continue lactulose and rifaximin as above
Lactulose Enema prn
Alcohol liver cirrhosis:
MELD score labs-hx MELD score 18
PT/OT appreciated SNF rehab
DVT prophylaxis:
heparin gtt w/o bolus for DVT
CODE STATUS:
DNR
discussed with patient and patient's [id number] Jojo at bedside today
I spent a total of 50 minutes with the patient or on the floor. More than 50% of this time involved counseling and coordination of care.
Anticipated Discharge: > 48 hours
Subjective/Interval History
-
Date of Service: July 23, 2024
Patient remains encephalopathic. At times gets agitated and becomes tachypneic.
Objective Data
-
Labs:
Laboratory Results
07/23/24 07/23/24 07/23/24
05:32 12:11 19:00
WBC 5.2
Hgb 8.0 L
Hct 25.0 L
Plt Count 82 L D
APTT 78.7 H 61.6 H Pending
Sodium 142
Potassium 4.0
Chloride 116 H
Carbon Dioxide 20 L
BUN 18
Creatinine 1.1
Glucose 104 H
Calcium 7.8 L
Total Bilirubin 1.8 H
AST 78 H
ALT 42
Alkaline Phosphatase 164 H
Vital Signs:
Vital Signs
Temp Pulse Resp BP Pulse Ox
98.2 F 94 16 130/73 93
07/23/24 11:17 07/23/24 14:00 07/23/24 14:00 07/23/24 08:03 07/23/24 14:00
I&O
07/22/24 07/23/24 07/24/24
06:59 06:59 06:59
Intake Total 74 / 74 1087 / 1087 500 / 500
Output Total 790 / 790 450 / 450
Balance -716 / -716 1087 / 1087 50 / 50
[2024-07-23 14:59] LABS: Urine Albumin 1+ (Neg - Trace); Urine Bilirubin Negative (Negative); Urine Character Clear (Clear); Urine Color Yellow; Urine Glucose Negative (Negative); Urine Ketone Negative (Negative); Urine Leukocyte Negative (Negative); Urine Nitrite Negative (Negative); Urine Occult Blood 1+ (Negative); Urine Specific Gravity 1.015 (<1.030); Urine Urobilinogen Negative (Neg - 1+)
[2024-07-23 15:20] LABS: Urine Amorphous Seen; Urine Hyaline Cast >15 /LPF (0-2); Urine Mucus Many; Urine Squamous Cell 0-2 /LPF (Few)
[2024-07-23 15:24] LABS: Urine Bacteria Few (Negative)
[2024-07-23] MEDS: DUPHALAC/CHRONULAC 20 GRAMS PO ×2 (16:29→22:19)
--- NOTE | 2024-07-23 17:27 | CM ---
Patient with Dx UGI bleed, Acute TME/Delirium, b/l DVT UE, possible aspiration PNA, dysphagia, pleural effusion, ascites, anemia. Room air. Receiving Heparin gtt, Seroquel. Dysphagia diet. Per nurse assessment; confused, forgetful, restraints
off since 07/22. PT/OT recommend skilled rehab.
CM continuing to follow.
Plan acute rehab vs SNF.
[2024-07-23] MEDS: SEROQUEL 25 MG PO (20:11)
[2024-07-23] MEDS: PROTONIX 40 MG PO (20:11)
[2024-07-23 21:01] LABS: APTT > 200 Sec (23.4-35.0)
[2024-07-23] MEDS: HEPARIN 25000 UNITS/250 ML IV (23:01)
[2024-07-24] VITALS (16 sets, daily range): BP systolic 118–160; BP diastolic 61–94; BMI 30.5
--- NOTE | 2024-07-24 00:06 | PTCARENOTE ---
Caring for pt from -. No assessment changes. aaox2-3, confused at times. VSS. NSR on monitor. remains RA. PRN pain meds for generalized body pains. BA on. Heparin gtt running. Q2T. Call amaya in reach.
[2024-07-24] MEDS: TYLENOL PO (03:46)
[2024-07-24 05:30] LABS: % Basophils 0.7 % (0-2); % Eosinophils 2.2 % (0-6); % Immature Granulocytes 0.7 % (0-0.5); % Lymphocytes 12.9 % (20.5-51.1); % Monocytes 10.3 % (1.7-9.3); % Neutrophils 73.2 % (42.2-75.2); Absolute Eosinophils 0.1 10^3/uL (0-0.7); Absolute Lymphocytes 0.4 10^3/uL (1.2-3.4); Absolute Monocytes 0.3 10^3/uL (0.1-0.6); Hematocrit 21.7 % (39.0-52.0); Mean Corp Hgb Conc. 32.3 g/dL (33.0-37.0); Mean Corpuscular Hgb 29.7 pg (27.0-31.0); Mean Corpuscular Volume 91.9 fL (80.0-94.0); Mean Platelet Volume 11.5 fL (7.4-10.4); Nucleated Red Blood Cells % 0 % (-); Platelet Count 55 10^3/uL (130-400); Red Blood Cell Count 2.36 10^6/uL (4.70-6.10); Red Cell Dist. Width 19.3 % (11.5-14.5); White Blood Cell Count 2.7 10^3/uL (4.8-10.8)
[2024-07-24 05:34] LABS: INR 1.69; PT 20.1 Sec (11.4-14.6)
[2024-07-24 05:37] LABS: APTT 108.8 Sec (23.4-35.0)
[2024-07-24 05:45] LABS: Ammonia 27 umol/L (9-30)
[2024-07-24 05:49] LABS: ALT (SGPT) 41 U/L (0-50); AST (SGOT) 98 U/L (17-59); Albumin 1.8 g/dl (3.5-5.0); Alkaline Phosphatase 156 U/L (38-126); Blood Urea Nitrogen 19 mg/dl (9-20); Calcium 7.7 mg/dl (8.4-10.2); Carbon Dioxide 18 mmol/L (22-30); Chloride 113 mmol/L (98-107); Direct Bilirubin 0.7 mg/dl (0.0-0.4); Estimated Creatinine Clearance 73 ml/min; Glucose 105 mg/dl (70-99); Potassium 3.8 mmol/L (3.5-5.1); Sodium 140 mmol/L (135-145); Total Bilirubin 1.4 mg/dl (0.2-1.3); eGFR > 60.00
[2024-07-24] MEDS: SYMBICORT 160/4.5 MCG INHALER 2 PUFF INH ×2 (07:32→20:25)
[2024-07-24] MEDS: ProAIR HFA INHALER 2 PUFF INH ×2 (07:36→20:26)
--- NOTE | 2024-07-24 07:56 | PTCARENOTE ---
Pt with drop in HGB. Unit of PRBC's ordered by night patrol inspector BUS BOY. Dr. Lauren notified, order received to stop heparin gtt- see intervention.
--- NOTE | 2024-07-24 08:55 | W.PN.HOSP.TC ---
Today's Communication/Plan
-
Hold heparin. Blood transfusion.
Assessment / Plan
Assessment / Plan
Physical exam:
General: No acute distress, appears comfortable at this time
HEENT: Normocephalic, Atraumatic and Moist Mucous Membranes
Respiratory: clear to auscultation b/l
Cardiac: Regular Rhythm and S1/S2
GI: Soft, Nontender, Distended
Musculoskeletal: No Clubbing, No Cyanosis and No Edema
Neuro: AOx3 Conversant Coherent though occasional tangential speech noted
Psych: Calm
A/P: 58M ETOH cirrhosis here for GIB and Hepatic Encephalopathy. Hospital course complicated with bilateral upper Ext DVT and likely aspiration pneumonia with associated Acute Hypoxic Respiratory Failure.
Worsening anemia:
Unclear if actively bleeding but plan for blood transfusion
Hold heparin until follow-up hemoglobin tomorrow
Continue to monitor
Noticed nephrology and psychiatry follow-up and appreciated input
Acute upper GI bleed:
EGD showed portal gastropathy
Continue PPI, Protonix 40 mg IV twice a day
completed a course of octreotide and Rocephin
GI eval appreciated repeat EGD performed 07/20/24 w/ results as follows, repeat ocreotide gtt completed, protonix 40 mg BID, repeat EGD in 4 wks
07/20/24 EGD
Grade II esophageal varices. Completely eradicated. Banded x2
- Bilious gastric fluid.
- Portal hypertensive gastropathy.
- Normal duodenal bulb, first portion of the duodenum and second portion of the duodenum. Biopsied.
07/20/24 Rapid Response Respiratory Distress agitation
-patient since improved with once IV morphine 1mg ordered by overnight staff
-review of records reports, appears to be delirium possibly triggered by post-anesthesia side effects vs hospital associated delirium
Acute toxic-metabolic encephalopathy:
Hospital Associated Delirium
Precedex off
Continue lactulose 20 g 3 times daily as tolerated
Continue rifaximin 550 mg twice a day as tolerated
Missed doses lactulose rifaximin due to AMS aspiration risk, patient removed DHT multiple times, once lactulose enema 07/18/24 GI re-eval appreciated
Neuro eval appreciated
Psych eval appreciated
Inspector Raw [employer]z/Pulm Eval appreciated
Seroquel 25 mg QPM started (typically around the time patient sundowns/becomes agitated)
EKG checked prior start Seroquel noted no significant QT prolongation.
Mental status since improved speech eval appreciated diet advanced to soft bite sized with 1:1 assist 100% supervision
Bilateral Acute DVT upper extremities:
Challenging situation given recent GI bleed
Discussed with GI following repeat EGD as above, cleared to start hep gtt w/o bolus for now, continued appears to be tolerating well
Acute respiratory failure
Possible Aspiration Pneumonia
Dysphagia:
patient was on tube feeds d/t concerns aspiration lethargy AMS, however tube was removed three times overnight by patient
Speech eval appreciated NPO except meds crushed in pureed, Aspiration Risk Hydration Protocol
Leukocytosis, trend wbc, monitor temp
empiric zosyn narrowed to unasyn, completed total 5 days abx
blood cultures x2 NGTD
weaned off oxygen supplementation stable respiratory status on room air
Repeat chest x-ray today
B/L R>L Pleural effusion:
Status post thoracentesis 360 mL drawn
On Lasix 20 mg IV twice a day- placed on hold d/t SUSIE
Lasix since resumed, with resolution SUSIE, at 40 mg daily as per Nephro
Hypokalemia
monitor and replete as necessary
SUSIE resolved
Hypernatremia resolved
Nephro eval appreciated IVF D5W supplementation completed
Abdominal ascites
Abd distension
Diarrhea though on Lactulose
ascites remains small volume Abd US performed 07/13 and 07/16 not enough for paracentesis
Cdiff antigen pos but toxin neg
07/19 Abd US notes increase in ascites, IR re-eval appreciated however remains insufficient for paracentesis
Acute blood loss anemia
Anemia of Chronic Disease
Iron Deficiency Anemia
Status post blood transfusion
Monitor hemoglobin
received 3 doses IV iron supplementation, switched to PO
received 4PRBC transfusion over the course of hospitalization
Hepatic encephalopathy:
Continue lactulose and rifaximin as above
Lactulose Enema prn
Alcohol liver cirrhosis:
MELD score labs-hx MELD score 18
PT/OT appreciated SNF rehab
DVT prophylaxis:
heparin gtt w/o bolus for DVT
CODE STATUS:
DNR
discussed with patient and patient's [id number] Jojo at bedside today
I spent a total of 50 minutes with the patient or on the floor. More than 50% of this time involved counseling and coordination of care.
Anticipated Discharge: > 48 hours
Subjective/Interval History
-
Date of Service: July 24, 2024
Patient denies any chest pain or shortness of breath. Encephalopathy on and off.
Objective Data
-
Labs:
Laboratory Results
07/23/24 07/24/24 07/24/24
20:24 04:58 11:59
WBC 2.7 L
Hgb 7.0 L
Hct 21.7 L
Plt Count 55 L D
PT 20.1 H
INR 1.69
APTT > 200 H* 108.8 H Pending
Sodium 140
Potassium 3.8
Chloride 113 H
Carbon Dioxide 18 L
BUN 19
Creatinine 1.2
Glucose 105 H
Calcium 7.7 L
Total Bilirubin 1.4 H
AST 98 H
ALT 41
Alkaline Phosphatase 156 H
Vital Signs:
Vital Signs
Temp Pulse Resp BP Pulse Ox
99.3 F 86 26 119/63 94
07/24/24 07:56 07/24/24 07:38 07/24/24 07:38 07/24/24 06:00 07/24/24 07:38
I&O
07/23/24 07/24/24 07/25/24
06:59 06:59 06:59
Intake Total 1087 / 1087 500 / 500
Output Total 450 / 450
Balance 1087 / 1087 50 / 50
[2024-07-24] MEDS: TYLENOL 650 MG PO ×4 (09:24→19:47)
[2024-07-24] MEDS: LASIX 40 MG PO (09:25)
[2024-07-24] MEDS: XIFAXAN 550 MG PO ×2 (09:25→19:47)
[2024-07-24] MEDS: THIAMINE INJECTION 200 MG IV (09:25)
[2024-07-24] MEDS: DUPHALAC/CHRONULAC 20 GRAMS PO ×2 (09:25→21:46)
[2024-07-24] MEDS: PROTONIX 40 MG PO ×2 (09:25→19:47)
[2024-07-24] MEDS: DESENEX/MITRAZOL/ZEASORB 1 APPLIC TOPICAL ×2 (09:25→19:47)
[2024-07-24] MEDS: FEOSOL 325 MG PO (09:25)
--- NOTE | 2024-07-24 09:42 | W.PN.NEPH.PH ---
Today's Communication / Plan
-
Sodium bicarbonate 650 mg twice daily
Escalate Lasix to 80 mg p.o. daily
Follow BMP
Assessment/Plan
-
IMP:
Acute upper GI bleed
Acute toxic-metabolic encephalopathy
Dysphagia
Acute DVT left upper extremity
SUSIE
Hypernatremia
B/L R>L Pleural effusion-Status post thoracentesis
Abdominal ascites
Anemia
Thrombocytopenia
Acute blood loss anemia
Hepatic encephalopathy
Alcohol liver cirrhosis
Plan:
lasix 40mg po daily to continue: weights unchanged
metabolic acidosis persists, will add sodium bicarbonate orally
follow BMP
Creatinine bumped up to 1.2, although urine output only recorded is 450 cc and weights up, will increase Lasix to 80 mg p.o., neck step will be to introduce Aldactone
FR 48oz
-
-
Date of Service: July 24, 2024
CC / HPI / ROS
-
Chief Complaint:
SUSIE
History of Present Illness:
SUSIE/Cr up to 1.2
BP stable
Metabolic acidosis evolving
Sodium stable 142
Review of Systems:
no CP/SOB
Weights up
Labs
-
Labs:
WBC 2.7 10^3/uL (4.8-10.8) L 07/24/24 04:58
RBC 2.36 10^6/uL (4.70-6.10) L 07/24/24 04:58
Hgb 7.0 g/dL (13.0-18.0) L 07/24/24 04:58
Hct 21.7 % (39.0-52.0) L 07/24/24 04:58
Plt Count 55 10^3/uL (130-400) L D 07/24/24 04:58
Sodium 140 mmol/L (135-145) 07/24/24 04:58
Potassium 3.8 mmol/L (3.5-5.1) 07/24/24 04:58
Chloride 113 mmol/L (98-107) H 07/24/24 04:58
Carbon Dioxide 18 mmol/L (22-30) L 07/24/24 04:58
BUN 19 mg/dl (9-20) 07/24/24 04:58
Creatinine 1.2 mg/dL (0.7-1.3) 07/24/24 04:58
eGFR > 60.00 07/24/24 04:58
Glucose 105 mg/dl (70-99) H 07/24/24 04:58
Calcium 7.7 mg/dl (8.4-10.2) L 07/24/24 04:58
Phosphorus 2.8 mg/dl (2.5-4.5) 07/23/24 05:32
Albumin 1.8 g/dl (3.5-5.0) L 07/24/24 04:58
Physical Exam
-
Vital Signs:
Vital Signs
Temp Pulse Resp BP Pulse Ox
99.3 F 86 26 119/63 94
07/24/24 07:56 07/24/24 07:38 07/24/24 07:38 07/24/24 06:00 07/24/24 07:38
Cardiovascular:: Regular rate and rhythm
Respiratory:: Bilateral: Coarse
Lung Excursion:: Normal
Abdomen:: Nontender and Soft
Bowel Sounds:: Normal
Extremity Edema:: +2: Bilateral:
Zhou Catheter: No
--- NOTE | 2024-07-24 12:16 | PTCARENOTE ---
Assessment as documented. Aox2. NSR on tele monitor. Unit of blood infusing as ordered, pt tolerating well at this time. Bed alarm in place for safety. Call amaya within reach.
--- NOTE | 2024-07-24 14:22 | W.PN.UPDATE ---
Update Note
Progress Note Update
Pt seen, awake today, giving rambling answers, talking about loss of functioning and pain. Aware of place, annoyed by orientation questions, not able to state day/date/time, wants to know when he can get out of here, states his father was a
'powerful man in the medical industry.' No agitation, no signs of psychosis or mood disturbance. Pt receiving blood transfusion for Hgb 7.0. Pt on Seroquel 25 mg each pm, Ativan 0.5 mg po or IV prn- last given last night.
Imp: Alcohol use d/o. TME. Pt does not meet criteria for Bipolar d/o
Rec: Continue low dose Seroquel, continue Ativan 0.5 mg po or IV on prn basis
Will continue to follow peripherally
--- NOTE | 2024-07-24 16:27 | CM ---
Patient with Dx UGI bleed, Acute TME/Delirium, b/l DVT UE, possible aspiration PNA, dysphagia, pleural effusion, ascites, anemia. Transfusion today. Room air. Receiving Heparin gtt, Seroquel. Dysphagia diet. PT/OT recommend skilled rehab. Per
nurse assessment; confused, forgetful. Seen by Psych today.
Message from Jojo, sister in law; She left message with concern he has been in IMU 3 wks and asking for update on his status and what to expect---> message forwarded to Dr Lauren with question whether Physiatry Consult, that family requested, could
be considered at this time.
CM continuing to follow.
Plan acute rehab vs SNF.
[2024-07-24] MEDS: SEROQUEL 25 MG PO (17:21)
[2024-07-24] MEDS: DUPHALAC/CHRONULAC PO ×2 (17:21→17:24)
--- NOTE | 2024-07-24 17:32 | PTCARENOTE ---
Pt noted to have significant scrotal edema, worse from prior shifts. Dr. Lauren notified, order placed by MD for scrotal US.
[2024-07-24] MEDS: SODIUM BICARBONATE 650 MG PO (19:47)
[2024-07-24] MEDS: ATIVAN 0.5 MG IV (22:21)
--- NOTE | 2024-07-24 22:51 | PTCARENOTE ---
Caring for patient overnight. aaox2, forgetful, confused. NSR on monitor. Remains RA, pt wheezing, SOB & tachypneic in beginning of shift. Repositioning & nebulizer helped. Q2T. Bed alarm. R IJ. Pt still +2 anasarca, +3 scrotal edema. No other
issues at this time. Will monitor.
[2024-07-25] VITALS (11 sets, daily range): BP systolic 103–143; BP diastolic 41–85; PULSE 83–86; BMI 28.8
[2024-07-25] MEDS: TYLENOL PO ×2 (01:08→04:26)
[2024-07-25 05:15] LABS: Hematocrit 25.3 % (39.0-52.0); Hemoglobin 8.4 g/dL (13.0-18.0); Mean Corp Hgb Conc. 33.2 g/dL (33.0-37.0); Mean Corpuscular Hgb 29.5 pg (27.0-31.0); Mean Corpuscular Volume 88.8 fL (80.0-94.0); Mean Platelet Volume 10.7 fL (7.4-10.4); Platelet Count 60 10^3/uL (130-400); Red Blood Cell Count 2.85 10^6/uL (4.70-6.10); Red Cell Dist. Width 18.7 % (11.5-14.5); White Blood Cell Count 2.9 10^3/uL (4.8-10.8)
[2024-07-25 05:46] LABS: Blood Urea Nitrogen 18 mg/dl (9-20); Calcium 7.8 mg/dl (8.4-10.2); Carbon Dioxide 19 mmol/L (22-30); Chloride 112 mmol/L (98-107); Estimated Creatinine Clearance 80 ml/min; Glucose 85 mg/dl (70-99); Potassium 3.3 mmol/L (3.5-5.1); Sodium 139 mmol/L (135-145); eGFR > 60.00
[2024-07-25] MEDS: ProAIR HFA INHALER 2 PUFF INH ×3 (05:51→19:19)
[2024-07-25] MEDS: SYMBICORT 160/4.5 MCG INHALER 2 PUFF INH ×2 (05:51→19:19)
--- NOTE | 2024-07-25 08:55 | W.PN.HOSP.TC ---
Today's Communication/Plan
-
Heparin drip.
Assessment / Plan
Assessment / Plan
Physical exam:
General: No acute distress, appears comfortable at this time
HEENT: Normocephalic, Atraumatic and Moist Mucous Membranes
Respiratory: clear to auscultation b/l
Cardiac: Regular Rhythm and S1/S2
GI: Soft, Nontender, Distended
Musculoskeletal: No Clubbing, No Cyanosis and No Edema
Neuro: AOx1 Conversant incoherent and tangential speech noted
Psych: Calm
A/P: 58M ETOH cirrhosis here for GIB and Hepatic Encephalopathy. Hospital course complicated with bilateral upper Ext DVT and likely aspiration pneumonia with associated Acute Hypoxic Respiratory Failure.
Acute upper GI bleed:
EGD showed portal gastropathy
Continue PPI, Protonix 40 mg IV twice a day
completed a course of octreotide and Rocephin
GI eval appreciated repeat EGD performed 07/20/24 w/ results as follows, repeat ocreotide gtt completed, protonix 40 mg BID, repeat EGD in 4 wks
07/20/24 EGD
Grade II esophageal varices. Completely eradicated. Banded x2
- Bilious gastric fluid.
- Portal hypertensive gastropathy.
- Normal duodenal bulb, first portion of the duodenum and second portion of the duodenum. Biopsied.
07/20/24 Rapid Response Respiratory Distress agitation
-patient since improved with once IV morphine 1mg ordered by overnight staff
-review of records reports, appears to be delirium possibly triggered by post-anesthesia side effects vs hospital associated delirium
Acute toxic-metabolic encephalopathy:
Hospital Associated Delirium
Precedex off
Continue lactulose 20 g 3 times daily as tolerated
Continue rifaximin 550 mg twice a day as tolerated
Missed doses lactulose rifaximin due to AMS aspiration risk, patient removed DHT multiple times, once lactulose enema 07/18/24 GI re-eval appreciated
Neuro eval appreciated
Psych eval appreciated
Systems Consultant/Pulm Eval appreciated
Seroquel 25 mg QPM started (typically around the time patient sundowns/becomes agitated)
EKG checked prior start Seroquel noted no significant QT prolongation.
Mental status since improved speech eval appreciated diet advanced to soft bite sized with 1:1 assist 100% supervision
Bilateral Acute DVT upper extremities:
Challenging situation given recent GI bleed
Discussed with GI following repeat EGD as above, cleared to start hep gtt w/o bolus for now, continued appears to be tolerating well
Acute respiratory failure
Possible Aspiration Pneumonia
Dysphagia:
patient was on tube feeds d/t concerns aspiration lethargy AMS, however tube was removed three times overnight by patient
Speech eval appreciated NPO except meds crushed in pureed, Aspiration Risk Hydration Protocol
Leukocytosis, trend wbc, monitor temp
empiric zosyn narrowed to unasyn, completed total 5 days abx
blood cultures x2 NGTD
weaned off oxygen supplementation stable respiratory status on room air
Repeat chest x-ray today
B/L R>L Pleural effusion:
Status post thoracentesis 360 mL drawn
On Lasix 20 mg IV twice a day- placed on hold d/t SUSIE
Lasix since resumed, with resolution SUSIE, at 40 mg daily as per Nephro
Hypokalemia
monitor and replete as necessary
SUSIE resolved
Hypernatremia resolved
Nephro eval appreciated IVF D5W supplementation completed
Abdominal ascites
Abd distension
Diarrhea though on Lactulose
ascites remains small volume Abd US performed 07/13 and 07/16 not enough for paracentesis
Cdiff antigen pos but toxin neg
07/19 Abd US notes increase in ascites, IR re-eval appreciated however remains insufficient for paracentesis
Acute blood loss anemia
Anemia of Chronic Disease
Iron Deficiency Anemia
Status post blood transfusion
Monitor hemoglobin
received 3 doses IV iron supplementation, switched to PO
received 4PRBC transfusion over the course of hospitalization
Status post another blood transfusion on 07/24 and heparin held but restarted again today on 07/25 and continue to monitor hemoglobin. No signs of active bleed for now.
Hepatic encephalopathy:
Continue lactulose and rifaximin as above
Lactulose Enema prn
Alcohol liver cirrhosis:
MELD score labs-hx MELD score 18
PT/OT appreciated SNF rehab
DVT prophylaxis:
heparin gtt w/o bolus for DVT
CODE STATUS:
DNR
Discussed with mother at bedside today. I explained he has guarded prognosis at this point and she is not quite sure since she has heard other comments before. Anyway, he is not medically ready for discharge yet rechallenging him with heparin drip
and monitor his hemoglobin and we will also monitoring his mental status closely.
I spent a total of 50 minutes with the patient or on the floor. More than 50% of this time involved counseling and coordination of care.
Anticipated Discharge: > 48 hours
Subjective/Interval History
-
Date of Service: July 25, 2024
Patient remains encephalopathic. Afebrile
Objective Data
-
Labs:
Laboratory Results
07/25/24 07/25/24
04:22 08:43
WBC 2.9 L
Hgb 8.4 L
Hct 25.3 L
Plt Count 60 L
APTT Pending
Sodium 139
Potassium 3.3 L
Chloride 112 H
Carbon Dioxide 19 L
BUN 18
Creatinine 1.1
Glucose 85
Calcium 7.8 L
Vital Signs:
Vital Signs
Temp Pulse Resp BP Pulse Ox
98.7 F 82 27 103/55 92
07/25/24 07:51 07/25/24 08:00 07/25/24 08:00 07/25/24 08:00 07/25/24 02:20
I&O
07/24/24 07/25/24 07/26/24
06:59 06:59 06:59
Intake Total 500 / 500 250 / 250
Output Total 450 / 450 900 / 900
Balance 50 / 50 -650 / -650
--- NOTE | 2024-07-25 09:36 | W.PN.NEPH.PH ---
Today's Communication / Plan
-
spironolactone
Assessment/Plan
-
IMP:
Acute upper GI bleed
Acute toxic-metabolic encephalopathy
Dysphagia
Acute DVT left upper extremity
SUSIE
Hypernatremia
B/L R>L Pleural effusion-Status post thoracentesis
Abdominal ascites
Anemia
Thrombocytopenia
Acute blood loss anemia
Hepatic encephalopathy
Alcohol liver cirrhosis
Plan:
lasix 40mg po daily to continue
metabolic acidosis persists, will add sodium bicarbonate orally
replete K
add spironolactone
follow BMP
-
-
Date of Service: July 25, 2024
CC / HPI / ROS
-
Chief Complaint:
SUSIE
History of Present Illness:
SUSIE/Cr stable 1.1
BP stable
Metabolic acidosis evolving 19
Sodium stable 139
K low 3.3
Review of Systems:
no CP/SOB
Labs
-
Labs:
WBC 2.9 10^3/uL (4.8-10.8) L 07/25/24 04:22
RBC 2.85 10^6/uL (4.70-6.10) L 07/25/24 04:22
Hgb 8.4 g/dL (13.0-18.0) L 07/25/24 04:22
Hct 25.3 % (39.0-52.0) L 07/25/24 04:22
Plt Count 60 10^3/uL (130-400) L 07/25/24 04:22
Sodium 139 mmol/L (135-145) 07/25/24 04:22
Potassium 3.3 mmol/L (3.5-5.1) L 07/25/24 04:22
Chloride 112 mmol/L (98-107) H 07/25/24 04:22
Carbon Dioxide 19 mmol/L (22-30) L 07/25/24 04:22
BUN 18 mg/dl (9-20) 07/25/24 04:22
Creatinine 1.1 mg/dL (0.7-1.3) 07/25/24 04:22
eGFR > 60.00 07/25/24 04:22
Glucose 85 mg/dl (70-99) 07/25/24 04:22
Calcium 7.8 mg/dl (8.4-10.2) L 07/25/24 04:22
Phosphorus 2.8 mg/dl (2.5-4.5) 07/23/24 05:32
Albumin 1.8 g/dl (3.5-5.0) L 07/24/24 04:58
Physical Exam
-
Vital Signs:
Vital Signs
Temp Pulse Resp BP Pulse Ox
98.7 F 82 27 103/55 92
07/25/24 07:51 07/25/24 08:00 07/25/24 08:00 07/25/24 08:00 07/25/24 02:20
Cardiovascular:: Regular rate and rhythm
Respiratory:: Bilateral: Coarse
Lung Excursion:: Normal
Abdomen:: Nontender and Soft
Bowel Sounds:: Normal
Extremity Edema:: +1: Bilateral:
[2024-07-25] MEDS: ALDACTONE 25 MG PO (10:06)
[2024-07-25] MEDS: XIFAXAN 550 MG PO ×2 (10:06→20:03)
[2024-07-25] MEDS: KCL 40 MEQ PO (10:06)
[2024-07-25] MEDS: TYLENOL 650 MG PO ×5 (10:06→23:55)
[2024-07-25] MEDS: LASIX 80 MG PO (10:07)
[2024-07-25] MEDS: PROTONIX 40 MG PO ×2 (10:07→20:02)
[2024-07-25] MEDS: SODIUM BICARBONATE 650 MG PO (10:07)
[2024-07-25] MEDS: THIAMINE INJECTION 200 MG IV (10:07)
[2024-07-25] MEDS: FEOSOL 325 MG PO (10:07)
[2024-07-25 10:17] LABS: APTT 47.6 Sec (23.4-35.0)
[2024-07-25] MEDS: DUPHALAC/CHRONULAC PO (10:26)
[2024-07-25] MEDS: HEPARIN 25000 UNITS/250 ML IV (11:14)
--- NOTE | 2024-07-25 11:37 | CM ---
Addendum entered by Tressa Pickard RN 07/25/24 13:09:
Correction: Plan transfer from IMU to 2N today.
Original Note:
Patient with Dx UGI bleed, Acute TME/Delirium, b/l DVT UE, possible aspiration PNA, dysphagia, pleural effusion, ascites, anemia. Room air. Right IJ central line. Receiving Heparin gtt, Seroquel. Scrotal U/S today due to scrotal edema. Per
nursing; confused, forgetful, restless, soft wrist restraints in place. Dysphagia diet. PT/OT recommend skilled rehab. Seen by Psych. Plan transfer from IMU to 3W today.
Message from sister Uribe in law 07/25/24; She left message with concern he has been in IMU 3 wks and asking for update on his status and what to expect---> message forwarded to Dr Lauren in [facility] Jojo has questions and hoping to speak with
MD.
Phone call to sister Uribe in [facility]; left message she is welcome to call back and speak with CM, however clinical updates are best obtained from MD and nurse.
Plan TBD.
--- NOTE | 2024-07-25 12:06 | PTCARENOTE ---
Order received to restart heparin gtt. Baseline ptt sent. Heparin resumed at 400u/hr per special instructions in order- see intervention.
[2024-07-25] MEDS: DESENEX/MITRAZOL/ZEASORB 1 APPLIC TOPICAL ×2 (12:18→20:02)
--- NOTE | 2024-07-25 13:11 | PTCARENOTE ---
Assessment as documented. Aox2. Pt noted to be more agitated today. B/L soft wrist restraints remain in place. NSR on tele monitor. Mother updated at bedside; sister in law Jojo updated via phone. Bed alarm in place for safety. Call amaya within
reach.
--- NOTE | 2024-07-25 15:07 | W.PN.UPDATE ---
Update Note
Progress Note Update
patient seen chart reviewed. discussed with nursing. the patient has hx of etoh abuse but as well as many medical complications. currently arf tme gi bleed cirrhosis pleural effusion ascites. he is intermittently agitated and currently in soft
restraints. nursing feels the ativan prn is making him worse. he was very confused when i saw him and unable to say where he was, the president or the year although he was not unpleasant. would try prn seroquel 25 mg for agitation given than
nursing feels ativan may have made the agitation worse. qtc is okay will see him tomorrow.
[2024-07-25] MEDS: DUPHALAC/CHRONULAC 20 GRAMS PO ×2 (17:41→22:24)
[2024-07-25] MEDS: SEROQUEL 25 MG PO (17:41)
[2024-07-25 18:18] LABS: APTT 76.1 Sec (23.4-35.0)
[2024-07-25] MEDS: SODIUM BICARBONATE PO ×2 (20:02→20:30)
--- NOTE | 2024-07-25 21:38 | PTCARENOTE ---
Pt AAOx2, very agitated and combative. Calmly redirected the pt. Pt on heparin gtt 400units/hr. Pt normal sinus on tele. Pt on room air 95%. Pt has expiratory wheeze that was exacerbated by movement and agitation. B/l wrist restraints remain see
orders. Pt incontinent of bowel one episode of loose stool. Pt perineum area reddened, moisture barrier applied. Pt toileted often and offered oral fluids frequently.
[2024-07-25] MEDS: KCL 20 MEQ PO (22:25)
[2024-07-25] MEDS: DUONEB 3 ML INH (22:42)
--- NOTE | 2024-07-25 23:00 | PTCARENOTE ---
Called report to [address] [place] [address]. Pt transported to the floor in the bed. While transporting the patient, the elevator malfunctioned. This RN present as well as the PCT. Dress Marker Ngozi called and made aware. Maintenance and security came and
fixed the elevator. Patient and staff out safely and transfered to [address] [place] [address]. PHYLLIS Carrillo bedside to assess the patient.
--- NOTE | 2024-07-25 23:20 | PTCARENOTE ---
Received pt from IMU into room 2139. Received report from MAICOL Hernandez. Pt AAOx2. Disoriented to time. Confused conversation at times. Exp wheeze audible throughout lungs, PROFESSOR COMPUTER SCIENCE ordered one time Duoneb. Heparin gtt @ 4ml/hr into R IJ. B/l soft wrist
restraints in place. Pt w/ episode incontinent BM and bladder. Sacrum red and excoriated from frequent BM, calazime applied. Scrotal edema +3, area of excoriation treated with calazime. Pt being cooperative and pleasant at this time. No needs at
this time, call amaya within reach.
[2024-07-26] VITALS (8 sets, daily range): BP systolic 97–173; BP diastolic 66–93; BMI 28.5
--- NOTE | 2024-07-26 00:16 | PTCARENOTE ---
Pt AAOx2, very agitated and combative. Calmly redirected the pt. Pt on heparin gtt 400units/hr. Pt normal sinus on tele. Pt on room air 95%. Pt has expiratory wheeze that was exacerbated by movement and agitation. B/l wrist restraints remain see
orders. Pt incontinent of bowel one episode of loose stool. Pt perineum area reddened. Pt toileted often and offered oral fluids frequently.
[2024-07-26 01:57] LABS: APTT 91.4 Sec (23.4-35.0)
[2024-07-26] MEDS: TYLENOL 650 MG PO ×5 (04:19→23:59)
[2024-07-26 05:29] LABS: APTT 108.9 Sec (23.4-35.0)
[2024-07-26 05:33] LABS: Hematocrit 27.4 % (39.0-52.0); Mean Corp Hgb Conc. 32.8 g/dL (33.0-37.0); Mean Corpuscular Hgb 29.2 pg (27.0-31.0); Mean Platelet Volume 10.2 fL (7.4-10.4); Platelet Count 69 10^3/uL (130-400); Red Blood Cell Count 3.08 10^6/uL (4.70-6.10); Red Cell Dist. Width 19.3 % (11.5-14.5); White Blood Cell Count 3.4 10^3/uL (4.8-10.8)
[2024-07-26 05:44] LABS: Blood Urea Nitrogen 19 mg/dl (9-20); Carbon Dioxide 18 mmol/L (22-30); Chloride 110 mmol/L (98-107); Estimated Creatinine Clearance 83 ml/min; Glucose 82 mg/dl (70-99); Potassium 3.9 mmol/L (3.5-5.1); Sodium 141 mmol/L (135-145); eGFR > 60.00
[2024-07-26] MEDS: SYMBICORT 160/4.5 MCG INHALER 2 PUFF INH ×2 (07:09→19:21)
[2024-07-26] MEDS: ProAIR HFA INHALER 2 PUFF INH ×2 (07:10→11:13)
[2024-07-26] MEDS: TYLENOL PO (08:57)
[2024-07-26] MEDS: THIAMINE INJECTION 200 MG IV (08:58)
[2024-07-26] MEDS: SODIUM BICARBONATE 650 MG PO ×2 (08:58→20:56)
[2024-07-26] MEDS: DESENEX/MITRAZOL/ZEASORB 1 APPLIC TOPICAL ×2 (08:58→20:55)
[2024-07-26] MEDS: XIFAXAN 550 MG PO ×2 (08:58→20:56)
[2024-07-26] MEDS: FEOSOL 325 MG PO (08:58)
[2024-07-26] MEDS: LASIX 80 MG PO (08:58)
[2024-07-26] MEDS: DUPHALAC/CHRONULAC 20 GRAMS PO ×3 (08:58→20:57)
[2024-07-26] MEDS: ALDACTONE 25 MG PO (08:58)
[2024-07-26] MEDS: PROTONIX 40 MG PO ×2 (08:58→20:56)
--- NOTE | 2024-07-26 09:05 | W.PN.HOSP.TC ---
Today's Communication/Plan
-
Chest x-ray. Tamiflu. Pulmonary eval
Assessment / Plan
Assessment / Plan
Physical exam:
General: No acute distress, appears comfortable at this time
HEENT: Normocephalic, Atraumatic and Moist Mucous Membranes
Respiratory: clear to auscultation b/l
Cardiac: Regular Rhythm and S1/S2
GI: Soft, Nontender, Distended
Musculoskeletal: No Clubbing, No Cyanosis and No Edema
Neuro: AOx1 Conversant incoherent and tangential speech noted
Psych: Calm
A/P: 58M ETOH cirrhosis here for GIB and Hepatic Encephalopathy. Hospital course complicated with bilateral upper Ext DVT and likely aspiration pneumonia with associated Acute Hypoxic Respiratory Failure.
Acute respiratory insufficiency:
Check influenza and positive for influenza A
Obtain chest x-ray
Start Tamiflu
Bronchodilators scheduled
Discussed with pulmonary today to reevaluate patient on 07/26
Discussed with psychiatry today as well 07/26
Discussed with RN today on 07/26
Discussed with mother at bedside today on 07/26
Acute upper GI bleed:
EGD showed portal gastropathy
Continue PPI, Protonix 40 mg IV twice a day
completed a course of octreotide and Rocephin
GI eval appreciated repeat EGD performed 07/20/24 w/ results as follows, repeat ocreotide gtt completed, protonix 40 mg BID, repeat EGD in 4 wks
07/20/24 EGD
Grade II esophageal varices. Completely eradicated. Banded x2
- Bilious gastric fluid.
- Portal hypertensive gastropathy.
- Normal duodenal bulb, first portion of the duodenum and second portion of the duodenum. Biopsied.
07/20/24 Rapid Response Respiratory Distress agitation
-patient since improved with once IV morphine 1mg ordered by overnight staff
-review of records reports, appears to be delirium possibly triggered by post-anesthesia side effects vs hospital associated delirium
Acute toxic-metabolic encephalopathy:
Hospital Associated Delirium
Precedex off
Continue lactulose 20 g 3 times daily as tolerated
Continue rifaximin 550 mg twice a day as tolerated
Missed doses lactulose rifaximin due to AMS aspiration risk, patient removed DHT multiple times, once lactulose enema 07/18/24 GI re-eval appreciated
Neuro eval appreciated
Psych eval appreciated
Commercial Relationship Manager/Pulm Eval appreciated
Seroquel 25 mg QPM started (typically around the time patient sundowns/becomes agitated)
EKG checked prior start Seroquel noted no significant QT prolongation.
Mental status since improved speech eval appreciated diet advanced to soft bite sized with 1:1 assist 100% supervision
Bilateral Acute DVT upper extremities:
Challenging situation given recent GI bleed
Discussed with GI following repeat EGD as above, cleared to start hep gtt w/o bolus for now, continued appears to be tolerating well
Plan to switch heparin drip to oral Eliquis tomorrow if hemoglobin remains stable
Acute respiratory failure
Possible Aspiration Pneumonia
Dysphagia:
patient was on tube feeds d/t concerns aspiration lethargy AMS, however tube was removed three times overnight by patient
Speech eval appreciated NPO except meds crushed in pureed, Aspiration Risk Hydration Protocol
Leukocytosis, trend wbc, monitor temp
empiric zosyn narrowed to unasyn, completed total 5 days abx
blood cultures x2 NGTD
weaned off oxygen supplementation stable respiratory status on room air
B/L R>L Pleural effusion:
Status post thoracentesis 360 mL drawn
On Lasix 20 mg IV twice a day- placed on hold d/t SUSIE
Lasix since resumed, with resolution SUSIE, at 40 mg daily as per Nephro
Hypokalemia
monitor and replete as necessary
SUSIE resolved
Hypernatremia resolved
Nephro eval appreciated IVF D5W supplementation completed
Abdominal ascites
Abd distension
Diarrhea though on Lactulose
ascites remains small volume Abd US performed 07/13 and 07/16 not enough for paracentesis
Cdiff antigen pos but toxin neg
07/19 Abd US notes increase in ascites, IR re-eval appreciated however remains insufficient for paracentesis
Acute blood loss anemia
Anemia of Chronic Disease
Iron Deficiency Anemia
Status post blood transfusion
Monitor hemoglobin
received 3 doses IV iron supplementation, switched to PO
received 4PRBC transfusion over the course of hospitalization
Status post another blood transfusion on 07/24 and heparin held but restarted again today on 07/25 and continue to monitor hemoglobin. No signs of active bleed for now.
Hepatic encephalopathy:
Continue lactulose and rifaximin as above
Lactulose Enema prn
Alcohol liver cirrhosis:
MELD score labs-hx MELD score 18
PT/OT appreciated SNF rehab
DVT prophylaxis:
heparin gtt w/o bolus for DVT
CODE STATUS:
DNR
Total time spent on today's encounter was 52 minutes which included time spent in counseling the patient/family regarding diagnosis and treatment plan as listed above, goals of care, and symptom management. Case was discussed with nursing staff,
specialists, and care coordinators/case management. All labs and imaging personally reviewed by me. Remainder the time spent in detailed review of previous records, lab data, imaging, and other medical provider documentation.
Anticipated Discharge: > 48 hours
Subjective/Interval History
-
Date of Service: July 26, 2024
Patient is having cough and shortness of breath and wheezing today. Mental status fluctuates significantly and remains encephalopathic.
Objective Data
-
Labs:
Laboratory Results
07/26/24 07/26/24
01:16 04:58
WBC 3.4 L
Hgb 9.0 L
Hct 27.4 L
Plt Count 69 L
APTT 91.4 H 108.9 H
Sodium 141
Potassium 3.9
Chloride 110 H
Carbon Dioxide 18 L
BUN 19
Creatinine 1.0
Glucose 82
Calcium 8.0 L
Vital Signs:
Vital Signs
Temp Pulse Resp BP Pulse Ox
97.7 F 83 16 153/93 95
07/26/24 08:12 07/26/24 08:12 07/26/24 08:12 07/26/24 08:12 07/26/24 08:12
I&O
07/25/24 07/26/24 07/27/24
06:59 06:59 06:59
Intake Total 250 / 250
Output Total 900 / 900
Balance -650 / -650
--- NOTE | 2024-07-26 10:05 | CM ---
Reviewed the chart notes and attempted to speak with the patient at the bedside. The patient is very confused and in bilateral wrist restraints. CM continues to be available to patient/family and is monitoring medical plan for needs at discharge.
Plan: Discharge plans will depend on the patient's progress.
--- NOTE | 2024-07-26 11:15 | W.PN.NEPH.PH ---
Today's Communication / Plan
-
follow BMP
Assessment/Plan
-
IMP:
Acute upper GI bleed
Acute toxic-metabolic encephalopathy
Dysphagia
Acute DVT left upper extremity
SUSIE
Hypernatremia
B/L R>L Pleural effusion-Status post thoracentesis
Abdominal ascites
Anemia
Thrombocytopenia
Acute blood loss anemia
Hepatic encephalopathy
Alcohol liver cirrhosis
Plan:
lasix 40mg po daily to continue with spironolactone
continue sodium bicarbonate orally
replete K prn
follow NH3
follow BMP
-
-
Date of Service: July 26, 2024
CC / HPI / ROS
-
Chief Complaint:
SUSIE
History of Present Illness:
SUSIE/Cr stable 1.0
BP stable
Metabolic acidosis evolving 18
Sodium stable 141
K up to 3.9
Review of Systems:
no CP/SOB
confused
Labs
-
Labs:
WBC 3.4 10^3/uL (4.8-10.8) L 07/26/24 04:58
RBC 3.08 10^6/uL (4.70-6.10) L 07/26/24 04:58
Hgb 9.0 g/dL (13.0-18.0) L 07/26/24 04:58
Hct 27.4 % (39.0-52.0) L 07/26/24 04:58
Plt Count 69 10^3/uL (130-400) L 07/26/24 04:58
Sodium 141 mmol/L (135-145) 07/26/24 04:58
Potassium 3.9 mmol/L (3.5-5.1) 07/26/24 04:58
Chloride 110 mmol/L (98-107) H 07/26/24 04:58
Carbon Dioxide 18 mmol/L (22-30) L 07/26/24 04:58
BUN 19 mg/dl (9-20) 07/26/24 04:58
Creatinine 1.0 mg/dL (0.7-1.3) 07/26/24 04:58
eGFR > 60.00 07/26/24 04:58
Glucose 82 mg/dl (70-99) 07/26/24 04:58
Calcium 8.0 mg/dl (8.4-10.2) L 07/26/24 04:58
Phosphorus 2.8 mg/dl (2.5-4.5) 07/23/24 05:32
Albumin 1.8 g/dl (3.5-5.0) L 07/24/24 04:58
Physical Exam
-
Vital Signs:
Vital Signs
Temp Pulse Resp BP Pulse Ox
97.7 F 83 16 153/93 95
07/26/24 08:12 07/26/24 08:12 07/26/24 08:12 07/26/24 08:12 07/26/24 08:12
Cardiovascular:: Regular rate and rhythm
Respiratory:: Bilateral: CTA
Lung Excursion:: Normal
Abdomen:: Nontender and Soft
Bowel Sounds:: Normal
Extremity Edema:: +2: Bilateral:
--- NOTE | 2024-07-26 11:45 | PTCARENOTE ---
Patient with audible expiratory wheeze and a nonproductive cough. MD made aware. Flu/ covid swabs sent and portable CXR ordered.
[2024-07-26] MEDS: DUONEB 3 ML INH ×3 (12:10→19:21)
--- NOTE | 2024-07-26 12:35 | W.PN.UPDATE ---
Update Note
Progress Note Update
patient seen chart reviewed. mother at bedside. the patient was more alert than yesterday but still rather confused. nursing reports he had some agitation this am but at this point they are more worried about his labored breathing and wheezing.
mom says he has had asthma all his life typically triggered by animals. he does have a prn for seroquel as well as an evening saw 25 mg dose and i did not change any of that. mom told me the patient graduated [employer] from [employer] a
degree in [employer]. i asked patient about his experience in his field but the conversation did not get very far. he was not able to stay focused and on topic. spoke with dr siegel re ? respiratory status.
[2024-07-26 12:55] LABS: COVID-19 Antigen Negative (Negative)
[2024-07-26] MEDS: TAMIFLU 75 MG PO ×2 (13:07→20:57)
--- NOTE | 2024-07-26 13:54 | W.PN.PUL3 ---
Today's Communication / Plan
-
Continue nebulizers [id number] while in the hospital
Continue Symbicort
Tamiflu-positive flu 07/26/2024.
Isolation
Aspiration precautions
PPI
Will continue to follow briefly
Assessment
-
58-year-old man with history of alcohol cirrhosis admitted through the emergency room after found unresponsive at home by his mother. Patient was admitted with dark stools, dark emesis, found to have anemia and GI bleed. Intubated for change in
mental status and airway protection and transferred to the critical care unit for further care.
Reconsulted 07/26/2024 for coughing spells with upper airway sounds.
Coughing spells: Upper airway sounds. Improved with nebulizer therapy.
Flu + 07/26/2024.
Chest x-ray 07/26/2024: Moderate elevation of the right hemidiaphragm. Right lower lobe minimal atelectasis.
-
Acute respiratory failure/change in mental status requiring intubation and mechanical ventilation for airway protection 07/05/2024
Intubated 07/05/2024
Extubated 07/10/2024
Hepatic encephalopathy
Acute GI bleed-melena/coffee-ground
Acute blood loss anemia-hemoglobin on admission 4.9 and he has required 4 U PRBC since admission
Status post EGD 07/06/2026: Portal gastropathy.
Repeat EGD 07/19/2024 with grade 2 distal EV s/p bands x2 with PHG
Change in mental status/toxic metabolic encephalopathy: Cannot rule out alcohol withdrawal/hepatic encephalopathy
Ammonia level 92 on 07/05/2024 --> less than 9 on 07/18/2024
Coagulopathy INR 2.7 --> now 1.59 on 07/15/2024
Self reported Hx of asthma
Conditions present prior admission:
Alcoholic cirrhosis-on prior operative report from 2014 is noted.
? Bipolar disorder-not taking any medications
History of alcohol disorder
Plan:
-
I was consulted by , concerns for coughing with upper airway sounds on 07/26/2024. Usually resolve after nebulizer therapy.
To my exam patient appears in no respiratory distress.
Remains on room air
Not bronchospastic on exam
Chest x-ray without acute infiltrates.
No stridor or hoarse voice. Doubt upper airway issues. If upper airway sounds continue intermittently may need to get ENT involved as the patient was intubated in the past.
-
He endorses prior history of asthma-this is unreliable but he has been off her inhalers in the past and he has refused.
Did not want also standing nebulizers in the past.
-
With flu positive agree with Tamiflu for 5 days. There is no evidence for pneumonia on chest x-ray
-
Recommend starting DuoNebs 3 times a day.
Continue Symbicort.
No additional pulmonary recommendations at this point.
-
Recurrent microaspiration also possibility triggering intermittent symptoms.
Continue Aspiration precautions
Continue PPI twice a day.
Diet as tolerated.
He is DNR
Psychiatry continues to follow
Placement issues
Bilateral upper extremity DVTs.
Defer anticoagulation to primary team and GI.
Anemia/GI bleeding issues.
Management per primary team and GI.
Continue hepatic encephalopathy management.
DVT prophylaxis- Movement sequentials for now.
Eventual restart anticoagulation
Will follow briefly.

Family discussions:
Dr. Sheikh updated [id number] at the bedside extensively 07/09/2024 as well as on multidisciplinary rounds 07/11/2024, 07/12/2024, and 07/13/2024, and Dr. Sheikh reviewed with [id number] 07/14/2024, 07/15/2024, and again on 07/18/24
Goals of care again discussed with [id number] 07/12/2024-DNR, do not reintubate if respiratory decompensation-again updated on 07/13/2024
Total time spent today was 38 minutes for this encounter. Time includes reviewing laboratory test/imaging results, reviewing pertinent medical records, obtaining and reviewing medical history, performing an appropriate exam, ordering medications,
tests and procedures. Time also includes documentation of this encounter, coordinating patient care and communicating with other healthcare professionals. Total time does not include separately billed tests performed on this date of service.
Subjective Data
-
Date of Service:
Date of Service: July 26, 2024
Chief Complaint: Pulmonary Follow Up and Dyspnea Follow Up
Subjective:
Reconsulted for coughing apparently
having intermittent coughing spells with upper airway sounds. Usually resolves with nebulizers.
No other pulmonary complaints
Objective Data
Data Reviewed
Vital Signs / I&O / Oxygen:
Vital Signs
Temp Pulse Resp BP Pulse Ox
97.5 F 94 18 173/91 96
07/26/24 11:17 07/26/24 12:11 07/26/24 12:11 07/26/24 11:17 07/26/24 11:17
Intake and Output
07/25/24 07/26/24 07/27/24
06:59 06:59 06:59
Intake Total 250 / 250
Output Total 900 / 900
Balance -650 / -650
SaO2 [CPAP/PSV] 97
SaO2 [A/C] 95
SaO2 96
Nasal Cannula flow liters per 3
minute
Physical Exam
General: Respiratory Distress (n), Comfortable and Other (chronically ill appearing)
HEENT: Normocephalic, Anicteric and Moist Mucous Membranes
Cardiovascular: S1-S2, Rub (negative) and Peripheral Edema (negative)
Respiratory: Wheeze (negative), Crackles (Bibasilar (L >R)), Rhonchi (negative), Non-Labored Respirations, Accessory Resp Muscle Use (n) and Stridor (negative)
GI: Soft, Distended, Non Tender, Normal Bowel Sounds and Other (abdomen is firm but not rigid and non-tender)
Neurology: Awake and Alert
Skin: Warm, Dry, Cyanosis (negative), Jaundice (negative) and Rash (n)
Labs/Micro/Reports
Lab Data
07/26/24 04:58
07/26/24 04:58
Laboratory Results
07/25/24 07/26/24 07/26/24
17:52 01:16 04:58
APTT 76.1 H 91.4 H 108.9 H
Microbiology
07/26/24 12:28 Nasal Swab Influenza Types A & B (CRISTO) - Final
Influenza A Positive, NAAT
--- NOTE | 2024-07-26 17:15 | PTCARENOTE ---
Pt calm and cooperative. No attempts to pull at tube or get OOB. Restraints removed. Bed alarm in place. Call amaya within reach.
[2024-07-26] MEDS: SEROQUEL 25 MG PO (17:31)
[2024-07-27] VITALS (12 sets, daily range): BP systolic 89–171; BP diastolic 69–95; BMI 28.0
[2024-07-27] MEDS: DUONEB 3 ML INH ×5 (00:40→19:21)
[2024-07-27] MEDS: TYLENOL PO ×3 (04:18→23:09)
--- NOTE | 2024-07-27 05:38 | PTCARENOTE ---
Around 00:00, pt with increased SOB/wheezing. PHYLLIS aM at bedside. Ordered one time Duoneb. Pt breathing more relaxed with less wheezing after. Pt slept throughout rest of night. No need for restraints. Periods of anger at times, no
aggression. No complaints at this time. Call amaya within reach.
[2024-07-27 06:13] LABS: APTT 127.1 Sec (23.4-35.0); Ammonia 11 umol/L (9-30)
[2024-07-27 06:56] LABS: Hematocrit 24.9 % (39.0-52.0); Hemoglobin 8.5 g/dL (13.0-18.0); Mean Corp Hgb Conc. 34.1 g/dL (33.0-37.0); Mean Corpuscular Hgb 29.7 pg (27.0-31.0); Mean Corpuscular Volume 87.1 fL (80.0-94.0); Mean Platelet Volume 10.5 fL (7.4-10.4); Platelet Count 59 10^3/uL (130-400); Red Blood Cell Count 2.86 10^6/uL (4.70-6.10); Red Cell Dist. Width 18.9 % (11.5-14.5); White Blood Cell Count 2.4 10^3/uL (4.8-10.8)
[2024-07-27 07:37] LABS: Blood Urea Nitrogen 21 mg/dl (9-20); Calcium 7.6 mg/dl (8.4-10.2); Carbon Dioxide 18 mmol/L (22-30); Chloride 114 mmol/L (98-107); Estimated Creatinine Clearance 76 ml/min; Glucose 93 mg/dl (70-99); Potassium 3.8 mmol/L (3.5-5.1); Sodium 141 mmol/L (135-145); eGFR > 60.00
[2024-07-27] MEDS: SYMBICORT 160/4.5 MCG INHALER 2 PUFF INH ×2 (07:41→19:22)
--- NOTE | 2024-07-27 08:57 | W.PN.HOSP.TC ---
Today's Communication/Plan
-
ABG. IR for abdominal paracentesis. Pulmonary eval
Assessment / Plan
Assessment / Plan
Physical exam:
General: Acutely ill
HEENT: Normocephalic, Atraumatic and Moist Mucous Membranes
Respiratory: Decreased breath sounds bilateral, clear to auscultation b/l
Cardiac: Regular Rhythm and S1/S2
GI: Soft, Nontender, Distended
Musculoskeletal: No Clubbing, No Cyanosis. 2+ bilateral edema
Neuro: AOx1 Conversant incoherent and tangential speech noted
Psych: Calm
A/P: 58M ETOH cirrhosis here for GIB and Hepatic Encephalopathy. Hospital course complicated with bilateral upper Ext DVT and likely aspiration pneumonia with associated Acute Hypoxic Respiratory Failure.
Acute respiratory insufficiency:
Due to influenza A and also ascites
Discussed with IR to see if amenable for abdominal paracentesis today
Discussed with pulmonary today again on 07/27
Discussed with psychiatry today
Chest x-ray no acute chest pathology
Will obtain ABG
Continue Tamiflu
Continue bronchodilator
Discussed at length with [id number] Jojo
Acute upper GI bleed:
EGD showed portal gastropathy
Continue PPI, Protonix 40 mg IV twice a day
completed a course of octreotide and Rocephin
GI eval appreciated repeat EGD performed 07/20/24 w/ results as follows, repeat ocreotide gtt completed, protonix 40 mg BID, repeat EGD in 4 wks
07/20/24 EGD
Grade II esophageal varices. Completely eradicated. Banded x2
- Bilious gastric fluid.
- Portal hypertensive gastropathy.
- Normal duodenal bulb, first portion of the duodenum and second portion of the duodenum. Biopsied.
07/20/24 Rapid Response Respiratory Distress agitation
-patient since improved with once IV morphine 1mg ordered by overnight staff
-review of records reports, appears to be delirium possibly triggered by post-anesthesia side effects vs hospital associated delirium
Acute toxic-metabolic encephalopathy:
Hospital Associated Delirium
Precedex off
Continue lactulose 20 g 3 times daily as tolerated
Continue rifaximin 550 mg twice a day as tolerated
Missed doses lactulose rifaximin due to AMS aspiration risk, patient removed DHT multiple times, once lactulose enema 07/18/24 GI re-eval appreciated
Neuro eval appreciated
Psych eval appreciated
Plastics Fabricator Or Welder/Pulm Eval appreciated
Seroquel 25 mg QPM started (typically around the time patient sundowns/becomes agitated)
EKG checked prior start Seroquel noted no significant QT prolongation.
Mental status since improved speech eval appreciated diet advanced to soft bite sized with 1:1 assist 100% supervision
Bilateral Acute DVT upper extremities:
Challenging situation given recent GI bleed
Discussed with GI following repeat EGD as above, cleared to start hep gtt w/o bolus for now, continued appears to be tolerating well
Switched heparin drip to oral Eliquis today since hemoglobin has been stable for few days
Acute respiratory failure
Possible Aspiration Pneumonia prior, completed course of treatment.
Dysphagia:
patient was on tube feeds d/t concerns aspiration lethargy AMS, however tube was removed three times overnight by patient
Speech eval appreciated NPO except meds crushed in pureed, Aspiration Risk Hydration Protocol
Leukocytosis, trend wbc, monitor temp
empiric zosyn narrowed to unasyn, completed total 5 days abx
blood cultures x2 NGTD
weaned off oxygen supplementation stable respiratory status on room air
B/L R>L Pleural effusion:
Status post thoracentesis 360 mL drawn
On Lasix 20 mg IV twice a day- placed on hold d/t SUSIE
Lasix since resumed, with resolution SUSIE, at 40 mg daily as per Nephro
Hypokalemia
monitor and replete as necessary
SUSIE resolved
Hypernatremia resolved
Nephro eval appreciated IVF D5W supplementation completed
Abdominal ascites
Abd distension
Diarrhea though on Lactulose
ascites remains small volume Abd US performed 07/13 and 07/16 not enough for paracentesis
Cdiff antigen pos but toxin neg
07/19 Abd US notes increase in ascites, IR re-eval appreciated however remains insufficient for paracentesis prior. Reconsulted IR again today.
Acute blood loss anemia
Anemia of Chronic Disease
Iron Deficiency Anemia
Status post blood transfusion
Monitor hemoglobin
received 3 doses IV iron supplementation, switched to PO
received 4PRBC transfusion over the course of hospitalization
Status post another blood transfusion on 07/24 and heparin held but restarted again and tolerated quite well. No signs of active bleed for now.
Hepatic encephalopathy:
Continue lactulose and rifaximin as above
Lactulose Enema prn
Alcohol liver cirrhosis:
MELD score labs-hx MELD score 18
PT/OT appreciated SNF rehab
DVT prophylaxis:
Eliquis
CODE STATUS:
DNR
Total time spent on today's encounter was 52 minutes which included time spent in counseling the patient/family regarding diagnosis and treatment plan as listed above, goals of care, and symptom management. Case was discussed with nursing staff,
specialists, and care coordinators/case management. All labs and imaging personally reviewed by me. Remainder the time spent in detailed review of previous records, lab data, imaging, and other medical provider documentation.
Anticipated Discharge: > 48 hours
Subjective/Interval History
-
Date of Service: July 27, 2024
Patient still has some tachypnea and increased work of breathing but normal oxygenation pulse ox. Afebrile.
Objective Data
-
Labs:
Laboratory Results
07/27/24 07/27/24
05:48 12:30
WBC 2.4 L*
Hgb 8.5 L
Hct 24.9 L
Plt Count 59 L
APTT 127.1 H Pending
Sodium 141
Potassium 3.8
Chloride 114 H
Carbon Dioxide 18 L
BUN 21 H
Creatinine 1.1
Glucose 93
Calcium 7.6 L
Vital Signs:
Vital Signs
Temp Pulse Resp BP Pulse Ox
98.4 F 95 18 140/69 95
07/27/24 07:50 07/27/24 07:50 07/27/24 07:50 07/27/24 07:50 07/27/24 07:50
I&O
07/26/24 07/27/24 07/28/24
06:59 06:59 06:59
Intake Total 240 / 240
Output Total 375 / 375
Balance -135 / -135
[2024-07-27] MEDS: SODIUM BICARBONATE 650 MG PO ×2 (08:58→16:46)
[2024-07-27] MEDS: XIFAXAN 550 MG PO (08:58)
[2024-07-27] MEDS: ALDACTONE 25 MG PO (08:58)
[2024-07-27] MEDS: TAMIFLU 75 MG PO (08:58)
[2024-07-27] MEDS: TYLENOL 650 MG PO ×3 (08:58→16:46)
[2024-07-27] MEDS: FEOSOL 325 MG PO (08:58)
[2024-07-27] MEDS: LASIX 80 MG PO (08:58)
[2024-07-27] MEDS: DUPHALAC/CHRONULAC 20 GRAMS PO ×2 (08:59→16:45)
[2024-07-27] MEDS: THIAMINE INJECTION 200 MG IV (08:59)
[2024-07-27] MEDS: PROTONIX 40 MG PO (08:59)
[2024-07-27] MEDS: DESENEX/MITRAZOL/ZEASORB 1 APPLIC TOPICAL ×2 (09:02→23:36)
[2024-07-27] MEDS: ELIQUIS 5 MG PO (10:09)
[2024-07-27] MEDS: SEROQUEL 25 MG PO (10:42)
--- NOTE | 2024-07-27 11:47 | CM ---
Reviewed the chart notes. Restraints have been removed. CM continues to be available to patient/family and is monitoring medical plan for needs at discharge.
Plan: Discharge plans will depend on the patient's progress.
--- NOTE | 2024-07-27 11:51 | W.PN.NEPH.PH ---
Today's Communication / Plan
-
Escalate bicarbonate to 3 times daily
Maintain Lasix and Aldactone
Assessment/Plan
-
IMP:
Acute upper GI bleed
Acute toxic-metabolic encephalopathy
Dysphagia
Acute DVT left upper extremity
SUSIE
Hypernatremia
B/L R>L Pleural effusion-Status post thoracentesis
Abdominal ascites
Anemia
Thrombocytopenia
Acute blood loss anemia
Hepatic encephalopathy
Alcohol liver cirrhosis
Plan:
lasix 40mg po daily to continue with spironolactone
Will adjust up sodium bicarbonate to 3 times daily for metabolic acidosis
replete K prn
Ammonia levels not elevated
follow BMP
-
-
Date of Service: July 27, 2024
CC / HPI / ROS
-
Chief Complaint:
SUSIE
History of Present Illness:
SUSIE/Cr stable 1.1
BP stable
Metabolic acidosis evolving 18
Sodium stable 141
K up to 3.9
Review of Systems:
no CP/SOB
confused
Weight is down
Labs
-
Labs:
WBC 2.4 10^3/uL (4.8-10.8) L* 07/27/24 05:48
RBC 2.86 10^6/uL (4.70-6.10) L 07/27/24 05:48
Hgb 8.5 g/dL (13.0-18.0) L 07/27/24 05:48
Hct 24.9 % (39.0-52.0) L 07/27/24 05:48
Plt Count 59 10^3/uL (130-400) L 07/27/24 05:48
Sodium 141 mmol/L (135-145) 07/27/24 05:48
Potassium 3.8 mmol/L (3.5-5.1) 07/27/24 05:48
Chloride 114 mmol/L (98-107) H 07/27/24 05:48
Carbon Dioxide 18 mmol/L (22-30) L 07/27/24 05:48
BUN 21 mg/dl (9-20) H 07/27/24 05:48
Creatinine 1.1 mg/dL (0.7-1.3) 07/27/24 05:48
eGFR > 60.00 07/27/24 05:48
Glucose 93 mg/dl (70-99) 07/27/24 05:48
Calcium 7.6 mg/dl (8.4-10.2) L 07/27/24 05:48
Phosphorus 2.8 mg/dl (2.5-4.5) 07/23/24 05:32
Albumin 1.8 g/dl (3.5-5.0) L 07/24/24 04:58
Physical Exam
-
Vital Signs:
Vital Signs
Temp Pulse Resp BP Pulse Ox
98.4 F 88 20 140/69 94
07/27/24 07:50 07/27/24 10:19 07/27/24 10:19 07/27/24 07:50 07/27/24 08:52
Cardiovascular:: Regular rate and rhythm
Respiratory:: Bilateral: CTA
Lung Excursion:: Normal
Abdomen:: Nontender and Soft
Bowel Sounds:: Normal
Extremity Edema:: +2: Bilateral:
Zhou Catheter: No
--- NOTE | 2024-07-27 12:47 | W.PN.UPDATE ---
Update Note
Progress Note Update
patient seen chart reviewed. discussed with nursing. the patient is decompensating medically at this point. he was laboring to breath. dx w influenza compounding the distress from his underlying medical illnesses. have cut back the seroquel prn to
12.5. will cut back the evening seroquel to 12.5 as he appears quite weak....hold for sedation . dc'ed ativan iv prn and changes to po given concern for suppressing respiration.
--- NOTE | 2024-07-27 12:48 | W.PN.PUL3 ---
Today's Communication / Plan
-
ABG
Continue Symbicort-not bronchospastic.
Continue DuoNebs
Evaluation for possible paracentesis increased pulmonary mechanics
Continue Tamiflu
Monitor oxygen requirements-currently on room air.
Assessment
-
58-year-old man with history of alcohol cirrhosis admitted through the emergency room after found unresponsive at home by his mother. Patient was admitted with dark stools, dark emesis, found to have anemia and GI bleed. Intubated for change in
mental status and airway protection and transferred to the critical care unit for further care.
Reconsulted 07/26/2024 for coughing spells with upper airway sounds.
Coughing spells: Upper airway sounds. Improved with nebulizer therapy.
Flu + 07/26/2024.
Chest x-ray 07/26/2024: Moderate elevation of the right hemidiaphragm. Right lower lobe minimal atelectasis.
-
Acute respiratory failure/change in mental status requiring intubation and mechanical ventilation for airway protection 07/05/2024
Intubated 07/05/2024
Extubated 07/10/2024
Hepatic encephalopathy
Acute GI bleed-melena/coffee-ground
Acute blood loss anemia-hemoglobin on admission 4.9 and he has required 4 U PRBC since admission
Status post EGD 07/06/2026: Portal gastropathy.
Repeat EGD 07/19/2024 with grade 2 distal EV s/p bands x2 with PHG
Change in mental status/toxic metabolic encephalopathy: Cannot rule out alcohol withdrawal/hepatic encephalopathy
Ammonia level 92 on 07/05/2024 --> less than 9 on 07/18/2024
Coagulopathy INR 2.7 --> now 1.59 on 07/15/2024
Self reported Hx of asthma
Conditions present prior admission:
Alcoholic cirrhosis-on prior operative report from 2014 is noted.
? Bipolar disorder-not taking any medications
History of alcohol disorder
Plan:
-
Reconsulted on 07/26/2024 for shortness of breath. Upper airway sounds intermittently .
Not bronchospastic on exam 07/27/2024
Feels uncomfortable and tired due to the flu.
-
This morning with increased work of breathing. During my evaluation 07/27/2024/-at 12:50 PM. Patient is sleeping comfortably without increased work of breathing. Mother at the bedside.
On room air.
Influenza positive.
Not bronchospastic on exam
Chest x-ray without acute infiltrates.
No stridor or hoarse voice. Doubt upper airway issues. If upper airway sounds continue intermittently may need to get ENT involved as the patient was intubated in the past.
-
Abdominal distention also contributing to his increased work of breathing.
Also significant muscle mass wasting not helping
Agree with possible paracentesis-in the past has not had enough fluid
Obtain ABG-if hypercapnia will need intubation. Poor candidate for BiPAP.
-
He endorses prior history of asthma-this is unreliable but he has been off her inhalers in the past and he has refused.
Did not want also standing nebulizers in the past.
-
With flu positive agree with Tamiflu for 5 days. There is no evidence for pneumonia on chest x-ray
-
Continue DuoNebs 3 times a day.
Continue Symbicort
Monitor respiratory status closely. High risk for intubation due to muscle mass loss/debilitation/abdominal distention.
-
Recurrent microaspiration also possibility triggering intermittent symptoms.
Continue Aspiration precautions
Continue PPI twice a day.
Diet as tolerated.
He is DNR
Psychiatry continues to follow
Placement issues
Bilateral upper extremity DVTs.
Defer anticoagulation to primary team and GI.
Anemia/GI bleeding issues.
Management per primary team and GI.
Continue hepatic encephalopathy management.
DVT prophylaxis- Movement sequentials for now.
Eventual restart anticoagulation
Will follow briefly.
Dr. Miguel updated mother at the bedside 07/27/2024

Family discussions:
Dr. Sheikh updated uthmji-ke-bil at the bedside extensively 07/09/2024 as well as on multidisciplinary rounds 07/11/2024, 07/12/2024, and 07/13/2024, and Dr. Sheikh reviewed with [id number] 07/14/2024, 07/15/2024, and again on 07/18/24
Goals of care again discussed with [id number] 07/12/2024-DNR, do not reintubate if respiratory decompensation-again updated on 07/13/2024
Subjective Data
-
Date of Service:
Date of Service: July 27, 2024
Chief Complaint: Pulmonary Follow Up and Dyspnea Follow Up
Subjective:
Reports coughing
Increased shortness of breath
Increased abdominal distention
Review of Systems
Cardiopulmonary: Dyspnea, Dyspnea on Exertion and Cough
Objective Data
Data Reviewed
Vital Signs / I&O / Oxygen:
Vital Signs
Temp Pulse Resp BP Pulse Ox
98.5 F 97 20 136/78 95
07/27/24 11:15 07/27/24 11:15 07/27/24 11:15 07/27/24 11:15 07/27/24 11:15
Intake and Output
07/26/24 07/27/24 07/28/24
06:59 06:59 06:59
Intake Total 240 / 240
Output Total 375 / 375
Balance -135 / -135
SaO2 [CPAP/PSV] 97
SaO2 [A/C] 95
SaO2 95
Nasal Cannula flow liters per 3
minute
Physical Exam
General: Respiratory Distress (y, with coughing), Comfortable, Other (chronically ill appearing) and Other (Cachectic)
HEENT: Normocephalic, Anicteric and Moist Mucous Membranes
Cardiovascular: S1-S2, Rub (negative) and Peripheral Edema (negative)
Respiratory: Wheeze (negative), Crackles (Bibasilar (L >R)), Rhonchi (negative), Non-Labored Respirations, Accessory Resp Muscle Use (n) and Stridor (negative)
GI: Soft, Distended, Non Tender, Normal Bowel Sounds and Other (abdomen is firm but not rigid and non-tender)
Neurology: Awake and Alert
Skin: Warm, Dry, Cyanosis (negative), Jaundice (negative) and Rash (n)
Labs/Micro/Reports
Lab Data
07/27/24 05:48
07/27/24 05:48
Laboratory Results
07/27/24 07/27/24
05:48 12:30
APTT 127.1 H Cancelled
Microbiology
07/26/24 12:28 Nasal Swab Influenza Types A & B (CRISTO) - Final
Influenza A Positive, NAAT
[2024-07-27 13:09] LABS: B.E. -5.3 mmol/L; HCO3 17.9 mmol/L (21-28); O2 Saturation % 92.8 % (94-98); PCO2 27 mmHg (35-48); PO2 73 mmHg (83-108); pH 7.43 (7.35-7.45)
[2024-07-27 14:47] LABS: Body Fluid Albumin < 1.0 g/dl; Body Fluid Protein < 2.0 g/dl
[2024-07-27 15:12] LABS: Body Fluid WBC 29 /CUMM
[2024-07-27 15:17] LABS: Body Fluid Second Tech FB
[2024-07-27] MEDS: APRESOLINE 5 MG IV ×2 (16:46→22:19)
--- NOTE | 2024-07-27 16:46 | W.PN.UPDATE ---
Addendum entered and electronically signed by Kaylie Galo MD 07/27/24 18:48:
Bicarbonate dropping further to 16 and lactic acid 3.7---patient could be septic but source unclear--will panculture--start bicarbonate drip, stop PO bicarb--await CAT scan chest abdomen pelvis
Also found out, patient on lactulose and up to today, had been having multiple liquidy stools which certainly could be cause of the bicarbonate loss and nongapped acidosis--today however, no liquid stools noted
Original Note:
Update Note
Progress Note Update
Called to bedside to see patient for increased wheezing, increased shortness of breath with accessory muscle use status post paracentesis of 1 L.
Reviewed chart.
Arrived at patient's bedside. Patient appears tachypneic, actually asking for 'Primatene Mist', does not feel overtly short of breath. Denies chest pain.
GENERAL: Chronically ill appearing cachectic male with sunken temporal features with increased respiratory rate. Able to speak in full sentences.
HEENT: NC/AT--no O2 requirements.
HEART: regular rate and rhythm, +S1, +S2
LUNGS : clear to auscultation bilaterally--appears to have upper airway wheezing with forced expiration
ABDOM: Tense, tachypneic, distended, nontender, hyperactive + bowel sounds
EXT: no cyanosis, clubbing--2+ lower extremity edema pitting on right, 3+ lower extremity edema pitting on left leg
NEUROLOGIC: Moves all extremities
Paracentesis today reveals 1 L taken off. No need for high-volume albumin repletion.
Selected Entries
07/27/24
15:40 07/27/24
16:46
Temp 98.1 F
Pulse 97
Resp Rate 24
Blood pressure 163/89
SaO2 96
AM labs reveal: White blood cell count 2.4, hemoglobin 8.5, platelets 59,000---pH 7.43, pCO2 27, pO2 73, 92% on room air--HCO3 18 and has been low since 07/22/2024 with dropping level to present, calcium low at 7.6
Assessment/plan:
Tachypnea--appears more related to his metabolic acidosis with attempts to blow off pCO2 evidenced by pCO2 on blood gas which is low at 27--at this rate, patient likely will tire and perhaps need intubation, would move patient to IMU for closer
observation--will check CT scan of chest with IV contrast to rule out pulmonary embolism (patient does have bilateral upper extremity DVTs)--patient also influenza positive on Tamiflu--anemia of 8.5 could also be contributing to patient's shortness
of breath although, this is better than hemoglobin of 7on July 24, 2024--continue Benjamín, consideration for IV steroids although 'wheezing' appears to be more upper airway--would also consider CT scan of the neck--consideration for small dose
of morphine for air hunger may benefit him
Metabolic acidosis--unclear cause--will check lactic acidosis, patient does not appear septic, uremic, or in DKA-- if lactate positive, unclear source--NONGAPPED METABOLIC ACIDOSIS, RTAs possible--will check CT scan of chest/abdomen/pelvis with IV
contrast to rule out pathology--agree with nephrology regarding bicarbonate therapy--patient abdomen severely distended and tympanitic, nontender--concern for ileus versus intestines pushed from significant ascites, imaging studies would help
determine next steps--if patient spikes temperature, would panculture
Total Critical Care Time 50 minutes. I was immediately available to the patient and staff. I personally examined, reviewed labs, diagnostic images/reports, interpretations, treatment plans, discussed patient care with other providers and family
or caregivers (if patient is unable to make decisions), entered orders as appropriate and documented the medical record.
[2024-07-27 17:25] LABS: % Basophils 0.4 % (0-2); % Eosinophils 0.7 % (0-6); % Immature Granulocytes 0.4 % (0-0.5); % Lymphocytes 21.8 % (20.5-51.1); % Monocytes 5.8 % (1.7-9.3); % Neutrophils 70.9 % (42.2-75.2); Absolute Lymphocytes 0.6 10^3/uL (1.2-3.4); Absolute Monocytes 0.2 10^3/uL (0.1-0.6); Hematocrit 27.1 % (39.0-52.0); Mean Corp Hgb Conc. 33.2 g/dL (33.0-37.0); Mean Corpuscular Hgb 29.7 pg (27.0-31.0); Mean Corpuscular Volume 89.4 fL (80.0-94.0); Mean Platelet Volume 10.3 fL (7.4-10.4); Nucleated Red Blood Cells % 0 % (-); Platelet Count 66 10^3/uL (130-400); Red Blood Cell Count 3.03 10^6/uL (4.70-6.10); Red Cell Dist. Width 19.5 % (11.5-14.5); White Blood Cell Count 2.8 10^3/uL (4.8-10.8)
[2024-07-27 17:35] LABS: ALT (SGPT) 48 U/L (0-50); AST (SGOT) 147 U/L (17-59); Albumin 2.1 g/dl (3.5-5.0); Alkaline Phosphatase 224 U/L (38-126); Blood Urea Nitrogen 21 mg/dl (9-20); Calcium 7.6 mg/dl (8.4-10.2); Carbon Dioxide 16 mmol/L (22-30); Chloride 109 mmol/L (98-107); Estimated Creatinine Clearance 76 ml/min; Glucose 132 mg/dl (70-99); Potassium 3.5 mmol/L (3.5-5.1); Sodium 139 mmol/L (135-145); Total Protein 5.7 g/dl (6.3-8.2); eGFR > 60.00
[2024-07-27 17:36] LABS: Lactic Acid 3.7 mmol/L (0.7-2.0)
--- NOTE | 2024-07-27 17:42 | PTCARENOTE ---
pt tachypneic this shift, Dr Lauren made aware, PRN breathing treatment given by Respiratory therapy; RR 24;POx 97 RA, paracentesis ordered and 1 L of fluids drained, pt states that his breathing got better after procedure but pt using his accessory
muscles, taking shallow breaths and exhaling with effort. Later in the shift, cross coverage notified that pt continued with accessory breathing, DR Galo at bedside with Resident, more orders placed for ABD CT; blood work and pt to be
tranferred to IMU to better monitor his breathing status.
[2024-07-27 18:04] LABS: TSH Reflex To Free T4 5.13 uIU/ml (0.47-4.68)
[2024-07-27] MEDS: SEROQUEL 12.5 MG PO (18:04)
[2024-07-27] MEDS: DECADRON 4 MG IV ×2 (18:04→23:36)
[2024-07-27] MEDS: OMNIPAQUE 50 ML PO (18:38)
[2024-07-27 18:42] LABS: Free T4 1.43 ng/dl (0.78-2.19)
[2024-07-27] MEDS: SODIUM BICARBONATE 1150 MEQ IV (18:44)
[2024-07-27 19:34] LABS: Glucose - Point of Care 121 mg/dl (70-99)
--- NOTE | 2024-07-27 20:09 | W.PN.UPDATE ---
Addendum entered and electronically signed by PHYLLIS Ma 07/28/24 03:06:
Lactic acid 4.1, unable to give additional fluids at this time. Albumin 25g IV x 1 ordered.
Original Note:
Update Note
Progress Note Update
Rapid response called at 1929. Per RN, patient vomited bright red blood and tachypneic w/increased work of breathing. Stomach distended. GI contacted, spoke with Dr. Tomlinson. Asked to upgrade patient to IMU.
Ordered Octrecide gtt and Protonix gtt, patient made NPO, Eliquis on hold. CT Chest/Abd/Pelvis pending.
--- NOTE | 2024-07-27 20:27 | PTCARENOTE ---
Addendum entered by Matheus Fink RN 07/27/24 20:38:
transferred to IMU room 3348.
Original Note:
Rapid Response was called on patient. See full report. Patient was transferred to ICU [id number]. Report given directly to Yung.
[2024-07-27] MEDS: SANDOSTATIN 500.6 MCG IV (20:55)
[2024-07-27] MEDS: PROTONIX 100 IV (20:55)
[2024-07-27] MEDS: PROTONIX PO (21:57)
[2024-07-27] MEDS: MORPHINE SULFATE 0.5 MG IV (22:00)
[2024-07-27] MEDS: VENTOLIN NEBULES 2.5 MG INH (22:00)
--- NOTE | 2024-07-27 22:30 | PTCARENOTE ---
Received verbal report from MAICOL Jarvis. Pt arrived to IMU. Pt ox2 (not to time). NSR on monitor. 98% on 4L NC. Sodium bicarb infusing @ 80 mL/hr. Pt c/o 01/06 pain throughout his body that he is unable to describe. PRN morphine administered (see MAR).
Pt with audible wheezing, PRN neb administered by RT. Pt oriented to unit and hygiene completed. Pt resting in bed with bed alarm on and call amaya in reach.
[2024-07-27] MEDS: TAMIFLU PO (23:07)
[2024-07-27] MEDS: DUPHALAC/CHRONULAC PO (23:07)
[2024-07-27] MEDS: XIFAXAN PO (23:07)
[2024-07-28] VITALS (16 sets, daily range): BP systolic 97–156; BP diastolic 34–96; BMI 28.2
[2024-07-28] MEDS: TYLENOL PO ×2 (02:43→10:17)
[2024-07-28 02:48] LABS: Lactic Acid 4.1 mmol/L (0.7-2.0)
--- NOTE | 2024-07-28 03:03 | PTCARENOTE ---
Pt's Lactic is 4.1. MILLI Ortega made aware
[2024-07-28] MEDS: FLEXBUMIN 100 IV (04:49)
[2024-07-28] MEDS: DECADRON 4 MG IV (05:16)
[2024-07-28 05:27] LABS: INR 1.83; PT 21.3 Sec (11.4-14.6)
[2024-07-28 05:35] LABS: Hematocrit 26.1 % (39.0-52.0); Hemoglobin 8.5 g/dL (13.0-18.0); Mean Corp Hgb Conc. 32.6 g/dL (33.0-37.0); Mean Corpuscular Hgb 29.2 pg (27.0-31.0); Mean Corpuscular Volume 89.7 fL (80.0-94.0); Mean Platelet Volume 11.3 fL (7.4-10.4); Platelet Count 58 10^3/uL (130-400); Red Blood Cell Count 2.91 10^6/uL (4.70-6.10); Red Cell Dist. Width 19.4 % (11.5-14.5); White Blood Cell Count 2.9 10^3/uL (4.8-10.8)
[2024-07-28 05:44] LABS: ALT (SGPT) 46 U/L (0-50); AST (SGOT) 133 U/L (17-59); Alkaline Phosphatase 215 U/L (38-126); Blood Urea Nitrogen 22 mg/dl (9-20); Calcium 7.5 mg/dl (8.4-10.2); Carbon Dioxide 18 mmol/L (22-30); Chloride 109 mmol/L (98-107); Estimated Creatinine Clearance 69 ml/min; Glucose 100 mg/dl (70-99); Potassium 4.1 mmol/L (3.5-5.1); Sodium 141 mmol/L (135-145); Total Protein 5.5 g/dl (6.3-8.2); eGFR > 60.00
[2024-07-28 06:05] LABS: Lactic Acid 3.8 mmol/L (0.7-2.0)
[2024-07-28] MEDS: MORPHINE SULFATE 0.5 MG IV ×2 (07:38→15:42)
[2024-07-28] MEDS: PROTONIX 100 IV ×2 (07:40→16:55)
[2024-07-28] MEDS: THIAMINE INJECTION 200 MG IV (07:42)
--- NOTE | 2024-07-28 07:45 | PTCARENOTE ---
Pt changed for incont episode , restless and agitated given Morphine as ordered
[2024-07-28] MEDS: DESENEX/MITRAZOL/ZEASORB 1 APPLIC TOPICAL ×2 (07:48→23:10)
[2024-07-28] MEDS: SYMBICORT 160/4.5 MCG INHALER 2 PUFF INH ×2 (07:58→20:20)
[2024-07-28] MEDS: DUONEB 3 ML INH ×4 (07:58→20:20)
[2024-07-28 08:08] LABS: Urine Albumin 2+ (Neg - Trace); Urine Bilirubin Negative (Negative); Urine Character Clear (Clear); Urine Color Yellow; Urine Glucose Negative (Negative); Urine Ketone Negative (Negative); Urine Leukocyte Negative (Negative); Urine Nitrite Negative (Negative); Urine Occult Blood 4+ (Negative); Urine Urobilinogen Negative (Neg - 1+)
[2024-07-28 08:20] LABS: Urine Granular Cast 0-2 /LPF (0)
[2024-07-28 08:23] LABS: Urine Bacteria Few (Negative); Urine Red Blood Cell 21-25 /HPF (0-2)
--- NOTE | 2024-07-28 08:45 | PTCARENOTE ---
Pt attempting to get OOB 'to go downstairs' pt redirected, pt will not leave POOX on at this time
[2024-07-28] MEDS: SODIUM BICARBONATE 1150 MEQ IV (08:47)
[2024-07-28 09:14] LABS: % Immature Granulocytes 0.7 % (0-0.5); % Lymphocytes 12.1 % (20.5-51.1); % Monocytes 3.4 % (1.7-9.3); % Neutrophils 83.8 % (42.2-75.2); Absolute Lymphocytes 0.4 10^3/uL (1.2-3.4); Absolute Monocytes 0.1 10^3/uL (0.1-0.6); Absolute Neutrophils 2.4 10^3/uL (1.4-6.5); Nucleated Red Blood Cells % 0 % (-)
--- NOTE | 2024-07-28 09:23 | W.PN.NEPH.PH ---
Today's Communication / Plan
-
sodium bicarbonate drip while npo
Assessment/Plan
-
IMP:
Acute upper GI bleed
Acute toxic-metabolic encephalopathy
Dysphagia
Acute DVT left upper extremity
SUSIE
Hypernatremia
B/L R>L Pleural effusion-Status post thoracentesis
Abdominal ascites
Anemia
Thrombocytopenia
Acute blood loss anemia
Hepatic encephalopathy
Alcohol liver cirrhosis
Plan:
Hematemesis last evening
Lasix and Aldactone held while n.p.o.
sodium bicarbonate to 3 times daily for metabolic acidosis, now on sodium bicarbonate drip as he is n.p.o. following last night's GI bleed
replete K prn
Status post paracentesis on 07/27/2024 for 1000 cc
Ammonia levels not elevated
follow BMP
-
-
Date of Service: July 28, 2024
CC / HPI / ROS
-
Chief Complaint:
SUSIE
History of Present Illness:
SUSIE/Cr stable 1.2
Hematemesis last evening with some accompanying hemodynamic instability
BP stable
Metabolic acidosis evolving 18
Sodium stable 141
Now n.p.o. on sodium bicarbonate drip
Review of Systems:
no CP/SOB
confused
N.p.o.
Labs
-
Labs:
WBC 2.9 10^3/uL (4.8-10.8) L 07/28/24 04:42
RBC 2.91 10^6/uL (4.70-6.10) L 07/28/24 04:42
Hgb 8.5 g/dL (13.0-18.0) L 07/28/24 04:42
Hct 26.1 % (39.0-52.0) L 07/28/24 04:42
Plt Count 58 10^3/uL (130-400) L 07/28/24 04:42
Sodium 141 mmol/L (135-145) 07/28/24 04:42
Potassium 4.1 mmol/L (3.5-5.1) 07/28/24 04:42
Chloride 109 mmol/L (98-107) H 07/28/24 04:42
Carbon Dioxide 18 mmol/L (22-30) L 07/28/24 04:42
BUN 22 mg/dl (9-20) H 07/28/24 04:42
Creatinine 1.2 mg/dL (0.7-1.3) 07/28/24 04:42
eGFR > 60.00 07/28/24 04:42
Glucose 100 mg/dl (70-99) H 07/28/24 04:42
Calcium 7.5 mg/dl (8.4-10.2) L 07/28/24 04:42
Phosphorus 2.8 mg/dl (2.5-4.5) 07/23/24 05:32
Albumin 2.0 g/dl (3.5-5.0) L 07/28/24 04:42
Physical Exam
-
Vital Signs:
Vital Signs
Temp Pulse Resp BP Pulse Ox
97.6 F 84 28 118/62 90
07/28/24 04:00 07/28/24 08:00 07/28/24 08:00 07/28/24 08:00 07/28/24 08:00
Cardiovascular:: Regular rate and rhythm
Respiratory:: Bilateral: CTA
Lung Excursion:: Normal
Abdomen:: Nontender and Soft
Bowel Sounds:: Normal
Extremity Edema:: +2: Bilateral:
Zhou Catheter: No
--- NOTE | 2024-07-28 09:34 | W.PN.HOSP.TC ---
Today's Communication/Plan
-
Monitor hemoglobin. IV PPI drip. IV octreotide drip. Plan to repeat abdominal paracentesis.
Assessment / Plan
Assessment / Plan
Physical exam:
General: Acutely ill
HEENT: Normocephalic, Atraumatic and Moist Mucous Membranes
Respiratory: Decreased breath sounds bilateral, some adventitious sounds, clear to auscultation b/l. Some upper airway noise. No wheezes or crackles.
Cardiac: Regular Rhythm and S1/S2, tachycardia
GI: Soft, very distended, mild tenderness.
Musculoskeletal: No Clubbing, No Cyanosis. 2+ bilateral edema
Neuro: Alert but disoriented, generalized weakness present
Psych: Limited judgment and insight
A/P: 58M ETOH cirrhosis here for GIB and Hepatic Encephalopathy. Hospital course complicated with bilateral upper Ext DVT and likely aspiration pneumonia with associated Acute Hypoxic Respiratory Failure.
Today on 07/28:
Respiratory insufficiency:
Stop IV steroids (on my opinion this would make things worse)
Respiratory issues are most likely stemming from abdominal pressure from ascites. Despite abdominal paracentesis CT scan shows large volume ascites.
Discussed with IR again today to see if we can repeat abdominal paracentesis and they will be able to repeat paracentesis on Tuesday (discussed with Dr. Gibbs)
Reviewed CT scan of the chest and abdomen
Can continue with bronchodilators
Reviewed ABG from yesterday
Also reached out to pulmonary today
Increased lactate:
There is no evidence of sepsis and this is most likely related to decreased liver clearance of lactate
I would cautiously monitor but would not overreact unless any clinical evidence otherwise
Hold off on antibiotics
Mild metabolic acidosis with respiratory alkalosis:
This is part of his compensation mechanisms of his acute illness
Acute recurrent GI bleed:
Patient no status post banding for variceal bleed
Will continue IV Protonix drip
Will continue IV octreotide drip
Will monitor hemoglobin and transfuse as needed
Discussed with GI in person today on 07/28
GI might challenge with clear liquid diet
Keep all medications on hold until we know for sure that he is able to tolerate oral intake for 24 hours or more.
Acute blood loss anemia:
Monitor hemoglobin
Transfusion as needed
Pancytopenia:
Related to liver cirrhosis and splenic sequestration
Influenza A:
Will restart Tamiflu in a.m.
Bronchodilators for now
Toxic metabolic encephalopathy with recent hepatic encephalopathy (cannot rule out Wernicke-Korsakoff encephalopathy):
Continue monitoring mental status closely
Will restart lactulose and rifaximin in a.m.
Continue IV thiamine
Add IV lorazepam as needed
Would restart Seroquel in a.m.
Liver cirrhosis:
Will restart diuretics with Lasix spironolactone in a.m.
Monitor volume status
DVT prophylaxis:
SCDs
CODE STATUS:
DNR
Prognosis guarded. Mother would like to continue aggressive medical therapy.

Prior to today:
Rapid response last night on 07/27:
Patient had hematemesis and increased work of breathing as well as increased lactate
Patient placed n.p.o.
Protonix drip initiated, Eliquis discontinued, CT chest and abdomen and pelvis ordered.
GI reconsulted
Nephrology started him on bicarb drip
Transferred to IMU
Acute respiratory insufficiency:
Due to influenza A and also ascites
Discussed with IR and he went for abdominal paracentesis yesterday
Discussed with pulmonary today again on 07/27
Discussed with psychiatry today
Chest x-ray no acute chest pathology
Will obtain ABG
Continue Tamiflu
Continue bronchodilator
Discussed at length with wzqyja-oz-gol Jojo
Acute upper GI bleed:
EGD showed portal gastropathy
Continue PPI, Protonix 40 mg IV twice a day
completed a course of octreotide and Rocephin
GI eval appreciated repeat EGD performed 07/20/24 w/ results as follows, repeat ocreotide gtt completed, protonix 40 mg BID, repeat EGD in 4 wks
07/20/24 EGD
Grade II esophageal varices. Completely eradicated. Banded x2
- Bilious gastric fluid.
- Portal hypertensive gastropathy.
- Normal duodenal bulb, first portion of the duodenum and second portion of the duodenum. Biopsied.
07/20/24 Rapid Response Respiratory Distress agitation
-patient since improved with once IV morphine 1mg ordered by overnight staff
-review of records reports, appears to be delirium possibly triggered by post-anesthesia side effects vs hospital associated delirium
Acute toxic-metabolic encephalopathy:
Hospital Associated Delirium
Precedex off
Continue lactulose 20 g 3 times daily as tolerated
Continue rifaximin 550 mg twice a day as tolerated
Missed doses lactulose rifaximin due to AMS aspiration risk, patient removed DHT multiple times, once lactulose enema 07/18/24 GI re-eval appreciated
Neuro eval appreciated
Psych eval appreciated
Clinic Assistant/Pulm Eval appreciated
Seroquel 25 mg QPM started (typically around the time patient sundowns/becomes agitated)
EKG checked prior start Seroquel noted no significant QT prolongation.
Mental status since improved speech eval appreciated diet advanced to soft bite sized with 1:1 assist 100% supervision
Bilateral Acute DVT upper extremities:
Challenging situation given recent GI bleed
Discussed with GI following repeat EGD as above, cleared to start hep gtt w/o bolus for now, continued appears to be tolerating well
Switched heparin drip to oral Eliquis today since hemoglobin has been stable for few days
Acute respiratory failure
Possible Aspiration Pneumonia prior, completed course of treatment.
Dysphagia:
patient was on tube feeds d/t concerns aspiration lethargy AMS, however tube was removed three times overnight by patient
Speech eval appreciated NPO except meds crushed in pureed, Aspiration Risk Hydration Protocol
Leukocytosis, trend wbc, monitor temp
empiric zosyn narrowed to unasyn, completed total 5 days abx
blood cultures x2 NGTD
weaned off oxygen supplementation stable respiratory status on room air
B/L R>L Pleural effusion:
Status post thoracentesis 360 mL drawn
On Lasix 20 mg IV twice a day- placed on hold d/t SUSIE
Lasix since resumed, with resolution SUSIE, at 40 mg daily as per Nephro
Hypokalemia
monitor and replete as necessary
SUSIE resolved
Hypernatremia resolved
Nephro eval appreciated IVF D5W supplementation completed
Abdominal ascites
Abd distension
Diarrhea though on Lactulose
ascites remains small volume Abd US performed 07/13 and 07/16 not enough for paracentesis
Cdiff antigen pos but toxin neg
07/19 Abd US notes increase in ascites, IR re-eval appreciated however remains insufficient for paracentesis prior. Reconsulted IR again today.
Acute blood loss anemia
Anemia of Chronic Disease
Iron Deficiency Anemia
Status post blood transfusion
Monitor hemoglobin
received 3 doses IV iron supplementation, switched to PO
received 4PRBC transfusion over the course of hospitalization
Status post another blood transfusion on 07/24 and heparin held but restarted again and tolerated quite well. No signs of active bleed for now.
Hepatic encephalopathy:
Continue lactulose and rifaximin as above
Lactulose Enema prn
Alcohol liver cirrhosis:
MELD score labs-hx MELD score 18
PT/OT appreciated SNF rehab
DVT prophylaxis:
Eliquis
CODE STATUS:
DNR
Total time spent on today's encounter was 52 minutes which included time spent in counseling the patient/family regarding diagnosis and treatment plan as listed above, goals of care, and symptom management. Case was discussed with nursing staff,
specialists, and care coordinators/case management. All labs and imaging personally reviewed by me. Remainder the time spent in detailed review of previous records, lab data, imaging, and other medical provider documentation.
Anticipated Discharge: > 48 hours
Subjective/Interval History
-
Date of Service: July 28, 2024
Overnight events reviewed. Patient respiratory status is more stable this morning. Still has abdominal distention and encephalopathy.
Objective Data
-
Labs:
Laboratory Results
07/28/24
04:42
WBC 2.9 L
Hgb 8.5 L
Hct 26.1 L
Plt Count 58 L
PT 21.3 H
INR 1.83
Sodium 141
Potassium 4.1
Chloride 109 H
Carbon Dioxide 18 L
BUN 22 H
Creatinine 1.2
Glucose 100 H
Calcium 7.5 L
Total Bilirubin 2.0 H
AST 133 H
ALT 46
Alkaline Phosphatase 215 H
Vital Signs:
Vital Signs
Temp Pulse Resp BP Pulse Ox
97.6 F 84 28 118/62 96
07/28/24 04:00 07/28/24 08:00 07/28/24 08:00 07/28/24 08:00 07/28/24 09:22
I&O
07/27/24 07/28/24 07/29/24
06:59 06:59 06:59
Intake Total 240 / 240 480 / 480
Output Total 375 / 375 350 / 350
Balance -135 / -135 130 / 130
[2024-07-28] MEDS: LASIX PO (10:16)
[2024-07-28] MEDS: DUPHALAC/CHRONULAC PO (10:16)
[2024-07-28] MEDS: ALDACTONE PO (10:16)
[2024-07-28] MEDS: FEOSOL PO (10:16)
[2024-07-28] MEDS: TAMIFLU PO (10:17)
[2024-07-28] MEDS: XIFAXAN PO (10:17)
--- NOTE | 2024-07-28 10:34 | W.PN.UPDATE ---
Update Note
Progress Note Update
Patient is in good mood, responds appropriately. Still cannot sustain attention and and has difficulty communicating and it was difficult to test his cognition. He seems to be oriented in all sphered.
Mother states he is improving her her standpoint. He is not presently agitated.
Would continue the low dose of Seroquel 12.5 mg.
[2024-07-28] MEDS: SANDOSTATIN 500.6 MCG IV (10:56)
[2024-07-28] MEDS: ATIVAN 0.5 MG IV (10:57)
[2024-07-28 11:18] LABS: Lactic Acid 4.2 mmol/L (0.7-2.0)
--- NOTE | 2024-07-28 11:21 | PTCARENOTE ---
Dr Lauren aware of lactic results. GIDr ttt for diet order as pt mother is pacing the floor and making derogatory remarks
--- NOTE | 2024-07-28 12:46 | CM ---
Chart reviewed and family have reached out to pillowcase folder and family plan on providing a list of Acute rehab options and skilled rehab options. Per sister in law patient has [place] [employer] ID [id number].
Plan; Rehab placement when stable.
--- NOTE | 2024-07-28 14:16 | W.PN.GI.CBS2 ---
Today's Communication / Plan
-
Clear liquid diet
Continue monitor H&H
Paracentesis with IR
Assessment / Plan
-
Assessment: The patient is a 58-year-old male with a known medical history of alcoholic cirrhosis who was brought to the ER after found unresponsive at home. His lab results showed a very low level of hgb to 4.9 at the admission. The patient`s
endoscopy (by Dr Patino on 07/06/24) showed portal hypertensive gastropathy, old blood clots in the gastric fundus, normal duodenum. No active GI bleeding signs were observed since admission The patient had a likely stable level of hgb around to
8.1-8.5. This am, the patient`s hgb level was found slightly decreased to 6.9 without any active GI bleeding symptoms. The patient had been placed Dobbhoff for 3 times and he took of the last one about 2 days ago during his one of the agitation
episodes. GI team was consulted for re-evaluation of he patient.
07/19/2024 EGD Impression: - Grade II esophageal varices. Completely eradicated.
Banded x2
- Bilious gastric fluid.
- Portal hypertensive gastropathy.
- Normal duodenal bulb, first portion of the duodenum
and second portion of the duodenum. Biopsied.
07/06 EGD - Normal esophagus.- Portal hypertensive gastropathy- Old black clots in the gastric fundus- Normal examined duodenum- No specimens collected.
07/11 abd X ray-moderate gas in non dilated loops of bowel
Limited study demonstrating no evidence of acute pathology
07/11- CTa/p without IV contrast -Generalized anasarca. Moderate right and small left pleural effusion. Mild to moderate ascites. No focal collection or abscess. No free air.
No bowel obstruction. No obstructive uropathy.Cirrhosis. Splenomegaly.Posterior lung base parenchymal opacity, likely compressive atelectasis. Cannot entirely exclude pneumonia.
07/11 HCT No acute intracranial abnormality identified.chronic microvascular ischemic change. 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
07/12/24 Pleural effusion: Successful ultrasound-guided RIGHT thoracentesis, yielding 360 mL of straw colored pleural fluid.
07/16/24 Abd US:shows small volume ascites in all 4 quadrants of the abdomen without a significant change when compared with the 07/13/2024 examination. IR attempted for a paracentesis on 06/1424 and it was unable to be drained.
Impression:
GI Bleeding likely from portal gastropathy and esophageal varices
Cirrhosis complicated with hypoalbuminemia, thrombocytopenia, coagulopathy possibly Alcohol related
Mental Status Changes secondary to HE vs Alcohol withdrawal vs other
Hypotension requiring pressors during admission
Abdominal ascites per CT/ US with mild abdominal distention
Hypernatremia
Resp insufficiency s/p intubation with extubation 07/10
Bipolar disorder ?
Pleural effusion
Influenza + 07/26
Plan:
GI was reconsulted since patient had a rapid response last night with some vomiting-containing blood. No further episodes since then. Hb stable. Patient was on heparin drip for upper extremity DVT and was started on Eliquis yesterday. Mother
said he was coughing up a lot yesterday prior to this event last night.
Since no further bleeding/Hb stable will hold off on EGD (considering patient's current mental /respiratory status with flu +) . Discussed with patient's mother at the bedside. Will consider if evidence of overt GI bleeding
Will start on clear liquid diet
Continue octreotide drip/Protonix drip for now
Monitor H&H
Hold off on anticoagulation for now. Medical team to consider benefits and risks (high risk of rebleeding/fall risks ) on restarting anticoagulation
Repeat imaging last night showing large volume ascites. Will recommend IR evaluation for paracentesis. Prior paracentesis yesterday with removal of 1000 mL. Fluid studies negative for SBP
Patient has been agitated on and off and has been receiving sedation. Psych following
Total Time Spent with Patient (in minutes): 35
Subjective
Subjective
Date of Service: July 28, 2024
GI was reconsulted since patient had a rapid response last night with vomiting some blood. No further episodes since then. No dark stool or blood in the stool as per RNFern Lara was restarted yesterday
Objective
Data Reviewed
Laboratory Data:
Laboratory Results
07/28/24 04:42
07/28/24 04:42
Laboratory Results
PT 21.3 Sec (11.4-14.6) H 07/28/24 04:42
INR 1.83 07/28/24 04:42
APTT Cancelled 07/27/24 12:30
Phosphorus 2.8 mg/dl (2.5-4.5) 07/23/24 05:32
Magnesium 2.1 mg/dl (1.6-2.3) 07/23/24 05:32
Total Bilirubin 2.0 mg/dl (0.2-1.3) H 07/28/24 04:42
AST 133 U/L (17-59) H 07/28/24 04:42
ALT 46 U/L (0-50) 07/28/24 04:42
Alkaline Phosphatase 215 U/L (38-126) H 07/28/24 04:42
Lipase 357 U/L (23-300) H 07/05/24 19:13
Vital Signs and I&O:
Vital Signs
Temp Pulse Resp BP Pulse Ox
98.2 F 84 27 101/75 93
07/28/24 11:05 07/28/24 14:00 07/28/24 14:00 07/28/24 13:00 07/28/24 12:44
I&O
07/27/24 07/28/24 07/29/24
06:59 06:59 06:59
Intake Total 240 / 240 480 / 480
Output Total 375 / 375 350 / 350
Balance -135 / -135 130 / 130
Physical Exam
Physical Exam
GI: Distended
Neuro: Other (Patient sleepy received morphine this a.m for agitation.)
--- NOTE | 2024-07-28 15:35 | PTCARENOTE ---
pT RESTLESS AND AGITATED TAKING MONTORING EQUIP OFF , WILL GIVE MORPHINE ORDERD FOR AGITATION
[2024-07-28 15:37] LABS: Hematocrit 23.6 % (39.0-52.0); Hemoglobin 7.8 g/dL (13.0-18.0)
--- NOTE | 2024-07-28 16:54 | W.PN.PUL3 ---
Today's Communication / Plan
-
Sport bed
Continue DuoNebs
Start 3% nebs for pulmonary toilet purposes
Aspiration precautions, elevate HOB >30-45�
Continue with Symbicort
Continue Tamiflu
GI + nephrology on board, recs appreciated
Continue supplemental oxygen and maintain SpO2 >90-94%
Appropriate for hospice; consider palliative care consult
Poor prognosis
Pulmonary service will continue to follow along
Assessment
-
58-year-old man with history of alcohol cirrhosis admitted through the emergency room after found unresponsive at home by his mother. Patient was admitted with dark stools, dark emesis, found to have anemia and GI bleed. Intubated for change in
mental status and airway protection and transferred to the critical care unit for further care.
Reconsulted 07/26/2024 for coughing spells with upper airway sounds.
Coughing spells: Upper airway sounds. Improved with nebulizer therapy.
Flu + 07/26/2024.
Chest x-ray 07/26/2024: Moderate elevation of the right hemidiaphragm. Right lower lobe minimal atelectasis.
-
Acute respiratory failure/change in mental status requiring intubation and mechanical ventilation for airway protection 07/05/2024
Intubated 07/05/2024
Extubated 07/10/2024
Hepatic encephalopathy
Acute GI bleed-melena/coffee-ground
Acute blood loss anemia-hemoglobin on admission 4.9 and he has required 4 U PRBC since admission
Status post EGD 07/06/2026: Portal gastropathy.
Repeat EGD 07/19/2024 with grade 2 distal EV s/p bands x2 with PHG
Change in mental status/toxic metabolic encephalopathy: Cannot rule out alcohol withdrawal/hepatic encephalopathy
Ammonia level 92 on 07/05/2024 --> less than 9 on 07/18/2024
Coagulopathy INR 2.7 --> now 1.59 on 07/15/2024
Self reported Hx of asthma
Conditions present prior admission:
Alcoholic cirrhosis-on prior operative report from 2015 is noted.
? Bipolar disorder-not taking any medications
History of alcohol disorder
Plan:
-
Reconsulted on 07/26/2024 for shortness of breath. Upper airway sounds intermittently .
Not bronchospastic on exam 07/27/2024
Feels uncomfortable and tired due to the flu.
-
On 07/27/2024 AM, he had increased WOB - Patient was sleeping comfortably without increased work of breathing when Dr. Miguel evaluated the pt. Mother was at the bedside.
On room air.
Influenza positive.
Not bronchospastic on exam
Chest x-ray without acute infiltrates.
No stridor or hoarse voice. Doubt upper airway issues. If upper airway sounds continue intermittently may need to get ENT involved as the patient was intubated in the past.
-
Abdominal distention also contributing to his increased work of breathing.
Also significant muscle mass wasting not helping
Patient had a paracentesis on 07/27/2024 removing 1000 cc of clear yellow ascitic fluid (negative for SBP, high SAAG)
Blood gas shows respiratory alkalosis
He is DNR/DNI
-
He previously endorsed a prior history of asthma-this is unreliable but he has been off her inhalers in the past and he has refused.
Did not want standing nebulizers in the past but those does seem to help him
-
With flu positive agree with Tamiflu for 5 days. There was no evidence for pneumonia on chest x-ray from 07/26/2024, however there is diffuse groundglass opacities seen on CT chest from 07/27/2024
-
Continue DuoNebs QID
Continue Symbicort 160mcg
Monitor respiratory status closely
Continue aspiration precautions, keeping HOB >30-45�
Start sport bed for chest PT
Start nebulized 3% BID for pulmonary toilet purposes
-
Recurrent microaspiration also possibility triggering intermittent symptoms.
Continue Aspiration precautions
Continue PPI gtt and octreotide -started after rapid response on 07/27/2024 evening after patient vomited bright red blood and was tachypneic with increased work of breathing
CT chest/abdomen/pelvis with IV contrast showed widespread bilateral groundglass opacities with a stable elevated right hemidiaphragm and a cirrhotic liver with large volume ascites and generalized anasarca - believe interstitial opacities is due to
aspiration
Patient was previously on Unasyn from 07/16 to 07/19/2024, and prior to that was on Zosyn from 07/15 - 07/16/2024; prior to that he was on ceftriaxone from 07/06 - 07/12/2024
Consider restarting Unasyn again, however he is afebrile and on minimal oxygen, and restarting antibiotics may place him at high risk of C. difficile infection; continue to monitor for now
Currently on clear liquid diet, however would only allow him to eat if he is awake and alert
He is DNR
Psychiatry continues to follow
Bilateral upper extremity DVTs --> now off heparin drip after UGIB on 07/27/2024
Defer anticoagulation to primary team and GI.
Anemia/GI bleeding issues.
Management per primary team and GI.
Continue hepatic encephalopathy management.
DVT prophylaxis- SCDs for now; heparin drip/Eliquis off since 07/27/2024 due to UGIB
Eventual restart anticoagulation once deemed safe per GI
Patient is chronically ill and has had a complicated hospital course with multiple events. He is appropriate for hospice. Consider palliative care consult.
DNR/DNI
Poor prognosis
Will continue to follow.
Dr. Miguel updated mother at the bedside 07/27/[address] Barney updated the patient's partner, Tg, at bedside on 07/28/2024

Family discussions:
Dr. Sheikh updated [id number] at the bedside extensively 07/09/2024 as well as on multidisciplinary rounds 07/11/2024, 07/12/2024, and 07/13/2024, and Dr. Sheikh reviewed with [id number] 07/14/2024, 07/15/2024, and again on 07/18/24
Goals of care again discussed with [id number] 07/12/2024-DNR, do not reintubate if respiratory decompensation-again updated on 07/13/2024
Total time spent today was 37 minutes for this encounter. Time includes reviewing laboratory test/imaging results, reviewing pertinent medical records, obtaining and reviewing medical history, performing an appropriate exam, ordering medications,
tests and procedures. Time also includes documentation of this encounter, coordinating patient care and communicating with other healthcare professionals. Total time does not include separately billed tests performed on this date of service.
Subjective Data
-
Date of Service:
Date of Service: July 28, 2024
Chief Complaint: Pulmonary Follow Up and Dyspnea Follow Up
Subjective:
Patient was seen and evaluated today at bedside (late note entry). Currently saturating 97% on 6 L/min. No acute events reported from overnight. Patient is currently lethargic and unable to interact/communicate with me as he is lethargic.
Patient's partner, Tg, is at bedside and all questions were answered.
Review of Systems
General: Other (Unobtainable - confusion/lethargy)
Objective Data
Data Reviewed
Vital Signs / I&O / Oxygen:
Vital Signs
Temp Pulse Resp BP Pulse Ox
97.6 F 84 28 118/62 96
07/28/24 04:00 07/28/24 08:00 07/28/24 08:00 07/28/24 08:00 07/28/24 09:22
Intake and Output
07/27/24 07/28/24 07/29/24
06:59 06:59 06:59
Intake Total 240 / 240 480 / 480
Output Total 375 / 375 350 / 350
Balance -135 / -135 130 / 130
SaO2 [CPAP/PSV] 97
SaO2 [A/C] 95
SaO2 96
Nasal Cannula flow liters per 2
minute
Physical Exam
General: Respiratory Distress (n), Comfortable, Chills (n), Sweats (n), Other (chronically ill appearing) and Other (Cachectic)
HEENT: Normocephalic, Anicteric and Moist Mucous Membranes
Cardiovascular: S1-S2, Rub (negative) and Peripheral Edema (negative)
Respiratory: Wheeze (negative), Crackles (Bibasilar (L >R)), Rhonchi (negative), Non-Labored Respirations, Accessory Resp Muscle Use (n) and Stridor (negative)
GI: Soft, Distended, Non Tender, Normal Bowel Sounds and Other (abdomen is firm but not rigid and non-tender)
Neurology: Lethargic
Skin: Warm, Dry, Cyanosis (negative), Jaundice (negative) and Rash (n)
Labs/Micro/Reports
Lab Data
07/28/24 04:42
07/28/24 04:42
Laboratory Results
07/27/24 07/27/24 07/28/24
12:30 12:55 04:42
PT 21.3 H
INR 1.83
APTT Cancelled
pH 7.43
pCO2 27 L
pO2 73 L
HCO3 17.9 L
O2 Delivery Level
Microbiology
07/27/24 13:54 Peritoneal Fluid Gram Stain - Preliminary
07/26/24 12:28 Nasal Swab Influenza Types A & B (CRISTO) - Final
Influenza A Positive, NAAT
--- NOTE | 2024-07-28 21:30 | PTCARENOTE ---
Addendum entered by Tara Ward RN 07/29/24 00:55:
Hygiene completed including full bed change and CHG wipe
Original Note:
Assumed care of pt from dayshift RN. Pt ox1 to self, drowsy but arousable to physical touch. Pt 94% on RA. NSR on monitor. VS and assessment as documented. Pt is resting in bed with bed alarm on and call amaya in reach.
[2024-07-28 23:02] LABS: Hematocrit 23.8 % (39.0-52.0); Hemoglobin 7.8 g/dL (13.0-18.0)
[2024-07-29] VITALS (14 sets, daily range): BP systolic 102–161; BP diastolic 66–144; BMI 28.1
[2024-07-29] MEDS: SANDOSTATIN 500.6 MCG IV ×2 (00:29→14:03)
[2024-07-29] MEDS: VENTOLIN NEBULES 2.5 MG INH (03:20)
[2024-07-29 04:14] LABS: Lactic Acid 2.5 mmol/L (0.7-2.0)
[2024-07-29 04:15] LABS: Ammonia 33 umol/L (9-30)
[2024-07-29 04:16] LABS: ALT (SGPT) 44 U/L (0-50); AST (SGOT) 127 U/L (17-59); Albumin 2.2 g/dl (3.5-5.0); Alkaline Phosphatase 190 U/L (38-126); Blood Urea Nitrogen 27 mg/dl (9-20); Calcium 7.5 mg/dl (8.4-10.2); Carbon Dioxide 25 mmol/L (22-30); Chloride 107 mmol/L (98-107); Direct Bilirubin 1.1 mg/dl (0.0-0.4); Estimated Creatinine Clearance 69 ml/min; Glucose 107 mg/dl (70-99); Magnesium 1.9 mg/dl (1.6-2.3); Phosphorus 4.6 mg/dl (2.5-4.5); Potassium 4.3 mmol/L (3.5-5.1); Sodium 141 mmol/L (135-145); Total Bilirubin 2.3 mg/dl (0.2-1.3); Total Protein 5.6 g/dl (6.3-8.2); eGFR > 60.00
[2024-07-29 04:24] LABS: NT-proBNP 1800 pg/ml
[2024-07-29] MEDS: PROTONIX 100 IV ×3 (04:29→22:33)
[2024-07-29 04:32] LABS: Hematocrit 24.5 % (39.0-52.0); Mean Corp Hgb Conc. 32.7 g/dL (33.0-37.0); Mean Corpuscular Hgb 29.3 pg (27.0-31.0); Mean Corpuscular Volume 89.7 fL (80.0-94.0); Mean Platelet Volume 9.6 fL (7.4-10.4); Platelet Count 52 10^3/uL (130-400); Red Blood Cell Count 2.73 10^6/uL (4.70-6.10); Red Cell Dist. Width 19.7 % (11.5-14.5); White Blood Cell Count 4.1 10^3/uL (4.8-10.8)
[2024-07-29 04:35] LABS: INR 2.15; PT 24.1 Sec (11.4-14.6)
[2024-07-29] MEDS: SODIUM CHLORIDE 3% FOR INHALATION 1 VIAL INH ×2 (07:21→19:33)
[2024-07-29] MEDS: SYMBICORT 160/4.5 MCG INHALER 2 PUFF INH ×2 (07:21→19:33)
[2024-07-29] MEDS: DUONEB 3 ML INH ×4 (07:21→19:33)
[2024-07-29] MEDS: THIAMINE INJECTION 200 MG IV (09:13)
[2024-07-29] MEDS: FEOSOL PO (09:14)
[2024-07-29] MEDS: DESENEX/MITRAZOL/ZEASORB 1 APPLIC TOPICAL ×2 (09:14→22:40)
--- NOTE | 2024-07-29 09:23 | W.PN.HOSP.TC ---
Today's Communication/Plan
-
IV PPI drip. IV octreotide drip.
Assessment / Plan
Assessment / Plan
Physical exam:
General: Acutely ill
HEENT: Normocephalic, Atraumatic and Moist Mucous Membranes
Respiratory: Decreased breath sounds bilateral, some adventitious sounds, clear to auscultation b/l. Some upper airway noise. No wheezes or crackles.
Cardiac: Regular Rhythm and S1/S2, tachycardia
GI: Soft, very distended, mild tenderness.
Musculoskeletal: No Clubbing, No Cyanosis. 2+ bilateral edema
Neuro: Lethargic but oriented, generalized weakness present
Psych: Limited judgment and insight
A/P: 58M ETOH cirrhosis here for GIB and Hepatic Encephalopathy. Hospital course complicated with bilateral upper Ext DVT and likely aspiration pneumonia with associated Acute Hypoxic Respiratory Failure.
Today on 07/29:
Respiratory insufficiency:
Off IV steroids (in my opinion this would make things worse)
Respiratory issues are most likely stemming from abdominal pressure from ascites coupled with recent influenza and profound deconditioning.
CT scan shows large volume ascites.
Discussed with IR again yesterday to see if we can repeat abdominal paracentesis and they will be able to repeat paracentesis on Tuesday (discussed with Dr. Gibbs)
Reviewed CT scan of the chest and abdomen
Can continue with bronchodilators and added 3% nebs
Reviewed ABG
Also discussed with pulmonary yesterday
Continue aspiration precautions, elevation of head of bed, and sport bed
Increased lactate:
There is no evidence of sepsis and this is most likely related to decreased liver clearance of lactate. Overall trending down
I would cautiously monitor but would not overreact unless any clinical evidence otherwise
Hold off on antibiotics
Mild metabolic acidosis with respiratory alkalosis:
This is part of his compensation mechanisms of his acute illness and his acidosis improving.
Acute recurrent GI bleed:
Patient no status post banding for variceal bleed
Will continue IV Protonix drip
Will continue IV octreotide drip
Will monitor hemoglobin and transfuse as needed
Discussed with GI in person yesterday
GI challenged with clear liquid diet
Medications remain on hold due to the fluctuation of his mental status and RN rightly so is somewhat concerned. I will request speech therapy evaluation prior to restarting medications. Keep on hold until then.
Acute blood loss anemia:
Monitor hemoglobin
Transfusion as needed
Pancytopenia:
Related to liver cirrhosis and splenic sequestration
Influenza A:
Will restart Tamiflu either today or in a.m. as soon as cleared by speech therapy
Bronchodilators for now
Toxic metabolic encephalopathy with recent hepatic encephalopathy (cannot rule out Wernicke-Korsakoff encephalopathy):
Continue monitoring mental status closely
Will restart lactulose and rifaximin in a.m.
Continue IV thiamine
Added IV lorazepam as needed but only to use judiciously
Would restart Seroquel in a.m.
Liver cirrhosis:
Will restart diuretics with Lasix spironolactone in a.m.
Monitor volume status
Repeat MELD labs tomorrow
Acute DVT:
He has not been able to tolerate anticoagulation so far
At the moment anticoagulation needs to be on hold. Down the road we will need to discuss risk benefits of restarting versus no anticoagulation understanding risks and I started the conversation today as well.
DVT prophylaxis:
SCDs
CODE STATUS:
DNR
Prognosis guarded. In my opinion, appears to be hospice candidate but mother would like to continue aggressive medical therapy. I did discussed with [id number] Jojo and she understands that if he does not get better this time we might need to
discuss in depth the issue of hospice care with the rest of the family.

Prior to today:
Rapid response night on 07/27:
Patient had hematemesis and increased work of breathing as well as increased lactate
Patient placed n.p.o.
Protonix drip initiated, Eliquis discontinued, CT chest and abdomen and pelvis ordered.
GI reconsulted
Nephrology started him on bicarb drip
Transferred to IMU
Acute respiratory insufficiency:
Due to influenza A and also ascites
Discussed with IR and he went for abdominal paracentesis yesterday
Discussed with pulmonary today again on 07/27
Discussed with psychiatry today
Chest x-ray no acute chest pathology
Will obtain ABG
Continue Tamiflu
Continue bronchodilator
Discussed at length with [id number] Jojo
Acute upper GI bleed:
EGD showed portal gastropathy
Continue PPI, Protonix 40 mg IV twice a day
completed a course of octreotide and Rocephin
GI eval appreciated repeat EGD performed 07/20/24 w/ results as follows, repeat ocreotide gtt completed, protonix 40 mg BID, repeat EGD in 4 wks
07/20/24 EGD
Grade II esophageal varices. Completely eradicated. Banded x2
- Bilious gastric fluid.
- Portal hypertensive gastropathy.
- Normal duodenal bulb, first portion of the duodenum and second portion of the duodenum. Biopsied.
07/20/24 Rapid Response Respiratory Distress agitation
-patient since improved with once IV morphine 1mg ordered by overnight staff
-review of records reports, appears to be delirium possibly triggered by post-anesthesia side effects vs hospital associated delirium
Acute toxic-metabolic encephalopathy:
Hospital Associated Delirium
Precedex off
Continue lactulose 20 g 3 times daily as tolerated
Continue rifaximin 550 mg twice a day as tolerated
Missed doses lactulose rifaximin due to AMS aspiration risk, patient removed DHT multiple times, once lactulose enema 07/18/24 GI re-eval appreciated
Neuro eval appreciated
Psych eval appreciated
Valve Inspector/Pulm Eval appreciated
Seroquel 25 mg QPM started (typically around the time patient sundowns/becomes agitated)
EKG checked prior start Seroquel noted no significant QT prolongation.
Mental status since improved speech eval appreciated diet advanced to soft bite sized with 1:1 assist 100% supervision
Bilateral Acute DVT upper extremities:
Challenging situation given recent GI bleed
Discussed with GI following repeat EGD as above, cleared to start hep gtt w/o bolus for now, continued appears to be tolerating well
Switched heparin drip to oral Eliquis today since hemoglobin has been stable for few days
Acute respiratory failure
Possible Aspiration Pneumonia prior, completed course of treatment.
Dysphagia:
patient was on tube feeds d/t concerns aspiration lethargy AMS, however tube was removed three times overnight by patient
Speech eval appreciated NPO except meds crushed in pureed, Aspiration Risk Hydration Protocol
Leukocytosis, trend wbc, monitor temp
empiric zosyn narrowed to unasyn, completed total 5 days abx
blood cultures x2 NGTD
weaned off oxygen supplementation stable respiratory status on room air
B/L R>L Pleural effusion:
Status post thoracentesis 360 mL drawn
On Lasix 20 mg IV twice a day- placed on hold d/t SUSIE
Lasix since resumed, with resolution SUSIE, at 40 mg daily as per Nephro
Hypokalemia
monitor and replete as necessary
SUSIE resolved
Hypernatremia resolved
Nephro eval appreciated IVF D5W supplementation completed
Abdominal ascites
Abd distension
Diarrhea though on Lactulose
ascites remains small volume Abd US performed 07/13 and 07/16 not enough for paracentesis
Cdiff antigen pos but toxin neg
02/20 Abd US notes increase in ascites, IR re-eval appreciated however remains insufficient for paracentesis prior. Reconsulted IR again today.
Acute blood loss anemia
Anemia of Chronic Disease
Iron Deficiency Anemia
Status post blood transfusion
Monitor hemoglobin
received 3 doses IV iron supplementation, switched to PO
received 4PRBC transfusion over the course of hospitalization
Status post another blood transfusion on 07/24 and heparin held but restarted again and tolerated quite well. No signs of active bleed for now.
Hepatic encephalopathy:
Continue lactulose and rifaximin as above
Lactulose Enema prn
Alcohol liver cirrhosis:
MELD score labs-hx MELD score 18
PT/OT appreciated SNF rehab
DVT prophylaxis:
Eliquis
CODE STATUS:
DNR
Total time spent on today's encounter was 52 minutes which included time spent in counseling the patient/family regarding diagnosis and treatment plan as listed above, goals of care, and symptom management. Case was discussed with nursing staff,
specialists, and care coordinators/case management. All labs and imaging personally reviewed by me. Remainder the time spent in detailed review of previous records, lab data, imaging, and other medical provider documentation.
Anticipated Discharge: > 48 hours
Subjective/Interval History
-
Date of Service: July 29, 2024
He is hemodynamically stable today but his mentation fluctuates and while more coherent today he is also relatively more lethargic. His respiratory status is also tenuous although slightly improved. He coughs and he has some upper airway sounds
that somewhat clears with bronchodilators. His abdomen still distended. No more episodes of hematemesis or any prior blood per rectum or melena. Afebrile
Objective Data
-
Labs:
Laboratory Results
07/28/24 07/29/24
22:49 03:35
WBC 4.1 L
Hgb 7.8 L 8.0 L
Hct 23.8 L 24.5 L
Plt Count 52 L
PT 24.1 H
INR 2.15
Sodium 141
Potassium 4.3
Chloride 107
Carbon Dioxide 25
BUN 27 H
Creatinine 1.2
Glucose 107 H
Calcium 7.5 L
Total Bilirubin 2.3 H
AST 127 H
ALT 44
Alkaline Phosphatase 190 H
Vital Signs:
Vital Signs
Temp Pulse Resp BP Pulse Ox
97.7 F 79 15 117/75 94
07/29/24 07:15 07/29/24 07:24 07/29/24 07:24 07/29/24 02:00 07/29/24 07:24
I&O
07/28/24 07/29/24 07/30/24
06:59 06:59 06:59
Intake Total 480 / 480 1580.4 / 1580.4
Output Total 350 / 350
Balance 130 / 130 1580.4 / 1580.4
--- NOTE | 2024-07-29 09:34 | W.PN.NEPH.PH ---
Today's Communication / Plan
-
Observe
Electrolytes and kidney function currently stable
Patient remains n.p.o. for now
Assessment/Plan
-
IMP:
Acute upper GI bleed
Acute toxic-metabolic encephalopathy
Dysphagia
Acute DVT left upper extremity
SUSIE
Hypernatremia
B/L R>L Pleural effusion-Status post thoracentesis
Abdominal ascites
Anemia
Thrombocytopenia
Acute blood loss anemia
Hepatic encephalopathy
Alcohol liver cirrhosis
Plan:
Creatinine stable at 1.2
Sodium 142
Lasix and Aldactone held while n.p.o.
sodium bicarbonate to 3 times daily for metabolic acidosis, held while NPO
replete K prn
Status post paracentesis on 07/27/2024 for 1000 cc
Ammonia levels not elevated
follow BMP
-
-
Date of Service: July 29, 2024
CC / HPI / ROS
-
Chief Complaint:
SUSIE
History of Present Illness:
SUSIE/Cr stable 1.2
Hematemesis last evening with some accompanying hemodynamic instability
BP stable
Metabolic acidosis improved
Sodium stable 141
Now n.p.o.
Review of Systems:
no CP/SOB
confused
Grossly nonoliguric
N.p.o.
Labs
-
Labs:
WBC 4.1 10^3/uL (4.8-10.8) L 07/29/24 03:35
RBC 2.73 10^6/uL (4.70-6.10) L 07/29/24 03:35
Hgb 8.0 g/dL (13.0-18.0) L 07/29/24 03:35
Hct 24.5 % (39.0-52.0) L 07/29/24 03:35
Plt Count 52 10^3/uL (130-400) L 07/29/24 03:35
Sodium 141 mmol/L (135-145) 07/29/24 03:35
Potassium 4.3 mmol/L (3.5-5.1) 07/29/24 03:35
Chloride 107 mmol/L (98-107) 07/29/24 03:35
Carbon Dioxide 25 mmol/L (22-30) 07/29/24 03:35
BUN 27 mg/dl (9-20) H 07/29/24 03:35
Creatinine 1.2 mg/dL (0.7-1.3) 07/29/24 03:35
eGFR > 60.00 07/29/24 03:35
Glucose 107 mg/dl (70-99) H 07/29/24 03:35
Calcium 7.5 mg/dl (8.4-10.2) L 07/29/24 03:35
Phosphorus 4.6 mg/dl (2.5-4.5) H 07/29/24 03:35
Nln-X-Hjzhzykjvxn Pept 1800 pg/ml 07/29/24 03:35
Albumin 2.2 g/dl (3.5-5.0) L 07/29/24 03:35
Physical Exam
-
Vital Signs:
Vital Signs
Temp Pulse Resp BP Pulse Ox
97.7 F 79 15 117/75 94
07/29/24 07:15 07/29/24 07:24 07/29/24 07:24 07/29/24 02:00 07/29/24 07:24
Cardiovascular:: Regular rate and rhythm
Respiratory:: Bilateral: CTA
Lung Excursion:: Normal
Abdomen:: Nontender and Soft
Bowel Sounds:: Normal
Extremity Edema:: +1: Bilateral:
Zhou Catheter: No
[2024-07-29] MEDS: MORPHINE SULFATE 0.5 MG IV ×2 (11:46→23:52)
--- NOTE | 2024-07-29 12:28 | PTCARENOTE ---
hOUSE KEEPING CALLED TO GO TOCAMP ROOM AND LOOKFOR SPORT BED
--- NOTE | 2024-07-29 13:00 | W.PN.PUL3 ---
Today's Communication / Plan
-
Sport bed
Continue DuoNebs
Continue 3% nebs for pulmonary toilet purposes
Aspiration precautions, elevate HOB >30-45�
Continue with Symbicort
Continue Tamiflu
GI + nephrology on board, recs appreciated
Continue supplemental oxygen and maintain SpO2 >90-94%
Appropriate for hospice; consider palliative care consult
Poor prognosis
Pulmonary service will continue to follow along
Assessment
-
58-year-old man with history of alcohol cirrhosis admitted through the emergency room after found unresponsive at home by his mother. Patient was admitted with dark stools, dark emesis, found to have anemia and GI bleed. Intubated for change in
mental status and airway protection and transferred to the critical care unit for further care.
Reconsulted 07/26/2024 for coughing spells with upper airway sounds.
Coughing spells: Upper airway sounds. Improved with nebulizer therapy.
Flu + 07/26/2024.
Chest x-ray 07/26/2024: Moderate elevation of the right hemidiaphragm. Right lower lobe minimal atelectasis.
-
Acute respiratory failure/change in mental status requiring intubation and mechanical ventilation for airway protection 07/05/2024
Intubated 07/05/2024
Extubated 07/10/2024
Hepatic encephalopathy
Acute GI bleed-melena/coffee-ground
Acute blood loss anemia-hemoglobin on admission 4.9 and he has required 4 U PRBC since admission
Status post EGD 07/06/2026: Portal gastropathy.
Repeat EGD 07/19/2024 with grade 2 distal EV s/p bands x2 with PHG
Change in mental status/toxic metabolic encephalopathy: Cannot rule out alcohol withdrawal/hepatic encephalopathy
Ammonia level 92 on 07/05/2024 --> less than 9 on 07/18/2024
Coagulopathy INR 2.7 --> now 1.59 on 07/15/2024
Self reported Hx of asthma
Conditions present prior admission:
Alcoholic cirrhosis-on prior operative report from 2015 is noted.
? Bipolar disorder-not taking any medications
History of alcohol disorder
Plan:
-
Reconsulted on 07/26/2024 for shortness of breath. Upper airway sounds intermittently .
Not bronchospastic on exam 07/27/2024
Feels uncomfortable and tired due to the flu.
-
On 07/27/2024 AM, he had increased WOB - Patient was sleeping comfortably without increased work of breathing when Dr. Miguel evaluated the pt. Mother was at the bedside.
On room air.
Influenza positive.
Not bronchospastic on exam
No stridor or hoarse voice. Doubt upper airway issues. If upper airway sounds continue intermittently may need to get ENT involved as the patient was intubated in the past.
-
Abdominal distention also contributing to his increased work of breathing.
Also significant muscle mass wasting not helping
Patient had a paracentesis on 07/27/2024 removing 1000 cc of clear yellow ascitic fluid (negative for SBP, high SAAG)
Blood gas shows respiratory alkalosis
He is DNR/DNI
-
He previously endorsed a prior history of asthma-this is unreliable but he has been off her inhalers in the past and he has refused.
Did not want standing nebulizers in the past but those does seem to help him
-
With flu positive agree with Tamiflu for 5 days. There was no evidence for pneumonia on chest x-ray from 07/26/2024, however there is diffuse groundglass opacities seen on CT chest from 07/27/2024
-
Continue DuoNebs QID
Continue Symbicort 160mcg
Monitor respiratory status closely
Continue aspiration precautions, keeping HOB >30-45�
Start sport bed for chest PT
Continue nebulized 3% BID for pulmonary toilet purposes
-
Recurrent microaspiration also possibility triggering intermittent symptoms.
Continue Aspiration precautions
Continue PPI gtt and octreotide - started after rapid response on 07/27/2024 evening after patient vomited bright red blood and was tachypneic with increased work of breathing
CT chest/abdomen/pelvis with IV contrast from 07/27/2024 showed widespread bilateral groundglass opacities with a stable elevated right hemidiaphragm and a cirrhotic liver with large volume ascites and generalized anasarca - believe interstitial
opacities is due to aspiration
Patient was previously on Unasyn from 07/16 to 07/19/2024, and prior to that was on Zosyn from 07/15 - 07/16/2024; prior to that he was on ceftriaxone from 07/06 - 07/12/2024
Consider restarting Unasyn again, however he is afebrile and on minimal oxygen, and restarting antibiotics may place him at high risk of C. difficile infection; continue to monitor for now
Currently NPO due to mental status
He is DNR/DNI
Psychiatry continues to follow
Bilateral upper extremity DVTs --> now off heparin drip after UGIB on 07/27/2024
Defer anticoagulation to primary team and GI.
Anemia/GI bleeding issues.
Management per primary team and GI.
Continue hepatic encephalopathy management.
DVT prophylaxis- SCDs for now; heparin drip/Eliquis off since 07/27/2024 due to UGIB
Eventual restart anticoagulation once deemed safe per GI
Patient is chronically ill and has had a complicated hospital course with multiple events. He is appropriate for hospice. Consider palliative care consult.
DNR/DNI
Poor prognosis
Will continue to follow.
Dr. Miguel updated mother at the bedside 07/27/[address] Barney updated the patient's partner, Tg, at bedside on 07/28/2024

Family discussions:
Dr. Sheikh updated [id number] at the bedside extensively 07/09/2024 as well as on multidisciplinary rounds 07/11/2024, 07/12/2024, and 07/13/2024, and Dr. Sheikh reviewed with [id number] 07/14/2024, 07/15/2024, and again on 07/18/24
Goals of care again discussed with [id number] 07/12/2024-DNR, do not reintubate if respiratory decompensation-again updated on 07/13/2024
Total time spent today was 41 minutes for this encounter. Time includes reviewing laboratory test/imaging results, reviewing pertinent medical records, obtaining and reviewing medical history, performing an appropriate exam, ordering medications,
tests and procedures. Time also includes documentation of this encounter, coordinating patient care and communicating with other healthcare professionals. Total time does not include separately billed tests performed on this date of service.
Subjective Data
-
Date of Service:
Date of Service: July 29, 2024
Chief Complaint: Pulmonary Follow Up and Dyspnea Follow Up
Subjective:
Patient seen and evaluated today at bedside. Currently on octreotide + PPI drips. He is lethargic, although replies to my questions with yes or no answers. On room air breathing comfortably, saturating 100%. Heart rate 86. He is confused.
Review of Systems
General: Other (Unable to obtain given acute clinical status)
Objective Data
Data Reviewed
Vital Signs / I&O / Oxygen:
Vital Signs
Temp Pulse Resp BP Pulse Ox
97.7 F 79 15 117/75 94
07/29/24 07:15 07/29/24 07:24 07/29/24 07:24 07/29/24 02:00 07/29/24 07:24
Intake and Output
07/28/24 07/29/24 07/30/24
06:59 06:59 06:59
Intake Total 480 / 480 1580.4 / 1580.4
Output Total 350 / 350
Balance 130 / 130 1580.4 / 1580.4
SaO2 [CPAP/PSV] 97
SaO2 [A/C] 95
SaO2 94
Nasal Cannula flow liters per 3
minute
Physical Exam
General: Respiratory Distress (n), Chills (n), Sweats (n) and Other (chronically ill appearing; appears uncomfortable)
HEENT: Normocephalic, Anicteric and Moist Mucous Membranes
Cardiovascular: S1-S2, Rub (negative) and Peripheral Edema (+3 lower extremity pitting edema bilaterally)
Respiratory: Wheeze (negative), Crackles (Bilateral), Rhonchi (negative), Non-Labored Respirations, Accessory Resp Muscle Use (n) and Stridor (negative)
GI: Soft, Distended, Non Tender, Normal Bowel Sounds and Other (abdomen is firm but not rigid and non-tender)
Neurology: Lethargic
Skin: Warm, Dry, Cyanosis (negative), Jaundice (negative) and Rash (n)
Labs/Micro/Reports
Lab Data
07/29/24 03:35
07/29/24 03:35
Laboratory Results
07/29/24
03:35
PT 24.1 H
INR 2.15
Microbiology
07/28/24 05:34 Blood/Venous Blood Culture - Preliminary
No Growth in 24 hours- Final report to follow
07/27/24 13:54 Peritoneal Fluid Body Fluid Culture - Preliminary
No Growth After 18-24 Hours
07/27/24 13:54 Peritoneal Fluid Gram Stain - Preliminary
07/26/24 12:28 Nasal Swab Influenza Types A & B (CRISTO) - Final
Influenza A Positive, NAAT
--- NOTE | 2024-07-29 13:02 | W.PN.GI.CBS2 ---
Today's Communication / Plan
-
monitor H&H
Assessment / Plan
-
Assessment: The patient is a 58-year-old male with a known medical history of alcoholic cirrhosis who was brought to the ER after found unresponsive at home. His lab results showed a very low level of hgb to 4.9 at the admission. The patient`s
endoscopy (by Dr Patino on 07/06/24) showed portal hypertensive gastropathy, old blood clots in the gastric fundus, normal duodenum. No active GI bleeding signs were observed since admission The patient had a likely stable level of hgb around to
8.1-8.5. This am, the patient`s hgb level was found slightly decreased to 6.9 without any active GI bleeding symptoms. The patient had been placed Dobbhoff for 3 times and he took of the last one about 2 days ago during his one of the agitation
episodes. GI team was consulted for re-evaluation of he patient.
07/19/2024 EGD Impression: - Grade II esophageal varices. Completely eradicated.
Banded x2
- Bilious gastric fluid.
- Portal hypertensive gastropathy.
- Normal duodenal bulb, first portion of the duodenum
and second portion of the duodenum. Biopsied.
07/06 EGD - Normal esophagus.- Portal hypertensive gastropathy- Old black clots in the gastric fundus- Normal examined duodenum- No specimens collected.
07/11 abd X ray-moderate gas in non dilated loops of bowel
Limited study demonstrating no evidence of acute pathology
07/11- CTa/p without IV contrast -Generalized anasarca. Moderate right and small left pleural effusion. Mild to moderate ascites. No focal collection or abscess. No free air.
No bowel obstruction. No obstructive uropathy.Cirrhosis. Splenomegaly.Posterior lung base parenchymal opacity, likely compressive atelectasis. Cannot entirely exclude pneumonia.
07/11 HCT No acute intracranial abnormality identified.chronic microvascular ischemic change. 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
07/12/24 Pleural effusion: Successful ultrasound-guided RIGHT thoracentesis, yielding 360 mL of straw colored pleural fluid.
07/16/24 Abd US:shows small volume ascites in all 4 quadrants of the abdomen without a significant change when compared with the 07/13/2024 examination. IR attempted for a paracentesis on 06/1424 and it was unable to be drained.
Impression:
GI Bleeding likely from portal gastropathy and esophageal varices
Cirrhosis complicated with hypoalbuminemia, thrombocytopenia, coagulopathy possibly Alcohol related
Mental Status Changes secondary to HE vs Alcohol withdrawal vs other
Hypotension requiring pressors during admission
Abdominal ascites per CT/ US with mild abdominal distention
Hypernatremia
Resp insufficiency s/p intubation with extubation 07/10
Bipolar disorder ?
Pleural effusion
Influenza + 07/26
Plan:
GI was reconsulted since patient had a rapid response 07/27 with some vomiting-containing blood. No further episodes since then. Hb stable. Patient was on heparin drip for upper extremity DVT and was started on Eliquis yesterday. Mother said he
was coughing up a lot yesterday prior to this event last night.
Patient had small amount of dark stool yesterday. . Since then no further bleeding/Hb relatively stable will hold off on EGD (considering patient's current mental /respiratory status with flu +) . Discussed with patient's mother yesterday at the
bedside. Will consider if evidence of overt GI bleeding
clear liquid diet. Advance as tolerated
Continue octreotide drip/Protonix drip for another 24 hours.
Monitor H&H
Hold off on anticoagulation for now. Medical team to consider benefits and risks (high risk of rebleeding/fall risks ) on restarting anticoagulation
Repeat imaging last night showing large volume ascites. Will recommend IR evaluation for paracentesis. Prior paracentesis yesterday with removal of 1000 mL. Fluid studies negative for SBP
Patient has been agitated on and off and has been receiving sedation. His mental status waxed and wanes -possible delirium versus HE. Continue rifaximin. Avoid constipation lactulose as needed . psych also following
Total Time Spent with Patient (in minutes): 35
Subjective
Subjective
Date of Service: July 29, 2024
Patient had small amount of burgundy stool yesterday evening as per nursing. No further bleeding or vomiting. Patient has been agitated this a.m.
Objective
Data Reviewed
Laboratory Data:
Laboratory Results
07/29/24 03:35
07/29/24 03:35
Laboratory Results
PT 24.1 Sec (11.4-14.6) H 07/29/24 03:35
INR 2.15 07/29/24 03:35
APTT Cancelled 07/27/24 12:30
Phosphorus 4.6 mg/dl (2.5-4.5) H 07/29/24 03:35
Magnesium 1.9 mg/dl (1.6-2.3) 07/29/24 03:35
Total Bilirubin 2.3 mg/dl (0.2-1.3) H 07/29/24 03:35
AST 127 U/L (17-59) H 07/29/24 03:35
ALT 44 U/L (0-50) 07/29/24 03:35
Alkaline Phosphatase 190 U/L (38-126) H 07/29/24 03:35
Lipase 357 U/L (23-300) H 07/05/24 19:13
Vital Signs and I&O:
Vital Signs
Temp Pulse Resp BP Pulse Ox
97.8 F 80 17 117/75 94
07/29/24 11:26 07/29/24 11:24 07/29/24 11:24 07/29/24 02:00 07/29/24 11:24
I&O
07/28/24 07/29/24 07/30/24
06:59 06:59 06:59
Intake Total 480 / 480 1580.4 / 1580.4
Output Total 350 / 350
Balance 130 / 130 1580.4 / 1580.4
Physical Exam
Physical Exam
GI: Soft and Distended
Neuro: Other (Agitated)
--- NOTE | 2024-07-29 16:03 | PTCARENOTE ---
Pt restless and confused taking off monitors.
[2024-07-30] VITALS (17 sets, daily range): BP systolic 104–163; BP diastolic 54–118; BMI 27.9
--- NOTE | 2024-07-30 01:00 | PTCARENOTE ---
Assumed care of pt from dayshift RN. Pt ox1, to self, and drowsy. Pt 95% on RA. NSR on monitor. Hygiene completed including full bed change and CHG wipes. VS and assessment as documented.
Pt agitated and repeatedly has taken off gown and wires. PRN morphine given for agitation (see MAR). Notified MILLI Conklin and received Rx for wrist restraints.
[2024-07-30] MEDS: SANDOSTATIN 500.6 MCG IV (01:30)
[2024-07-30] MEDS: ATIVAN 0.5 MG IV ×2 (03:21→23:13)
[2024-07-30 05:35] LABS: Hematocrit 25.5 % (39.0-52.0); Hemoglobin 8.3 g/dL (13.0-18.0); Mean Corp Hgb Conc. 32.5 g/dL (33.0-37.0); Mean Corpuscular Hgb 29.3 pg (27.0-31.0); Mean Corpuscular Volume 90.1 fL (80.0-94.0); Mean Platelet Volume 9.8 fL (7.4-10.4); Platelet Count 60 10^3/uL (130-400); Red Blood Cell Count 2.83 10^6/uL (4.70-6.10); Red Cell Dist. Width 19.8 % (11.5-14.5); White Blood Cell Count 4.6 10^3/uL (4.8-10.8)
[2024-07-30 05:40] LABS: INR 2.04; PT 23.1 Sec (11.4-14.6)
[2024-07-30 05:48] LABS: Lactic Acid 2.6 mmol/L (0.7-2.0)
[2024-07-30 05:49] LABS: Ammonia 20 umol/L (9-30)
[2024-07-30 05:51] LABS: ALT (SGPT) 51 U/L (0-50); AST (SGOT) 149 U/L (17-59); Albumin 2.3 g/dl (3.5-5.0); Alkaline Phosphatase 214 U/L (38-126); Blood Urea Nitrogen 32 mg/dl (9-20); Calcium 7.5 mg/dl (8.4-10.2); Carbon Dioxide 24 mmol/L (22-30); Chloride 113 mmol/L (98-107); Estimated Creatinine Clearance 69 ml/min; Glucose 98 mg/dl (70-99); Magnesium 2.2 mg/dl (1.6-2.3); Phosphorus 3.6 mg/dl (2.5-4.5); Potassium 4.2 mmol/L (3.5-5.1); Sodium 143 mmol/L (135-145); Total Bilirubin 2.9 mg/dl (0.2-1.3); Total Protein 5.5 g/dl (6.3-8.2); eGFR > 60.00
[2024-07-30 06:18] LABS: % Immature Granulocytes 0.7 % (0-0.5); % Lymphocytes 12.4 % (20.5-51.1); % Monocytes 6.3 % (1.7-9.3); % Neutrophils 80.6 % (42.2-75.2); Absolute Lymphocytes 0.6 10^3/uL (1.2-3.4); Absolute Monocytes 0.3 10^3/uL (0.1-0.6); Absolute Neutrophils 3.7 10^3/uL (1.4-6.5); Nucleated Red Blood Cells % 0 % (-)
[2024-07-30] MEDS: PROTONIX 100 IV ×2 (06:44→07:10)
[2024-07-30] MEDS: DUONEB 3 ML INH ×4 (07:11→19:46)
[2024-07-30] MEDS: SODIUM CHLORIDE 3% FOR INHALATION 1 VIAL INH ×2 (07:11→19:46)
[2024-07-30] MEDS: SYMBICORT 160/4.5 MCG INHALER 2 PUFF INH ×2 (07:11→19:46)
--- NOTE | 2024-07-30 07:31 | W.PN.HOSP.TC ---
Today's Communication/Plan
-
gentle IV hydration
IV Protonix 40 mg bid
Aspiration precautions
ongoing goals of care discussions
Hospice eval
Assessment / Plan
Assessment / Plan
Physical exam:
General: Acutely ill
HEENT: Normocephalic, Atraumatic and Moist Mucous Membranes
Respiratory: Decreased breath sounds bilateral, some adventitious sounds, clear to auscultation b/l. Some upper airway noise. No wheezes or crackles.
Cardiac: Regular Rhythm and S1/S2, tachycardia
GI: Soft, very distended, mild tenderness.
Musculoskeletal: No Clubbing, No Cyanosis. 2+ bilateral edema
Neuro/Psych: agitated confused
A/P: 58M ETOH cirrhosis here for GIB and Hepatic Encephalopathy. Hospital course complicated with bilateral upper Ext DVT and likely aspiration pneumonia with associated Acute Hypoxic Respiratory Failure. Later further complicated with Flu
infection.
Acute respiratory insufficiency and hematemesis
Flu pos 07/26/24
Rapid response night on 07/27:
Patient had hematemesis and increased work of breathing as well as increased lactate
Transferred back to IMU
Respiratory issues most likely stemming from abdominal pressure from ascites coupled with recent influenza and profound deconditioning.
CT 07/27 scan showed large volume ascites.
IR eval appreciated s/p paracentesis 1L fluid drawn
07/27 Reviewed ABG Mild metabolic acidosis with compensatory respiratory alkalosis
Pulm eval appreciated off IV steroids no clear benefit
Briefly received a few doses Tamiflu but since unable d/t NPO 2/2 increased Aspiration Risk fluctuating mental status
Lactic acidosis
Likely related to decreased liver clearance of lactate.
sporadic high values >4 likely compounded by associate respiratory distress/increased work of breathing
Overall trending down
Acute upper GI bleed:
EGD showed portal gastropathy
Continue PPI, Protonix 40 mg IV twice a day
completed a course of octreotide and Rocephin
GI eval appreciated repeat EGD performed 07/20/24 w/ results as follows, repeat ocreotide gtt completed, protonix 40 mg BID, repeat EGD in 4 wks
07/20/24 EGD
Grade II esophageal varices. Completely eradicated. Banded x2
- Bilious gastric fluid.
- Portal hypertensive gastropathy.
- Normal duodenal bulb, first portion of the duodenum and second portion of the duodenum. Biopsied.
Acute toxic-metabolic encephalopathy:
Hospital Associated Delirium
Toxic metabolic encephalopathy with recent hepatic encephalopathy (cannot rule out Wernicke-Korsakoff encephalopathy):
weaned off Precedex
cont IV Thiamine
Continue lactulose 20 g 3 times daily as tolerated
Continue rifaximin 550 mg twice a day as tolerated
Missed doses lactulose rifaximin due to AMS aspiration risk, patient removed DHT multiple times, once lactulose enema 07/18/24
Neuro Pysch eval appreciated
Supervisor Paste Mixing/Pulm Eval appreciated
07/20/24 Rapid Response Respiratory Distress agitation
-patient since improved with once IV morphine 1mg ordered by overnight staff
-review of records reports, appears to be delirium possibly triggered by post-anesthesia side effects vs hospital associated delirium
Seroquel 25 mg QPM started (typically around the time patient sundowns/becomes agitated) later tapered to 12.5 mg qpm
EKG checked prior start Seroquel noted no significant QT prolongation.
Mental status briefly improved and patient was advanced to soft bite sized diet until rapid response 07/27 acute respiratory insufficiency and hematemesis as above
Mental status since worsened with patient diet downgraded back to NPO due to increased risk aspiration.
Bilateral Acute DVT upper extremities:
Challenging situation given recent GI bleed
Discussed with GI following repeat EGD as above, cleared to start hep gtt w/o bolus, appeared to be tolerating well prior to switch to Eliquis since discontinued due to rapid response hematemesis as above.
Earlier in Course of Hospitalization, Prior Acute respiratory failure
Possible Aspiration Pneumonia, completed course of treatment.
Dysphagia:
patient was on tube feeds d/t concerns aspiration lethargy AMS, however tube was removed three times overnight by patient
treated with empiric zosyn narrowed to unasyn, completed total 5 days abx
blood cultures x2 NGTD
patient was briefly weaned off oxygen supplementation stable respiratory status on room air until events as above
B/L R>L Pleural effusion
Ascites
Status post thoracentesis 360 mL drawn
s/p paracentesis as above
previously on Lasix 20 mg IV twice a day- placed on hold d/t SUSIE
Lasix later resumed, with resolution SUSIE, at 40 mg daily titrated up to 80 mg, and Aldactone added at 25 mg as per Nephro
Lasix and Aldactone since on hold d/t NPO status unsafe for oral meds d/t AMS and high aspiration risk
Hypokalemia
monitor and replete as necessary
SUSIE resolved
Hypernatremia resolved
Acute blood loss anemia
Anemia of Chronic Disease
Iron Deficiency Anemia
Pancytopenia 2/2 Cirrhosis
Monitor hemoglobin
received 3 doses IV iron supplementation, switched to PO unable to tolerate d/t NPO status as above
received 5PRBC transfusion over the course of hospitalization
Hepatic encephalopathy:
Continue lactulose and rifaximin as above
Lactulose Enema prn
Alcohol liver cirrhosis:
MELD score labs-hx MELD score 18
Poor prognosis, Palliative eval appreciated patient hospice appropriate discussion with patient's family ([id number] Jojo and mother Nuvia). Family requested hospice eval for tomorrow further discussion, ordered accordingly. Awaiting family's
decision.
DVT prophylaxis:
SCD's
CODE STATUS:
DNR
discussed with patient's [id number] primary contact Jojo
I spent a total of 50 minutes with the patient or on the floor. More than 50% of this time involved counseling and coordination of care.
Anticipated Discharge: 24 - 48 hours
Subjective/Interval History
-
Date of Service: July 30, 2024
agitated confused required restraints overnight.
Objective Data
-
Labs:
Laboratory Results
07/30/24
05:01
WBC 4.6 L
Hgb 8.3 L
Hct 25.5 L
Plt Count 60 L
PT 23.1 H
INR 2.04
Sodium 143
Potassium 4.2
Chloride 113 H
Carbon Dioxide 24
BUN 32 H
Creatinine 1.2
Glucose 98
Calcium 7.5 L
Total Bilirubin 2.9 H
AST 149 H
ALT 51 H
Alkaline Phosphatase 214 H
Vital Signs:
Vital Signs
Temp Pulse Resp BP Pulse Ox
98.3 F 83 20 104/54 98
07/30/24 03:27 07/30/24 07:15 07/30/24 07:15 07/30/24 04:00 07/30/24 07:15
I&O
07/29/24 07/30/24 07/31/24
06:59 06:59 06:59
Intake Total 1580.4 / 1580.4 620.40 / 620.40
Balance 1580.4 / 1580.4 620.40 / 620.40
[2024-07-30] MEDS: FEOSOL PO (07:57)
[2024-07-30] MEDS: DESENEX/MITRAZOL/ZEASORB 1 APPLIC TOPICAL ×2 (08:28→20:18)
[2024-07-30] MEDS: THIAMINE INJECTION 200 MG IV (08:29)
--- NOTE | 2024-07-30 09:10 | W.PN.PUL3 ---
Today's Communication / Plan
-
Hypoxemia and SOB are multifactorial given liver disease/abdominal ascites, deconditioning, MS changes, volume overload, low lung volumes on chest imaging
D/c IV steroids and nebs, I am not sure this is helping in anyway
He is NPO with concern for aspiration, speech is following
GIB, GI following, on IV PPI
Needs OOB, PT/OT, but MS has been an issue
Overall prognosis appears poor, this has been discussed with family
Assessment
-
58-year-old man with history of alcohol cirrhosis admitted through the emergency room after found unresponsive at home by his mother. Patient was admitted with dark stools, dark emesis, found to have anemia and GI bleed. Intubated for change in
mental status and airway protection and transferred to the critical care unit for further care. Reconsulted 07/26/2024 for coughing spells with upper airway sounds.
Coughing spells: Upper airway sounds. Improved with nebulizer therapy.
Flu + 07/26/2024.
Chest x-ray 07/26/2024: Moderate elevation of the right hemidiaphragm. Right lower lobe minimal atelectasis.
Acute respiratory failure/change in mental status requiring intubation and mechanical ventilation for airway protection 07/05/2024
Intubated 07/05/2024; Extubated 07/10/2024
Hepatic encephalopathy
Acute GI bleed-melena/coffee-ground
Acute blood loss anemia-hemoglobin on admission 4.9 and he has required 4 U PRBC since admission
Status post EGD 07/06/2026: Portal gastropathy.
Repeat EGD 07/19/2024 with grade 2 distal EV s/p bands x2 with PHG
Change in mental status/toxic metabolic encephalopathy: Cannot rule out alcohol withdrawal/hepatic encephalopathy
Ammonia level 92 on 07/05/2024 --> less than 9 on 07/18/2024
Coagulopathy INR 2.7 --> now 1.59 on 07/15/2024
Self reported Hx of asthma
Conditions present prior admission:
Alcoholic cirrhosis-on prior operative report from 2015 is noted.
? Bipolar disorder-not taking any medications
History of alcohol disorder
Plan:
Reconsulted on 07/26/2024 for shortness of breath. Upper airway sounds intermittently
Not bronchospastic on exam 07/27/2024
Feels uncomfortable and tired due to the flu.
On 07/27/2024 AM, he had increased WOB - Patient was sleeping comfortably without increased work of breathing when Dr. Miguel evaluated the pt. Mother was at the bedside.
Not bronchospastic on exam
No stridor or hoarse voice. Doubt upper airway issues.
Deconditioning and change in MS are contributing factors as well
Abdominal distention also contributing to his increased work of breathing.
Also significant muscle mass wasting not helping
Overall chest imaging showing low lung volumes
Patient had a paracentesis on 07/27/2024 removing 1000 cc of clear yellow ascitic fluid (negative for SBP, high SAAG)
Blood gas shows respiratory alkalosis
He previously endorsed a prior history of asthma-this is unreliable but he has been off her inhalers in the past and he has refused.
Did not want standing nebulizers in the past but those does seem to help him
Influenza positive.
With flu positive agree with Tamiflu for 5 days.
There was no evidence for pneumonia on chest x-ray from 07/26/2024, however there is diffuse groundglass opacities seen on CT chest from 07/27/2024
On symbicort, not sure what benefit inhalers are providing
Continue DuoNebs, change to PRN
Stop IV steroids
Continue aspiration precautions, keeping HOB >30-45�
Start sport bed for chest PT
IS, chest imaging noting small lung volumes
Encouraged OOB
Recurrent microaspiration also possibility triggering intermittent symptoms.
Continue Aspiration precautions
Continue PPI gtt and octreotide - started after rapid response on 07/27/2024 evening after patient vomited bright red blood and was tachypneic with increased work of breathing
Observe off antibiotics now
Currently NPO due to mental status
GI following for further plans
Continue hepatic encephalopathy management.
Psychiatry continues to follow
Agitation an issue
Bilateral upper extremity DVTs --> now off heparin drip after UGIB on 07/27/2024
Defer anticoagulation to primary team and GI.
Anemia/GI bleeding issues are contraindications
DVT prophylaxis- SCDs for now; heparin drip/Eliquis off since 07/27/2024 due to UGIB
Eventual restart anticoagulation once deemed safe per GI
Patient is chronically ill and has had a complicated hospital course with multiple events. He is appropriate for hospice. Consider palliative care consult.
DNR/DNI
Poor prognosis--care team has been speaking to family daily
Will continue to follow.
Family Discussions:
Dr. Barney updated the patient's partner, Tg, at bedside on 07/28/[address] Miguel updated mother at the bedside 07/27/[address] Sheikh updated [id number] at the bedside extensively 07/09/2024 as well as on multidisciplinary rounds 07/11/2024, 07/12/2024, and 07/13/2024, and Dr. Sheikh reviewed with [id number] 07/14/2024, 07/15/2024, and again on 07/18/24
Goals of care again discussed with [id number] 07/12/2024-DNR, do not reintubate if respiratory decompensation-again updated on 07/13/2024
------
Total time spent today was 51 minutes for this encounter. Time includes reviewing laboratory test/imaging results, reviewing pertinent medical records, obtaining and reviewing medical history, performing an appropriate exam, ordering medications,
tests and procedures. Time also includes documentation of this encounter, coordinating patient care and communicating with other healthcare professionals. Total time does not include separately billed tests performed on this date of service.
Subjective Data
-
Date of Service:
Date of Service: July 30, 2024
Chief Complaint: Pulmonary Follow Up and Dyspnea Follow Up
Subjective:
No events ON, in restraints
Confused, no new ROS
Objective Data
Data Reviewed
Vital Signs / I&O / Oxygen:
Vital Signs
Temp Pulse Resp BP Pulse Ox
98.2 F 83 20 104/54 98
07/30/24 07:15 07/30/24 07:15 07/30/24 07:15 07/30/24 04:00 07/30/24 07:15
Intake and Output
07/29/24 07/30/24 07/31/24
06:59 06:59 06:59
Intake Total 1580.4 / 1580.4 620.40 / 620.40
Balance 1580.4 / 1580.4 620.40 / 620.40
SaO2 [CPAP/PSV] 97
SaO2 [A/C] 95
SaO2 98
Nasal Cannula flow liters per 2
minute
Physical Exam
General: Respiratory Distress (n), Chills (n), Sweats (n) and Other (chronically ill appearing; appears uncomfortable, agitated)
HEENT: Normocephalic, Anicteric and Moist Mucous Membranes
Cardiovascular: S1-S2, Regular Rhythm, Rub (negative) and Peripheral Edema (+3 lower extremity pitting edema bilaterally, weeping)
Respiratory: Wheeze (negative), Crackles (Bilateral), Rhonchi (negative), Non-Labored Respirations, Accessory Resp Muscle Use (n) and Stridor (negative)
GI: Soft, Distended, Non Tender, Normal Bowel Sounds and Other (abdomen is firm but not rigid and non-tender)
Neurology: Lethargic and Other (confused, not oriented to time, poor insight into condition)
Skin: Warm, Dry, Cyanosis (negative), Jaundice (negative) and Rash (n)
Labs/Micro/Reports
Lab Data
07/30/24 05:01
07/30/24 05:01
Laboratory Results
07/30/24
05:01
PT 23.1 H
INR 2.04
Microbiology
07/28/24 05:34 Blood/Venous Blood Culture - Preliminary
No Growth in 48 hours- Final report to follow
07/27/24 13:54 Peritoneal Fluid Body Fluid Culture - Preliminary
No Growth After 48 Hours
07/27/24 13:54 Peritoneal Fluid Gram Stain - Preliminary
--- NOTE | 2024-07-30 09:25 | PTOTSP ---
Reviewed chart and noted pt transferred from [address] [place] [address] to ICU/IMU over weekend and PT/OT orders were not continued upon transfer. Will need updated PT and OT orders if stable to resume therapy activities.
--- NOTE | 2024-07-30 09:37 | W.PN.GI.CBS2 ---
Today's Communication / Plan
-
d/c octerotide / protonix drip
IV protonix 40 mg bid
IR paracentesis
Assessment / Plan
-
Assessment: The patient is a 58-year-old male with a known medical history of alcoholic cirrhosis who was brought to the ER after found unresponsive at home. His lab results showed a very low level of hgb to 4.9 at the admission. The patient`s
endoscopy (by Dr Patino on 07/06/24) showed portal hypertensive gastropathy, old blood clots in the gastric fundus, normal duodenum. No active GI bleeding signs were observed since admission The patient had a likely stable level of hgb around to
8.1-8.5. This am, the patient`s hgb level was found slightly decreased to 6.9 without any active GI bleeding symptoms. The patient had been placed Dobbhoff for 3 times and he took of the last one about 2 days ago during his one of the agitation
episodes. GI team was consulted for re-evaluation of he patient.
07/19/2024 EGD Impression: - Grade II esophageal varices. Completely eradicated.
Banded x2
- Bilious gastric fluid.
- Portal hypertensive gastropathy.
- Normal duodenal bulb, first portion of the duodenum
and second portion of the duodenum. Biopsied.
07/06 EGD - Normal esophagus.- Portal hypertensive gastropathy- Old black clots in the gastric fundus- Normal examined duodenum- No specimens collected.
07/11 abd X ray-moderate gas in non dilated loops of bowel
Limited study demonstrating no evidence of acute pathology
07/11- CTa/p without IV contrast -Generalized anasarca. Moderate right and small left pleural effusion. Mild to moderate ascites. No focal collection or abscess. No free air.
No bowel obstruction. No obstructive uropathy.Cirrhosis. Splenomegaly.Posterior lung base parenchymal opacity, likely compressive atelectasis. Cannot entirely exclude pneumonia.
07/11 HCT No acute intracranial abnormality identified.chronic microvascular ischemic change. 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
07/12/24 Pleural effusion: Successful ultrasound-guided RIGHT thoracentesis, yielding 360 mL of straw colored pleural fluid.
07/16/24 Abd US:shows small volume ascites in all 4 quadrants of the abdomen without a significant change when compared with the 07/13/2024 examination. IR attempted for a paracentesis on 06/1424 and it was unable to be drained.
Impression:
GI Bleeding likely from portal gastropathy and esophageal varices
Cirrhosis complicated with hypoalbuminemia, thrombocytopenia, coagulopathy possibly Alcohol related
Mental Status Changes secondary to HE vs Alcohol withdrawal vs other
Hypotension requiring pressors during admission
Abdominal ascites per CT/ US with mild abdominal distention
Hypernatremia
Resp insufficiency s/p intubation with extubation 07/10
Bipolar disorder ?
Pleural effusion
Influenza + 07/26
Plan:
GI was reconsulted since patient had a rapid response 07/27 with some vomiting-containing blood. No further episodes since then. Hb stable. Patient was on heparin drip for upper extremity DVT and was started on Eliquis yesterday. Mother said he
was coughing up a lot yesterday prior to this event last night.
No further bleeding now. Since then no further bleeding/Hb relatively stable will hold off on EGD (considering patient's current mental /respiratory status with flu +) . Discussed with patient's mother at the bedside. Only Will consider if
evidence of overt GI bleeding
d/c octreotide drip/Protonix drip
Protonix 40 mg bid
Monitor H&H
Hold off on anticoagulation for now. Medical team to consider benefits and risks (high risk of rebleeding/fall risks ) on restarting anticoagulation
diet per speech therapy recommendations
Repeat imaging last night showing large volume ascites. Will recommend IR evaluation for paracentesis. Prior paracentesis yesterday with removal of 1000 mL. Fluid studies negative for SBP. resume diuretics
Patient has been agitated on and off and has been receiving sedation in the past . His mental status waxed and wanes -possible delirium versus HE. his ammonia is normal . Continue rifaximin. Avoid constipation lactulose as needed . psych also
following
poor prognosis
GOC per medical team
no further recommendations at this point . will s/o. call us back if any questions
Total Time Spent with Patient (in minutes): 35
Subjective
Subjective
Date of Service: July 30, 2024
No further bleeding. still agitated
Objective
Data Reviewed
Laboratory Data:
Laboratory Results
07/30/24 05:01
07/30/24 05:01
Laboratory Results
PT 23.1 Sec (11.4-14.6) H 07/30/24 05:01
INR 2.04 07/30/24 05:01
APTT Cancelled 07/27/24 12:30
Phosphorus 3.6 mg/dl (2.5-4.5) 07/30/24 05:01
Magnesium 2.2 mg/dl (1.6-2.3) 07/30/24 05:01
Total Bilirubin 2.9 mg/dl (0.2-1.3) H 07/30/24 05:01
AST 149 U/L (17-59) H 07/30/24 05:01
ALT 51 U/L (0-50) H 07/30/24 05:01
Alkaline Phosphatase 214 U/L (38-126) H 07/30/24 05:01
Lipase 357 U/L (23-300) H 07/05/24 19:13
Vital Signs and I&O:
Vital Signs
Temp Pulse Resp BP Pulse Ox
98.2 F 83 20 104/54 98
07/30/24 07:15 07/30/24 07:15 07/30/24 07:15 07/30/24 04:00 07/30/24 07:15
I&O
07/29/24 07/30/24 07/31/24
06:59 06:59 06:59
Intake Total 1580.4 / 1580.4 620.40 / 620.40
Balance 1580.4 / 1580.4 620.40 / 620.40
Physical Exam
Physical Exam
GI: Soft and Distended
Neuro: Other (agitated and confused )
--- NOTE | 2024-07-30 09:38 | W.PN.NEPH.PH ---
Today's Communication / Plan
-
follow BMP
Assessment/Plan
-
IMP:
Acute upper GI bleed
Acute toxic-metabolic encephalopathy
Dysphagia
Acute DVT left upper extremity
SUSIE
Hypernatremia
B/L R>L Pleural effusion-Status post thoracentesis
Abdominal ascites
Anemia
Thrombocytopenia
Acute blood loss anemia
Hepatic encephalopathy
Alcohol liver cirrhosis
Plan:
follow BMP
Lasix and Aldactone held while n.p.o.
sodium bicarbonate held while NPO
replete K prn
prognosis is poor
appropriate for hospice
-
-
Date of Service: July 30, 2024
CC / HPI / ROS
-
Chief Complaint:
SUSIE
History of Present Illness:
SUSIE/Cr stable 1.2
BP stable
Metabolic acidosis improved
Sodium stable 143
remains n.p.o.
Review of Systems:
no CP/SOB
confused
Grossly nonoliguric
N.p.o.
Labs
-
Labs:
WBC 4.6 10^3/uL (4.8-10.8) L 07/30/24 05:01
RBC 2.83 10^6/uL (4.70-6.10) L 07/30/24 05:01
Hgb 8.3 g/dL (13.0-18.0) L 07/30/24 05:01
Hct 25.5 % (39.0-52.0) L 07/30/24 05:01
Plt Count 60 10^3/uL (130-400) L 07/30/24 05:01
Sodium 143 mmol/L (135-145) 07/30/24 05:01
Potassium 4.2 mmol/L (3.5-5.1) 07/30/24 05:01
Chloride 113 mmol/L (98-107) H 07/30/24 05:01
Carbon Dioxide 24 mmol/L (22-30) 07/30/24 05:01
BUN 32 mg/dl (9-20) H 07/30/24 05:01
Creatinine 1.2 mg/dL (0.7-1.3) 07/30/24 05:01
eGFR > 60.00 07/30/24 05:01
Glucose 98 mg/dl (70-99) 07/30/24 05:01
Calcium 7.5 mg/dl (8.4-10.2) L 07/30/24 05:01
Phosphorus 3.6 mg/dl (2.5-4.5) 07/30/24 05:01
Nit-D-Zqlrparneml Pept 1800 pg/ml 07/29/24 03:35
Albumin 2.3 g/dl (3.5-5.0) L 07/30/24 05:01
Physical Exam
-
Vital Signs:
Vital Signs
Temp Pulse Resp BP Pulse Ox
98.2 F 83 20 104/54 98
07/30/24 07:15 07/30/24 07:15 07/30/24 07:15 07/30/24 04:00 07/30/24 07:15
Cardiovascular:: Regular rate and rhythm
Respiratory:: Bilateral: Coarse
Lung Excursion:: Normal
Abdomen:: Nontender and Soft
Bowel Sounds:: Normal
Extremity Edema:: +3: Bilateral:
[2024-07-30] MEDS: SANDOSTATIN IV (10:12)
[2024-07-30] MEDS: MORPHINE SULFATE 0.5 MG IV (10:17)
--- NOTE | 2024-07-30 13:31 | W.CON.PAL ---
Consultation
-
Date/Time Consultation Requested: 07/30
Date/Time Consultation Performed: 07/30
Requesting Provider: Judd
Performing Provider: Rianna Virgen
Reason for Consult: Goals of Care Discussion
Reason for Admission
Illness Course/HPI
58 year old M with PMH of etoh cirrhosis admitted with AMS, emesis. Upon admission hgb 4.9 s/p 3 units PRBCs. Underwent EGD with varices s/p banding. His course has been complicated by ongoing AMS due to hepatic encephalopathy requiring restraints,
acute b/l DVTs unable to anticoagulate due to bleeding, aspiration PNA now NPO (pulled out multiple dobhoffs), and flu. Underwent para 07/27 with 1L fluid removal. He remains encephalopathic, no nutrition source, respiratory status fluctuates.
Seen at bedside with mother and sister in law Uribe. Introduced myself and patients mother left the room. Spoke at length with sister in law Uribe. Discussed next steps given his prolonged hospitalization, multiple complications and continues to
be altered, restrained with no nutrition source. Recommended hospice as the next step in his care and discussed different options including home and inpatient. Recommended inpatient at this time given his agitation, delirium, secretions. Michael
would like the day to talk to patients mother about this, they seem to be leaning this way. Discussed if he were to decompensate sooner than that, team would likely talk with her about comfort measures and she understands.
Updated team, CM, manager hospice. Will touch base with Michael tomorrow morning.
Goals of Care Discussion
-
Individuals Present for Discussion & Relationship to Patient:
see HPI
Objective Data
-
Objective Data:
Vital Signs
Temp Pulse Resp BP Pulse Ox
98.2 F 80 20 104/54 98
07/30/24 07:15 07/30/24 11:34 07/30/24 11:34 07/30/24 04:00 07/30/24 11:34
Laboratory Results
07/30/24 05:01
07/30/24 05:01
PT 23.1 Sec (11.4-14.6) H 07/30/24 05:01
INR 2.04 07/30/24 05:01
APTT Cancelled 07/27/24 12:30
Hemoglobin A1c 5.1 % (4.0-5.6) 07/06/24 07:00
Ammonia 20 umol/L (9-30) 07/30/24 05:01
Total Protein 5.5 g/dl (6.3-8.2) L 07/30/24 05:01
Albumin 2.3 g/dl (3.5-5.0) L 07/30/24 05:01
Free T4 1.43 ng/dl (0.78-2.19) 07/27/24 17:08
Urine Color Yellow 07/28/24 07:28
Urine Clarity Clear (Clear) 07/28/24 07:28
Urine pH 5.0 (5.0-9.0) 07/28/24 07:28
Ur Specific [employer] 1.010 (<1.030) 07/28/24 07:28
Urine Ketones Negative (Negative) 07/28/24 07:28
Urine Occult Blood Negative (Negative) 07/16/24 12:18
Urine Nitrite Negative (Negative) 07/16/24 12:18
Urine Bilirubin Negative (Negative) 07/28/24 07:28
Ur Leukocyte Esterase Negative (Negative) 07/16/24 12:18
Urine Albumin 2+ (Neg - Trace) A 07/16/24 12:18
Palliative Performance Scale
Palliative Performance Scale:
PPS Level Ambulation Activity & Evidence of Disease Self Care Intake Conscious Level
100% Full Normal Activity & Work; Full Intake Full
No Evidence of Disease
90% Full Normal Activity & Work; Full Normal Full
Some Evidence of Disease
80% Full Normal Activity with Effort Full Normal or Full
Some Evidence of Disease Reduced
70% Reduced Unable Normal Job/Work Full Normal or Full
Significant Disease Reduced
60% Reduced Unable Hobby/Housework Occasional Normal or Full or Confusion
Significant Disease Assistance Reduced
50% Mainly Sit/Lie Unable to do Any Work Considerable Normal or Full or Confusion
Extensive Disease Assistance Req'd Reduced
40% Mainly in Bed Unable to do Most Activity Mainly Assistance Normal or Full or Drowsy;
Extensive Disease Reduced +/- Confusion
30% Totally Bed Unable to do Any Activity Total Care Normal or Full or Drowsy;
Bound Extensive Disease Reduced +/- Confusion
20% Totally Bed Bound Unable to do Any Activity Total Care Minimal to Full or Drowsy;
Extensive Disease Sips +/- Confusion
10% Totally Bed Bound Unable to do Any Activity Total Care Mouth Care Drowsy or Coma;
Extensive Disease Only +/- Confusion
0%
PPS Score Level:
Palliative Performance Score Response
Palliative Performance Score Response: 20%
Physical Exam
-
General: Appears Chronically Ill and Disheveled
HEENT: Normocephalic
Respiratory: Rhonchi
Cardiac: Regular Rhythm
Peripheral Vascular: No Edema
GI: Soft and Distended
Skin: Warm and Jaundice
Neuro: Alert
Psych: Confused and Agitated
restless
Assessment / Plan
-
Assessment/Plan:
58 year old M with etoh cirrhosis, prolonged complicated hospitalization.
- see HPI for GOC discussion
- family seems to be leaning towards hospice - he is inpatient level appropriate. Michael would like the day to speak with patients mother and brother and will have a decision tomorrow.
- will follow
Care Reviewed
Data Reviewed
Radiology procedure: Image Reviewed
Medical Tests: I reviewed
Reviewed with: Patient, Family and Physician
[2024-07-30] MEDS: NSS 1000 IV (14:42)
--- NOTE | 2024-07-30 16:19 | CM ---
Patient with Hx etoh cirrhosis, bipolar disorder with Dx UGI bleed, Acute TME/Delirium. Seen by Palliative Care today. Room air. Receiving IVF. Seen by Psych. Per nurse assessment; confused, restless, Soft limb restraints.
CM Consult: Hospice
Spoke with Jojo, sister in law;
explained hospice philosophy & benefits.
The patient's mother Nuvia and Jojo would like to talk with the hospice nurse.
Referral to [facility].
Plan follow up after seen by Hospice.
[2024-07-30] MEDS: NSS (PRESERVATIVE FREE) 10 ML IV (20:19)
[2024-07-30] MEDS: PROTONIX IV 40 MG IV (20:19)
--- NOTE | 2024-07-30 22:21 | PTCARENOTE ---
Addendum entered by Kaylie Torres RN 07/31/24 00:27:
Patient screaming at staff 'get the fuck off me, don't touch me, fuck you' as well as continuing to kick at staff and try to swig arms at staff. Required 4 staff members to help change patient. PRN Ativan and morphine given. Unable to reorient.
continuing to monitor.
Original Note:
Assumed care of patient from previous RN. Patient in bilateral wrist restraints. Patient very agitated. Provided CHG bathing wipes. When trying to change brief and turn patient, he became very aggressive and tried hitting and kicking staff as well
as cursing at staff. Pulled patient up in bed and provided new blankets. Continuing to monitor. assessment and vital signs as documented.
[2024-07-31] VITALS (19 sets, daily range): BP systolic 108–183; BP diastolic 53–112; BMI 28.2
[2024-07-31] MEDS: MORPHINE SULFATE 0.5 MG IV ×2 (00:11→08:29)
[2024-07-31 05:11] LABS: Hematocrit 25.4 % (39.0-52.0); Hemoglobin 8.5 g/dL (13.0-18.0); Mean Corp Hgb Conc. 33.5 g/dL (33.0-37.0); Mean Corpuscular Hgb 30.1 pg (27.0-31.0); Mean Corpuscular Volume 90.1 fL (80.0-94.0); Mean Platelet Volume 9.6 fL (7.4-10.4); Platelet Count 57 10^3/uL (130-400); Red Blood Cell Count 2.82 10^6/uL (4.70-6.10); Red Cell Dist. Width 19.9 % (11.5-14.5); White Blood Cell Count 6.3 10^3/uL (4.8-10.8)
[2024-07-31 05:30] LABS: Blood Urea Nitrogen 34 mg/dl (9-20); Calcium 7.6 mg/dl (8.4-10.2); Carbon Dioxide 22 mmol/L (22-30); Chloride 114 mmol/L (98-107); Estimated Creatinine Clearance 83 ml/min; Glucose 82 mg/dl (70-99); Potassium 3.8 mmol/L (3.5-5.1); Sodium 147 mmol/L (135-145); eGFR > 60.00
--- NOTE | 2024-07-31 06:56 | W.PN.HOSP.TC ---
Today's Communication/Plan
-
transition to comfort care
Assessment / Plan
Assessment / Plan
Physical exam:
General: Acutely ill
HEENT: Normocephalic, Atraumatic and Moist Mucous Membranes
Respiratory: Decreased breath sounds bilateral, some adventitious sounds, clear to auscultation b/l. Some upper airway noise. No wheezes or crackles.
Cardiac: Regular Rhythm and S1/S2, tachycardia
GI: Soft, very distended, mild tenderness.
Musculoskeletal: No Clubbing, No Cyanosis. 2+ bilateral edema
Neuro/Psych: agitated confused
A/P: 58M ETOH cirrhosis here for GIB and Hepatic Encephalopathy. Hospital course complicated with bilateral upper Ext DVT and likely aspiration pneumonia with associated Acute Hypoxic Respiratory Failure. Later further complicated with Flu
infection.
Acute respiratory insufficiency and hematemesis
Flu pos 07/26/24
Rapid response night on 07/27:
Patient had hematemesis and increased work of breathing as well as increased lactate
Transferred back to IMU
Respiratory issues most likely stemming from abdominal pressure from ascites coupled with recent influenza and profound deconditioning.
CT 07/27 scan showed large volume ascites.
IR eval appreciated s/p paracentesis 1L fluid drawn
07/27 Reviewed ABG Mild metabolic acidosis with compensatory respiratory alkalosis
Pulm eval appreciated off IV steroids no clear benefit
Briefly received a few doses Tamiflu but since unable d/t NPO 2/2 increased Aspiration Risk fluctuating mental status
Lactic acidosis
Likely related to decreased liver clearance of lactate.
sporadic high values >4 likely compounded by associate respiratory distress/increased work of breathing
Overall trending down
Acute upper GI bleed:
EGD showed portal gastropathy
Continue PPI, Protonix 40 mg IV twice a day
completed a course of octreotide and Rocephin
GI eval appreciated repeat EGD performed 07/20/24 w/ results as follows, repeat ocreotide gtt completed, protonix 40 mg BID, repeat EGD in 4 wks
07/20/24 EGD
Grade II esophageal varices. Completely eradicated. Banded x2
- Bilious gastric fluid.
- Portal hypertensive gastropathy.
- Normal duodenal bulb, first portion of the duodenum and second portion of the duodenum. Biopsied.
Acute toxic-metabolic encephalopathy:
Hospital Associated Delirium
Toxic metabolic encephalopathy with recent hepatic encephalopathy (cannot rule out Wernicke-Korsakoff encephalopathy):
weaned off Precedex
cont IV Thiamine
Continue lactulose 20 g 3 times daily as tolerated
Continue rifaximin 550 mg twice a day as tolerated
Missed doses lactulose rifaximin due to AMS aspiration risk, patient removed DHT multiple times, once lactulose enema 07/18/24
Neuro Pysch eval appreciated
Case Management Rn/Pulm Eval appreciated
07/20/24 Rapid Response Respiratory Distress agitation
-patient since improved with once IV morphine 1mg ordered by overnight staff
-review of records reports, appears to be delirium possibly triggered by post-anesthesia side effects vs hospital associated delirium
Seroquel 25 mg QPM started (typically around the time patient sundowns/becomes agitated) later tapered to 12.5 mg qpm
EKG checked prior start Seroquel noted no significant QT prolongation.
Mental status briefly improved and patient was advanced to soft bite sized diet until rapid response 07/27 acute respiratory insufficiency and hematemesis as above
Mental status since worsened with patient diet downgraded back to NPO due to increased risk aspiration.
Bilateral Acute DVT upper extremities:
Challenging situation given recent GI bleed
Discussed with GI following repeat EGD as above, cleared to start hep gtt w/o bolus, appeared to be tolerating well prior to switch to Eliquis since discontinued due to rapid response hematemesis as above.
Earlier in Course of Hospitalization, Prior Acute respiratory failure
Possible Aspiration Pneumonia, completed course of treatment.
Dysphagia:
patient was on tube feeds d/t concerns aspiration lethargy AMS, however tube was removed three times overnight by patient
treated with empiric zosyn narrowed to unasyn, completed total 5 days abx
blood cultures x2 NGTD
patient was briefly weaned off oxygen supplementation stable respiratory status on room air until events as above
B/L R>L Pleural effusion
Ascites
Status post thoracentesis 360 mL drawn
s/p paracentesis as above
previously on Lasix 20 mg IV twice a day- placed on hold d/t SUSIE
Lasix later resumed, with resolution SUSIE, at 40 mg daily titrated up to 80 mg, and Aldactone added at 25 mg as per Nephro
Lasix and Aldactone since on hold d/t NPO status unsafe for oral meds d/t AMS and high aspiration risk
Hypokalemia
monitor and replete as necessary
SUSIE resolved
Hypernatremia resolved
Acute blood loss anemia
Anemia of Chronic Disease
Iron Deficiency Anemia
Pancytopenia 2/2 Cirrhosis
Monitor hemoglobin
received 3 doses IV iron supplementation, switched to PO unable to tolerate d/t NPO status as above
received 5PRBC transfusion over the course of hospitalization
Hepatic encephalopathy:
Continue lactulose and rifaximin as above
Lactulose Enema prn
Alcohol liver cirrhosis:
MELD score labs-hx MELD score 18
Poor prognosis, Palliative/Hospice evals appreciated patient hospice appropriate discussed with patient's family (itdtjo-zl-kgl Jojo and mother Nuvia). Patient subsequently transitioned to comfort care as per family's wishes.
DVT prophylaxis:
SCD's
CODE STATUS:
DNR
discussed with patient's [id number]-cpe primary contact Jojo, patient's brother, and patient's mother Janie
I spent a total of 50 minutes with the patient or on the floor. More than 50% of this time involved counseling and coordination of care.
Anticipated Discharge: 24 - 48 hours
Subjective/Interval History
-
Date of Service: July 31, 2024
Objective Data
-
Labs:
Laboratory Results
07/31/24
04:10
WBC 6.3
Hgb 8.5 L
Hct 25.4 L
Plt Count 57 L
Sodium 147 H
Potassium 3.8
Chloride 114 H
Carbon Dioxide 22
BUN 34 H
Creatinine 1.0
Glucose 82
Calcium 7.6 L
Vital Signs:
Vital Signs
Temp Pulse Resp BP Pulse Ox
97.7 F 90 23 154/61 91
07/31/24 03:20 07/31/24 05:00 07/31/24 05:00 07/31/24 05:00 07/31/24 05:00
I&O
07/29/24 07/30/24 07/31/24
06:59 06:59 06:59
Intake Total 1580.4 / 1580.4 620.40 / 620.40
Balance 1580.4 / 1580.4 620.40 / 620.40
[2024-07-31] MEDS: SODIUM CHLORIDE 3% FOR INHALATION 1 VIAL INH (07:50)
[2024-07-31] MEDS: DUONEB 3 ML INH (07:51)
[2024-07-31] MEDS: SYMBICORT 160/4.5 MCG INHALER 2 PUFF INH (07:51)
[2024-07-31] MEDS: NSS (PRESERVATIVE FREE) 0.25 ML IV (08:31)
[2024-07-31] MEDS: ATIVAN 0.5 MG IV (08:31)
[2024-07-31] MEDS: PROTONIX IV 40 MG IV (08:36)
[2024-07-31] MEDS: THIAMINE INJECTION 200 MG IV (08:36)
[2024-07-31] MEDS: NSS (PRESERVATIVE FREE) 10 ML IV (08:37)
[2024-07-31] MEDS: NSS 1000 IV (08:37)
[2024-07-31] MEDS: DESENEX/MITRAZOL/ZEASORB 1 APPLIC TOPICAL (08:37)
--- NOTE | 2024-07-31 09:03 | W.PN.PUL3 ---
Today's Communication / Plan
-
Reviewed events, hospice consult obtained
Reviewed discussion with care team
Family has decided on hospice, all questions answered
We will sign off at this time, please call with questions
Assessment
-
58-year-old man with history of alcohol cirrhosis admitted through the emergency room after found unresponsive at home by his mother. Patient was admitted with dark stools, dark emesis, found to have anemia and GI bleed. Intubated for change in
mental status and airway protection and transferred to the critical care unit for further care. Reconsulted 07/26/2024 for coughing spells with upper airway sounds.
Coughing spells: Upper airway sounds. Improved with nebulizer therapy.
Flu + 07/26/2024.
Chest x-ray 07/26/2024: Moderate elevation of the right hemidiaphragm. Right lower lobe minimal atelectasis.
Acute respiratory failure/change in mental status requiring intubation and mechanical ventilation for airway protection 07/05/2024
Intubated 07/05/2024; Extubated 07/10/2024
Hepatic encephalopathy
Acute GI bleed-melena/coffee-ground
Acute blood loss anemia-hemoglobin on admission 4.9 and he has required 4 U PRBC since admission
Status post EGD 07/06/2026: Portal gastropathy.
Repeat EGD 07/19/2024 with grade 2 distal EV s/p bands x2 with PHG
Change in mental status/toxic metabolic encephalopathy: Cannot rule out alcohol withdrawal/hepatic encephalopathy
Ammonia level 92 on 07/05/2024 --> less than 9 on 07/18/2024
Coagulopathy INR 2.7 --> now 1.59 on 07/15/2024
Self reported Hx of asthma
Conditions present prior admission:
Alcoholic cirrhosis-on prior operative report from 2014 is noted.
? Bipolar disorder-not taking any medications
History of alcohol disorder
Plan:
Reconsulted on 07/26/2024 for shortness of breath. Upper airway sounds intermittently
Not bronchospastic on exam 07/27/2024
Feels uncomfortable and tired due to the flu.
On 07/27/2024 AM, he had increased WOB - Patient was sleeping comfortably without increased work of breathing when Dr. Miguel evaluated the pt. Mother was at the bedside.
Not bronchospastic on exam
No stridor or hoarse voice. Doubt upper airway issues.
Deconditioning and change in MS are contributing factors as well
Abdominal distention also contributing to his increased work of breathing.
Also significant muscle mass wasting not helping
Overall chest imaging showing low lung volumes
Patient had a paracentesis on 07/27/2024 removing 1000 cc of clear yellow ascitic fluid (negative for SBP, high SAAG)
Blood gas shows respiratory alkalosis
He previously endorsed a prior history of asthma-this is unreliable but he has been off her inhalers in the past and he has refused.
Did not want standing nebulizers in the past but those does seem to help him
Influenza positive.
With flu positive agree with Tamiflu for 5 days.
There was no evidence for pneumonia on chest x-ray from 07/26/2024, however there is diffuse groundglass opacities seen on CT chest from 07/27/2024
On symbicort, not sure what benefit inhalers are providing
Continue DuoNebs, change to PRN
Stop IV steroids
Continue aspiration precautions, keeping HOB >30-45�
Start sport bed for chest PT
IS, chest imaging noting small lung volumes
Encouraged OOB
Recurrent microaspiration also possibility triggering intermittent symptoms.
Continue Aspiration precautions
Continue PPI gtt and octreotide - started after rapid response on 07/27/2024 evening after patient vomited bright red blood and was tachypneic with increased work of breathing
Observe off antibiotics now
Currently NPO due to mental status
GI following for further plans
Continue hepatic encephalopathy management.
Psychiatry continues to follow
Agitation an issue
Bilateral upper extremity DVTs --> now off heparin drip after UGIB on 07/27/2024
Defer anticoagulation to primary team and GI.
Anemia/GI bleeding issues are contraindications
DVT prophylaxis- SCDs for now; heparin drip/Eliquis off since 07/27/2024 due to UGIB
Eventual restart anticoagulation once deemed safe per GI
Patient is chronically ill and has had a complicated hospital course with multiple events. He is appropriate for hospice. Consider palliative care consult.
DNR/DNI
Poor prognosis--care team has been speaking to family daily
Hospice consult placed
Family Discussions:
Dr. Barney updated the patient's partner, Tg, at bedside on 07/28/[address] Miguel updated mother at the bedside 07/27/[address] Sheikh updated [id number] at the bedside extensively 07/09/2024 as well as on multidisciplinary rounds 07/11/2024, 07/12/2024, and 07/13/2024, and Dr. Sheikh reviewed with [id number] 07/14/2024, 07/15/2024, and again on 07/18/24
Goals of care again discussed with [id number] 07/12/2024-DNR, do not reintubate if respiratory decompensation-again updated on 07/13/2024
------
Total time spent today was 41 minutes for this encounter. Time includes reviewing laboratory test/imaging results, reviewing pertinent medical records, obtaining and reviewing medical history, performing an appropriate exam, ordering medications,
tests and procedures. Time also includes documentation of this encounter, coordinating patient care and communicating with other healthcare professionals. Total time does not include separately billed tests performed on this date of service.
Subjective Data
-
Date of Service:
Date of Service: July 31, 2024
Chief Complaint: Pulmonary Follow Up and Dyspnea Follow Up
Subjective:
Lethargic, agitated
Family at bedside
Objective Data
Data Reviewed
Vital Signs / I&O / Oxygen:
Vital Signs
Temp Pulse Resp BP Pulse Ox
97.7 F 76 16 154/61 96
07/31/24 07:11 07/31/24 07:52 07/31/24 07:52 07/31/24 05:00 07/31/24 07:52
Intake and Output
07/30/24 07/31/24 08/01/24
06:59 06:59 06:59
Intake Total 620.40 / 620.40
Balance 620.40 / 620.40
SaO2 [CPAP/PSV] 97
SaO2 [A/C] 95
SaO2 96
Nasal Cannula flow liters per 2
minute
Physical Exam
General: Respiratory Distress (n), Chills (n), Sweats (n) and Other (chronically ill appearing; appears uncomfortable, agitated)
HEENT: Normocephalic, Anicteric and Moist Mucous Membranes
Cardiovascular: S1-S2, Regular Rhythm, Rub (negative) and Peripheral Edema (+3 lower extremity pitting edema bilaterally, weeping)
Respiratory: Wheeze (negative), Crackles (Bilateral), Rhonchi (negative), Non-Labored Respirations, Accessory Resp Muscle Use (n) and Stridor (negative)
GI: Soft, Distended, Non Tender, Normal Bowel Sounds and Other (abdomen is firm but not rigid and non-tender)
Neurology: Lethargic and Other (confused, not oriented to time, poor insight into condition)
Skin: Warm, Dry, Cyanosis (negative), Jaundice (negative) and Rash (n)
Labs/Micro/Reports
Lab Data
07/31/24 04:10
07/31/24 04:10
Microbiology
07/28/24 05:34 Blood/Venous Blood Culture - Preliminary
No Growth in 72 hours- Final report to follow
07/27/24 13:54 Peritoneal Fluid Body Fluid Culture - Final
No Growth After 72 Hours
07/27/24 13:54 Peritoneal Fluid Gram Stain - Final
--- NOTE | 2024-07-31 09:38 | W.PN.UPDATE ---
Update Note
Progress Note Update
Patient's family in agreement with pursuing comfort care inpt hospice. Orders updated accordingly.
--- NOTE | 2024-07-31 10:01 | CM ---
Notified by Gladis, Hospice she had family meeting today and family agreed to patient staying here in comfort care. Hospice office checked patient's benefits and he has no insurance coverage for inpatient hospice.
Plan comfort care.
--- NOTE | 2024-07-31 10:04 | HOSPNOTE ---
Spoke with family and patient will remain inpatient on comfort measures. The family signed consent forms and then found out the patient's insurance has no inpatient hospice benefit but does have hospitalization so the patient will remain on comfort.
Family does not know there is no hospice benefit I feel the Mom will be unable to process any more heartache so I will follow every day and get family set up with bereavement support. Attending and CM aware, I requested a bed on [facility] when once is
available. I will follow patient daily.
--- NOTE | 2024-07-31 10:16 | PTOTSP ---
Reviewed chart and noted pt going on comfort measures/hospice. PT will officially sign off.
[2024-07-31] MEDS: MORPHINE 100 IV (11:14)
[2024-07-31] MEDS: ATIVAN 2 MG IV ×2 (11:24→17:25)
--- NOTE | 2024-07-31 12:13 | PTCARENOTE ---
Received this am very agitiated, restless- restraints untied and pt attempted to hit this inspector automatic typewriter- verbally abusive as well. Re restrained and medicated with Morphine and Ativan- post assessment drowsy, more cooperative- bathed and changed- grossly
incontinent of urine /sm bm. Oral care completed pt went back to sleep. Comfort care orders noted- IV Morphine gtt initiated IV Ativan dose given. Family updated / they left will be back later.
--- NOTE | 2024-07-31 12:14 | W.PN.UPDATE ---
Update Note
Progress Note Update
pt seem on comfort care now
will s/o
--- NOTE | 2024-07-31 14:05 | PTOTSP ---
ST Consult
Chart reviewed. Family has decided on hospice care at this time. No skilled [facility] CE[employer] T[employer] services deemed warranted at this time. Would initiate a PO diet for the pt at this time for the pt's comfort and pleasure, as long as it is appropriate based on the
pt's level of alertness and respiratory status. Would recommend consideration of either soft bite sized solids or minced and moist solids with thin liquids. [facility] [employer] to sign off. Please re-consult if needed. Thank you.
[2024-07-31] MEDS: MORPHINE SULFATE 2 MG IV ×4 (17:34→21:11)
[2024-07-31] MEDS: ROBINUL 0.2 MG IV ×2 (18:06→22:05)
--- NOTE | 2024-07-31 18:43 | PTCARENOTE ---
Patient received from IMU via stretcher; transferred to bed by staff; oriented to self; audible secretions; coarse lung sounds; labored breathing; See MAR for medication administration; Step 1 Morphine drip infusing through Right triple lumen IJ;
family at bedside.
--- NOTE | 2024-07-31 19:09 | PTCARENOTE ---
Addendum entered by Brenda Mims RN 07/31/24 19:11:
Notified sister in law Jojo of transfer.
Original Note:
Report to [facility]- transferred to [id number]
[2024-08-01] MEDS: ROBINUL 0.2 MG IV ×4 (02:20→16:16)
[2024-08-01] MEDS: MORPHINE SULFATE 2 MG IV ×7 (02:20→10:44)
--- NOTE | 2024-08-01 06:47 | W.PN.HOSP.TC ---
Today's Communication/Plan
-
cont comfort measures
morphine gtt
scopolamine patch for secretions
Assessment / Plan
Assessment / Plan
Limited Physical Exam Comfort Measures
Gen: no acute distress, appears comfortable at this time
Resp: periods of apnea noted
Neuro: nonverbal, sedated
A/P: 58M ETOH cirrhosis here for GIB and Hepatic Encephalopathy. Hospital course complicated with bilateral upper Ext DVT and likely aspiration pneumonia with associated Acute Hypoxic Respiratory Failure. Later further complicated with Flu
infection.
Acute respiratory insufficiency and hematemesis
Flu pos 07/26/24
Rapid response night on 07/27:
Patient had hematemesis and increased work of breathing as well as increased lactate
Transferred back to IMU
Respiratory issues most likely stemming from abdominal pressure from ascites coupled with recent influenza and profound deconditioning.
CT 07/27 scan showed large volume ascites.
IR eval appreciated s/p paracentesis 1L fluid drawn
07/27 Reviewed ABG Mild metabolic acidosis with compensatory respiratory alkalosis
Pulm eval appreciated off IV steroids no clear benefit
Briefly received a few doses Tamiflu but since unable d/t NPO 2/2 increased Aspiration Risk fluctuating mental status
Lactic acidosis
Likely related to decreased liver clearance of lactate.
sporadic high values >4 likely compounded by associate respiratory distress/increased work of breathing
Overall trended down
Acute upper GI bleed:
EGD showed portal gastropathy
Continue PPI, Protonix 40 mg IV twice a day
completed a course of octreotide and Rocephin
GI eval appreciated repeat EGD performed 07/20/24 w/ results as follows, repeat ocreotide gtt completed, protonix 40 mg BID, repeat EGD in 4 wks
07/20/24 EGD
Grade II esophageal varices. Completely eradicated. Banded x2
- Bilious gastric fluid.
- Portal hypertensive gastropathy.
- Normal duodenal bulb, first portion of the duodenum and second portion of the duodenum. Biopsied.
Acute toxic-metabolic encephalopathy:
Hospital Associated Delirium
Toxic metabolic encephalopathy with recent hepatic encephalopathy (cannot rule out Wernicke-Korsakoff encephalopathy):
weaned off Precedex
received IV Thiamine
treated with lactulose rifaximin as tolerated
received Lactulose enema prn when unable to tolerate oral meds
Neuro Pysch eval appreciated
Check Writer/Pulm Eval appreciated
07/20/24 Rapid Response Respiratory Distress agitation likely delirium
Seroquel 25 mg QPM was started later tapered to 12.5 mg qpm
EKG checked prior start Seroquel noted no significant QT prolongation.
Mental status briefly improved and patient was advanced to soft bite sized diet until rapid response 07/27 acute respiratory insufficiency and hematemesis as above
Mental status since worsened with patient diet downgraded back to NPO due to increased risk aspiration.
Bilateral Acute DVT upper extremities:
Challenging situation given recent GI bleed
Discussed with GI following repeat EGD as above, cleared to start hep gtt w/o bolus, appeared to be tolerating well prior to switch to Eliquis since discontinued due to rapid response hematemesis as above.
Earlier in Course of Hospitalization, Prior Acute respiratory failure
Possible Aspiration Pneumonia, completed course of treatment.
Dysphagia:
patient was on tube feeds d/t concerns aspiration lethargy AMS, however tube was removed three times overnight by patient
treated with empiric zosyn narrowed to unasyn, completed total 5 days abx
blood cultures x2 NGTD
patient was briefly weaned off oxygen supplementation stable respiratory status on room air until events as above
B/L R>L Pleural effusion
Ascites
Status post thoracentesis 360 mL drawn
s/p paracentesis as above
previously on Lasix 20 mg IV twice a day- placed on hold d/t SUSIE
Lasix later resumed, with resolution SUSIE, at 40 mg daily titrated up to 80 mg, and Aldactone added at 25 mg as per Nephro
Lasix and Aldactone since on held d/t NPO status unsafe for oral meds d/t AMS and high aspiration risk
Hypokalemia
monitored and repleted as necessary
SUSIE resolved
Hypernatremia resolved
Acute blood loss anemia
Anemia of Chronic Disease
Iron Deficiency Anemia
Pancytopenia 2/2 Cirrhosis
Monitor hemoglobin
received 3 doses IV iron supplementation, switched to PO but unable to tolerate d/t NPO status as above
received 5PRBC transfusion over the course of hospitalization
Alcohol liver cirrhosis:
MELD score labs-hx MELD score 18
Poor prognosis, Palliative/Hospice evals appreciated patient hospice appropriate discussed with patient's family (tebfix-cu-kwi Jojo and mother Nuvia). Patient was subsequently transitioned to comfort care as per family's wishes.
DVT prophylaxis:
SCD's
CODE STATUS:
DNR
I spent a total of 35 minutes with the patient or on the floor. More than 50% of this time involved counseling and coordination of care.
Anticipated Discharge: 24 - 48 hours
Subjective/Interval History
-
Date of Service: August 01, 2024
nonverbal sedated. appears comfortable at time of evaluation. on morphine gtt
Objective Data
-
Vital Signs:
Vital Signs
Temp Pulse Resp BP Pulse Ox
97.7 F 87 8 124/81 95
07/31/24 19:39 07/31/24 19:39 07/31/24 17:00 07/31/24 19:39 07/31/24 19:39
I&O
07/30/24 07/31/24 08/01/24
06:59 06:59 06:59
Intake Total 620.40 / 620.40
Output Total 450 / 450
Balance 620.40 / 620.40 -450 / -450
[2024-08-01 07:45] VITALS: BP 113/70
[2024-08-01] MEDS: ATIVAN 2 MG IV (07:46)
[2024-08-01] MEDS: TRANSDERM-SCOP 1 PATCH TRANSDERM (10:18)
--- NOTE | 2024-08-01 10:50 | PTCARENOTE ---
Patient with excessive oral secretions despite administration of PRN IV robinul, orally suctioned for brown/aguilar thick mucus. Patient receiving PRN IV morphine for labored breathing, morphine gtt infusion increased to step 3 per protocol, infusing
through R IJ at 4 mg/hr. MD made aware of excessive secretions/gurgling, scop patch ordered per MD and applied to patient's R posterior ear - see JUL.
--- NOTE | 2024-08-01 10:56 | CM ---
Reviewed the chart notes. Patient now on Morphine gtt. CM continues to be available to patient/family.
Plan: Comfort care.
[2024-08-01] MEDS: MORPHINE SULFATE 4 MG IV ×2 (12:37→16:16)
--- NOTE | 2024-08-01 13:43 | HOSPNOTE ---
Patient appears comfortable at this time, is unresponsive, increased secretions noted Robinol given and a SCOP patch applied. Patient was turned and repositioned. Will continue to follow, no family was present at the time of my visit.
--- NOTE | 2024-08-01 18:37 | W.PN.DEATH ---
Pronouncement of
-
Called to see patient to pronounce.
No spontaneous heart tones or respirations noted.
Patient not responsive to verbal stimuli.
No neurological signs of life
Patient is pronounced .
Time of : 18:30
Date of : 08/01/24
Cause of : Hypoxemia
Family Notified: Yes
--- NOTE | 2024-08-01 18:41 | PTCARENOTE ---
Addendum entered by Maria D Zabala RN 08/01/24 19:12:
R IJ removed, [facility] notified. Per MD, mother notified.
Original Note:
This RN went into room to assess patient, patient unresponsive with no spontaneous breathing, no heart or lung sounds on auscultation. MD and cross coverage made aware to come to bedside. Morphine gtt wasted with second RN, michael removed.
--- NOTE | 2024-08-01 22:01 | W.DCSUMMARY ---
Discharge Summary
Discharge Data
Date of Admission: 07/05/24
Date of Discharge: 08/01/24
-
Pending Results: No
Discharge Plan
-
Patient Disposition:
Date/Time
Date/Time: 08/01/24 18:30
Discharge Date and Time
Discharge Date/Time: 08/01/24 20:27
Print Language: [place]
== END 2024-08-01 18:30 | disposition expired | DRG 207 ==
LOC: 2 NORTH 20:47
PROVIDERS: Hospitalist; Internal Medicine; Internal Medicine Critical Care Medicine; Internal Medicine Gastroenterology; Nurse Practitioner Adult Health; Nurse Practitioner Family; Radiology Diagnostic Radiology; Radiology Vascular & Interventional Radiology; Specialist; ADMITTING PHYSICIAN Hospitalist; ATTENDING PHYSICIAN Internal Medicine; CONSULT PHYSICIAN Internal Medicine; CONSULT PHYSICIAN Internal Medicine Critical Care Medicine; CONSULT PHYSICIAN Internal Medicine Hospice and Palliative Medicine; CONSULT PHYSICIAN Psychiatry & Neurology Clinical Neurophysiology; EMERGENCY PHYSICIAN Emergency Medicine; OTHER PHYSICIAN Psychiatry & Neurology Psychiatry
PROC: 0D9670Z Drainage of Stomach with Drainage Device, Via Natural or Artificial Opening (ICD-10-PCS; 2024-07-05)
PROC: 5A1955Z Respiratory Ventilation, Greater than 96 Consecutive Hours (ICD-10-PCS; 2024-07-05)
PROC: 30233N1 Transfusion of Nonautologous Red Blood Cells into Peripheral Vein, Percutaneous Approach (ICD-10-PCS; 2024-07-05)
PROC: 0BH17EZ Insertion of Endotracheal Airway into Trachea, Via Natural or Artificial Opening (ICD-10-PCS; 2024-07-05)
PROC: 0DJ08ZZ Inspection of Upper Intestinal Tract, Via Natural or Artificial Opening Endoscopic (ICD-10-PCS; 2024-07-06)
PROC: 0DH67UZ Insertion of Feeding Device into Stomach, Via Natural or Artificial Opening (ICD-10-PCS; 2024-07-09)
PROC: 0BP1XDZ Removal of Intraluminal Device from Trachea, External Approach (ICD-10-PCS; 2024-07-10)
PROC: 02H633Z Insertion of Infusion Device into Right Atrium, Percutaneous Approach (ICD-10-PCS; 2024-07-12)
PROC: B5181ZA Fluoroscopy of Superior Vena Cava using Low Osmolar Contrast, Guidance (ICD-10-PCS; 2024-07-12)
PROC: 0W993ZZ Drainage of Right Pleural Cavity, Percutaneous Approach (ICD-10-PCS; 2024-07-12)
PROC: 30243N1 Transfusion of Nonautologous Red Blood Cells into Central Vein, Percutaneous Approach (ICD-10-PCS; 2024-07-18)
PROC: 0DB98ZX Excision of Duodenum, Via Natural or Artificial Opening Endoscopic, Diagnostic (ICD-10-PCS; 2024-07-19)
PROC: 0W9G3ZX Drainage of Peritoneal Cavity, Percutaneous Approach, Diagnostic (ICD-10-PCS; 2024-07-27)
DX: J96.01 Acute respiratory failure with hypoxia (principal); G92.8 Other toxic encephalopathy; J69.0 Pneumonitis due to inhalation of food and vomit; K76.6 Portal hypertension; I85.10 Secondary esophageal varices without bleeding; K92.1 Melena; K92.0 Hematemesis; D62 Acute posthemorrhagic anemia; D68.4 Acquired coagulation factor deficiency; F10.239 Alcohol dependence with withdrawal, unspecified; J90 Pleural effusion, not elsewhere classified; E87.0 Hyperosmolality and hypernatremia; I82.623 Acute embolism and thrombosis of deep veins of upper extremity, bilateral; Z51.5 Encounter for palliative care; N17.9 Acute kidney failure, unspecified; E87.20 Acidosis, unspecified; D61.818 Other pancytopenia; J98.11 Atelectasis; J96.02 Acute respiratory failure with hypercapnia; K70.31 Alcoholic cirrhosis of liver with ascites; F25.9 Schizoaffective disorder, unspecified; J45.909 Unspecified asthma, uncomplicated; K21.9 Gastro-esophageal reflux disease without esophagitis; F17.290 Nicotine dependence, other tobacco product, uncomplicated; K76.82 Hepatic encephalopathy; F31.9 Bipolar disorder, unspecified; M79.604 Pain in right leg; R12 Heartburn; G93.89 Other specified disorders of brain; R14.0 Abdominal distension (gaseous); D50.9 Iron deficiency anemia, unspecified; D63.8 Anemia in other chronic diseases classified elsewhere; G89.4 Chronic pain syndrome; R13.10 Dysphagia, unspecified; E87.6 Hypokalemia; J11.1 Influenza due to unidentified influenza virus with other respiratory manifestations; I95.9 Hypotension, unspecified; D69.6 Thrombocytopenia, unspecified; E88.09 Other disorders of plasma-protein metabolism, not elsewhere classified; K31.89 Other diseases of stomach and duodenum; Z66 Do not resuscitate; Z11.52 Encounter for screening for COVID-19; Z82.49 Family history of ischemic heart disease and other diseases of the circulatory system; Z90.49 Acquired absence of other specified parts of digestive tract; Z86.73 Personal history of transient ischemic attack (TIA), and cerebral infarction without residual deficits; Z78.1 Physical restraint status
CPT/HCPCS: 88305; 31500; 32555; 36556; 36600; 49083; 51702; 70450; 71045; 71260; 74018; 74176; 74177; 76700; 76705; 76870; 76937; 77001; 80048; 80051; 80053; 80306; 80307; 81003; 81015; 82042; 82077; 82140; 82248; 82306; 82570; 82607; 82728; 82746; 82805; 82962; 83036; 83516; 83540; 83550; 83605; 83690; 83735; 83880; 84100; 84157; 84300; 84439; 84443; 84478; 85014; 85018; 85025; 85027; 85610; 85730; 86038; 86376; 86381; 86708; 86850; 86900; 86901; 86920; 87015; 87040; 87070; 87205; 87324; 87449; 87502; 87811; 88112; 88342; 89051; 92526; 92610; 93005; 93971; 93976; 94002; 94003; 94640; 95816; 96374; 96375; 97110; 97163; 97167; 97530; 97535; 99291; C1751; J2916; P9016; P9047; Q9967